=== PATIENT | female | born 1950 | race Caucasian/White ===

== ENCOUNTER → 2018-02-27 16:11 | Outpatient (CLI) | payer MEDICARE, SELFPAY ==
--- NOTE | 2018-02-27 16:17 | MM_ITS ---
MM Dig screening mamm BI w/CAD CAD Screening ORDERING PHYSICIAN : Arjun Baez PATIENT AGE: 67 years GENDER: Female COMPARISON: Previous mammograms: January 2012 & June 2010 & December 2006 INDICATION: Routine screening. No hormones. No new complaints noncontributory family history TECHNIQUE: Standard CC and MLO images were obtained. R2 CAD reviewed. FINDINGS: Lower density breast bilaterally. Minimal residual fibroglandular elements with Moderate generalized fatty replacement with No dominant mass nor suspicious calcifications . No architectural distortion. No significant change since prior study Right Breast: Small area of density at the inferior retroareolar region on was present on studies dating back to 2009 Believe is stable, can be followed however I would recommend & encourage annual follow-up to assure stability Left breast: No new findings. No new areas of concern. =====IMPRESSION: 1. Overall Stable bilateral mammogram with no significant new findings. . small area of of density inferior retroareolar region right breast appears stable since 2009 MLO view... But I would encourage follow-up in not over one year for ongoing evaluation 2. Bilateral follow-up in one year recommended & should be emphasized/encouraged to further confirm stability. Thank you BI-RADS Category: 2 Benign Finding(s) RECOMMENDED FOLLOW-UP: 1YR - 1 YEAR FOLLOW-UP (A letter has been sent to the patient regarding results of the study.) 8
== END ==
PROVIDERS: PCP Internal Medicine; Visit Provider Internal Medicine
DX: Z12.31 Encounter for screening mammogram for malignant neoplasm of breast (principal)
CPT/HCPCS: 77067

== ENCOUNTER → 2018-10-16 09:49 | Outpatient (CLI) | payer MEDICARE, SELFPAY ==
[2018-10-16 10:07] LABS: Basophils # 0.1 K/mm3 (0-0.2); Basophils % 0.6 % (0.1-2.0); Eosinophils # 0.2 K/mm3 (0.0-0.4); Eosinophils % 2.5 % (0.1-12.0); Hematocrit 37.1 % (37.0-47.0); Hemoglobin 11.7 g/dL (12.2-16.2); Lymphocytes # 1.5 K/mm3 (0.7-4.5); Mean Corpuscular HGB Conc 31.6 g/dL (31.8-35.4); Mean Corpuscular Hemoglobin 26.7 pg (27.0-31.2); Mean Corpuscular Volume 84.5 fl (81-99); Mean Platelet Volume 8.4 fl (7.4-10.4); Monocytes # 0.4 K/mm3 (0.1-1.0); Monocytes % 5.1 % (1.7-9.3); Neutrophils # 6.2 K/mm3 (1.8-7.8); Neutrophils % 73.8 % (37.0-80.0); Platelet Count 292 K/mm3 (142-424); Red Blood Count 4.39 M/mm3 (4.20-5.40); Red Cell Distribution Width 14.9 % (11.5-17.5); White Blood Count 8.4 K/mm3 (4.8-10.8)
[2018-10-16 11:15] LABS: Alanine Aminotransferase 43 U/L (12-78); Albumin Level 3.9 gm/dL (3.4-5.0); Albumin/Globulin Ratio 1.1 (1.1-1.8); Alkaline Phosphatase 43 U/L (46-116); Anion Gap 15.7 mEq/L (5-15); Aspartate Amino Transferase 22 U/L (15-37); Bilirubin,Total 0.4 mg/dL (0.2-1.0); Blood Urea Nitrogen 21 mg/dL (7-18); Calcium 9.3 mg/dL (8.5-10.1); Carbon Dioxide 28 mmol/L (21.0-32.0); Chloride 99 mmol/L (98-107); Chol/HDL Ratio 2.3 (1-3.5); Cholesterol 119 mg/dL (140-200); Creatinine,Serum 0.98 mg/dL (0.55-1.02); Estimated Glomerular Filt Rate 56 ml/min (>60); GFR (African American) 68 ML/MIN (>60); Globulin 3.5 gm/dl (1.3-3.2); Glucose 111 mg/dL (74-106); HDL Cholesterol 52 mg/dL (29-89); LDL Cholesterol 52 mg/dL (0-130); Potassium 4.7 mmoL/L (3.5-5.1); Sodium 138 mmol/L (136-145); Total Protein,Serum 7.4 gm/dL (6.4-8.2); Triglycerides 74 mg/dL (30-200); VLDL Cholesterol 15 mg/dL (0-40)
== END ==
PROVIDERS: Visit Provider Internal Medicine
DX: I10 Essential (primary) hypertension (principal); D64.9 Anemia, unspecified; E66.01 Morbid (severe) obesity due to excess calories
CPT/HCPCS: 36415; 80053; 80061; 85025

== ENCOUNTER → 2018-11-17 12:47 | Outpatient (CLI) | payer MEDICARE, SELFPAY ==
[2018-11-17 13:16] LABS: Anion Gap 14.6 mEq/L (5-15); Blood Urea Nitrogen 28 mg/dL (7-18); Calcium 9.2 mg/dL (8.5-10.1); Carbon Dioxide 29 mmol/L (21.0-32.0); Chloride 100 mmol/L (98-107); Creatinine,Serum 1.18 mg/dL (0.55-1.02); Estimated Glomerular Filt Rate 46 ml/min (>60); GFR (African American) 55 ML/MIN (>60); Glucose 114 mg/dL (74-106); Potassium 4.6 mmoL/L (3.5-5.1); Sodium 139 mmol/L (136-145)
== END ==
PROVIDERS: Visit Provider Physician Assistant
DX: I50.9 Heart failure, unspecified (principal); R06.09 Other forms of dyspnea
CPT/HCPCS: 36415; 80048; 83880

== ENCOUNTER → 2018-11-23 12:35 | Outpatient (CLI) | payer MEDICARE, SELFPAY ==
--- NOTE | 2018-11-23 12:38 | CA_ITS ---
PROCEDURE: 2-D M-mode and color Doppler study INDICATIONS FOR THE TEST: Chest pain COPD Heart Murmur Tobacco Smoking Palpitations Fatigue Syncope Edema+ Hypertension+Diabetes Mellitus Rheumatic Fever SOB YOUNG+Obesity+Hyperlipidemia+ Family History HD Additional History CHF,ANGINA,CKD PATIENT INFORMATION HEIGHT:66 WEIGHT:265 GENDER: Female B/P:118/52 2-D/M-MODE INTERPRETATION: 2-D MEASUREMENTS OBSERVED VALUES IN CMS Right Ventricular Dimension (RVDd) 1.9 Interventricular Septum (Thickness)(IVsd) 1.0 Left Ventricular Internal Dimensions(LVIDd) 5.3 Left Ventricular Posterior Wall (Thickness)(LVPWd) 0.9 Aortic Root 2.4 Aortic Cusp Separation 2.0 Left Atrial Dimensions (LAD) 3.7 2D 1. Left atrium is mildly enlarged, left ventricle is normal size, left ventricle wall thickness is upper limit of the normal, there is preserved left ventricular systolic function, visually estimated ejection fraction 55% with no regional wall motion abnormality. 2. The right atrium and right ventricle are normal size and contractility. 3. The aortic valve is minimally thickened and fibrosed. 4. The mitral and tricuspid valvular grossly normal. 5. The pulmonic valve is poorly visualized. 6. No significant pericardial effusion noted. DOPPLER INTERROGATION: Doppler interrogation of the aortic, mitral and tricuspid valvular presence of mild mitral and tricuspid regurgitation, tricuspid regurgitation jet velocity is inadequate for calculation of the right ventricular systolic pressure, diastolic parameters are inconclusive. CONCLUSION: 1. Mildly enlarged left atrium, normal left ventricular size, visually estimated ejection fraction 55% with no regional wall motion abnormality, diastolic parameters are inconclusive. 2. Mild mitral and tricuspid regurgitation 3. No significant pericardial effusion noted.
== END ==
PROVIDERS: PCP Internal Medicine; Visit Provider Internal Medicine
DX: R06.09 Other forms of dyspnea; E66.01 Morbid (severe) obesity due to excess calories; E78.5 Hyperlipidemia, unspecified; I20.9 Angina pectoris, unspecified; I50.32 Chronic diastolic (congestive) heart failure; I50.9 Heart failure, unspecified; I51.7 Cardiomegaly; N18.9 Chronic kidney disease, unspecified; R60.9 Edema, unspecified
CPT/HCPCS: 93306

== ENCOUNTER → 2018-12-14 09:39 | Outpatient (CLI) | payer MEDICARE, SELFPAY ==
[2018-12-14 13:11] LABS: Anion Gap 12.3 mEq/L (5-15); Blood Urea Nitrogen 26 mg/dL (7-18); Calcium 9.4 mg/dL (8.5-10.1); Carbon Dioxide 28 mmol/L (21.0-32.0); Chloride 103 mmol/L (98-107); Creatinine,Serum 0.82 mg/dL (0.55-1.02); Estimated Glomerular Filt Rate 69 ml/min (>60); GFR (African American) 84 ML/MIN (>60); Glucose 94 mg/dL (74-106); Potassium 4.3 mmoL/L (3.5-5.1); Sodium 139 mmol/L (136-145)
== END ==
PROVIDERS: Visit Provider Internal Medicine Cardiovascular Disease
DX: I50.32 Chronic diastolic (congestive) heart failure; E66.01 Morbid (severe) obesity due to excess calories; E78.5 Hyperlipidemia, unspecified; I50.9 Heart failure, unspecified; I51.7 Cardiomegaly; N18.9 Chronic kidney disease, unspecified
CPT/HCPCS: 36415; 80048; 83880

== ENCOUNTER → 2018-12-15 12:50 | Outpatient (CLI) | payer MEDICARE, SELFPAY | PROVIDERS: PCP Internal Medicine; Visit Provider Internal Medicine Cardiovascular Disease | DX: I50.32 Chronic diastolic (congestive) heart failure; R06.83 Snoring; R40.0 Somnolence; E66.01 Morbid (severe) obesity due to excess calories; E78.5 Hyperlipidemia, unspecified; I51.7 Cardiomegaly; N18.9 Chronic kidney disease, unspecified; G47.33 Obstructive sleep apnea (adult) (pediatric) | CPT/HCPCS: G0399 ==

== ENCOUNTER → 2019-03-22 09:46 | Outpatient (CLI) | payer MEDICARE, SELFPAY | PROVIDERS: Visit Provider Internal Medicine Cardiovascular Disease | DX: R06.00 Dyspnea, unspecified; R07.9 Chest pain, unspecified; E78.5 Hyperlipidemia, unspecified; I50.32 Chronic diastolic (congestive) heart failure; I50.9 Heart failure, unspecified; N18.9 Chronic kidney disease, unspecified; E66.01 Morbid (severe) obesity due to excess calories; G47.33 Obstructive sleep apnea (adult) (pediatric) | CPT/HCPCS: 36415; 83880 ==

== ENCOUNTER → 2019-03-27 08:52 | Outpatient (CLI) | payer MEDICARE, SELFPAY ==
--- NOTE | 2019-03-27 08:52 | CA_ITS ---
PROCEDURE: 2-D M-mode and color Doppler study INDICATIONS FOR THE TEST: Chest pain X COPD Heart Murmur Tobacco Smoking Palpitations Fatigue Syncope Edema HypertensionXDiabetes Mellitus Rheumatic Fever SOBXDOEXObesityXHyperlipidemiaX Family History HD Additional History PATIENT INFORMATION HEIGHT: 69 WEIGHT:267 GENDER: Female B/P:111/58 2-D/M-MODE INTERPRETATION: 2-D MEASUREMENTS OBSERVED VALUES IN CMS Right Ventricular Dimension (RVDd) 2.3 Interventricular Septum (Thickness)(IVsd) .8 Left Ventricular Internal Dimensions(LVIDd) 5.1 Left Ventricular Posterior Wall (Thickness)(LVPWd) .8 Aortic Root 3.2 Aortic Cusp Separation 1.9 Left Atrial Dimensions (LAD) 3.0 2D 1. Left atrium is mildly enlarged, left ventricle is normal size, mild concentric left ventricular hypertrophy, visually estimated ejection fraction 55% with no regional wall motion abnormality. 2. The right atrium and right ventricle are normal size and contractility. 3. The aortic valve is minimally thickened and fibrosed. 4. The mitral and tricuspid valvular grossly normal. 5. The pulmonic valve is poorly visualized. 6. No significant pericardial effusion noted. DOPPLER INTERROGATION: Doppler interrogation of the aortic, mitral and tricuspid valvular presence of mild mitral and tricuspid regurgitation, tricuspid regurgitation jet velocity is inadequate for calculation of the right ventricular systolic pressure, grade 1 diastolic dysfunction seen with tissue Doppler evidence of raised left atrial pressure. CONCLUSION: 1. Mildly enlarged left atrium, normal left ventricular size, mild concentric left ventricular hypertrophy, visually estimated ejection fraction 55% with no regional wall motion abnormality, grade 1 diastolic dysfunction seen with tissue Doppler evidence of raised left atrial pressure. 2. Mild mitral and tricuspid regurgitation 3. No significant pericardial effusion noted.
== END ==
PROVIDERS: PCP Internal Medicine; Visit Provider Internal Medicine Cardiovascular Disease
DX: R06.00 Dyspnea, unspecified; R07.9 Chest pain, unspecified; E78.5 Hyperlipidemia, unspecified; I50.32 Chronic diastolic (congestive) heart failure; N18.9 Chronic kidney disease, unspecified; E66.01 Morbid (severe) obesity due to excess calories; G47.33 Obstructive sleep apnea (adult) (pediatric)
CPT/HCPCS: 93306

== ENCOUNTER → 2019-08-08 15:32 | Outpatient (CLI) | payer MEDICARE, SELFPAY ==
--- NOTE | 2019-08-08 15:45 | XR_ITS ---
PROCEDURE: XR LUMBAR SPINE MIN 4V CLINICAL INDICATION: S/P FALL,LOW BACK PAIN,COCCYX PAIN COMPARISON: XR COCCYX 2V from 08/08/2019 FINDINGS: There is severe degenerative disc disease at L5-S1 with grade 2 spondylitic spondylolisthesis of L5 on S1. There is 1.5 cm anterolisthesis of L5. degenerative disc disease is present in the lower thoracic spine. No acute fracture or dislocation. Facet arthritic changes are present at L5-S1. The sacrum and coccyx have an unremarkable appearance. The SI joints show mild degenerative change on the left. IMPRESSION: 1. Grade 2 spondylolisthesis of L5 on S1 with degenerative disc disease at that level. The spondylolisthesis appears spondylitic in nature. CT or MRI could confirm. 2. Facet arthritic changes at L5-S1 3. Unremarkable sacrum/coccyx Dictated by: Andre Tran MD 08/08/2019 17:11 Electronically signed by Andre Tran MD in [place] 08/08/2019 17:11
== END ==
PROVIDERS: PCP Internal Medicine; Visit Provider Internal Medicine
DX: M54.5 Low back pain (principal); M53.3 Sacrococcygeal disorders, not elsewhere classified
CPT/HCPCS: 72110; 72220

== ENCOUNTER → 2019-08-13 12:31 | Outpatient (CLI) | payer MEDICARE, SELFPAY ==
[2019-08-13 13:07] LABS: Anion Gap 12.6 mEq/L (5-15); Blood Urea Nitrogen 19 mg/dL (7-18); Calcium 9.2 mg/dL (8.5-10.1); Carbon Dioxide 27 mmol/L (21.0-32.0); Chloride 103 mmol/L (98-107); Creatinine,Serum 0.71 mg/dL (0.55-1.02); Estimated Glomerular Filt Rate 82 ml/min (>60); GFR (African American) 99 ML/MIN (>60); Glucose 104 mg/dL (74-106); Potassium 4.6 mmoL/L (3.5-5.1); Sodium 138 mmol/L (136-145)
== END ==
PROVIDERS: Visit Provider Internal Medicine
DX: I10 Essential (primary) hypertension (principal)
CPT/HCPCS: 36415; 80048

== ENCOUNTER 2019-08-14 22:03 | Inpatient (IN) ==
[2019-08-14 22:46] LABS: Basophils % 0.6 % (0.1-2.0); Eosinophils # 0.1 K/mm3 (0.0-0.4); Eosinophils % 1.9 % (0.1-12.0); Lymphocytes # 1.5 K/mm3 (0.7-4.5); Lymphocytes % 25.2 % (10-50); Mean Corpuscular HGB Conc 29.6 g/dL (31.8-35.4); Mean Corpuscular Volume 65.6 fl (81-99); Mean Platelet Volume 7.8 fl (7.4-10.4); Monocytes # 0.3 K/mm3 (0.1-1.0); Monocytes % 5.5 % (1.7-9.3); Neutrophils # 3.9 K/mm3 (1.8-7.8); Neutrophils % 66.8 % (37.0-80.0); Platelet Count 246 K/mm3 (142-424); Red Blood Count 2.51 M/mm3 (4.20-5.40); Red Cell Distribution Width 17.4 % (11.5-17.5); White Blood Count 5.9 K/mm3 (4.8-10.8)
[2019-08-14 22:53] LABS: Hematocrit 17.8 % (37.0-47.0); Hemoglobin 4.9 g/dL (12.2-16.2)
[2019-08-14 22:54] LABS: Alanine Aminotransferase 29 U/L (12-78); Albumin Level 3.4 gm/dL (3.4-5.0); Alkaline Phosphatase 37 U/L (46-116); Anion Gap 13.6 mEq/L (5-15); Aspartate Amino Transferase 19 U/L (15-37); Bilirubin,Total 0.3 mg/dL (0.2-1.0); Blood Urea Nitrogen 18 mg/dL (7-18); Calcium 8.9 mg/dL (8.5-10.1); Carbon Dioxide 25 mmol/L (21.0-32.0); Chloride 103 mmol/L (98-107); Globulin 3.5 gm/dl (1.3-3.2); Glucose 113 mg/dL (74-106); Sodium 138 mmol/L (136-145); Total Protein,Serum 6.9 gm/dL (6.4-8.2)
--- NOTE | 2019-08-14 23:00 | Emergency Department Note ---
ED Disposition Clinical Impression: Anemia Qualifiers: Anemia type: unspecified type Qualified Code(s): D64.9 - Anemia, unspecified Obesity Qualifiers: Obesity type: due to excess calories Obesity classification: adult class 3 (BMI >= 40) Serious obesity comorbidity presence: with serious comorbidity Body mass index: BMI 40.0-44.9 Qualified Code(s): E66.01 - Morbid (severe) obesity due to excess calories; Z68.41 - Body mass index (BMI) 40.0-44.9, adult Disposition: Admitted as Observation Condition on Discharge: Good Referrals: Arjun Baez [Primary Care Provider] - - Critical Care Critical Care Time: No Attestation: On 08/14/19, the high probability of a clinically significant, sudden or life threatening deterioration of the following system(s) required my full and direct attention, intervention and personal management. The time I documented below is in addition to time spent performing reported procedures but includes the following listed in this critical care notation. Medical Decision Making - Medical Records Medical records reviewed: Yes: I reviewed the patient's medical records. - Franck Inquiry Pt receiving controlled substance: No Vital Signs: 08/14/19 22:14 Temperature 99.3 F Temperature Source Oral Pulse Rate [Right Brachial] 117 H Respiratory Rate 16 Blood Pressure [Right Arm] 131/77 Blood Pressure Mean [Right Arm] 95 Blood Pressure Source [Right Arm] Automatic Cuff Blood Pressure Position [Right Arm] Sitting 02 Sat by Pulse Oximetry 98 Oxygen Delivery Method Room Air - Lab Data Lab results reviewed: Yes: I reviewed the patient's lab results. Lab Results 08/14/19 22:15: WBC 5.9, RBC 2.51 L, Hgb 4.9 L*, Hct 17.8 L*, MCV 65.6 L, MCH 19.4 L, MCHC 29.6 L, RDW 17.4, Plt Count 246, MPV 7.8, Neut % (Auto) 66.8, Lymph % (Auto) 25.2, Pratt % (Auto) 5.5, Eos % (Auto) 1.9, Baso % (Auto) 0.6, Neut # (Auto) 3.9, Lymph # (Auto) 1.5, Pratt # (Auto) 0.3, Eos # (Auto) 0.1, Baso # (Auto) 0.0 08/14/19 22:15: Sodium 138, Potassium 3.6 D, Chloride 103, Carbon Dioxide 25, Anion Gap 13.6, BUN 18, Creatinine 0.83, Estimated Creat Clear 50, Estimated GFR 68, Est GFR ( Amer) 82, Glucose 113 H, Calcium 8.9, Total Bilirubin 0.3, AST 19, ALT 29, Alkaline Phosphatase 37 L, Troponin I < 0.02, Total Protein 6.9, Albumin 3.4, Globulin 3.5 H, Albumin/Globulin Ratio 1.0 L 08/14/19 22:15: Lactate 1.0 08/14/19 23:12: Crossmatch (AHG) See Detail Result diagrams: 08/14/19 22:15 08/14/19 22:15 Orders (Tests/Meds): ED MEDICATIONS Generic Name Dose Route Start Last Admin Trade Name Freq PRN Reason Stop Dose Admin Sodium Chloride 250 mls @ 25 mls/hr 08/14/19 23:00 Sod Chlor 0.9% 250ml Bag IV 08/15/19 22:59 .Q10H BALDEMAR ORDERS Category Date Time Status PRBC [Red Blood Cells] Stat BBK 08/14/19 23:12 Received Type and Screen Stat BBK 08/14/19 23:12 Received Chest XR 2 view (NOT portable) [XR chest 2V] Stat Exams 08/14/19 22:21 Taken Urinalysis and Microscopic Stat Lab 08/14/19 22:21 Ordered Blood Culture Stat Micro 08/14/19 22:15 Received - Radiology Data #1 Image(s): Chest Image Reviewed: Yes I reviewed the patient's radiology image Preliminary Findings: Abnormal (nonspecific) - ECG Data Tracing #1 Arrhythmias present: sinus tach Ischemic changes: non-specific ST-T wave changes Weakness HPI - General Chief complaint: Weakness Stated complaint: sob,sICK AT STOMACH Time Seen by Provider: 08/14/19 22:59 Mode of Arrival: Wheelchair Source of Information: Patient, Spouse, Relative, Medical Record Limitations: No Limitations Description of Symptoms (Recalled from ER Triage Doc. by RN): Pt c/o SOA, dry heaves and generally not feeling well since Tuesday. - History of Present Illness HPI Narrative: pt with chest fullness and weakness with recent fall - pt with no vomiting but has nausea - pt was seen by pcp this week with xray pelvis - no fx with back changes Complaint: generalized weakness Onset (ago): hour(s) Location: generalized Severity: moderate Associated symptoms: denies other symptoms - Related Data Home Medications Medication Instructions Recorded Confirmed aspirin 81 mg tablet,delayed 81 mg PO QDAY 12/12/17 06/14/19 release citalopram 20 mg tablet 20 mg PO QDAY 12/12/17 06/14/19 lisinopril 20 mg tablet 20 mg PO QDAY 12/12/17 06/14/19 pravastatin 80 mg tablet 80 mg PO QHS 12/12/17 06/14/19 tramadol 50 mg tablet 50 mg PO BID tab 12/12/17 06/14/19 spironolactone 25 mg tablet 25 mg PO DAILY tab 12/07/18 06/14/19 Metoprolol Succinate 50 mg PO DAILY 08/14/19 Omeprazole [Omeprazole 40mg 40 mg PO QDAY 08/14/19 Capsule] Ropinirole HCl 1 mg PO QHS 08/14/19 Verapamil HCl [Verapamil ER] 120 mg PO DAILY 08/14/19 Previous Rx's Medication Instructions Recorded furosemide 40 mg tablet 40 mg PO BID PRN #60 tab 04/19/19 Allergies Allergy/AdvReac Type Severity Reaction Status Date / Time Penicillins Allergy Intermediate I-RASH Verified 08/14/19 22:17 Sulfa (Sulfonamide Allergy Intermediate I-RASH Verified 08/14/19 22:17 Antibiotics) [facility] History - Hepatitis A Screen Drug use history?: No High risk sexual behaviors?: No History of sexually transmitted infection?: No Currently employed?: No Childcare worker?: No Do you have indoor plumbing?: Yes Do you have electricity?: Yes Attestation statement:: This patient has been screened for Hepatitis A risk factors. I have reviewed the patient's past medical history: Yes Medical History: Reports:: Congestive Heart Failure, Gastroesophageal Reflux Disease(GERD), Hyperlipidemia, Hypertension, Renal Disease Other Surgeries: Yes: No Previous Surgery, Hysterectomy-Total - Social History Smoking Status: Never smoker Alcohol Intake: never Substance Use Type: denies use Occupational Status: unemployed Family Hx:: Cancer, Coronary Artery Disease Comment: aunt of heart problems when she was 27 ROS Obtained: Yes All systems reviewed & no additional complaints - Constitutional Constitutional: Denies fever(s) - Eyes Eyes: Denies change in vision - ENT Ears, Nose, Mouth, and Throat: Denies sore throat - Cardiovascular Cardiovascular: Reports chest pain, Denies dyspnea - Respiratory Respiratory: No cough - Gastrointestinal Gastrointestingal: Denies: abdominal pain, black, tarry stools - Genitourinary Female Genitourinary: Denies hematuria - Musculoskeletal Musculoskeletal: Denies joint pain, Denies neck pain - Integumentary/Breasts Skin/Breast: Denies rash - Neurologic Neurologic: Denies abnormal speech, Denies focal weakness, Denies seizure-like activity Physical Exam - General General appearance: alert - Head Head exam: normocephalic - Eye Eye exam: Present: PERRL, EOMI. Absent: scleral icterus - ENT ENT exam: Present: mucous membranes dry - Neck Neck exam: Present: trachea midline - Respiratory Respiratory exam: Absent: respiratory distress - Cardiovascular Cardiovascular exam: Present: regular rate, systolic murmur, +S4 - Abdominal Exam Abdominal exam: Present: soft - Extremities Exam Extremities exam: Present: full ROM - Neurological Exam Neurological exam: Present: alert, oriented X3, CN II-XII intact. Absent: motor sensory deficit - Psychiatric Psychiatric exam: Present: normal affect - Skin Skin exam: Absent: rash
[2019-08-15 03:10] LABS: Appearance,Urine CLEAR (Clear); Bilirubin,Urine Negative (Negative); Blood, Urine Negative (Negative); Color,Urine YELLOW (Yellow); Glucose,Urine (UA) Negative (Negative); Ketones,Urine Negative (Negative); Leukocyte Esterase,Urine TRACE (Negative); Microscopic, Urine URINE MICROSCOPIC (MICROSCOPIC); PH,Urine 5.5 (5.0-8.5); Protein,Urine Negative (Negative); Specific Gravity, Urine 1.025 (1.005-1.030); Urobilinogen,Urine 0.2 EU/dl (0.2)
[2019-08-15 03:52] LABS: Bacteria,Urine 1+ /lpf; Mucus,Urine 1+ /lpf
[2019-08-15 07:20] LABS: Chol/HDL Ratio 2.2 (1-3.5); Cholesterol 87 mg/dL (140-200); HDL Cholesterol 40 mg/dL (29-89); LDL Cholesterol 38 mg/dL (0-130); Triglycerides 44 mg/dL (30-200); VLDL Cholesterol 9 mg/dL (0-40)
--- NOTE | 2019-08-15 07:39 | Pharmacy Consult Notes ---
[facility] Pharmacy VTE Monitoring - Patient Demographics Admission date: 08/14/19 Report Date: 08/15/19 Time: 07:39 Allergies/Adverse Reactions: Patient Allergies Penicillins Allergy (Intermediate, Verified 08/14/19 22:17) I-RASH Sulfa (Sulfonamide Antibiotics) Allergy (Intermediate, Verified 08/14/19 22:17) I-RASH Height: 1.68 m Weight: 123.377 kg Patient Problems: Current Active Problems Anemia (Acute) Obesity (Acute) - VTE Risk Labs: VTE Related Lab Results Hgb 4.9 g/dL (12.2-16.2) L* 08/14/19 22:15 Hct 17.8 % (37.0-47.0) L* 08/14/19 22:15 Plt Count 246 K/mm3 (142-424) 08/14/19 22:15 BUN 18 mg/dL (7-18) 08/14/19 22:15 Creatinine 0.83 mg/dL (0.55-1.02) 08/14/19 22:15 Estimated Creat Clear 50 mL/min (50-200) 08/14/19 22:15 Was VTE Risk Assessment Performed: Yes VTE Risk Level: Low Risk - Prophylaxis VTE Prophylaxis Ordered?: Yes Types of VTE Prophylaxis: TEDS Knee High Location of Applied Device: Bilateral Lower Extremeties - VTE Diagnosis Confirmed Treatment or plan recommended: Continue Current Treatment
--- NOTE | 2019-08-15 08:47 | History & Physical Report ---
*Admission Date: 08/14/19 *Chief complaint: weakness *History of present illness: this wf presented to the ed last pm with progressive weakness and fall with element of chest fullness - she denied vomiting or diarrhea and no melena - she reports colonoscopy about 2 yrs ago - pt was found to have acute blood loss anemia in the ed and waqs admitted for eval and treatment including blood transfusion [facility] History I have reviewed the patient's past medical history: Yes Medical History: Reports:: Congestive Heart Failure, Gastroesophageal Reflux Disease(GERD), Hyperlipidemia, Hypertension, Renal Disease *Have you ever received a pneumonia vaccine?: No *Have you received a flu vaccine this season?: No Other Surgeries: Yes: No Previous Surgery, Hysterectomy-Total - *Social History Smoking Status: Never smoker Alcohol Intake: never Substance Use Type: denies use *Occupational Status:: unemployed *Travel in the last 8 weeks: None Family Hx:: Cancer, Coronary Artery Disease Review of Systems - Review of Systems Review of systems:: pertinent systems reviewed and negative unless documented below - Constitutional Reports fatigue, Reports weakness, Denies fever(s) - Eyes Denies change in vision - ENT Denies headache(s), Denies sore throat - *Cardiovascular Reports chest pain at rest, Reports lightheadedness - *Respiratory Denies cough - *Gastrointestinal Reports nausea, Denies abdominal pain, Denies black, tarry stools - *Genitourinary Denies blood in urine, Denies heavy periods - *Musculoskeletal Denies joint pain - Integumentary/Breasts Denies rash - *Neurologic Denies abnormal speech, Denies localized weakness, Denies seizure-like activity - Psychiatric Denies anxiety Meds Home Medications Medication Instructions Recorded Confirmed Type aspirin 81 mg tablet,delayed 81 mg PO DAILY 12/12/17 08/15/19 History release citalopram 20 mg tablet 20 mg PO DAILY 12/12/17 08/15/19 History pravastatin 80 mg tablet 80 mg PO HS 12/12/17 08/15/19 History tramadol 50 mg tablet 50 mg PO Q6HP PRN tab 12/12/17 08/15/19 History furosemide 40 mg tablet 40 mg PO BID PRN #60 tab 04/19/19 08/15/19 Rx Metoprolol Succinate 50 mg PO DAILY 08/14/19 08/15/19 History Omeprazole [Omeprazole 40mg 40 mg PO DAILY 08/14/19 08/15/19 History Capsule] Ropinirole HCl 1 - 2 mg PO HS 08/14/19 08/15/19 History Verapamil HCl [Verapamil ER] 120 mg PO DAILY 08/14/19 08/15/19 History Lisinopril [Lisinopril 10mg Tab] 10 mg PO DAILY 08/15/19 08/15/19 History Spironolactone [Spironolactone 25 mg PO BID 08/15/19 08/15/19 History 25mg Tablet] Allergies Allergy/AdvReac Type Severity Reaction Status Date / Time Penicillins Allergy Intermediate I-RASH Verified 08/14/19 22:17 Sulfa (Sulfonamide Allergy Intermediate I-RASH Verified 08/14/19 22:17 Antibiotics) Exam Vital signs and Labs for Last 24 Hours: Temp Pulse Resp BP Pulse Ox 98.7 F 75 16 146/68 H 99 08/15/19 08:35 08/15/19 08:35 08/15/19 08:35 08/15/19 08:35 08/15/19 08:35 Laboratory Results - last 24 hr 08/14/19 22:15: WBC 5.9, RBC 2.51 L, Hgb 4.9 L*, Hct 17.8 L*, MCV 65.6 L, MCH 19.4 L, MCHC 29.6 L, RDW 17.4, Plt Count 246, MPV 7.8, Neut % (Auto) 66.8, Lymph % (Auto) 25.2, Garden % (Auto) 5.5, Eos % (Auto) 1.9, Baso % (Auto) 0.6, Neut # (Auto) 3.9, Lymph # (Auto) 1.5, Garden # (Auto) 0.3, Eos # (Auto) 0.1, Baso # (Auto) 0.0 08/14/19 22:15: Sodium 138, Potassium 3.6 D, Chloride 103, Carbon Dioxide 25, Anion Gap 13.6, BUN 18, Creatinine 0.83, Estimated Creat Clear 50, Estimated GFR 68, Est GFR ( Amer) 82, Glucose 113 H, Calcium 8.9, Total Bilirubin 0.3, AST 19, ALT 29, Alkaline Phosphatase 37 L, Troponin I < 0.02, Total Protein 6.9, Albumin 3.4, Globulin 3.5 H, Albumin/Globulin Ratio 1.0 L 08/14/19 22:15: Lactate 1.0 08/14/19 22:15: Ferritin 5 L 08/14/19 23:12: Blood Type A Positive, Antibody Screen Negative, Crossmatch (AHG) See Detail 08/14/19 23:57: Stool Occult Blood Positive A 08/15/19 00:00: Blood Type Confirm A Positive 08/15/19 02:45: Urine Color Yellow, Urine Appearance Clear, Urine pH 5.5, Ur Specific [place] 1.025, Urine Protein Negative, Urine Glucose (UA) Negative, Ur ine Ketones Negative, Urine Blood Negative, Urine Nitrate Negative, Urine Bilirubin Negative, Urine Urobilinogen 0.2, Ur Leukocyte Esterase Trace, Urine RBC 3-5, Urine WBC 3-5, Ur Squamous Epith Cells 3-5, Urine Bacteria 1+, Urine Mucus 1+ 08/15/19 03:40: Troponin I < 0.02 08/15/19 06:32: Troponin I < 0.02, Triglycerides 44, Cholesterol 87 L, LDL Cholesterol 38, VLDL Cholesterol 9, HDL Cholesterol 40, Cholesterol/HDL Ratio 2.2 I & O for Last 24 hours: Intake & Output 08/12/19 08/13/19 08/14/19 08/15/19 11:59 11:59 11:59 11:59 Intake Total 293 / 293 Output Total 375 / 375 Balance -82 / -82 Weight 272 lb - Constitutional no acute distress, obese - *Routine HEENT Exam Head: Present: normocephalic Eye: Present: EOMI, PERRL. Absent: conjunctival icterus ENT: Present: mucous membranes dry - *Routine Neck Exam Present: supple. Absent: JVD - *Routine Respiratory Exam Present: CTA bilaterally - *Routine Cardiovascular Exam Present: RRR, murmur - *Routine Abdominal Exam Present: soft, tenderness - *Routine Extremities Exam Absent: calf tenderness - *Routine Skin Exam Present: intact - *Routine Neurological Exam Present: alert, oriented X3, CN II-XII intact - Routine Psychiatric Exam Present: normal affect Assessment and Plan (1) Anemia Current visit: Yes Status: Acute Qualifiers: Anemia type: unspecified type Qualified Code(s): D64.9 - Anemia, unspecified Category: Medical Code(s): D64.9 - Anemia, unspecified (2) UGIB (upper gastrointestinal bleed) Current visit: Yes Status: Acute Category: Medical Code(s): K92.2 - Gastrointestinal hemorrhage, unspecified (3) Obesity Current visit: Yes Status: Acute Qualifiers: Obesity type: due to excess calories Obesity classification: adult class 3 (BMI >= 40) Serious obesity comorbidity presence: with serious comorbidity Body mass index: BMI 40.0-44.9 Qualified Code(s): E66.01 - Morbid (severe) obesity due to excess calories; Z68.41 - Body mass index (BMI) 40.0-44.9, adult Category: Medical Code(s): E66.9 - Obesity, unspecified
--- NOTE | 2019-08-15 15:51 | Consult Report ---
*Admission Date: 08/14/19 *Reason for consult:: Anemia *History of present illness: This is a 69-year-old female seen in consultation from Dr. Oquendo for evaluation regarding severe anemia. She presented to the emergency department with increasing weakness and vague abdominal pain. She was found to have profound anemia and the surgical service was consulted for further evaluation and management. She reported no melena; however, upon present questioning she does state that she has noticed "dark stools today". No bright red blood per rectum. No hematemesis. She reports colonoscopy about 2 yrs ago. She reports that she is received 4 units of packed red blood cells since admission and "feels much better right now". Review of Systems - Constitutional Denies chills - Eyes Denies change in vision - ENT Denies bleeding gums - *Respiratory Denies cough - *Gastrointestinal Reports abdominal pain - *Genitourinary Denies blood in urine - Integumentary/Breasts Denies bleeding lesions - *Neurologic Reports weakness, Denies abnormal speech, Denies localized weakness, Denies headache(s), Denies seizure-like activity - Psychiatric Denies anxiety [facility] History Medical History: Reports:: Congestive Heart Failure, Gastroesophageal Reflux Disease(GERD), Hyperlipidemia, Hypertension, Renal Disease *Have you ever received a pneumonia vaccine?: No *Have you received a flu vaccine this season?: No Other Surgeries: Yes: No Previous Surgery, Hysterectomy-Total - *Social History Smoking Status: Never smoker Alcohol Intake: never Substance Use Type: denies use *Occupational Status:: unemployed *Travel in the last 8 weeks: None Family Hx:: Cancer, Coronary Artery Disease Meds Home Medications Medication Instructions Recorded Confirmed Type aspirin 81 mg tablet,delayed 81 mg PO DAILY 12/12/17 08/15/19 History release citalopram 20 mg tablet 20 mg PO DAILY 12/12/17 08/15/19 History pravastatin 80 mg tablet 80 mg PO HS 12/12/17 08/15/19 History tramadol 50 mg tablet 50 mg PO Q6HP PRN tab 12/12/17 08/15/19 History furosemide 40 mg tablet 40 mg PO BID PRN #60 tab 04/19/19 08/15/19 Rx Metoprolol Succinate 50 mg PO DAILY 08/14/19 08/15/19 History Omeprazole [Omeprazole 40mg 40 mg PO DAILY 08/14/19 08/15/19 History Capsule] Ropinirole HCl 1 - 2 mg PO HS 08/14/19 08/15/19 History Verapamil HCl [Verapamil ER] 120 mg PO DAILY 08/14/19 08/15/19 History Lisinopril [Lisinopril 10mg Tab] 10 mg PO DAILY 08/15/19 08/15/19 History Spironolactone [Spironolactone 25 mg PO BID 08/15/19 08/15/19 History 25mg Tablet] Allergies Allergy/AdvReac Type Severity Reaction Status Date / Time Penicillins Allergy Intermediate I-RASH Verified 08/14/19 22:17 Sulfa (Sulfonamide Allergy Intermediate I-RASH Verified 08/14/19 22:17 Antibiotics) Exam Vital signs and Labs for Last 24 Hours: Temp Pulse Resp BP Pulse Ox 98.9 F 77 16 147/62 H 99 08/15/19 15:00 08/15/19 15:00 08/15/19 15:00 08/15/19 15:00 08/15/19 15:00 Laboratory Results - last 24 hr 08/14/19 22:15: WBC 5.9, RBC 2.51 L, Hgb 4.9 L*, Hct 17.8 L*, MCV 65.6 L, MCH 19.4 L, MCHC 29.6 L, RDW 17.4, Plt Count 246, MPV 7.8, Neut % (Auto) 66.8, Lymph % (Auto) 25.2, Ritchie % (Auto) 5.5, Eos % (Auto) 1.9, Baso % (Auto) 0.6, Neut # (Auto) 3.9, Lymph # (Auto) 1.5, Ritchie # (Auto) 0.3, Eos # (Auto) 0.1, Baso # (Auto) 0.0 08/14/19 22:15: Sodium 138, Potassium 3.6 D, Chloride 103, Carbon Dioxide 25, Anion Gap 13.6, BUN 18, Creatinine 0.83, Estimated Creat Clear 50, Estimated GFR 68, Est GFR ( Amer) 82, Glucose 113 H, Calcium 8.9, Total Bilirubin 0.3, AST 19, ALT 29, Alkaline Phosphatase 37 L, Troponin I < 0.02, Total Protein 6.9, Albumin 3.4, Globulin 3.5 H, Albumin/Globulin Ratio 1.0 L 08/14/19 22:15: Lactate 1.0 08/14/19 22:15: Ferritin 5 L 08/14/19 23:12: Blood Type A Positive, Antibody Screen Negative, Crossmatch (AHG) See Detail 08/14/19 23:57: Stool Occult Blood Positive A 08/15/19 00:00: Blood Type Confirm A Positive 08/15/19 02:45: Urine Color Yellow, Urine Appearance Clear, Urine pH 5.5, Ur Sp ecific [place] 1.025, Urine Protein Negative, Urine Glucose (UA) Negative, Urine Ketones Negative, Urine Blood Negative, Urine Nitrate Negative, Urine Bilirubin Negative, Urine Urobilinogen 0.2, Ur Leukocyte Esterase Trace, Urine RBC 3-5, Urine WBC 3-5, Ur Squamous Epith Cells 3-5, Urine Bacteria 1+, Urine Mucus 1+ 08/15/19 03:40: Troponin I < 0.02 08/15/19 06:32: Troponin I < 0.02, Triglycerides 44, Cholesterol 87 L, LDL Cholesterol 38, VLDL Cholesterol 9, HDL Cholesterol 40, Cholesterol/HDL Ratio 2.2 I & O for Last 24 hours: Intake & Output 08/13/19 08/14/19 08/15/19 08/16/19 11:59 11:59 11:59 11:59 Intake Total 293 / 293 0 / 0 Output Total 375 / 375 Balance -82 / -82 0 / 0 Weight 272 lb - Constitutional no acute distress - *Routine Respiratory Exam Absent: respiratory distress - *Routine Cardiovascular Exam Present: RRR - *Routine Abdominal Exam Present: soft Results - Labs 08/14/19 22:15 08/14/19 22:15 Laboratory Results - last 24 hr 08/14/19 22:15: WBC 5.9, RBC 2.51 L, Hgb 4.9 L*, Hct 17.8 L*, MCV 65.6 L, MCH 19.4 L, MCHC 29.6 L, RDW 17.4, Plt Count 246, MPV 7.8, Neut % (Auto) 66.8, Lymph % (Auto) 25.2, Ritchie % (Auto) 5.5, Eos % (Auto) 1.9, Baso % (Auto) 0.6, Neut # (Auto) 3.9, Lymph # (Auto) 1.5, Ritchie # (Auto) 0.3, Eos # (Auto) 0.1, Baso # (Auto) 0.0 08/14/19 22:15: Sodium 138, Potassium 3.6 D, Chloride 103, Carbon Dioxide 25, Anion Gap 13.6, BUN 18, Creatinine 0.83, Estimated Creat Clear 50, Estimated GFR 68, Est GFR ( Amer) 82, Glucose 113 H, Calcium 8.9, Total Bilirubin 0.3, AST 19, ALT 29, Alkaline Phosphatase 37 L, Troponin I < 0.02, Total Protein 6.9, Albumin 3.4, Globulin 3.5 H, Albumin/Globulin Ratio 1.0 L 08/14/19 22:15: Lactate 1.0 08/14/19 22:15: Ferritin 5 L 08/14/19 23:12: Blood Type A Positive, Antibody Screen Negative, Crossmatch (AHG) See Detail 08/14/19 23:57: Stool Occult Blood Positive A 08/15/19 00:00: Blood Type Confirm A Positive 08/15/19 02:45: Urine Color Yellow, Urine Appearance Clear, Urine pH 5.5, Ur Specific [place] 1.025, Urine Protein Negative, Urine Glucose (UA) Negative, Urine Ketones Negative, Urine Blood Negative, Urine Nitrate Negative, Urine Bilirubin Negative, Urine Urobilinogen 0.2, Ur Leukocyte Esterase Trace, Urine RBC 3-5, Urine WBC 3-5, Ur Squamous Epith Cells 3-5, Urine Bacteria 1+, Urine Mucus 1+ 08/15/19 03:40: Troponin I < 0.02 08/15/19 06:32: Troponin I < 0.02, Triglycerides 44, Cholesterol 87 L, LDL Cholesterol 38, VLDL Cholesterol 9, HDL Cholesterol 40, Cholesterol/HDL Ratio 2.2 Assessment and Plan (1) Anemia Current visit: Yes Status: Acute Qualifiers: Anemia type: unspecified type Qualified Code(s): D64.9 - Anemia, unspecified Category: Medical Code(s): D64.9 - Anemia, unspecified Follow-up posttransfusion hemoglobin/hematocrit She is scheduled for esophagogastroduodenoscopy in the morning I have discussed the risks and benefits including, but not limited to: Bleeding Infection Damage to surrounding tissue Inherent risks of sedation The patient agrees to proceed.
[2019-08-15 17:50] LABS: Hematocrit 30.7 % (37.0-47.0)
--- NOTE | 2019-08-16 06:20 | Progress Note ---
Subjective Patient reports: feels better Exam Vital signs and Labs for Last 24 Hours: Temp Pulse Resp BP Pulse Ox 98.4 F 75 17 161/67 H 100 08/15/19 20:25 08/15/19 20:25 08/15/19 20:25 08/15/19 20:25 08/15/19 20:30 Laboratory Results - last 24 hr 08/14/19 23:12: Blood Type A Positive, Antibody Screen Negative, Crossmatch (AHG) See Detail 08/15/19 06:32: Troponin I < 0.02, Triglycerides 44, Cholesterol 87 L, LDL Cholesterol 38, VLDL Cholesterol 9, HDL Cholesterol 40, Cholesterol/HDL Ratio 2.2 08/15/19 17:25: Hgb 9.0 L D, Hct 30.7 L I & O for Last 24 hours: Intake & Output 08/13/19 08/14/19 08/15/19 08/16/19 11:59 11:59 11:59 11:59 Intake Total 293 / 293 0 / 0 Output Total 375 / 375 300 / 300 Balance -82 / -82 -300 / -300 Weight 272 lb - Constitutional no acute distress - *Routine Respiratory Exam Absent: respiratory distress - *Routine Cardiovascular Exam Present: RRR Progress Note: A&P (1) Anemia Status: Acute Assessment and plan: Good response to 4 units of packed red blood cells. Esophagogastroduodenoscopy this morning. Current Visit: Yes
--- NOTE | 2019-08-16 07:27 | Procedure Note ---
- Procedure: Date: 08/16/19 Procedure Performed:: Esophagogastroduodenoscopy with biopsy Indications:: Anemia Performing Provider:: Henry Harkins MD Referring Provider:: Dr. Oquendo Sedation:: Monitored anesthesia care Procedure:: After informed consent was obtained the patient was taken to the endoscopy suite. Sedation ensued after the patient was transferred to the left lateral decubitus position. Pulse, blood pressure, and oxygen saturation were monitored throughout the procedure. The endoscope was advanced beyond the duodenal bulb. Retroflexion within the gastric lumen was accomplished. The gastroscope was carefully removed and the patient was transferred to recovery in stable condition. Please see "findings" and "specimens" below for detail. Findings:: Gastroesophageal junction at 40 cm Small sliding hiatal hernia Severely inflamed apparent fundic gland polyps in antrum (arranged in linear arrays) No active bleeding No ulcerations Specimens:: Multiple biopsies of apparent fundic gland polyps with severe inflammation (antrum) Recommendations:: High-dose proton pump inhibitors for now Likely repeat esophagogastroduodenoscopy in approximately 6 weeks Ongoing consideration of possible UGI/SBFT and possible capsule endoscopy May require repeat colonoscopy (pending results of above) Complications:: No immediate Estimated blood obtained (mL): 1
--- NOTE | 2019-08-16 07:34 | Progress Note ---
[facility] Anesthesia Checklist - Structural Data Admitted From: Home Planned Operative Procedure/s: egd Consent for Planned Operative Procedure(s) Verified: Yes - Airway Assessment C-Spine Mobility Assessed: Yes TMJ Mobility Assessed: Yes Dentition: Edentulous - Neurological Assessment Level of Consciousness: Awake, Alert, Appropriate - Anesthesia Plan Anesthesia Risk discussed: Yes Anesthesia Plan: Verified ASA Class: III Anesthesia Type: [facility] History I have reviewed the patient's past medical history: Yes Medical History: Reports:: Congestive Heart Failure, Gastroesophageal Reflux Disease(GERD), Hyperlipidemia, Hypertension, Renal Disease *Have you ever received a pneumonia vaccine?: No *Have you received a flu vaccine this season?: No Anesthesia experience/problems:: none Other Surgeries: Yes: No Previous Surgery, Hysterectomy-Total - *Social History Smoking Status: Never smoker Alcohol Intake: never Substance Use Type: denies use *Occupational Status:: unemployed *Travel in the last 8 weeks: None Family Hx:: Cancer, Coronary Artery Disease
--- NOTE | 2019-08-16 09:12 | Discharge Summary ---
General - General Admission date:: 08/15/19 Discharge date: 08/16/19 HPI HPI: this wf presented to the ed last pm with progressive weakness and fall with element of chest fullness - she denied vomiting or diarrhea and no melena - she reports colonoscopy about 2 yrs ago - pt was found to have acute blood loss anemia in the ed and waqs admitted for eval and treatment including blood transfusion Hospital Course Hospital Course: chest x ray IMPRESSION: Patchy density of the right middle lobe which may be due to an area summation density, atelectasis, or infiltrate. Follow-up suggested to confirm resolution ct abd/pelvis: IMPRESSION: 1. Splenomegaly. 2. No acute abdominal or pelvic findings. 3. Colonic diverticulosis egd:Findings:: Gastroesophageal junction at 40 cm Small sliding hiatal hernia Severely inflamed apparent fundic gland polyps in antrum (arranged in linear arrays) No active bleeding No ulcerations Specimens:: Multiple biopsies of apparent fundic gland polyps with severe inflammation (antrum) Recommendations:: High-dose proton pump inhibitors for now Likely repeat esophagogastroduodenoscopy in approximately 6 weeks Ongoing consideration of possible UGI/SBFT and possible capsule endoscopy May require repeat colonoscopy (pending results of above) 4 units packed red cells hematocrit 9 and hemoglobin 30.7. Today patient states she is feeling much better no dizziness or syncope with walking. Cardiology consult for medication recommendations. Will discharge home close follow-up w ith Dr. Harkins and Dr. Baez. Repeat H&H on Tuesday. Rhogam Administration: Not Indicated (not ob pt) Objective Vital signs: Temp Pulse Resp BP Pulse Ox 97.7 F 78 18 101/61 L 99 08/16/19 07:50 08/16/19 07:50 08/16/19 08:00 08/16/19 07:50 08/16/19 08:00 no acute distress - *Routine HEENT Exam Head: Present: normocephalic Eye: Present: PERRL ENT: Present: mucous membranes moist - *Routine Respiratory Exam Present: CTA bilaterally - *Routine Cardiovascular Exam Present: RRR - *Routine Abdominal Exam Present: soft, normoactive bowel sounds. Absent: tenderness - *Routine Extremities Exam Present: full ROM - *Routine Skin Exam Present: intact - *Routine Neurological Exam Present: alert, oriented X3 - Routine Psychiatric Exam Present: normal affect Results Labs on day of discharge: Labs from last 24 hours 08/15/19 08/14/19 17:25 23:12 Hgb 9.0 L D Hct 30.7 L Blood Type A Positive Antibody Screen Negative Crossmatch (AHG) See Detail - Additional Comments Rounded with Dr. Oquendo all orders per Jere DS: Diagnosis - Discharge Diagnosis (1) Anemia Status: Acute Problem details: severely inflamed fundic gland polyps in the antrum (2) UGIB (upper gastrointestinal bleed) Status: Acute (3) Obesity Status: Acute (4) Hypotension Status: Acute (5) Syncope Status: Acute (6) CHF (congestive heart failure) Status: Chronic (7) HLD (hyperlipidemia) Status: Chronic (8) Morbid obesity Status: Chronic Discharge Plan - Patient Discharge Instructions ACTIVITY: Continue current activity DIET: continue same diet Additional Instructions: continue same diet and same activity Patient Instructions: Anemia, Upper GI Endoscopy, Gastrointestinal Bleeding - Follow up Plan Follow up with: Bryan Motley MD [Staff Physician] - 08/30/19 10:00 am Arjun Baez [Primary Care Provider] - Henry Harkins MD [Staff Physician] - 08/29/19 9:00 am Disposition: Home, Self-Longterm Medications: Home Medications Medication Instructions Recorded Confirmed Type aspirin 81 mg tablet,delayed 81 mg PO DAILY 12/12/17 08/15/19 History release citalopram 20 mg tablet 20 mg PO DAILY 12/12/17 08/15/19 History pravastatin 80 mg tablet 80 mg PO HS 12/12/17 08/15/19 History tramadol 50 mg tablet 50 mg PO Q6HP PRN tab 12/12/17 08/15/19 History furosemide 40 mg tablet 40 mg PO BID PRN #60 tab 04/19/19 08/15/19 Rx Metoprolol Succinate 50 mg PO DAILY 08/14/19 08/15/19 History Omeprazole [Omeprazole 40mg 40 mg PO DAILY 08/14/19 08/15/19 History Capsule] Ropinirole HCl 1 - 2 mg PO HS 08/14/19 08/15/19 History Verapamil HCl [Verapamil ER] 120 mg PO DAILY 08/14/19 08/15/19 History Lisinopril [Lisinopril 10mg Tab] 10 mg PO DAILY 08/15/19 08/15/19 History Spironolactone [Spironolactone 25 mg PO BID 08/15/19 08/15/19 History 25mg Tablet] Esomeprazole Magnesium [Nexium] 40 mg PO BID 90 Days #180 08/16/19 Rx capsule. Esomeprazole Magnesium [Nexium] 40 mg PO DAILY 30 Days #30 08/16/19 Rx capsule. Furosemide [Lasix 40mg tab] 40 mg PO DAILY 30 Days #30 tab 08/16/19 Rx Spironolactone [Spironolactone 25 mg PO DAILY 30 Days #30 tab 08/16/19 Rx 25mg Tablet] Prescriptions/Medication Reconciliation: New Esomeprazole Magnesium [Nexium] 40 mg PO DAILY 30 Days #30 capsule. Spironolactone [Spironolactone 25mg Tablet] 25 mg PO DAILY 30 Days #30 tab Esomeprazole Magnesium [Nexium] 40 mg PO BID 90 Days #180 capsule. Furosemide [Lasix 40mg tab] 40 mg PO DAILY 30 Days #30 tab Continued citalopram 20 mg tablet 20 mg PO DAILY tramadol 50 mg tablet 50 mg PO Q6HP PRN tab PRN Reason: PAIN pravastatin 80 mg tablet 80 mg PO HS Metoprolol Succinate 50 mg PO DAILY Verapamil HCl [Verapamil ER] 120 mg PO DAILY Ropinirole HCl 1 - 2 mg PO HS Lisinopril [Lisinopril 10mg Tab] 10 mg PO DAILY Discontinued aspirin 81 mg tablet,delayed release 81 mg PO DAILY furosemide 40 mg tablet 40 mg PO BID PRN #60 tab PRN Reason: edema Omeprazole [Omeprazole 40mg Capsule] 40 mg PO DAILY Spironolactone [Spironolactone 25mg Tablet] 25 mg PO BID - Problem Reconciliation Problems Reviewed?: Yes
[2019-08-16 09:36] LABS: Basophils % 0.7 % (0.1-2.0); Eosinophils # 0.1 K/mm3 (0.0-0.4); Eosinophils % 1.8 % (0.1-12.0); Hemoglobin 8.7 g/dL (12.2-16.2); Lymphocytes # 1.1 K/mm3 (0.7-4.5); Lymphocytes % 18.8 % (10-50); Mean Corpuscular HGB Conc 28.9 g/dL (31.8-35.4); Mean Corpuscular Volume 75.7 fl (81-99); Mean Platelet Volume 7.3 fl (7.4-10.4); Monocytes # 0.3 K/mm3 (0.1-1.0); Monocytes % 5.3 % (1.7-9.3); Neutrophils # 4.1 K/mm3 (1.8-7.8); Neutrophils % 73.4 % (37.0-80.0); Platelet Count 237 K/mm3 (142-424); Red Blood Count 3.97 M/mm3 (4.20-5.40); Red Cell Distribution Width 22.3 % (11.5-17.5); White Blood Count 5.6 K/mm3 (4.8-10.8)
[2019-08-16 09:52] LABS: Albumin Level 3.3 gm/dL (3.4-5.0); Albumin/Globulin Ratio 1.2 (1.1-1.8); Anion Gap 13.7 mEq/L (5-15); Bilirubin,Total 0.5 mg/dL (0.2-1.0); Calcium 9.1 mg/dL (8.5-10.1); Globulin 2.8 gm/dl (1.3-3.2); Total Protein,Serum 6.1 gm/dL (6.4-8.2)
--- NOTE | 2019-08-16 10:26 | Consult Report ---
History of Present Illness Consult date: 08/16/19 Requesting physician: Mono Oquendo Chief complaint: Weakness Additional Medical History:: 1. [facility], 2014, ANGIOGRAPHIC RESULTS: 1. The left main artery normal 2. The left anterior descending artery normal 3. The circumflex artery normal 4. The right coronary artery dominant normal 5. The [facility] ventriculogram reveals normal 65% 6. The left ventricular end-diastolic pressure severely elevated at 30 mmHg IMPRESSION: 1. Normal coronary arteries. 2. Severely elevated LVEDP consistent with diastolic congestive heart failure 3. Likely severe pulmonary hypertension is present based on the elevated LVEDP 4. Angina coming from diastolic heart failure PLAN: 1. Patient requires diuresis in order to decrease LVEDP 2. Lasix 40 twice a day and Aldactone 25 twice a day 3. Weight-loss 4. Exercise along with cardiac rehabilitation 5. Evaluation for possible sleep apnea 2. Hypertension A. Echo, 03/2019, 1. Mildly enlarged left atrium, normal left ventricular size, mild concentric left ventricular hypertrophy, visually estimated ejection fraction 55% with no regional wall motion abnormality, grade 1 diastolic dysfunction seen with tissue Doppler evidence of raised left atrial pressure. 2. Mild mitral and tricuspid regurgitation 3. No significant pericardial effusion noted. 3. Obesity 4. Anemia with heme (+) stool, 07/2019 A. S/p transfusions 5. Diastolic CHF 6. Hyperlipidemia History of present illness: 69-year-old white female admitted for weakness and fall. She was found to be severely anemic with heme positive stool. She did receive 4 units of blood transfusion during her stay with an increase in hemoglobin up to 9. Her weakness and shortness of breath has improved. Patient was in stable condition and is planning to be discharged home today. Cardiology was asked to see the patient for recommendations on home medications. Patient did have EGD finding only polyps with no active bleeding. [facility] History Medical History: Reports:: Congestive Heart Failure, Gastroesophageal Reflux Disease(GERD), Hyperlipidemia, Hypertension, Renal Disease *Have you ever received a pneumonia vaccine?: No *Have you received a flu vaccine this season?: No Anesthesia experience/problems:: none Other Surgeries: Yes: No Previous Surgery, Hysterectomy-Total - *Social History Smoking Status: Never smoker Alcohol Intake: never Substance Use Type: denies use *Occupational Status:: unemployed *Travel in the last 8 weeks: None Family Hx:: Cancer, Coronary Artery Disease Meds Home Medications Medication Instructions Recorded Confirmed Type aspirin 81 mg tablet,delayed 81 mg PO DAILY 12/12/17 08/15/19 History release citalopram 20 mg tablet 20 mg PO DAILY 12/12/17 08/15/19 History pravastatin 80 mg tablet 80 mg PO HS 12/12/17 08/15/19 History tramadol 50 mg tablet 50 mg PO Q6HP PRN tab 12/12/17 08/15/19 History furosemide 40 mg tablet 40 mg PO BID PRN #60 tab 04/19/19 08/15/19 Rx Metoprolol Succinate 50 mg PO DAILY 08/14/19 08/15/19 History Omeprazole [Omeprazole 40mg 40 mg PO DAILY 08/14/19 08/15/19 History Capsule] Ropinirole HCl 1 - 2 mg PO HS 08/14/19 08/15/19 History Verapamil HCl [Verapamil ER] 120 mg PO DAILY 08/14/19 08/15/19 History Lisinopril [Lisinopril 10mg Tab] 10 mg PO DAILY 08/15/19 08/15/19 History Spironolactone [Spironolactone 25 mg PO BID 08/15/19 08/15/19 History 25mg Tablet] Allergies Allergy/AdvReac Type Severity Reaction Status Date / Time Penicillins Allergy Intermediate I-RASH Verified 08/14/19 22:17 Sulfa (Sulfonamide Allergy Intermediate I-RASH Verified 08/14/19 22:17 Antibiotics) Review of Systems - Constitutional Reports weakness - *Cardiovascular Reports shortness of breath with activity, Denies chest pain - *Respiratory Reports shortness of breath with activity - *Gastrointestinal Reports black, tarry stools, Denies abdominal pain, Denies vomiting - *Genitourinary Denies blood in urine - *Musculoskeletal Reports joint pain, Reports back pain - *Neurologic Reports weakness, Denies abnormal speech, Denies localized weakness, Denies headache(s), Denies seizure-like activity Exam Vital signs and Labs for Last 24 Hours: Temp Pulse Resp BP Pulse Ox 98.2 F 74 18 140/72 99 08/16/19 09:15 08/16/19 09:45 08/16/19 09:45 08/16/19 09:45 08/16/19 09:45 Laboratory Results - last 24 hr 08/14/19 23:12: Blood Type A Positive, Antibody Screen Negative, Crossmatch (AHG) See Detail 08/15/19 17:25: Hgb 9.0 L D, Hct 30.7 L 08/16/19 09:29: WBC 5.6, RBC 3.97 L D, Hgb 8.7 L, Hct 30.0 L, MCV 75.7 L, MCH 21.9 L, MCHC 28.9 L, RDW 22.3 H D, Plt Count 237, MPV 7.3 L, Neut % (Auto) 73.4, Lymph % (Auto) 18.8, Howell % (Auto) 5.3, Eos % (Auto) 1.8, Baso % (Auto) 0.7, Neut # (Auto) 4.1, Lymph # (Auto) 1.1, Howell # (Auto) 0.3, Eos # (Auto) 0.1, Baso # (Auto) 0.0 08/16/19 09:29: Sodium 140, Potassium 3.7, Chloride 107, Carbon Dioxide 23, Anion Gap 13.7, BUN 12 D, Creatinine 0.70, Estimated Creat Clear 50, Estimated GFR 83, Est GFR ( Amer) 100 D, Glucose 108 H, Calcium 9.1, Total Bilirubin 0.5, AST 27 D, ALT 35, Alkaline Phosphatase 35 L, Total Protein 6.1 L , Albumin 3.3 L, Globulin 2.8, Albumin/Globulin Ratio 1.2 I & O for Last 24 hours: Intake & Output 08/13/19 08/14/19 08/15/19 08/16/19 11:59 11:59 11:59 11:59 Intake Total 293 / 293 0 / 0 Output Total 375 / 375 300 / 300 Balance -82 / -82 -300 / -300 Weight 272 lb 269 lb - *Routine HEENT Exam Head: Present: normocephalic Eye: Present: EOMI, PERRL ENT: Present: mucous membranes moist - *Routine Neck Exam Present: supple. Absent: JVD, carotid bruit - *Routine Respiratory Exam Present: CTA bilaterally. Absent: accessory muscle use, rales, rhonchi, wheezes - *Routine Cardiovascular Exam Present: RRR. Absent: murmur, gallop, rubs - *Routine Abdominal Exam Present: soft. Absent: tenderness, distended, guarding - *Routine Extremities Exam Absent: edema, calf tenderness - *Routine Neurological Exam Present: alert, oriented X3, moving all extremities Assessment and Plan (1) Anemia Problem details: severely inflamed fundic gland polyps in the antrum Current visit: Yes Status: Acute Qualifiers: Anemia type: unspecified type Qualified Code(s): D64.9 - Anemia, unspecified Category: Medical Code(s): D64.9 - Anemia, unspecified (2) UGIB (upper gastrointestinal bleed) Current visit: Yes Status: Acute Category: Medical Code(s): K92.2 - Gastrointestinal hemorrhage, unspecified (3) Obesity Current visit: Yes Status: Acute Qualifiers: Obesity type: due to excess calories Obesity classification: adult class 3 (BMI >= 40) Serious obesity comorbidity presence: with serious comorbidity Body mass index: BMI 40.0-44.9 Qualified Code(s): E66.01 - Morbid (severe) obesity due to excess calories; Z68.41 - Body mass index (BMI) 40.0-44.9, adult Category: Medical Code(s): E66.9 - Obesity, unspecified (4) Hypotension Current visit: Yes Status: Acute Category: Medical Code(s): I95.9 - Hypotension, unspecified (5) Syncope Current visit: Yes Status: Acute Category: Medical Code(s): R55 - Syncope and collapse (6) CHF (congestive heart failure) Current visit: No Status: Chronic Qualifiers: Heart failure type: diastolic Heart failure chronicity: chronic Qualified Code(s): I50.32 - Chronic diastolic (congestive) heart failure Category: Medical Code(s): I50.9 - Heart failure, unspecified (7) HLD (hyperlipidemia) Current visit: No Status: Chronic Qualifiers: Hyperlipidemia type: mixed hyperlipidemia Qualified Code(s): E78.2 - Mixed hyperlipidemia Category: Medical Code(s): E78.5 - Hyperlipidemia, unspecified (8) Morbid obesity Current visit: No Status: Chronic Category: Medical Code(s): E66.01 - Morbid (severe) obesity due to excess calories - Assessment and plan all Dx Assessment and Plan for all problems:: 1. Recommend discontinuing aspirin in light of anemia with heme positive stool requiring transfusions 2. Recommend Lasix 40 mg daily and spironolactone 25 mg daily along with lisinopril 10 mg daily. 3. Patient has an appointment with Dr. Motley tomorrow which will be canceled. Recommend follow-up in our office in 2 weeks. 4. Recommend repeating CBC along with BMP in 1 week.
--- NOTE | 2019-08-17 09:47 | Electrocardiograph Report ---
APPROVED REPORT Exam: Resting ECG HR:107 bpm ECG Measurements Heart Rate 107 AXES CA 166 P 53 QRSd 82 QRS 7 QT 350 T19 QTc 467 <Conclusion> Sinus tachycardia Evidence of old anterior lateral and inferior VA Abnormal ECG Electronically signed by : Elfego Duffy, 08/17/2019 09:46:44
== END 2019-08-16 13:25 | disposition home or self-care (01) | DRG 812 ==
LOC: ER 22:03 → OB 23:58
PROVIDERS: ADMIT Emergency Medicine; ATTEND Emergency Medicine
CPT/HCPCS: 36415; 71020; 71046; 74177; 80048; 80053; 80061; 81001; 82272; 82728; 83540; 83550; 83605; 84466; 84484; 85014; 85018; 85025; 86850; 87040; 88305; 88342; 93005; 94761; 99283; 99284; G0328; P9016; Q9967

== ENCOUNTER → 2019-08-20 10:44 | Outpatient (CLI) | payer MEDICARE, SELFPAY ==
[2019-08-20 11:35] LABS: Basophils % 0.8 % (0.1-2.0); Eosinophils # 0.1 K/mm3 (0.0-0.4); Eosinophils % 3.3 % (0.1-12.0); Hematocrit 30.6 % (37.0-47.0); Hemoglobin 8.7 g/dL (12.2-16.2); Lymphocytes # 1.1 K/mm3 (0.7-4.5); Lymphocytes % 26.9 % (10-50); Mean Corpuscular HGB Conc 28.4 g/dL (31.8-35.4); Mean Corpuscular Hemoglobin 21.6 pg (27.0-31.2); Mean Corpuscular Volume 76.3 fl (81-99); Mean Platelet Volume 8.6 fl (7.4-10.4); Monocytes # 0.3 K/mm3 (0.1-1.0); Neutrophils # 2.5 K/mm3 (1.8-7.8); Platelet Count 266 K/mm3 (142-424); Red Blood Count 4.01 M/mm3 (4.20-5.40); Red Cell Distribution Width 23.1 % (11.5-17.5); White Blood Count 4.1 K/mm3 (4.8-10.8)
[2019-08-20 14:15] LABS: Alanine Aminotransferase 40 U/L (12-78); Albumin Level 3.5 gm/dL (3.4-5.0); Albumin/Globulin Ratio 1.1 (1.1-1.8); Alkaline Phosphatase 39 U/L (46-116); Anion Gap 10.6 mEq/L (5-15); Aspartate Amino Transferase 24 U/L (15-37); Bilirubin,Total 0.4 mg/dL (0.2-1.0); Blood Urea Nitrogen 14 mg/dL (7-18); Carbon Dioxide 30 mmol/L (21.0-32.0); Chloride 103 mmol/L (98-107); Creatinine,Serum 0.73 mg/dL (0.55-1.02); Estimated Glomerular Filt Rate 79 ml/min (>60); GFR (African American) 96 ML/MIN (>60); Globulin 3.1 gm/dl (1.3-3.2); Glucose 98 mg/dL (74-106); Potassium 4.6 mmoL/L (3.5-5.1); Sodium 139 mmol/L (136-145); Total Protein,Serum 6.6 gm/dL (6.4-8.2)
== END ==
PROVIDERS: PCP Internal Medicine; Visit Provider Nurse Practitioner Family
DX: D64.9 Anemia, unspecified (principal)
CPT/HCPCS: 36415; 80053; 85025

== ENCOUNTER → 2019-08-29 09:42 | Outpatient (CLI) | payer MEDICARE, SELFPAY ==
[2019-08-29 09:53] LABS: Hemoglobin 8.9 g/dL (12.2-16.2)
== END ==
PROVIDERS: Visit Provider Surgery
DX: K92.2 Gastrointestinal hemorrhage, unspecified (principal); Z01.818 Encounter for other preprocedural examination
CPT/HCPCS: 36415; 85014; 85018

== ENCOUNTER 2019-09-01 08:06 | Outpatient (CLI) | payer MEDICARE, SELFPAY ==
[2019-09-01 08:14] VITALS: BMI 42.7
[2019-09-01 08:35] VITALS: BP 152/62; PULSE 71; RESP 18; TEMP 36.8; O2SAT 96
[2019-09-01 08:49] LABS: Hematocrit 30.7 % (37.0-47.0); Hemoglobin 8.4 g/dL (12.2-16.2)
--- NOTE | 2019-09-01 11:05 | PC.NURSE ---
Notified by lab that pt's blood had antibodies so they would have to send it out and it would be a while before they would have it. I notified Dr Harkins of patients HH results and of antibody presence. He stated he was ok if patient waited until Sun or anytime next week to get blood. I updated patient on current situation and she said she would call in the am to make sure blood was available.
== END 2019-09-01 11:08 | disposition home or self-care (01) ==
PROVIDERS: PCP Internal Medicine; Visit Provider Surgery
DX: K92.2 Gastrointestinal hemorrhage, unspecified (principal)
CPT/HCPCS: 36415; 85014; 85018; 86850; 86870

== ENCOUNTER 2019-09-02 07:53 | Outpatient (CLI) | payer MEDICARE, SELFPAY ==
[2019-09-02] VITALS (19 sets, daily range): BP systolic 88–120; BP diastolic 36–65; PULSE 60–68; RESP 14–68; TEMP 36.4–36.8; O2SAT 95–100; BMI 42.5
--- NOTE | 2019-09-02 11:10 | PC.NURSE ---
attempted to retrieve 2nd unit from lab, no one available to issue blood at this time. echocardiograph tech stated she would call me when someone becomes available.
[2019-09-02 15:35] LABS: Hemoglobin 10.1 g/dL (12.2-16.2)
== END 2019-09-02 15:05 | disposition home or self-care (01) ==
LOC: INF 07:54
PROVIDERS: Nurse Practitioner Family; PCP Internal Medicine; Visit Provider Surgery
DX: K92.2 Gastrointestinal hemorrhage, unspecified (principal)
CPT/HCPCS: 36415; 36430; 85014; 85018; P9016

== ENCOUNTER → 2019-09-18 09:59 | Outpatient (CLI) | payer MEDICARE, SELFPAY ==
[2019-09-18 10:22] LABS: Basophils % 0.5 % (0.1-2.0); Eosinophils # 0.1 K/mm3 (0.0-0.4); Eosinophils % 3.8 % (0.1-12.0); Hematocrit 37.4 % (37.0-47.0); Lymphocytes # 1.1 K/mm3 (0.7-4.5); Lymphocytes % 33.2 % (10-50); Mean Corpuscular HGB Conc 29.5 g/dL (31.8-35.4); Mean Corpuscular Hemoglobin 24.8 pg (27.0-31.2); Mean Corpuscular Volume 84.2 fl (81-99); Mean Platelet Volume 9.4 fl (7.4-10.4); Monocytes # 0.2 K/mm3 (0.1-1.0); Monocytes % 6.1 % (1.7-9.3); Neutrophils # 1.9 K/mm3 (1.8-7.8); Neutrophils % 56.4 % (37.0-80.0); Platelet Count 183 K/mm3 (142-424); Red Blood Count 4.44 M/mm3 (4.20-5.40); Red Cell Distribution Width 23.4 % (11.5-17.5); White Blood Count 3.4 K/mm3 (4.8-10.8)
[2019-09-18 11:02] LABS: Alanine Aminotransferase 63 U/L (12-78); Albumin Level 3.5 gm/dL (3.4-5.0); Albumin/Globulin Ratio 1.2 (1.1-1.8); Alkaline Phosphatase 43 U/L (46-116); Aspartate Amino Transferase 43 U/L (15-37); Bilirubin,Total 0.5 mg/dL (0.2-1.0); Blood Urea Nitrogen 19 mg/dL (7-18); Calcium 8.8 mg/dL (8.5-10.1); Carbon Dioxide 29 mmol/L (21.0-32.0); Chloride 105 mmol/L (98-107); Chol/HDL Ratio 2.4 (1-3.5); Cholesterol 97 mg/dL (140-200); Creatinine,Serum 0.71 mg/dL (0.55-1.02); Estimated Glomerular Filt Rate 82 ml/min (>60); GFR (African American) 99 ML/MIN (>60); Glucose 108 mg/dL (74-106); HDL Cholesterol 40 mg/dL (29-89); LDL Cholesterol 47 mg/dL (0-130); Sodium 141 mmol/L (136-145); Total Protein,Serum 6.5 gm/dL (6.4-8.2); Triglycerides 51 mg/dL (30-200); VLDL Cholesterol 10 mg/dL (0-40)
== END ==
PROVIDERS: Visit Provider Internal Medicine
DX: I10 Essential (primary) hypertension (principal); E78.5 Hyperlipidemia, unspecified; K92.2 Gastrointestinal hemorrhage, unspecified; D64.9 Anemia, unspecified
CPT/HCPCS: 36415; 80053; 80061; 85025

== ENCOUNTER → 2019-10-10 09:31 | Outpatient (CLI) | payer MEDICARE, SELFPAY ==
[2019-10-10 10:15] LABS: Hematocrit 37.4 % (37.0-47.0); Hemoglobin 11.7 g/dL (12.2-16.2)
== END ==
PROVIDERS: Visit Provider Surgery
DX: D64.9 Anemia, unspecified (principal)
CPT/HCPCS: 36415; 85014; 85018

== ENCOUNTER → 2019-10-31 08:28 | Outpatient (CLI) | payer MEDICARE, SELFPAY ==
[2019-10-31 08:54] LABS: Hematocrit 39.7 % (37.0-47.0); Hemoglobin 11.9 g/dL (12.2-16.2)
== END ==
PROVIDERS: Visit Provider Surgery
DX: D64.9 Anemia, unspecified (principal)
CPT/HCPCS: 36415; 85014; 85018

== ENCOUNTER → 2019-12-10 11:20 | Outpatient (CLI) | payer MEDICARE, SELFPAY ==
[2019-12-10 11:58] LABS: Hematocrit 38.1 % (37.0-47.0); Hemoglobin 11.8 g/dL (12.2-16.2)
== END ==
PROVIDERS: Visit Provider Surgery
DX: D64.9 Anemia, unspecified (principal)
CPT/HCPCS: 36415; 85014; 85018

== ENCOUNTER → 2020-01-07 15:17 | Outpatient (CLI) | payer MEDICARE, SELFPAY ==
[2020-01-07 18:40] LABS: Ferritin 18 ng/mL (8-388); Thyroid Stimulating Hormone 1.63 uIU/ml (0.358-3.740)
[2020-01-09 04:05] LABS: Iron 39 ug/dL (27-139); UIBC 423 ug/dL (118-369)
[2020-01-11 09:34] LABS: Iron Saturation 8 % (15-55); Vitamin B12 599 pg/mL (232-1245)
== END ==
PROVIDERS: Visit Provider Nurse Practitioner Family
DX: D64.9 Anemia, unspecified; K31.819 Angiodysplasia of stomach and duodenum without bleeding; E83.10 Disorder of iron metabolism, unspecified; G25.81 Restless legs syndrome; G62.9 Polyneuropathy, unspecified; R20.8 Other disturbances of skin sensation
CPT/HCPCS: 36415; 82607; 82728; 83540; 83550; 84443

== ENCOUNTER → 2020-01-21 13:32 | Outpatient (CLI) | payer MEDICARE, SELFPAY ==
[2020-01-21 14:31] LABS: Hematocrit 35.4 % (37.0-47.0)
== END ==
PROVIDERS: Visit Provider Surgery
DX: D64.9 Anemia, unspecified (principal)
CPT/HCPCS: 36415; 85014; 85018

== ENCOUNTER → 2020-03-31 15:27 | Outpatient (POV) | payer MEDICARE, SELFPAY | PROVIDERS: PCP Specialist; Visit Provider Specialist | DX: R20.8 Other disturbances of skin sensation (principal) | CPT/HCPCS: 95886; 95909 ==

== ENCOUNTER → 2020-03-31 17:47 | Outpatient (CLI) | payer MEDICARE, SELFPAY ==
[2020-03-31 18:41] LABS: Hemoglobin A1C 5.2 % (4.0-6.0)
[2020-04-02 15:08] LABS: Albumin 3.9 g/dL (2.9-4.4); Alpha-1-Globulin 0.2 g/dL (0.0-0.4); Alpha-2-Globulin 0.9 g/dL (0.4-1.0); Gamma Globulin 1.1 g/dL (0.4-1.8); Protein, Total 7.4 g/dL (6.0-8.5)
== END ==
PROVIDERS: Visit Provider Specialist
DX: D50.9 Iron deficiency anemia, unspecified (principal); G25.81 Restless legs syndrome; G62.9 Polyneuropathy, unspecified; R73.09 Other abnormal glucose; M79.605 Pain in left leg; M79.604 Pain in right leg
CPT/HCPCS: 36415; 83036; 84155; 84165; 86334; 95886; 95909

== ENCOUNTER → 2020-05-06 12:41 | Outpatient (CLI) | payer MEDICARE, SELFPAY ==
--- NOTE | 2020-05-06 12:46 | US_ITS ---
APPROVED REPORT Exam Type: Lower Extremity Segmental Pressures Operations Intern: Maribel Benavides RDCS Indications Claudication: Risk Factors Hypertension Hyperlipidemia Obesity Pressures/Indices Right Indices Left Indices Brachial 146.00 mmHg Brachial 141.00 mmHg Low Thigh 144.00 mmHg 0.99 Low Thigh 152.00 mmHg 1.04 Calf 129.00 mmHg 0.88 Calf 138.00 mmHg 0.95 Ankle(PT) 129.00 mmHg 0.88 Ankle(PT) 136.00 mmHg 0.93 Ankle(DP) 130.00 mmHg 0.89 Ankle(DP) 130.00 mmHg 0.89 Digit 96.00 mmHg 0.66 Digit 86.00 mmHg 0.59 Findings R LISA .9 L LISA .9 R TBI .7 L TBI .6 NORMAL PULSES AND WAVEFORMS Conclusion R LISA .9 L LISA .9 R TBI .7 L TBI .6 NORMAL PULSES AND WAVEFORMS ACCEPTABLE ABIs Electronically signed by : Andre Tran MD 05/06/2020 17:26:31
[2020-05-06 14:23] LABS: Hematocrit 43.1 % (37.0-47.0); Hemoglobin 14.7 g/dL (12.2-16.2)
== END ==
PROVIDERS: PCP Internal Medicine; Visit Provider Internal Medicine Cardiovascular Disease
DX: I73.9 Peripheral vascular disease, unspecified (principal); D64.9 Anemia, unspecified
CPT/HCPCS: 36415; 85014; 85018; 93923

== ENCOUNTER → 2020-06-16 19:07 | Outpatient (CLI) | payer MEDICARE, SELFPAY ==
[2020-06-16 19:37] LABS: Hematocrit 41.7 % (37.0-47.0); Hemoglobin 14.1 g/dL (12.2-16.2)
[2020-06-18 20:04] LABS: Covid-19 Nasal PCR Sendout Lex NOT DETECTED
== END ==
PROVIDERS: PCP Internal Medicine; Visit Provider Surgery
DX: Z03.818 Encounter for observation for suspected exposure to other biological agents ruled out (principal); R53.1 Weakness; K92.2 Gastrointestinal hemorrhage, unspecified
CPT/HCPCS: 36415; 85014; 85018; U0004

== ENCOUNTER → 2020-07-01 11:55 | Outpatient (CLI) | payer MEDICARE, SELFPAY | PROVIDERS: Visit Provider Nurse Practitioner Family | DX: D64.9 Anemia, unspecified (principal); E83.10 Disorder of iron metabolism, unspecified; G25.81 Restless legs syndrome | CPT/HCPCS: 36415; 82728 ==

== ENCOUNTER 2020-08-30 18:53 | Emergency (ER) | payer MEDICARE, SELFPAY ==
[2020-08-30 18:54] VITALS: BP 105/81; PULSE 87; RESP 17; TEMP 36.9; O2SAT 96; BMI 44.4
--- NOTE | 2020-08-30 19:22 | HMH.EDABDPAI ---
ED Disposition Condition on Discharge: Fair - Critical Care Critical Care Time: No <Mono Miranda - Last Filed: 08/30/20 19:49> <Mono Oquendo - Last Filed: 08/31/20 00:01> Clinical Impression: Diverticulitis Abdominal pain Qualifiers: Abdominal location: right upper quadrant Qualified Code(s): R10.11 - Right upper quadrant pain Disposition: Home, Self-Care Instructions: DI for Diverticulitis Additional Instructions: use meds and recheck if needed and f/u withy your dr next week Prescriptions: metroNIDAZOLE [Flagyl 500mg Tablet] 500 mg PO TID #30 tab Prescription Printed levoFLOXacin [Levaquin 500mg tab] 500 mg PO DAILY #7 tab Prescription Printed Referrals: Arjun Baez [Primary Care Provider] - Attestation: On 08/30/20, the high probability of a clinically significant, sudden or life threatening deterioration of the following system(s) required my full and direct attention, intervention and personal management. The time I documented below is in addition to time spent performing reported procedures but includes the following listed in this critical care notation. Medical Decision Making - Medical Records Medical records reviewed: Yes: I reviewed the patient's medical records. - Franck Inquiry Pt receiving controlled substance: No - Lab Data Lab results reviewed: Yes: I reviewed the patient's lab results. <Mono Miranda - Last Filed: 08/30/20 19:49> - Lab Data Result diagrams: 08/30/20 19:40 08/30/20 19:40 - CT Data CT Scan: Abdomen, Pelvis Time Received: 23:[address] Reviewed: Yes: I have viewed the radiologist's interpretation Preliminary Findings: Abnormal (diverticulitis ) <Mono Oquendo - Last Filed: 08/31/20 00:01> Vital Signs: 08/30/20 18:54 08/30/20 21:56 08/30/20 22:02 Temperature 98.5 F Temperature Source Oral Pulse Rate [Right Radial] 87 71 81 Respiratory Rate 17 18 18 Blood Pressure [Right Arm] 105/81 L 155/66 H 135/76 Blood Pressure Mean [Right Arm] 89 95 95 Blood Pressure Source [Right Arm] Automatic Cuff Blood Pressure Position [Right Arm] Sitting 02 Sat by Pulse Oximetry 96 91 L 96 Oxygen Delivery Method Room Air Room Air Room Air - Lab Data Lab Results 08/30/20 19:40: WBC 10.6, RBC 4.63, Hgb 14.3, Hct 44.1, MCV 95.1, MCH 30.8, MCHC 32.4, RDW 12.7, Plt Count 211, MPV 7.4, Neut % (Auto) 77.2, Lymph % (Auto) 14.4, Canyon % (Auto) 6.3, Eos % (Auto) 1.6, Baso % (Auto) 0.5, Neut # (Auto) 8.2 H, Lymph # (Auto) 1.5, [place] # (Auto) 0.7, Eos # (Auto) 0.2, Baso # (Auto) 0.1 08/30/20 19:40: Sodium 138, Potassium 3.8, Chloride 101, Carbon Dioxide 28, Anion Gap 12.8, BUN 15, Creatinine 0.80, Estimated Creat Clear 49, Estimated GFR 71, Est GFR ( Amer) 86, Glucose 117 H, Calcium 9.4, Total Bilirubin 0.8, AST 39 H, ALT 56, Alkaline Phosphatase 47, Total Protein 7.7, Albumin 4.4, Globulin 3.3 H, Albumin/Globulin Ratio 1.3 08/30/20 19:40: Lactate 0.7 08/30/20 19:40: Lipase 56 08/30/20 19:40: ESR 49 H 08/30/20 19:40: C-Reactive Protein 27.9 H 08/30/20 23:04: Urine Color Yellow, Urine Appearance Clear, Urine pH 6.0, Ur Specific Butler 1.010, Urine Protein Negative, Urine Glucose (UA) Negative, Urine Ketones Negative, Urine Blood Negative, Urine Nitrate Negative, Urine Bilirubin Negative, Urine Urobilinogen 2.0, Ur Leukocyte Esterase Negative, Urine WBC 3-5, Ur Squamous Epith Cells 10-20 Orders (Tests/Meds): ED MEDICATIONS Generic Name Dose Route Start Last Admin Trade Name Freq PRN Reason Stop Dose Admin Levofloxacin/Dextrose 500 mg in 100 mls @ 100 mls/hr 08/30/20 23:45 Levaquin 500mg/100ml Premix IV 09/13/20 23:44 Q24H BALDEMAR Protocol Metronidazole 500 mg in 100 mls @ 100 mls/hr 08/30/20 23:45 Flagyl 500mg/100ml Ivpb IV 09/13/20 23:44 Q8H BALDEMAR Protocol Discontinued Medications Generic Name Dose Route Start Last Admin Trade Name Freq PRN Reason Stop Dose Admin Diatrizoate Meglum/Diatrizoate Sod 30
[2020-08-30 19:51] LABS: Basophils # 0.1 K/mm3 (0-0.2); Basophils % 0.5 % (0.1-2.0); Eosinophils # 0.2 K/mm3 (0.0-0.4); Eosinophils % 1.6 % (0.1-12.0); Hematocrit 44.1 % (37.0-47.0); Hemoglobin 14.3 g/dL (12.2-16.2); Lymphocytes # 1.5 K/mm3 (0.7-4.5); Lymphocytes % 14.4 % (10-50); Mean Corpuscular HGB Conc 32.4 g/dL (31.8-35.4); Mean Corpuscular Hemoglobin 30.8 pg (27.0-31.2); Mean Corpuscular Volume 95.1 fl (81-99); Mean Platelet Volume 7.4 fl (7.4-10.4); Monocytes # 0.7 K/mm3 (0.1-1.0); Monocytes % 6.3 % (1.7-9.3); Neutrophils # 8.2 K/mm3 (1.8-7.8); Neutrophils % 77.2 % (37.0-80.0); Platelet Count 211 K/mm3 (142-424); Red Blood Count 4.63 M/mm3 (4.20-5.40); Red Cell Distribution Width 12.7 % (11.5-17.5); White Blood Count 10.6 K/mm3 (4.8-10.8)
[2020-08-30 20:03] LABS: Lactic Acid 0.7 mmol/L (0.7-2.1)
[2020-08-30 20:04] LABS: Alanine Aminotransferase 56 U/L (12-78); Albumin Level 4.4 g/dl (3.5-5.0); Albumin/Globulin Ratio 1.3 (1.1-1.8); Alkaline Phosphatase 47 U/L (38-126); Anion Gap 12.8 mEq/L (5-15); Aspartate Amino Transferase 39 U/L (14-36); Bilirubin,Total 0.8 mg/dl (0.2-1.3); Blood Urea Nitrogen 15 mg/dl (7-17); Calcium 9.4 mg/dl (8.4-10.2); Carbon Dioxide 28 mmol/L (22.0-30.0); Chloride 101 mmol/L (98-107); Creatinine Clearance Estimated 49 mL/min (50-200); Estimated Glomerular Filt Rate 71 ml/min (>60); GFR (African American) 86 ML/MIN (>60); Globulin 3.3 g/dL (1.3-3.2); Glucose 117 mg/dl (74-100); Lipase 56 U/L (23-300); Potassium 3.8 mmoL/L (3.5-5.1); Sodium 138 mmol/L (136-145); Total Protein,Serum 7.7 g/dl (6.3-8.2)
--- NOTE | 2020-08-30 20:06 | CT_ITS ---
Procedure: CT ABDOMEN PELVIS W CON Referring Doctor: Mono Miranda Patient Age:70Y CLINICAL INDICATION: abd pain Lower abdominal pain started yesterday morning. History of cancerous rectal polyps, polyps removed. Also history splenomegaly. Cholecystectomy appendectomy COMPARISON: CT CT ABDOMEN PELVIS W CON from 08/15/2019 TECHNIQUE: 75 cc Optiray 350 IV contrast. Utilized 2 Oral contrast, Gastroview diluted a given in ER Helical axial images obtained with sagittal and coronal reformats. All CT scans at the facility use one or more dose reduction, viz: automated exposure control, ma/kV adjustment per patient size (including targeted exams where dose is matched to indication, i.e. head), or iterative reconstruction technique. FINDINGS: Lower thorax: No acute finding no significant new findings ABDOMEN: Liver: No masses or biliary dilatation. Mild diffuse fatty changes suspect with a generous length right lobe 21 cm length. Gallbladder: Surgically removed/cholecystectomy. Common duct normal Pancreas: Unremarkable no masses nor inflammatory changes. Spleen: Upper normal size borderline splenomegaly. . Adrenals: unremarkable tract ------- Kidneys/ureters: Unremarkable no calculi nor obstruction. Normal enhancement kidneys but ureters unremarkable. Urinary bladder of upper normal wall thickness of may reflect lack distension and with the regional inflammation but no calculi or other findings at bladder -GI tract Stomach and small bowel appear satisfactory.. But no significant new findings Large bowel. Colonic diverticulosis most evident sigmoid colon and descending colon. Wall thickening distal sigmoid colon leading into the rectosigmoid junction region. This segment of wall thickening best seen on axial 96, coronal 43 sagittal 62.. Appears to reflect a segment of inflamed colon reflecting colitis but there may indeed be a inflamed diverticulum associated extending from the inferior left aspect inflamed rectosigmoid regionon axial slice 98, coronal 41. Diffuse stranding and inflammatory changes in the fat surrounding the colon and possible inflamed diverticulum in this region.. Minimal wispy free fluid at the lower pelvis. Which tracks slightly more along the left left pelvic wall than right Again findings suggest a likely colitis with possible associated acute diverticulitis, however would encourage follow-up endoscopy when current acute episodes resolved.. No free air. No focal fluid or abscess collection. Peritoneum: No free air.. Tiny fat containing umbilical hernia barely evident. Lymph nodes: No enlarged lymph nodes apparent. Vasculature: No evidence of abdominal aortic aneurysm... No retroperitoneal findings. Bones: No acute fracture Again note grade 2 anterior spondylolisthesis of L5 on S1, with bilateral pars defects at L5 resulting in spinal stenosis but overall appearance with no significant change since 2019 CT the. IMPRESSION: 1..Inflammatory changesdistal sigmoid colon compatible with acute colitis with probable associated minimal acute diverticulitis. Wall thickening through this segment of distal sigmoid colon with surrounding inflammatory changes, with possible inflamed mild thickened diverticulum. Associated minimal wispy fluid seen throughout the lower pelvis Would encourage follow-up colonoscopy after current acute episode has resolved 2..Liver with mild diffuse fatty changes and slightly enlarged . Dictated by: Ehsan Jack MD 08/31/2020 12:30 Ehsan Jack MD in [facility] 08/31/2020 12:30
--- NOTE | 2020-08-30 20:30 | PC.NURSE ---
PO contrast finished at 2030
[2020-08-30 21:51] LABS: C-Reactive Protein 27.9 mg/L (0-4)
[2020-08-30 21:56] VITALS: BP 155/66; PULSE 71; RESP 18; O2SAT 91
--- NOTE | 2020-08-30 21:56 | PC.NURSE ---
v/s delayed due to patient care
[2020-08-30 22:02] VITALS: BP 135/76; PULSE 81; RESP 18; O2SAT 96
[2020-08-30 22:03] LABS: Erythrocyte Sedimentation Rate 49 mm/hr (0-30)
--- NOTE | 2020-08-30 22:21 | PC.NURSE ---
pt to ct
[2020-08-30 23:13] LABS: Microscopic, Urine URINE MICROSCOPIC (MICROSCOPIC)
[2020-08-30 23:14] LABS: Appearance,Urine CLEAR (Clear); Bilirubin,Urine Negative (Negative); Blood, Urine Negative (Negative); Color,Urine YELLOW (Yellow); Glucose,Urine (UA) Negative (Negative); Ketones,Urine Negative (Negative); Leukocyte Esterase,Urine Negative (Negative); Nitrate,Urine Negative (Negative); Protein,Urine Negative (Negative)
[2020-08-31 00:08] VITALS: BP 104/62; PULSE 89; RESP 16; TEMP 36.4; O2SAT 98
== END 2020-08-31 00:27 | disposition home or self-care (01) ==
PROVIDERS: Emergency Medicine; Emergency Provider Emergency Medicine; PCP Internal Medicine
DX: K57.92 Diverticulitis of intestine, part unspecified, without perforation or abscess without bleeding (principal); I10 Essential (primary) hypertension; E78.5 Hyperlipidemia, unspecified; N18.9 Chronic kidney disease, unspecified; I50.9 Heart failure, unspecified; K21.9 Gastro-esophageal reflux disease without esophagitis; F41.9 Anxiety disorder, unspecified; Z79.899 Other long term (current) drug therapy
CPT/HCPCS: 74177; 80053; 81001; 83605; 83690; 85025; 85651; 86140; 96365; 96375; 99283; J2405; Q9967

== ENCOUNTER 2020-11-23 18:18 | Outpatient (CLI) | payer MEDICARE, SELFPAY | END 2020-11-23 18:45 | disposition home or self-care (01) | LOC: UTC.OUT 18:20 → INF 18:42 | PROVIDERS: PCP Internal Medicine; Visit Provider Nurse Practitioner Family | DX: M25.519 Pain in unspecified shoulder (principal) | CPT/HCPCS: 96372 ==

== ENCOUNTER → 2020-12-16 15:55 | Outpatient (CLI) | payer MEDICARE, SELFPAY ==
[2020-12-16 17:34] LABS: Ferritin 107 ng/ml (11.1-264)
== END ==
PROVIDERS: Visit Provider Specialist
DX: D64.9 Anemia, unspecified (principal)
CPT/HCPCS: 36415; 82728

== ENCOUNTER → 2021-01-27 13:28 | Outpatient (CLI) | payer MEDICARE, SELFPAY ==
--- NOTE | 2021-01-27 13:49 | XR_ITS ---
PROCEDURE: XR SHOULDER RT MIN 2V CLINICAL INDICATION: rt shoulder pain COMPARISON: CR XR CHEST 2V from 08/14/2019 FINDINGS: Clavicle is intact. There is narrowing of the AC joint. The humeral head and glenoid appear normal. There is no significant subacromial stenosis. There are no soft tissue calcifications. IMPRESSION: Minor degenerate change of the AC joint otherwise unremarkable right shoulder Dictated by: Dr. Sergei Fu MD 01/27/2021 14:31 Dr. Sergei Fu MD in [facility] 01/27/2021 14:31
[2021-01-27 14:35] LABS: Hematocrit 43.8 % (37.0-47.0); Hemoglobin 14.1 g/dL (12.2-16.2)
== END ==
LOC: LAB 13:30 → RAD 13:44
PROVIDERS: Surgery; PCP Internal Medicine; Visit Provider Orthopaedic Surgery
DX: D64.9 Anemia, unspecified (principal); M25.511 Pain in right shoulder
CPT/HCPCS: 36415; 73030; 85014; 85018

== ENCOUNTER → 2021-02-03 16:01 | Outpatient (CLI) | payer MEDICARE, SELFPAY ==
--- NOTE | 2021-02-03 16:02 | MR_ITS ---
PROCEDURE: MR SHOULDER RT WO CON CLINICAL INDICATION: evaluate for rotator cuff tear Pt c/o severe rt shoulder pain xmonths that is getting worse. Pt denies injury or trauma. COMPARISON: CR XR SHOULDER RT MIN 2V from 01/27/2021 TECHNIQUE: Routine multiplanar multi echo sequences are performed without gadolinium enhancement. FINDINGS: There is complete tear of the supraspinatus and infraspinatus tendons. There is some retraction of the musculotendinous fibers of the supraspinatus tendon. Osteoarthritic changes with joint hypertrophy is present involving the AC joint. There is a high-riding humeral head. Osteoarthritic changes are present at the glenohumeral joint. There does appear to be a tear of the anterior glenoid labrum from the 1 o'clock to the 3 o'clock position. The bicipital tendon is not in place in the bicipital groove suggesting tear of the long head of the biceps tendon. There is some fluid noted deep to the posterior aspect of the deltoid muscle. There is a small shoulder joint effusion present. There is minimal amount of edema within the humeral head. IMPRESSION: 1. Complete tear of the supraspinatus and infraspinatus tendons with retraction of the musculotendinous fibers of the supraspinatus tendon. 2. High-riding humeral head with osteoarthritic change of the glenohumeral joint and acromioclavicular joint. 3. Slap tear of the anterior glenoid labrum from 1-3 o'clock. 4. Tear of the long head of the biceps tendon. Dictated by: Andre Tran MD 02/05/2021 14:46 Andre Tran MD in [facility] 02/05/2021 14:46
== END ==
PROVIDERS: PCP Internal Medicine; Visit Provider Orthopaedic Surgery
DX: G89.29 Other chronic pain (principal); M25.511 Pain in right shoulder
CPT/HCPCS: 73221

== ENCOUNTER → 2021-03-27 17:51 | Outpatient (CLI) | payer MEDICARE, SELFPAY ==
[2021-03-27 18:07] LABS: Basophils % 0.7 % (0.1-2.0); Eosinophils # 0.2 K/mm3 (0.0-0.4); Eosinophils % 2.9 % (0.1-12.0); Hematocrit 42.6 % (37.0-47.0); Lymphocytes # 1.9 K/mm3 (0.7-4.5); Lymphocytes % 32.5 % (10-50); Mean Corpuscular HGB Conc 32.8 g/dL (31.8-35.4); Mean Corpuscular Hemoglobin 30.9 pg (27.0-31.2); Mean Corpuscular Volume 94.1 fl (81-99); Mean Platelet Volume 7.9 fl (7.4-10.4); Monocytes # 0.4 K/mm3 (0.1-1.0); Monocytes % 7.1 % (1.7-9.3); Neutrophils # 3.3 K/mm3 (1.8-7.8); Neutrophils % 56.7 % (37.0-80.0); Platelet Count 214 K/mm3 (142-424); Red Blood Count 4.53 M/mm3 (4.20-5.40); Red Cell Distribution Width 13.2 % (11.5-17.5); White Blood Count 5.9 K/mm3 (4.8-10.8)
[2021-03-27 18:17] LABS: Iron 95 ug/dL (37-170)
[2021-03-27 18:28] LABS: Total Iron Binding Capacity 364 ug/dL (265-497)
[2021-03-27 18:56] LABS: Ferritin 98.6 ng/ml (11.1-264)
== END ==
PROVIDERS: Visit Provider Nurse Practitioner Family
DX: E83.10 Disorder of iron metabolism, unspecified (principal); G25.81 Restless legs syndrome; R10.9 Unspecified abdominal pain; Z86.2 Personal history of diseases of the blood and blood-forming organs and certain disorders involving the immune mechanism; D64.9 Anemia, unspecified
CPT/HCPCS: 36415; 82728; 83540; 83550; 85025

== ENCOUNTER 2021-04-09 15:16 | Emergency (ER) | payer MEDICARE, SELFPAY ==
[2021-04-09 15:20] VITALS: BP 131/86; PULSE 86; RESP 21; TEMP 37.1; O2SAT 98; BMI 46.7
--- NOTE | 2021-04-09 15:35 | HMH.EDUTC ---
[facility] [place] Clinical Impression: Encounter for laboratory testing for COVID-19 virus Disposition: Home, Self-Care Condition on Discharge: Good Instructions: DI for COVID-19 (Suspected or Confirmed ), Coronavirus Disease 2019, Preventing the Spread of Coronavirus Discharge Instructions Additional Instructions: *Monitor Temp, Over the counter Motrin or Tylenol as directed/as needed Tylenol every 4 hours and Motrin every 6 hours (as long as your family doctor has told you that you can take it) for fever or pain. and straight to ER if unable to lower temp less than 101.0 after medication given *Warm salt water gargles may help to soothe the throat *Throat Lozenges *Warm fluids like tea with honey may help to soothe the throat *Sleep elevated *Humidifier/Vaporizer Follow up IMMEDIATELY for new or worsening symptoms or no Noticeable improvement over the next 48-72 hours. 911 for difficulty breathing or swallowing You were tested for today for COVID19 your test result should be back in the next 24-48 hours, you may call to the [facility] to see if your test results are back in the next 48 hours [phone] [facility] hours are 9am-9pm You was given a handout with instructions for Self Quarantine and Self isolation for while you wait on test results and what to do if they are positive If you are positive the Health Dept will be contacting you also Referrals: Arjun Baez [Primary Care Provider] - As needed Time of Disposition: 15:40 Medical Decision Making - Franck Inquiry Pt receiving controlled substance: No Franck was queried for this patient: No Vital Signs: 04/09/21 15:20 Temperature 98.8 F Temperature Source Oral Pulse Rate [Right Brachial] 86 Respiratory Rate 21 Blood Pressure [Right Arm] 131/86 Blood Pressure Mean [Right Arm] 101 Blood Pressure Source [Right Arm] Automatic Cuff Blood Pressure Position [Right Arm] Sitting 02 Sat by Pulse Oximetry 98 Oxygen Delivery Method Room Air Orders (Tests/Meds): ORDERS Category Date Time Status Covid-19 Nasal PCR ([facility]) Routine Lab 04/09/21 15:20 Ordered Covid-19 Nasal PCR ([facility]) Routine Lab 04/09/21 15:25 Received [facility] [place] - General Stated complaint: covid test Time Seen by Provider: 04/09/21 15:35 Mode of Arrival: Ambulatory Source of Information: Patient Limitations: No Limitations Description of Symptoms (Recalled from Triage Doc. by RN): PATIENT C/O CONGESTION, RIGHT EAR PAIN, AND COUGH X 3 DAYS. REQUESTING COVID TEST HEENT Symptoms (Recalled from RN notes): Yes Resp Symptoms (Recalled from RN notes): Yes Skin Symptoms (Recalled from RN notes): No MS Symptoms (Recalled from RN notes): No Functional Status (Recalled from RN notes): WNL - History of Present Illness Provider Complaint: Patient states that she was having sinus congestion and pressure, pain in right ear, cellulitis of both legs and cough for several days States that she was placed on Cephalexin and has been taking it and feeling a little better but PCP wanted her to come and get tested for COVID States that she feels like her legs are doing better but still having some cough and congestion - Related Data Home Medications Medication Instructions Recorded Confirmed citalopram 20 mg tablet 20 mg PO DAILY 12/12/17 02/17/21 pravastatin 80 mg tablet 80 mg PO HS 12/12/17 02/17/21 tramadol 50 mg tablet 50 mg PO Q6HP PRN tab 12/12/17 02/17/21 Metoprolol Succinate 50 mg PO DAILY 08/14/19 02/17/21 lisinopriL [Lisinopril 10mg Tab] 10 mg PO DAILY 08/15/19 02/17/21 Furosemide [Lasix 40mg tab] 40 mg PO DAILY 09/03/19 02/17/21 Spironolactone [Spironolactone 25 mg PO DAILY 09/03/19 02/17/21 25mg Tablet] Omeprazole 40 mg PO DAILY 09/26/19 02/17/21 vitamin B complex 1 tab PO DAILY 07/01/20 02/17/21 Previous Rx's Medication Instructions Recorded rotigotine 2 mg/24 hour 2 mg TRANSDERMA DAILY #30 each 01/16/20 transdermal 24 hour patch metroNIDAZOLE [Flagyl 500mg 500 mg PO TID #30 tab 08/21
[2021-04-09 15:40] VITALS: BP 131/86; PULSE 86; RESP 21; TEMP 37.1; O2SAT 98
== END 2021-04-09 15:42 | disposition home or self-care (01) ==
PROVIDERS: Emergency Provider Nurse Practitioner; PCP Internal Medicine
DX: Z20.822 Contact with and (suspected) exposure to COVID-19 (principal); H92.01 Otalgia, right ear; I10 Essential (primary) hypertension; F41.9 Anxiety disorder, unspecified; K21.9 Gastro-esophageal reflux disease without esophagitis; I50.9 Heart failure, unspecified; L03.116 Cellulitis of left lower limb; L03.115 Cellulitis of right lower limb; Z79.899 Other long term (current) drug therapy; Z88.0 Allergy status to penicillin; Z88.2 Allergy status to sulfonamides
CPT/HCPCS: G0463; 99202; U0003

== ENCOUNTER 2021-04-15 19:31 | Emergency (ER) | payer MEDICARE, SELFPAY ==
--- NOTE | 2021-04-15 19:25 | ECG_ITS ---
APPROVED REPORT Exam: Resting ECG HR:90 bpm ECG Measurements Heart Rate 90 AXES NV 148 P 62 QRSd 80 QRS -19 QT 360 T 53 QTc 440 Conclusion Normal sinus rhythm Old inferior and anterior changes Abnormal ECG Electronically signed by : Elfego Duffy, 04/18/2021 07:31:20
[2021-04-15 19:31] VITALS: BP 132/56; PULSE 89; RESP 16; TEMP 36.7; O2SAT 96; BMI 47.6
--- NOTE | 2021-04-15 19:33 | HMH.EDGENADL ---
ED Disposition Condition on Discharge: Fair - Critical Care Critical Care Time: No <Gray Lyons - Last Filed: 04/15/21 20:07> Condition on Discharge: Good <Mono Oquendo - Last Filed: 04/15/21 23:07> Clinical Impression: Morbid obesity, Chronic diastolic heart failure, Elevated left ventricular end-diastolic pressure (LVEDP) Chest pain Qualifiers: Chest pain type: unspecified Qualified Code(s): R07.9 - Chest pain, unspecified Disposition: Home, Self-Care Instructions: DI for Chest Pain Additional Instructions: see card in am for follow up Referrals: Arjun Baez [Primary Care Provider] - Attestation: On 04/15/21, the high probability of a clinically significant, sudden or life threatening deterioration of the following system(s) required my full and direct attention, intervention and personal management. The time I documented below is in addition to time spent performing reported procedures but includes the following listed in this critical care notation. Medical Decision Making - Medical Records Medical records reviewed: Yes: I reviewed the patient's medical records. - Franck Inquiry Pt receiving controlled substance: No - Lab Data Lab results reviewed: Yes: I reviewed the patient's lab results. Result diagrams: 04/15/21 19:35 - ECG Data Tracing #1 ECG initial impression date: 04/15/21 ECG initial impression time: 19:30 <Gray Lyons - Last Filed: 04/15/21 20:07> - Lab Data Result diagrams: 04/15/21 19:35 04/15/21 19:35 - Radiology Data #1 Image(s): Chest Image Reviewed: Yes I reviewed the patient's radiology image Preliminary Findings: Abnormal (nonspecifci) - LOIDA Score for Non-Stemi Age of Patient: 70-79 years old Heart Rate: 70-89 bpm Systolic Blood Pressure: 120-139 mmhg Serum Creatinine: 0.40-0.79 mg/dl CHF [place] Class: I-No CHF Other Risk Factors: None Non-Stemi Risk Score: 122 <Mono Oquendo - Last Filed: 04/15/21 23:07> Vital Signs: 04/15/21 19:31 Temperature 98.1 F Temperature Source Oral Pulse Rate [Right] 89 Respiratory Rate 16 Blood Pressure [Right Arm] 132/56 L Blood Pressure Mean [Right Arm] 81 Blood Pressure Source [Right Arm] Automatic Cuff Blood Pressure Position [Right Arm] Sitting 02 Sat by Pulse Oximetry 96 Oxygen Delivery Method Room Air - Lab Data Lab Results 04/15/21 19:35: WBC 11.9 H, RBC 4.85, Hgb 14.9, Hct 44.4, MCV 91.6, MCH 30.7, MCHC 33.5, RDW 13.1, Plt Count 294, MPV 7.8, Neut % (Auto) 61.9, Lymph % (Auto) 28.6, [place] % (Auto) 6.8, Eos % (Auto) 1.7, Baso % (Auto) 1.0, Neut # (Auto) 7.4, Lymph # (Auto) 3.4, [place] # (Auto) 0.8, Eos # (Auto) 0.2, Baso # (Auto) 0.1 04/15/21 19:35: Sodium 137, Potassium 3.9, Chloride 98, Carbon Dioxide 31 H, Anion Gap 11.9, BUN 24 H, Creatinine 0.70, Estimated Creat Clear 49, Estimated GFR 83, Est GFR ( Amer) 100, Glucose 99, Calcium 9.4, Troponin I < 0.01 04/15/21 22:28: Troponin I < 0.01 Orders (Tests/Meds): ORDERS Category Date Time Status Troponin I Q3H Lab 04/16/21 01:45 Ordered - ECG Data Tracing #1 90 bpm, normal sinus rhythm, no ST elevation or depression, normal intervals, no ectopy. Inverted T waves in aVR and RSR' in lead III, aVF. (Gray Lyons) Medical Decision Narrative: 70yo F evaluated for chest pain. Differential diagnosis includes but not limited to: ACS/DE, PE, pneumothorax, viral illness, GERD, hiatal hernia pain, cholecystitis. Patient is in no acute distress and very pleasant on initial evaluation. EKG is reviewed as above. Labs are pending. Patient CBC is largely unremarkable. The remainder of her work-up is still pending at this time. Care signed over to the oncoming physician at shift change. (Gray Lyons) pt with stable ekg and labs but has hx of abn cath with lvedp and diastolic dysfunction (Mono Oquendo) General Adult HPI - General Mode of Arrival: Ambulatory <Gray Lyons - Last Filed: 04/15/21 20:07> - General
--- NOTE | 2021-04-15 19:35 | XR_ITS ---
PROCEDURE INFORMATION: Exam: XR Chest Exam date and time: 04/15/2021 7:35 PM Age: 70 years old Clinical indication: Chest pressure; Patient HX: Chest pain. Non smoker. No chest SX; Additional info: Soa/chest pressure TECHNIQUE: Imaging protocol: XR of the chest. Views: 1 view. COMPARISON: CR XR CHEST 2V 08/14/2019 10:55 PM FINDINGS: Lungs: Interstitial haziness in the lower lobes which could reflect interstitial pneumonia. Granulomatous change. No consolidation. Pleural spaces: Unremarkable. No pleural effusion. No pneumothorax. Heart/Mediastinum: Unremarkable. No cardiomegaly. Bones/joints: Unremarkable. IMPRESSION: Interstitial haziness in the lower lobes which could reflect interstitial pneumonia.
--- NOTE | 2021-04-15 19:35 | PC.NURSE ---
Pt advises she was told not to take ASA due to her medication
[2021-04-15 19:49] LABS: Basophils # 0.1 K/mm3 (0-0.2); Eosinophils # 0.2 K/mm3 (0.0-0.4); Eosinophils % 1.7 % (0.1-12.0); Hematocrit 44.4 % (37.0-47.0); Hemoglobin 14.9 g/dL (12.2-16.2); Lymphocytes # 3.4 K/mm3 (0.7-4.5); Lymphocytes % 28.6 % (10-50); Mean Corpuscular HGB Conc 33.5 g/dL (31.8-35.4); Mean Corpuscular Hemoglobin 30.7 pg (27.0-31.2); Mean Corpuscular Volume 91.6 fl (81-99); Mean Platelet Volume 7.8 fl (7.4-10.4); Monocytes # 0.8 K/mm3 (0.1-1.0); Monocytes % 6.8 % (1.7-9.3); Neutrophils # 7.4 K/mm3 (1.8-7.8); Neutrophils % 61.9 % (37.0-80.0); Platelet Count 294 K/mm3 (142-424); Red Blood Count 4.85 M/mm3 (4.20-5.40); Red Cell Distribution Width 13.1 % (11.5-17.5); White Blood Count 11.9 K/mm3 (4.8-10.8)
[2021-04-15 20:05] LABS: Anion Gap 11.9 mEq/L (5-15); Blood Urea Nitrogen 24 mg/dl (7-17); Calcium 9.4 mg/dl (8.4-10.2); Carbon Dioxide 31 mmol/L (22.0-30.0); Chloride 98 mmol/L (98-107); Creatinine Clearance Estimated 49 mL/min (50-200); Estimated Glomerular Filt Rate 83 ml/min (>60); GFR (African American) 100 ML/MIN (>60); Glucose 99 mg/dl (74-100); Potassium 3.9 mmoL/L (3.5-5.1); Sodium 137 mmol/L (136-145)
[2021-04-15 20:19] LABS: Troponin I < 0.01 ng/ml (0.00-0.034)
--- NOTE | 2021-04-15 20:49 | PC.NURSE ---
Confirmed pt meds with pt at bedside
[2021-04-15 23:02] LABS: Troponin I < 0.01 ng/ml (0.00-0.034)
[2021-04-15 23:37] VITALS: BP 161/92; PULSE 87; RESP 16; TEMP 36.8; O2SAT 98
== END 2021-04-15 23:40 | disposition home or self-care (01) ==
PROVIDERS: Emergency Medicine; Emergency Provider Family Medicine; PCP Internal Medicine
DX: R07.9 Chest pain, unspecified (principal); I50.32 Chronic diastolic (congestive) heart failure; E66.01 Morbid (severe) obesity due to excess calories; Z68.42 Body mass index [BMI] 45.0-49.9, adult; K21.9 Gastro-esophageal reflux disease without esophagitis; E78.5 Hyperlipidemia, unspecified; I10 Essential (primary) hypertension; F41.9 Anxiety disorder, unspecified; Z79.899 Other long term (current) drug therapy
CPT/HCPCS: 71045; 80048; 84484; 85025; 93005; 99282

== ENCOUNTER → 2021-04-16 12:23 | Outpatient (CLI) | payer MEDICARE, SELFPAY ==
[2021-04-16 14:03] LABS: NT Pro Brain Natriuretic Pep. 45.1 pg/mL (0-125)
== END ==
PROVIDERS: Visit Provider Internal Medicine Cardiovascular Disease
DX: I50.32 Chronic diastolic (congestive) heart failure; R06.02 Shortness of breath; I11.0 Hypertensive heart disease with heart failure
CPT/HCPCS: 36415; 83880

== ENCOUNTER 2021-04-21 15:00 | Outpatient (RCR) | payer MEDICARE, SELFPAY ==
--- NOTE | 2021-03-03 14:43 | HMH.OTOPEV ---
OT Inpatient Evaluation Rehab OT Outpatient Eval Start: 03/03/21 14:26 Freq: Status: Active Protocol: Document 03/03/21 14:26 RMRON (Rec: 03/03/21 14:41 [id number] Electronically Signed By Melani Gu OT 03/03/21 14:26 Outpatient Therapy Subjective History Subjective History Pt is a 70 year old female who reports to therapy for initial evaluation to right shoulder. Pt reports her shoulder has been hurting her for ~4 months. She does not recall a specific injury to cause her pain. Pt is right hand dominant. Pt had an MRI confirming multiple tears at shoulder. MRI dx: a complete tear of supraspinatus and infraspinatus with retraction, high riding humeral head, SLAP tear, and tear of the long head of the bicep tendon. Pt did receive a steroid shot in right shoulder ~2-3 weeks ago. Pt demonstrates with significant decline in AROM and strength at right shoulder. Pt will continue to be seen weekly to address deficits. Chief Complaint Pain,Stiff,Weakness Symptom Type Ache,Sharp,Dull Symptoms Relieved By Rest/Positioning Symptoms Aggravated By Physical Activity,Lifting Prior Functional Limitations None Current Functional Limitations Reaching,Lifting,Housework, Sleeping,Recreation Activity Symptom Description Constant but Variable Level of pain today (0-10) 1 Pain scale - at its best (0-10) 1 Pain scale - at its worst (0-10) 10 Shoulder/Elbow Eval Shoulder Objective Measurements Shoulder ROM Right Shoulder Abduction Active Range of 75 degrees Motion (degrees) Shoulder Flexion Active Range of Motion 80 degrees (degrees) Query Text: Shoulder External Rotation Active Range 20 degrees of Motion (degrees) Shoulder Internal Rotation Active Range 40 degrees of Motion (degrees) pain with active ROM shoulder exam right standard pain with passive ROM shoulder exam right standard decreased ROM shoulder exam standard right Shoulder MMT Shoulder Abduction Strength Grade 2+ Po
--- NOTE | 2021-03-31 14:48 | HMH.RHREAS ---
Rehab Reassessment Rehab OP Re-assessment Start: 03/31/21 13:59 Freq: Status: Active Protocol: Document 03/31/21 14:00 DEBBIE (Rec: 03/31/21 14:47 DEBBIE [id number]) Electronically Signed By Melani Gu OT 03/31/21 14:00 Rehab Re-assessment Subjective Subjective I can tell a difference. Objective Objective Notes Pt continues to be seen weekly in order to address right shoulder deficits. At this time, pt is only able to attend once a week due to patient schedule. Each session, pt engages in AROM, AAROM, and strengthening at right shoulder. Modalities are provided in order to decrease pain/inflammation. Assessment Progress Assessment Progressing as Expected Assessment Notes Pt reports overall she feels she has improved since starting therapy. She does still have pain, but she reports her pain is less often than before. She still reports her pain is at a 7/10 at worst. Usually she has this pain when reaching quickly above head (reaching in cabinets, etc). Since starting therapy she feels she is 50% better. Current R shoulder AROM/MMT Flex: 90 degrees; 3- Abd: 95 degrees; 3- ER: 50 degrees; 3- IR: 60 degrees; 3- Patient goals met ST, 3, & 5 Goals Not Met See below Revised Goals ST and 4 LT-5 Plan Plan Continue with OT plan of care at this time. Frequency of Therapy 1x a week Duration of therapy 4 more weeks Time and Billing Re-Eval Time 15 Re-Eval Billing Units 1 PHYSICIAN CERTIFICATION: I certify the specified therapy services for Zita Lynch are required, authorized, and reviewed every 30 days.
== END 2021-04-21 15:05 | disposition home or self-care (01) ==
LOC: OT 15:00
PROVIDERS: PCP Internal Medicine; Visit Provider Orthopaedic Surgery
DX: M75.121 Complete rotator cuff tear or rupture of right shoulder, not specified as traumatic (principal)
CPT/HCPCS: 97014; 97110; 97164; 97166; 97530; G0283

== ENCOUNTER → 2021-05-01 07:18 | Outpatient (CLI) | payer MEDICARE, SELFPAY ==
--- NOTE | 2021-05-01 | CA_ITS ---
APPROVED REPORT Exam: Pharmacologic Technologist: Paula Auguste, Ht: 5 ft 6 in Wt: 290 lbs BSA: 2.34 m2 HR: 63 bpm BP: 136/68 mmHg Rhythm: SINUS RHYTHM Medical History Medical History: HTN, Hyperlipidemia Medications: Lisinopril,,,,, Omeprazole,,,,, Metoprolol,,,,, Pravastatin,,,,, Trazadone,,,,, Citalopram,,,,, Lasix,,,,, Tramadol,,,,, SpirOLACTONE,,,,, Famotidine,,,,, RotigOTINE,,,,, Allergies: PCN Cardiac Risk Factors: HTN, Hyperlipidemia, FHX of CAD Stress Test Details Test: LEXISCAN HR Resting HR: 65 bpm Max Heart Rate (APMHR): 150.165085 bpm Max HR Achieved: 86 bpm Target HR (85% APMHR): 127.518762 bpm % of APMHR: 57.33 Recovery HR: 72 bpm BP Resting BP: 136.0/68.0 mmHg Max BP: 138.0/75.0 mmHg Recovery BP: 128.0/91.0 mmHg ECG Resting ECG: SINUS RHYTHM Clinical Exercise duration: 03:59 min Highest Stage Achieved: Stress ECG Conclusion LEXISCAN PORTION COMPLETE. PATIENT DENIED ANY COMPLAINTS DURING PEAK INFUSION. NO CP. NO SOA DURING PEAK INFUSION. NO ECTOPY. LESS THAN 1.5MM ST DEPRESSION. IMAGES TO FOLLOW. Test Summary REST . . . . . . . Sitting REST 14:23 . . 65 . 136/ 68 . . Stage 1 . . . . . . . Myoview Injected Stage 1 01:00 . . 84 . . . . Stage 2 01:00 . . 77 . 136/ 72 . . Stage 3 01:00 . . 75 . 138/ 75 . . Stage 4 00:59 . . 75 . 119/ 84 . Stop exercise at 03:59 RECOVERY 01:00 . . 77 . . . . RECOVERY 02:00 . . 75 . . . . RECOVERY 03:00 . . 70 . 128/ 91 . . RECOVERY 03:50 . . 69 . 126/ 72 . . Electronically signed by : Wayne Madera, 05/01/2021 12:43:18
--- NOTE | 2021-05-01 07:18 | NM_ITS ---
APPROVED REPORT Exam: Nuclear Stress Test Indication: chest pain..short of breath Patient Location: Outpatient Stress Tech: Harmony Auguste [place] Tech:Slime LeblancMARINA RT(R)(N) Ht: 5 ft 6 in Wt: 295 lbs Bra Size: 44dd HR: 63 bpm BP: 136/68 mmHg BSA: 2.36 m2 BMI: 47.6 History: chest pain..short of breath Procedure: Patient received a 0.4 mg of intravenous Lexiscan, resting heart rate 63 bpm, resting blood pressure 136/68 mmHg, with Lexiscan maximum heart rate achived was 78 bpm which is 85 % of the maximum predicted heart rate and blood pressure was 136/72 mmHg. With Lexiscan, patient denied any complaint of chest pain. Cardiac Stress and Resting SPECT Images: Cardiac Stress and Resting SPECT images were obtained using technetium 99m Myoview 29.4 mCi stress and 10.50 mCi at rest. Ejection fraction: 66% No wall motion abnormalities. No fixed or reversible defects. Conclusion: Normal Electronically signed by : Andre Tran MD 05/01/2021 14:57:31
== END ==
PROVIDERS: PCP Internal Medicine; Visit Provider Internal Medicine Cardiovascular Disease
DX: I50.32 Chronic diastolic (congestive) heart failure; R06.02 Shortness of breath; R07.9 Chest pain, unspecified; I11.0 Hypertensive heart disease with heart failure
CPT/HCPCS: 78452; 93017; 93306; A9502; J2785

== ENCOUNTER → 2021-05-26 16:01 | Outpatient (CLI) | payer MEDICARE, SELFPAY ==
[2021-05-26 18:10] LABS: Thyroid Stimulating Hormone 1.66 uIU/mL (0.465-4.68)
[2021-05-26 18:45] LABS: Vitamin B12 651 pg/mL (239-931)
== END ==
PROVIDERS: Visit Provider Nurse Practitioner Family
DX: G47.00 Insomnia, unspecified (principal)
CPT/HCPCS: 36415; 82607; 82746; 84443

== ENCOUNTER 2021-07-14 15:00 | Outpatient (RCR) | payer MEDICARE, SELFPAY ==
--- NOTE | 2021-06-02 10:31 | HMH.PTOPEV ---
PT Outpatient Evaluation Rehab PT Outpatient Evaluation Start: 06/02/21 10:17 Freq: Status: Active Protocol: Document 06/02/21 10:18 GIOVANNI (Rec: 06/02/21 10:30 GIOVANNI [id number]) Electronically Signed By Hamilton Jones, PT 06/02/21 10:18 Outpatient Therapy Subjective History Subjective History Pt reports h/o chronic bilateral hand/finger N&T. Pt reports left > right hand N&T, quinton. provocative w/crafting and cell phone use. Pt reports N&T w/sleeping as well. Pt also reports 'my neurologist believes it could also be neuropathy'. Chief Complaint Pain,Paresthesia Symptom Type Ache,Dull,Numbness,Tingling Symptoms Relieved By Rest/Positioning,Ice Symptoms Aggravated By Physical Activity Prior Functional Limitations Housework,Desk Work/Reading, Recreation Activity Current Functional Limitations Housework,Desk Work/Reading, Recreation Activity Symptom Description Constant but Variable Level of pain today (0-10) 3 Pain scale - at its best (0-10) 3 Pain scale - at its worst (0-10) 8 Wrist/Hand Eval Wrist Range of Motion Right Wrist Extension Active Range of Motion ( 0-65 degrees) Wrist Flexion Active Range of Motion ( 0-70 degrees) Left Wrist Extension Active Range of Motion ( 0-85 degrees) Wrist Flexion Active Range of Motion ( 0-80 degrees) Wrist Manual Muscle Testing Right Wrist Extension Strength Grade 4 Good Wrist Flexion Strength Grade 4 Good Forearm Supination Strength Grade 4 Good Forearm Pronation Strength Grade 4 Good Left Wrist Extension Strength Grade 4 Good Wrist Flexion Strength Grade 4 Good Forearm Supination Strength Grade 4 Good Forearm Pronation Strength Grade 4 Good Sustainable Design Consultant/Pinch Strength Right Sustainable Design Consultant Strength Measurement (lbs) 40 Palmar Pinch (3-point) Strength 5 Measurement (lbs) Lateral Pinch Strength Measurement (lbs) 7 Left Sustainable Design Consultant Strength Measurement (lbs) 30 Palmar Pinch (3-point) Strength 4 Measurement (lbs) Lateral Pinch Strength Measurement (lbs) 7 Special Tests Wrist Phalen Test Positive Left,Positive Right Wrist Tinel Test Negative Left,Negative Right Outpatient Therapy Assessment Impairments Problems/Impairmments Impaired Range of Motion, Impaired Strength,Impaired Lifting,Impaired Household Ca
--- NOTE | 2021-07-07 15:07 | HMH.RHREAS ---
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 Pt reports severe N&T in bilateral hands, '7-8/10 pain ', on VAS, and reports some improvement since starting median nn glides for HEP Objective Objective Notes ADMINISTRATION DEAN: R HAND 45#, L HAND 35#M, R ROCHA INCH 7#, L 7#, BRAD RUBY. 7# MMT: RUBY. WRIST FLX,EXT 4-4+/5 , RUBY. FINGER ABD 4+/5, B THUMB ABD 4+/5 TTP: RUBY. MEDIAN NN/CARPAL TUNNEL 1-2/4 AROM: B WRIST FLX AND EXT WFL Assessment Progress Assessment Progressing as Expected Assessment Notes IMPROVED STRENGTH, TTP, AND ROM Patient goals met STG'S 02/24 LTG'S 11/27 Goals Not Met STG'S 12/27, LTG'S 04/27 Plan Plan PT TO CONT. W/SKILLED P.T. TO MAKE FURTHER IMPROVEMENTS IN ADMINISTRATION DEAN, STRENGTH, TTP, AND N&T S /S TO ALLOW FOR OPTIMAL FUNCTION Frequency of Therapy 1-2X/WK Duration of therapy 4-6 WKS Time and Billing Re-Eval Time 15 Re-Eval Billing Units 0 PHYSICIAN CERTIFICATION: I certify the specified therapy services for Zita Lynch are required, authorized, and reviewed every 30 days.
== END 2021-07-14 15:05 | disposition home or self-care (01) ==
LOC: PT 15:00
PROVIDERS: PCP Internal Medicine; Visit Provider Nurse Practitioner Family
DX: G56.03 Carpal tunnel syndrome, bilateral upper limbs (principal); R20.0 Anesthesia of skin; R20.2 Paresthesia of skin
CPT/HCPCS: 97018; 97033; 97110; 97163; 97164; 97760

== ENCOUNTER 2021-08-20 15:47 | Emergency (ER) | payer MEDICARE, SELFPAY ==
[2021-08-20 15:50] VITALS: BP 144/69; PULSE 75; RESP 18; TEMP 36.8; O2SAT 97; BMI 45.1
--- NOTE | 2021-08-20 16:21 | HMH.EDUTC ---
[facility] [place] Disposition Clinical Impression: Viral syndrome Sinusitis Qualifiers: Sinusitis location: unspecified location Chronicity: acute Recurrence: non-recurrent Qualified Code(s): J01.90 - Acute sinusitis, unspecified Pharyngitis Qualifiers: Pharyngitis/tonsillitis etiology: unspecified etiology Qualified Code(s): J02.9 - Acute pharyngitis, unspecified Disposition: Home, Self-Care Condition on Discharge: Good Instructions: DI for Sinusitis, DI for COVID-19 (Suspected or Confirmed ), Preventing the Spread of Coronavirus Discharge Instructions Additional Instructions: Drink plenty of fluids. Take tylenol or ibuprofen for pain or fever. Take the medications as directed. Follow up with your regular doctor. GO TO THE ER FOR ANY WORSENING SYMPTOMS Quarantine until you know the results of your covid-19 test. If it is positive, the health department should call you and give you further instructions about your length of Quarantine and other things. Notify your school or workplace of your results and follow their instructions regarding return to work/school. Prescriptions: Benzonatate [Tessalon Perle 100mg Cap] 100 mg PO TIDP PRN #30 cap PRN Reason: Cough Transmission Status: Received by [id number] Azithromycin [Z-Graeme 250mg Tab*] 250 mg PO UD DOSE PK #6 tab Transmission Status: Received by [id number] Referrals: Arjun Baez [Primary Care Provider] - Time of Disposition: 16:38 Medical Decision Making - Medical Records Medical records reviewed: No: I reviewed the patient's medical records. - Franck Inquiry Pt receiving controlled substance: No Vital Signs: 08/20/21 15:50 08/20/21 16:35 Temperature 98.2 F 98.2 F Temperature Source Oral Pulse Rate 75 Pulse Rate [Left Brachial] 75 Respiratory Rate 18 18 Blood Pressure 144/69 H Blood Pressure [Left Arm] 144/69 H Blood Pressure Mean [Left Arm] 94 Blood Pressure Source [Left Arm] Automatic Cuff Blood Pressure Position [Left Arm] Sitting 02 Sat by Pulse Oximetry 97 Oxygen Delivery Method Room Air - Lab Data Lab results reviewed: Yes: I reviewed the patient's lab results. Lab Results 08/20/21 16:09: Strep Scn Rapid Clinic Negative Orders (Tests/Meds): ORDERS Category Date Time Status Covid-19 Nasal PCR ([facility]) Routine Lab 08/20/21 16:39 Received Strep Screen Confirmation Routine Micro 08/20/21 16:09 Received [facility] HPI - General Stated complaint: covid test/symptoms Time Seen by Provider: 08/20/21 16:22 Mode of Arrival: Ambulatory Source of Information: Patient Limitations: No Limitations Description of Symptoms (Recalled from Triage Doc. by RN): PATIENT C/O HEADACHE AND SORE THROAT THAT STARTED YESTERDAY HEENT Symptoms (Recalled from RN notes): Yes Resp Symptoms (Recalled from RN notes): No Skin Symptoms (Recalled from RN notes): No MS Symptoms (Recalled from RN notes): No Functional Status (Recalled from RN notes): WNL - History of Present Illness Provider Complaint: She states that since yesterday she has had a sore throat, sinus congestion, and head ache. She denies any known exposure to covid-19. She has been vaccinated against covid-19. - Related Data Home Medications Medication Instructions Recorded Confirmed citalopram 20 mg tablet 20 mg PO DAILY 12/12/17 06/25/21 pravastatin 80 mg tablet 80 mg PO HS 12/12/17 06/25/21 tramadol 50 mg tablet 50 mg PO Q6HP PRN tab 12/12/17 06/25/21 Metoprolol Succinate 50 mg PO DAILY 08/14/19 06/25/21 lisinopriL [Lisinopril 10mg Tab] 10 mg PO DAILY 08/15/19 06/25/21 Furosemide [Lasix 40mg tab] 40 mg PO DAILY 09/03/19 06/25/21 Spironolactone [Spironolactone 25 mg PO DAILY 09/03/19 06/25/21 25mg Tablet] Omeprazole 40 mg PO DAILY 09/26/19 06/25/21 vitamin B complex 1 tab PO DAILY 07/01/20 06/25/21 Previous Rx's Medication Instructions Recorded rotigotine 2 mg/24 hour 2 mg TRANSDERMA DAILY #30 each 01/16/20 transdermal 24 ho
[2021-08-20 16:35] VITALS: BP 144/69; PULSE 75; RESP 18; TEMP 36.8; O2SAT 97
[2021-08-20 17:18] LABS: UTC Strep Screen (Rapid) Negative (Negative)
== END 2021-08-20 16:42 | disposition home or self-care (01) ==
PROVIDERS: Emergency Provider Nurse Practitioner Family; PCP Internal Medicine
DX: U07.1 COVID-19 (principal); J01.90 Acute sinusitis, unspecified; B34.9 Viral infection, unspecified; I10 Essential (primary) hypertension; E78.5 Hyperlipidemia, unspecified; I50.9 Heart failure, unspecified; K21.9 Gastro-esophageal reflux disease without esophagitis; Z88.0 Allergy status to penicillin; Z88.2 Allergy status to sulfonamides
CPT/HCPCS: G0463; 87880; 99203; C9803; U0003; U0005

== ENCOUNTER 2021-08-22 12:52 | Emergency (ER) | payer MEDICARE, SELFPAY ==
[2021-08-22] VITALS (10 sets, daily range): BP systolic 117–158; BP diastolic 69–116; PULSE 52–63; RESP 16–19; TEMP 36.7–36.8; O2SAT 92–98; BMI 47.6
--- NOTE | 2021-08-22 12:45 | ECG_ITS ---
APPROVED REPORT Exam: Resting ECG HR:60 bpm ECG Measurements Heart Rate 60 AXES DC 164 P 41 QRSd 82 QRS -24 QT 420 T 34 QTc 420 Conclusion Normal sinus rhythm Minimal voltage criteria for LVH, may be normal variant Old anteroseptal changes Abnormal ECG Electronically signed by : Elfego Duffy MD 08/23/2021 09:18:43
--- NOTE | 2021-08-22 12:53 | HMH.EDGENADL ---
ED Disposition Clinical Impression: Atypical chest pain, COVID-19 virus infection Disposition: Home, Self-Care Condition on Discharge: Good Instructions: DI for Atypical Chest Pain, DI for COVID-19 (Suspected or Confirmed ) Additional Instructions: Additional instructions for CHEST PAIN: See your physician as soon as possible for further evaluation. Return immediately if worsening chest pain, vomiting, shortness of breath, fever, coughing of blood. COVID-19 Isolation: Isolate yourself for a MINIMUM of 10 days: What to do: Monitor your symptoms. If you have an emergency warning sign (including trouble breathing), seek emergency medical care immediately. Stay in a separate room from other household members, if possible. Use a separate bathroom, if possible. Avoid contact with other members of the household and pets. Don?t share personal household items, like cups, towels, and utensils. Wear a mask when around other people if able. You can be around others AFTER: 10 days since symptoms first appeared AND 24 hours with no fever without the use of fever-reducing medications AND Other symptoms of COVID-19 are improving Referrals: Provider,Referral, [Primary Care Provider] - - Critical Care Critical Care Time: No Attestation: On , the high probability of a clinically significant, sudden or life threatening deterioration of the following system(s) required my full and direct attention, intervention and personal management. The time I documented below is in addition to time spent performing reported procedures but includes the following listed in this critical care notation. Medical Decision Making - Medical Records Medical records reviewed: Yes: I reviewed the patient's medical records. MR Comment: Reviewed recent Myoview stress test and echocardiogram 05/01/2021, both normal. - Franck Inquiry Pt receiving controlled substance: No Vital Signs: 08/22/21 12:52 Temperature 98.0 F Temperature Source Oral Pulse Rate [Right] 58 L Respiratory Rate 16 Blood Pressure [Right Arm] 134/69 Blood Pressure Mean [Right Arm] 90 Blood Pressure Source [Right Arm] Automatic Cuff Blood Pressure Position [Right Arm] Sitting 02 Sat by Pulse Oximetry 98 Oxygen Delivery Method Room Air - Lab Data Lab Results 08/22/21 12:50: WBC 7.2, RBC 4.80, Hgb 14.7, Hct 45.2, MCV 94.2, MCH 30.6, MCHC 32.5, RDW 13.4, Plt Count 212, MPV 8.2, Neut % (Auto) 82.9 H, Lymph % (Auto) 13.0, [place] % (Auto) 3.6, Eos % (Auto) 0.1, Baso % (Auto) 0.4, Neut # (Auto) 5.9, Lymph # (Auto) 0.9, [place] # (Auto) 0.3, Eos # (Auto) 0.0, Baso # (Auto) 0.0 08/22/21 12:50: Sodium 139, Potassium 4.5, Chloride 102, Carbon Dioxide 28, Anion Gap 13.5, BUN 12, Creatinine 0.60, Estimated Creat Clear 48, Estimated GFR 99, Est GFR ( Amer) 119, Glucose 139 H, Calcium 9.4 08/22/21 12:50: D-Dimer 0.45 Result diagrams: 08/22/21 12:50 08/22/21 12:50 Orders (Tests/Meds): ED MEDICATIONS Generic Name Dose Route Start Last Admin Trade Name Freq PRN Reason Stop Dose Admin Diphenhydramine HCl 25 mg 08/22/21 15:15 Diphenhydramine 50mg/Ml Vial IV 08/22/21 16:00 ONCE PRN INFUSION REACTION Hydrocortisone Sodium Succinate 100 mg 08/22/21 15:15 Hydrocortisone Sod Succinate 100mg Vial IV 08/22/21 16:00 ONCE PRN INFUSION REACTION Sodium Chloride 1,000 mls @ 100 mls/hr 08/22/21 15:15 Sod Chlor 0.9% 1000ml Bag IV 08/22/21 16:00 .Q10H PRN INFUSION REACTION Casirivimab/Imdevimab 10 ml/ 110 mls @ 220 mls/hr 08/22/21 15:15 Sodium Chloride IV 08/22/21 15:44 ONCE ONE Loratadine 10 mg 08/22/21 15:15 Loratadine 10mg Tablet PO 08/22/21 16:00 ONCE PRN INFUSION REACTION - Radiology Data #1 Image(s): Chest Image Reviewed: Yes I reviewed the patient's radiology image, Yes I have reviewed radiologist's interpretation PROCEDURE INFORMATION: Exam: XR Chest Exam date and
--- NOTE | 2021-08-22 13:07 | XR_ITS ---
PROCEDURE INFORMATION: Exam: XR Chest Exam date and time: 08/22/2021 1:07 PM Age: 71 years old Clinical indication: Chest pressure; Patient HX: Chest pain in er; Additional info: Cp TECHNIQUE: Imaging protocol: XR of the chest. Views: 1 view. COMPARISON: CR XR CHEST PORTABLE 04/15/2021 7:41 PM FINDINGS: Lungs: Unremarkable. No consolidation. Pleural spaces: Unremarkable. No pleural effusion. No pneumothorax. Heart/Mediastinum: Unremarkable. No cardiomegaly. Bones/joints: Unremarkable. IMPRESSION: No acute findings.
[2021-08-22 13:17] LABS: Basophils % 0.4 % (0.1-2.0); Chloride 102 mmol/L (98-107); Eosinophils % 0.1 % (0.1-12.0); Hematocrit 45.2 % (37.0-47.0); Hemoglobin 14.7 g/dL (12.2-16.2); Lymphocytes # 0.9 K/mm3 (0.7-4.5); Mean Corpuscular HGB Conc 32.5 g/dL (31.8-35.4); Mean Corpuscular Hemoglobin 30.6 pg (27.0-31.2); Mean Corpuscular Volume 94.2 fl (81-99); Mean Platelet Volume 8.2 fl (7.4-10.4); Monocytes # 0.3 K/mm3 (0.1-1.0); Monocytes % 3.6 % (1.7-9.3); Neutrophils # 5.9 K/mm3 (1.8-7.8); Neutrophils % 82.9 % (37.0-80.0); Platelet Count 212 K/mm3 (142-424); Red Cell Distribution Width 13.4 % (11.5-17.5); White Blood Count 7.2 K/mm3 (4.8-10.8)
[2021-08-22 13:18] LABS: Potassium 4.5 mmoL/L (3.5-5.1); Sodium 139 mmol/L (136-145)
[2021-08-22 13:20] LABS: Blood Urea Nitrogen 12 mg/dl (7-17); Creatinine Clearance Estimated 48 mL/min (50-200); Estimated Glomerular Filt Rate 99 ml/min (>60); GFR (African American) 119 ML/MIN (>60)
[2021-08-22 13:21] LABS: Anion Gap 13.5 mEq/L (5-15); Calcium 9.4 mg/dl (8.4-10.2); Carbon Dioxide 28 mmol/L (22.0-30.0); Glucose 139 mg/dl (74-100)
[2021-08-22 13:26] LABS: D-Dimer 0.45 ug/mL (0.0-0.5)
--- NOTE | 2021-08-22 15:06 | PC.NURSE ---
Pt was scheduled for regen cov infusion in the am. Work-up was negative nad pt was going to go home. Decided to go ahead and infuse pt today. Notified pharmacy needed regen-cov
[2021-08-22 18:22] LABS: Troponin I < 0.01 ng/ml (0.00-0.034)
== END 2021-08-22 17:38 | disposition home or self-care (01) ==
PROVIDERS: Emergency Provider Emergency Medicine
DX: R07.89 Other chest pain (principal); U07.1 COVID-19; K21.9 Gastro-esophageal reflux disease without esophagitis; I10 Essential (primary) hypertension; F41.9 Anxiety disorder, unspecified; E78.5 Hyperlipidemia, unspecified; Z79.899 Other long term (current) drug therapy
CPT/HCPCS: 71045; 80048; 84484; 85025; 85378; 93005; 96365; 99284

== ENCOUNTER 2021-08-29 11:27 | Emergency (ER) | payer MEDICARE, SELFPAY ==
[2021-08-29 11:27] VITALS: BP 137/73; PULSE 60; RESP 16; TEMP 36.6; O2SAT 96; BMI 47.6
--- NOTE | 2021-08-29 11:27 | ECG_ITS ---
APPROVED REPORT Exam: Resting ECG HR:60 bpm ECG Measurements Heart Rate 60 AXES [place] 156 P 15 QRSd 82 QRS -32 QT 414 T 43 QTc 414 Conclusion Normal sinus rhythm Left axis deviation Minimal voltage criteria for LVH, may be normal variant Abnormal ECG Electronically signed by : Elfego Duffy MD 08/31/2021 21:24:50
--- NOTE | 2021-08-29 11:34 | HMH.EDGENADL ---
ED Disposition Clinical Impression: Atypical chest pain, COVID-19 virus infection Disposition: Home, Self-Care Condition on Discharge: Good Instructions: DI for Atypical Chest Pain Additional Instructions: Additional instructions for CHEST PAIN: See your physician as soon as possible for further evaluation. Return immediately if worsening chest pain, vomiting, shortness of breath, fever, coughing of blood. Referrals: Provider,Referral, [Primary Care Provider] - - Critical Care Critical Care Time: No Attestation: On , the high probability of a clinically significant, sudden or life threatening deterioration of the following system(s) required my full and direct attention, intervention and personal management. The time I documented below is in addition to time spent performing reported procedures but includes the following listed in this critical care notation. Medical Decision Making - Medical Records Medical records reviewed: Yes: I reviewed the patient's medical records. MR Comment: Reviewed emergency department record from emergency department visit 08/22/21, seen by me. Reviewed prior EKG. reviewed prior Myoview stress test, echocardiogram from April 2011, both negative. - Franck Inquiry Pt receiving controlled substance: No Vital Signs: 08/29/21 11:27 08/29/21 13:42 Temperature 97.9 F 98 F Temperature Source Oral Oral Pulse Rate 79 Pulse Rate [Right Radial] 60 Respiratory Rate 16 18 Blood Pressure 142/75 H Blood Pressure [Right Arm] 137/73 Blood Pressure Mean [Right Arm] 94 Blood Pressure Source [Right Arm] Automatic Cuff Blood Pressure Position Sitting Blood Pressure Position [Right Arm] Sitting 02 Sat by Pulse Oximetry 96 Oxygen Delivery Method Room Air Room Air - Lab Data Lab Results 08/29/21 12:34: WBC 9.2, RBC 5.06, Hgb 15.8, Hct 48.1 H, MCV 95.0, MCH 31.2, MCHC 32.9, RDW 13.3, Plt Count 315, MPV 8.0, Neut % (Auto) 59.7, Lymph % (Auto) 31.1, [place] % (Auto) 5.8, Eos % (Auto) 2.6, Baso % (Auto) 0.8, Neut # (Auto) 5.5, Lymph # (Auto) 2.9, [place] # (Auto) 0.5, Eos # (Auto) 0.2, Baso # (Auto) 0.1 08/29/21 12:34: Sodium 135 L, Potassium 4.1, Chloride 100, Carbon Dioxide 28, Anion Gap 11.1, BUN 24 H, Creatinine 0.60, Estimated Creat Clear 48, Estimated GFR 99, Est GFR ( Amer) 119, Glucose 100, Calcium 9.1, Troponin I < 0.01 Result diagrams: 08/29/21 12:34 08/29/21 12:34 - Radiology Data #1 Image(s): Chest Image Reviewed: Yes I reviewed the patient's radiology image Preliminary Findings: Normal/NAD - ECG Data Tracing #1 EKG interpreted by Alden Dejesus MD: Rhythm: sinus Rate: 60 [place]: Left Ectopy: none Conduction: normal ST Segment Changes: none T Wave Changes: none Q Waves: none Poor R wave progression Prior electrocardiagrams reviewed. No significant change from prior tracings. - Reevaluation(s) Time: 13:34 Reevaluation #1: Sitting upright in a chair in the room. Discussed findings, negative work-up. Her chest pain is very atypical and related to forward bending, and very well may be due to her hiatal hernia. Recent negative cardiac work-up and to negative emergency department work-ups for very brief episodes of very atypical pain. I feel she can be discharged for follow-up as an outpatient with her primary care provider. - LOIDA Score for Non-Stemi Age of Patient: 70-79 years old Heart Rate: 50-69 bpm Systolic Blood Pressure: 120-139 mmhg Serum Creatinine: 0.40-0.79 mg/dl CHF [place] Class: I-No CHF Other Risk Factors: None Non-Stemi Risk Score: 116 General Adult HPI - General Stated complaint: CP, SOA, Covid Symptoms Time Seen by Provider: 08/29/21 11:34 - History of Present Illness HPI narrative: Complains of intermittent chest pressure, diarrhea, sore throat, cough. She recently tested positive for COVID-19. She has had 3 episodes of chest pressure, all brief, 5 minutes or less, over the past week. She was seen in this emerge
--- NOTE | 2021-08-29 12:02 | XR_ITS ---
PROCEDURE INFORMATION: Exam: XR Chest Exam date and time: 08/29/2021 12:02 PM Age: 71 years old Clinical indication: Cough; Additional info: Cough, covid 19 TECHNIQUE: Imaging protocol: XR of the chest. Views: 1 view. COMPARISON: CR XR CHEST PORTABLE 08/22/2021 1:50 PM FINDINGS: Lungs: Atelectatic changes noted within both lung bases. Pleural spaces: Unremarkable. No pleural effusion. No pneumothorax. Heart/Mediastinum: Unremarkable. No cardiomegaly. Bones/joints: Unremarkable. IMPRESSION: Atelectatic changes noted within both lung bases.
[2021-08-29 12:49] LABS: Basophils # 0.1 K/mm3 (0-0.2); Basophils % 0.8 % (0.1-2.0); Eosinophils # 0.2 K/mm3 (0.0-0.4); Eosinophils % 2.6 % (0.1-12.0); Hematocrit 48.1 % (37.0-47.0); Hemoglobin 15.8 g/dL (12.2-16.2); Lymphocytes # 2.9 K/mm3 (0.7-4.5); Lymphocytes % 31.1 % (10-50); Mean Corpuscular HGB Conc 32.9 g/dL (31.8-35.4); Mean Corpuscular Hemoglobin 31.2 pg (27.0-31.2); Monocytes # 0.5 K/mm3 (0.1-1.0); Monocytes % 5.8 % (1.7-9.3); Neutrophils # 5.5 K/mm3 (1.8-7.8); Neutrophils % 59.7 % (37.0-80.0); Platelet Count 315 K/mm3 (142-424); Red Blood Count 5.06 M/mm3 (4.20-5.40); Red Cell Distribution Width 13.3 % (11.5-17.5); White Blood Count 9.2 K/mm3 (4.8-10.8)
[2021-08-29 12:53] LABS: Chloride 100 mmol/L (98-107); Potassium 4.1 mmoL/L (3.5-5.1); Sodium 135 mmol/L (136-145)
[2021-08-29 12:56] LABS: Anion Gap 11.1 mEq/L (5-15); Blood Urea Nitrogen 24 mg/dl (7-17); Calcium 9.1 mg/dl (8.4-10.2); Carbon Dioxide 28 mmol/L (22.0-30.0); Creatinine Clearance Estimated 48 mL/min (50-200); Estimated Glomerular Filt Rate 99 ml/min (>60); GFR (African American) 119 ML/MIN (>60); Glucose 100 mg/dl (74-100)
[2021-08-29 13:18] LABS: Troponin I < 0.01 ng/ml (0.00-0.034)
[2021-08-29 13:42] VITALS: BP 142/75; PULSE 79; RESP 18; TEMP 36.6; O2SAT 96
== END 2021-08-29 13:44 | disposition home or self-care (01) ==
PROVIDERS: Emergency Provider Emergency Medicine
DX: R07.9 Chest pain, unspecified (principal); R06.02 Shortness of breath; R05.9 Cough, unspecified; R19.7 Diarrhea, unspecified; J02.9 Acute pharyngitis, unspecified; Z88.0 Allergy status to penicillin; Z88.2 Allergy status to sulfonamides; E78.5 Hyperlipidemia, unspecified; I10 Essential (primary) hypertension; K21.9 Gastro-esophageal reflux disease without esophagitis; F41.9 Anxiety disorder, unspecified; N28.9 Disorder of kidney and ureter, unspecified
CPT/HCPCS: 71045; 80048; 84484; 85025; 93005; 99283

== ENCOUNTER → 2021-09-23 10:32 | Outpatient (CLI) | payer MEDICARE, SELFPAY ==
[2021-09-23 11:14] LABS: Hematocrit 41.3 % (37.0-47.0); Hemoglobin 14.1 g/dL (12.2-16.2)
== END ==
PROVIDERS: Visit Provider Surgery
DX: D64.9 Anemia, unspecified (principal)
CPT/HCPCS: 36415; 85014; 85018

== ENCOUNTER 2021-10-07 14:25 | Emergency (ER) | payer MEDICARE, SELFPAY ==
[2021-10-07 16:15] VITALS: BP 146/92; PULSE 76; RESP 24; TEMP 37.1; O2SAT 97; BMI 46.0
[2021-10-07 16:16] LABS: Adenovirus,PCR Not Detected (NotDetected); Bordetella Pertussis Not Detected (NotDetected); Chlamydophila Pneumoniae, PCR Not Detected (NotDetected); Coronavirus 19, PCR Not Detected (NotDetected); Coronavirus 229E Not Detected (NotDetected); Coronavirus NL63 Not Detected (NotDetected); Coronavirus OC43 Not Detected (NotDetected); Coronovirus HKU1,PCR Not Detected (NotDetected); Human Metapneumovirus Not Detected (NotDetected); Influenza A, PCR Not Detected (NotDetected); Influenza AH1, 2009 Not Detected (NotDetected); Influenza AH1, PCR Not Detected (NotDetected); Influenza AH3,PCR Not Detected (NotDetected); Influenza B, PCR Not Detected (NotDetected); Mycoplasma Pneumoniae, PCR Not Detected (NotDetected); Parainfluenza 1, PCR Not Detected (NotDetected); Parainfluenza 2, PCR Not Detected (NotDetected); Parainfluenza 3, PCR Not Detected (NotDetected); Parainfluenza 4, PCR Not Detected (NotDetected); Respiratory Syncytial Virus Not Detected (NotDetected); Rhinovirus/Enterovirus Not Detected (NotDetected)
--- NOTE | 2021-10-07 16:31 | HMH.EDUTC ---
[facility] Disposition Clinical Impression: URI (upper respiratory infection) Qualifiers: URI type: unspecified URI Qualified Code(s): J06.9 - Acute upper respiratory infection, unspecified Disposition: Home, Self-Care Condition on Discharge: Good Instructions: Cough, DI for Sinusitis Additional Instructions: *Monitor Temp, Over the counter Motrin or Tylenol as directed/as needed Tylenol every 4 hours and Motrin every 6 hours (as long as your family doctor has told you that you can take it) for fever or pain. and straight to ER if unable to lower temp less than 101.0 after medication given *Warm salt water gargles may help to soothe the throat *Throat Lozenges *Warm fluids like tea with honey may help to soothe the throat *Sleep elevated *Humidifier/Vaporizer Follow up IMMEDIATELY for new or worsening symptoms or no Noticeable improvement over the next 48-72 hours. 911 for difficulty breathing or swallowing You were tested for today for COVID19 your test result should be back in the next 24-48 hours, you may check your results on the [facility] health portal if you have trouble logging on or viewing your results you may call You was given a handout with instructions for Self Quarantine and Self isolation for while you wait on test results and what to do if they are positive If you are positive the Health Dept will be contacting you also Make sure to take your Vitamins Vit. C Vit D and Zinc if you can take the Prescriptions: Azithromycin [Z-Graeme 250mg Tab] 250 mg PO DIRECTED #6 tab Transmission Status: Received by [id number] Referrals: Arjun Baez [Primary Care Provider] - As needed Time of Disposition: 17:02 Medical Decision Making - Franck Inquiry Pt receiving controlled substance: No Franck was queried for this patient: No Vital Signs: 10/07/21 16:15 10/07/21 17:10 Temperature 98.8 F 98.8 F Temperature Source Oral Pulse Rate 76 Pulse Rate [Right Brachial] 76 Respiratory Rate 24 24 Blood Pressure 146/92 H Blood Pressure [Right Arm] 146/92 H Blood Pressure Mean [Right Arm] 110 Blood Pressure Source [Right Arm] Automatic Cuff Blood Pressure Position [Right Arm] Sitting 02 Sat by Pulse Oximetry 97 Oxygen Delivery Method Room Air - Lab Data Lab Results 10/07/21 15:56: Chlamy pneumoniae PCR Not detected, Adenovirus (PCR) Not detected, B. pertussis DNA (PCR) Not detected, Coronavirus OC43 (PCR) Not detected, Coronavirus HKU1 (PCR) Not detected, Coronavirus 229E (PCR) Not detected, SARS-CoV-2 (PCR) Not detected, Coronavirus NL63 (PCR) Not detected, Human Metapneumovir PCR Not detected, Influenza A (H1) PCR Not detected, Influ A (H1N1/09) PCR Not detected, Influenza A (H3) PCR Not detected, Influenza Type A (PCR) Not detected, Influenza Type B (PCR) Not detected, M. pneumoniae (PCR) Not detected, Parainfluenza 1 (PCR) Not detected, Parainfluenza 2 (PCR) Not detected, Parainfluenza 3 (PCR) Not detected, Parainfluenza 4 (PCR) Not detected, RSV (PCR) Not detected, Entero/Rhino (PCR) Not detected Orders (Tests/Meds): ED MEDICATIONS Discontinued Medications Generic Name Dose Route Start Last Admin Trade Name Freq PRN Reason Stop Dose Admin Methylprednisolone Sodium Succinate 125 mg 10/07/21 17:02 10/07/21 17:07 Methylprednisolone Sod Succ 125mg Vial IM 10/07/21 17:03 125 mg ONCE ONE Administration Medical Decision Narrative: Patient states that she has taken azithromycin and Solu Medrol in the past without complications or reactions [facility] HPI - General Stated complaint: chills, weakness, cough, diarrhea Time Seen by Provider: 10/07/21 16:31 Mode of Arrival: Ambulatory Source of Information: Patient Limitations: No Limitations Description of Symptoms (Recalled from Triage Doc. by RN): PATIENT C/O HEADACHE, SOA, COUGH, AND CONGESTION X 2 DAYS. EXPOSED TO COVID LAST WEEK HEENT Symptoms (Recalled from RN notes): Yes Resp Symptoms (Recalled from RN notes): Yes Skin Sy
[2021-10-07 17:10] VITALS: BP 146/92; PULSE 76; RESP 24; TEMP 37.1; O2SAT 97
== END 2021-10-07 17:17 | disposition home or self-care (01) ==
PROVIDERS: Emergency Provider Nurse Practitioner; PCP Internal Medicine
DX: J06.9 Acute upper respiratory infection, unspecified (principal); K21.9 Gastro-esophageal reflux disease without esophagitis; E78.5 Hyperlipidemia, unspecified; I10 Essential (primary) hypertension; Z20.822 Contact with and (suspected) exposure to COVID-19
CPT/HCPCS: G0463; 87581; 87632; 87798; 96372; 99202; C9803; U0003; U0005

== ENCOUNTER → 2021-10-29 10:57 | Outpatient (CLI) | payer MEDICARE, SELFPAY ==
[2021-10-29 12:11] LABS: Anion Gap 9.7 mEq/L (5-15); Blood Urea Nitrogen 21 mg/dl (7-17); Calcium 9.9 mg/dl (8.4-10.2); Carbon Dioxide 35 mmol/L (22.0-30.0); Chloride 97 mmol/L (98-107); Estimated Glomerular Filt Rate 62 ml/min (>60); GFR (African American) 75 ML/MIN (>60); Glucose 90 mg/dl (74-100); Potassium 4.7 mmoL/L (3.5-5.1); Sodium 137 mmol/L (136-145)
[2021-10-29 12:43] LABS: Ferritin 172 ng/ml (11.1-264)
== END ==
PROVIDERS: Nurse Practitioner Family; Visit Provider Nurse Practitioner Family
DX: R06.00 Dyspnea, unspecified; I11.0 Hypertensive heart disease with heart failure; I50.32 Chronic diastolic (congestive) heart failure; I50.9 Heart failure, unspecified; N18.9 Chronic kidney disease, unspecified; D64.9 Anemia, unspecified
CPT/HCPCS: 36415; 80048; 82728

== ENCOUNTER 2021-12-15 10:55 | Emergency (ER) | payer MEDICARE, SELFPAY ==
[2021-12-15 10:55] VITALS: BP 145/84; PULSE 64; RESP 18; TEMP 36.9; O2SAT 94; BMI 48.4
--- NOTE | 2021-12-15 10:59 | XR_ITS ---
FINAL REPORT CLINICAL HISTORY: cp COMPARISON: Since August 29, 2021 FINDINGS: The heart size is normal. The mediastinum is normal. Lungs are underinflated. There is mild atelectasis in the right lung base. There are no pleural effusions. There is no pneumothorax. There is no osseous abnormality. IMPRESSION: Mild right base atelectasis. Reviewed, Interpreted and Dictated by Sage House MD Transcribed by Guy Hodge Authenticated by Sage House MD on 12/15/2021 12:45:10 PM [facility]
--- NOTE | 2021-12-15 10:59 | HMH.EDCP ---
ED Disposition Clinical Impression: Atypical chest pain Hypertension Qualifiers: Hypertension type: unspecified Qualified Code(s): I10 - Essential (primary) hypertension Disposition: Home, Self-Care Condition on Discharge: Good Instructions: DI for Atypical Chest Pain, Essential Hypertension Additional Instructions: follow up pcp and cardiology, return fotr worse - Critical Care Critical Care Time: No Attestation: On , the high probability of a clinically significant, sudden or life threatening deterioration of the following system(s) required my full and direct attention, intervention and personal management. The time I documented below is in addition to time spent performing reported procedures but includes the following listed in this critical care notation. Medical Decision Making - Franck Inquiry Pt receiving controlled substance: No Vital Signs: 12/15/21 10:55 Temperature 98.5 F Temperature Source Oral Pulse Rate [Left Radial] 64 Respiratory Rate 18 Blood Pressure [Right Arm] 145/84 H Blood Pressure Mean [Right Arm] 104 02 Sat by Pulse Oximetry 94 L Oxygen Delivery Method Room Air - Lab Data Lab Results 12/15/21 10:58: WBC 5.2, RBC 4.53, Hgb 14.2, Hct 44.0, MCV 97.2, MCH 31.3 H, MCHC 32.2, RDW 13.3, Plt Count 190, MPV 8.1, Neut % (Auto) 63.6, Lymph % (Auto) 25.4, [place] % (Auto) 5.4, Eos % (Auto) 4.0, Baso % (Auto) 1.6, Neut # (Auto) 3.3, Lymph # (Auto) 1.3, [place] # (Auto) 0.3, Eos # (Auto) 0.2, Baso # (Auto) 0.1 12/15/21 10:58: Sodium 138, Potassium 4.2, Chloride 101, Carbon Dioxide 31 H, Anion Gap 10.2, BUN 16, Creatinine 0.70, Estimated Creat Clear 48, Estimated GFR 82, Est GFR ( Amer) 100, Glucose 120 H, Calcium 9.7, Total Bilirubin 0.6, AST 79 H, ALT 84 H, Alkaline Phosphatase 44, Troponin I < 0.01, Total Protein 7.0, Albumin 4.3, Globulin 2.7, Albumin/Globulin Ratio 1.6 Result diagrams: 12/15/21 10:58 12/15/21 10:58 Orders (Tests/Meds): ORDERS Category Date Time Status Chest XR -- portable [XR chest portable] Stat Exams 12/15/21 10:59 Taken Influenza A&B Antigens, Rapid [Rapid Influenza A&B Lab 12/15/21 11:10 Received Antigens] Stat - ECG Data Tracing #1 ekg by tn nsr, lvh, qrs narrow, no st elev Medical Decision Narrative: reeval, appears well, vss, ok with plan to f/u pcp Chest Pain HPI - General Chief Complaint: Chest Pain Stated Complaint: cp Time Seen by Provider: 12/15/21 10:59 - History of Present Illness HPI narrative: cp intermittemt rt sided few days assoc with dry cough covid recovered Duration: intermittent Activity at onset: during rest Pain location: right chest Pain radiation: none Relieving factors: nothing Exacerbating factors: nothing Context: recent illness - Related Data Home Medications Medication Instructions Recorded Confirmed citalopram 20 mg tablet 20 mg PO DAILY 12/12/17 11/17/21 pravastatin 80 mg tablet 80 mg PO HS 12/12/17 11/17/21 tramadol 50 mg tablet 50 mg PO Q6HP PRN tab 12/12/17 11/17/21 Metoprolol Succinate 50 mg PO DAILY 08/14/19 11/17/21 lisinopriL [Lisinopril 10mg Tab] 10 mg PO DAILY 08/15/19 11/17/21 Omeprazole 40 mg PO DAILY 09/26/19 11/17/21 vitamin B complex 1 tab PO DAILY 07/01/20 11/17/21 ascorbate calcium (vitamin C) 500 500 mg PO DAILY 10/12/21 11/17/21 mg tablet bupropion HCl 150 mg 24 hr tablet, 150 mg PO DAILY 10/12/21 11/17/21 extended release zinc sulfate 50 mg zinc (220 mg) 50 mg PO DAILY 10/12/21 11/17/21 capsule furosemide 40 mg tablet 80 mg PO DAILY tab 10/20/21 11/17/21 acetaminophen 500 mg tablet 500 mg PO Q6H PRN 11/17/21 11/17/21 cholecalciferol (vitamin D3) 25 25 mcg PO DAILY 11/17/21 11/17/21 mcg (1,000 unit) capsule ferrous sulfate 140 mg (45 mg 140 mg PO DAILY 11/17/21 11/17/21 iron) tablet,extended release Previous Rx's Medication Instructions Recorded rotigotine 2 mg/24 hour 2 mg TRANSDERMA DAILY #30 each 01/16/20 transdermal 24 hour patch
[2021-12-15 11:15] LABS: Basophils # 0.1 K/mm3 (0-0.2); Basophils % 1.6 % (0.1-2.0); Eosinophils # 0.2 K/mm3 (0.0-0.4); Hemoglobin 14.2 g/dL (12.2-16.2); Lymphocytes # 1.3 K/mm3 (0.7-4.5); Lymphocytes % 25.4 % (10-50); Mean Corpuscular HGB Conc 32.2 g/dL (31.8-35.4); Mean Corpuscular Hemoglobin 31.3 pg (27.0-31.2); Mean Corpuscular Volume 97.2 fl (81-99); Mean Platelet Volume 8.1 fl (7.4-10.4); Monocytes # 0.3 K/mm3 (0.1-1.0); Monocytes % 5.4 % (1.7-9.3); Neutrophils # 3.3 K/mm3 (1.8-7.8); Neutrophils % 63.6 % (37.0-80.0); Platelet Count 190 K/mm3 (142-424); Red Blood Count 4.53 M/mm3 (4.20-5.40); Red Cell Distribution Width 13.3 % (11.5-17.5); White Blood Count 5.2 K/mm3 (4.8-10.8)
[2021-12-15 11:16] LABS: Alanine Aminotransferase 84 U/L (12-78); Albumin Level 4.3 g/dl (3.5-5.0); Albumin/Globulin Ratio 1.6 (1.1-1.8); Alkaline Phosphatase 44 U/L (38-126); Anion Gap 10.2 mEq/L (5-15); Aspartate Amino Transferase 79 U/L (14-36); Bilirubin,Total 0.6 mg/dl (0.2-1.3); Blood Urea Nitrogen 16 mg/dl (7-17); Calcium 9.7 mg/dl (8.4-10.2); Carbon Dioxide 31 mmol/L (22.0-30.0); Chloride 101 mmol/L (98-107); Creatinine Clearance Estimated 48 mL/min (50-200); Estimated Glomerular Filt Rate 82 ml/min (>60); GFR (African American) 100 ML/MIN (>60); Globulin 2.7 g/dL (1.3-3.2); Glucose 120 mg/dl (74-100); Potassium 4.2 mmoL/L (3.5-5.1); Sodium 138 mmol/L (136-145)
[2021-12-15 11:31] LABS: Troponin I < 0.01 ng/ml (0.00-0.034)
[2021-12-15 11:41] VITALS: BP 163/92; PULSE 63; RESP 16; TEMP 36.9; O2SAT 97
== END 2021-12-15 11:49 | disposition home or self-care (01) ==
PROVIDERS: Emergency Provider Emergency Medicine; PCP Internal Medicine
DX: R07.89 Other chest pain (principal); I10 Essential (primary) hypertension; K21.9 Gastro-esophageal reflux disease without esophagitis; E78.5 Hyperlipidemia, unspecified; F41.9 Anxiety disorder, unspecified; Z79.899 Other long term (current) drug therapy
CPT/HCPCS: 71045; 80053; 84484; 85025; 87275; 87276; 99283

== ENCOUNTER 2022-01-30 14:04 | Emergency (ER) | payer MEDICARE, SELFPAY ==
[2022-01-30 14:05] VITALS: BP 135/64; PULSE 68; RESP 16; TEMP 36.8; O2SAT 98; BMI 47.6
--- NOTE | 2022-01-30 14:25 | HMH.EDUTC ---
[facility] Disposition Clinical Impression: Cough Disposition: Home, Self-Care Condition on Discharge: Good Instructions: Allergic Rhinitis, Cough, DI for Allergic Rhinitis Additional Instructions: *Monitor Temp, Over the counter Motrin or Tylenol as directed/as needed Tylenol every 4 hours and Motrin every 6 hours (as long as your family doctor has told you that you can take it) for fever or pain. and straight to ER if unable to lower temp less than 101.0 after medication given *Warm salt water gargles may help to soothe the throat *Throat Lozenges *Warm fluids like tea with honey may help to soothe the throat *Sleep elevated *Humidifier/Vaporizer *Flonase 2 sprays in each nostril daily but be aware that it may take 2-3 days before you notice improvement Follow up IMMEDIATELY for new or worsening symptoms or no Noticeable improvement over the next 48-72 hours. 911 for difficulty breathing or swallowing Prescriptions: Fluticasone Propionate [Flonase 50mcg nasal spray 16gm] 1 spr NS DAILY #1 each Transmission Status: [id number] Referrals: Arjun Baez [Primary Care Provider] - As needed Time of Disposition: 15:33 Medical Decision Making - Franck Inquiry Pt receiving controlled substance: No Franck was queried for this patient: No Vital Signs: 01/30/22 14:05 Temperature 98.2 F Temperature Source Oral Pulse Rate [Right] 68 Respiratory Rate 16 Blood Pressure [Right Arm] 135/64 Blood Pressure Mean [Right Arm] 87 Blood Pressure Source [Right Arm] Automatic Cuff Blood Pressure Position [Right Arm] Sitting 02 Sat by Pulse Oximetry 98 Oxygen Delivery Method Room Air Orders (Tests/Meds): ORDERS Category Date Time Status Chest XR 2 view (NOT portable) [XR chest 2V] Stat Exams 01/30/22 14:31 Taken - Radiology Data #1 Image(s): Chest Image Reviewed: Yes I have reviewed radiologist's interpretation IMPRESSION: No evidence of acute cardiopulmonary disease. Medical Decision Narrative: No coughing since arrival at the [facility] Patient concerned with allergy to animals at home due to cough worse there Discussed with patient and will try flonase for PND and follow up with PCP if no improvement [facility] HPI - General Stated complaint: cough Time Seen by Provider: 01/30/22 14:25 Mode of Arrival: Ambulatory Source of Information: Patient Limitations: No Limitations Description of Symptoms (Recalled from Triage Doc. by RN): pt advises she has been coughing for 2 weeks HEENT Symptoms (Recalled from RN notes): Yes (cough) Resp Symptoms (Recalled from RN notes): No Skin Symptoms (Recalled from RN notes): No MS Symptoms (Recalled from RN notes): No Functional Status (Recalled from RN notes): na - History of Present Illness Provider Complaint: Patient states that she has been having cough for about 2 weeks and cough is dry States that she was worried that she may be allergic to her dog or cat State that today she was still having the cough and family wanted her to come in and get checked Denies SOA - Related Data Home Medications Medication Instructions Recorded Confirmed citalopram 20 mg tablet 20 mg PO DAILY 12/12/17 12/21/21 pravastatin 80 mg tablet 80 mg PO HS 12/12/17 12/21/21 tramadol 50 mg tablet 50 mg PO Q6HP PRN tab 12/12/17 12/21/21 Metoprolol Succinate 50 mg PO DAILY 08/14/19 12/21/21 lisinopriL [Lisinopril 10mg Tab] 10 mg PO DAILY 08/15/19 12/21/21 Omeprazole 40 mg PO DAILY 09/26/19 12/21/21 vitamin B complex 1 tab PO DAILY 07/01/20 12/21/21 ascorbate calcium (vitamin C) 500 500 mg PO DAILY 10/12/21 12/21/21 mg tablet bupropion HCl 150 mg 24 hr tablet, 150 mg PO DAILY 10/12/21 12/21/21 extended release zinc sulfate 50 mg zinc (220 mg) 50 mg PO DAILY 10/12/21 12/21/21 capsule furosemide 40 mg tablet 80 mg PO DAILY tab 10/20/21 12/21/21 acetaminophen 500 mg tablet 500 mg PO Q6H PRN 11/17/21 12/21/21 cholecalciferol (vitamin D3) 25 25 mcg PO DAILY 11/17/21
--- NOTE | 2022-01-30 14:31 | XR_ITS ---
PROCEDURE INFORMATION: Exam: XR Chest Exam date and time: 01/30/2022 2:31 PM Age: 71 years old Clinical indication: Cough TECHNIQUE: Imaging protocol: XR of the chest. Views: 2 views. COMPARISON: CR XR CHEST PORTABLE 12/15/2021 11:01 AM FINDINGS: Lungs: No regions of consolidation. Pleural spaces: No pleural effusion. Heart/Mediastinum: Heart normal size. Bones/joints: Mild spondylitic changes demonstrated posteriorly in the thoracic spine. IMPRESSION: No evidence of acute cardiopulmonary disease.
[2022-01-30 15:56] VITALS: BP 135/64; PULSE 68; RESP 16; TEMP 36.8; O2SAT 98
== END 2022-01-30 15:58 | disposition home or self-care (01) ==
PROVIDERS: Emergency Provider Nurse Practitioner; PCP Internal Medicine
DX: J30.9 Allergic rhinitis, unspecified (principal); R06.00 Dyspnea, unspecified; D64.9 Anemia, unspecified; I11.0 Hypertensive heart disease with heart failure; I50.9 Heart failure, unspecified; N28.9 Disorder of kidney and ureter, unspecified; K21.9 Gastro-esophageal reflux disease without esophagitis; E78.5 Hyperlipidemia, unspecified; M19.90 Unspecified osteoarthritis, unspecified site; G47.33 Obstructive sleep apnea (adult) (pediatric); Z79.1 Long term (current) use of non-steroidal anti-inflammatories (NSAID); Z79.51 Long term (current) use of inhaled steroids; Z79.899 Other long term (current) drug therapy; Z88.0 Allergy status to penicillin; Z88.2 Allergy status to sulfonamides; Z86.14 Personal history of Methicillin resistant Staphylococcus aureus infection; Z82.49 Family history of ischemic heart disease and other diseases of the circulatory system; Z80.9 Family history of malignant neoplasm, unspecified
CPT/HCPCS: 71046; 99213; G0463

== ENCOUNTER 2022-03-07 19:34 | Observation (INO) | payer MEDICARE, SELFPAY ==
[2022-03-07] VITALS (7 sets, daily range): BP systolic 117–146; BP diastolic 64–77; PULSE 68–72; RESP 16–20; TEMP 36.7–37.1; O2SAT 93–99; BMI 48.4; BMI 47.2
--- NOTE | 2022-03-07 20:17 | XR_ITS ---
PROCEDURE INFORMATION: Exam: XR Right Knee Exam date and time: 03/07/2022 8:29 PM Age: 71 years old Clinical indication: Pain; Right; Prior surgery; Surgery date: 6+ months; Surgery type: Total knee replacement; Additional info: Knee pain no injury TECHNIQUE: Imaging protocol: XR Right knee. Views: 3 views. COMPARISON: US ARTERIAL LOWER EXT REST 05/06/2020 12:49 PM FINDINGS: Bones/joints: No acute fracture. No dislocation. Total knee arthroplasty is present. No suspicious periprosthetic lucency. Nonspecific moderate-sized joint effusion. Soft tissues: Normal. IMPRESSION: 1. No acute fracture. 2. Total knee arthroplasty. 3. Nonspecific moderate joint effusion.
--- NOTE | 2022-03-07 20:18 | HMH.EDGENADL ---
ED Disposition Clinical Impression: Gait abnormality, Morbid obesity Knee pain, right Qualifiers: Chronicity: acute Qualified Code(s): M25.561 - Pain in right knee Disposition: Admitted as Observation Condition on Discharge: Good Referrals: Arjun Baez [Primary Care Provider] - - Critical Care Critical Care Time: No Attestation: On 03/07/22, the high probability of a clinically significant, sudden or life threatening deterioration of the following system(s) required my full and direct attention, intervention and personal management. The time I documented below is in addition to time spent performing reported procedures but includes the following listed in this critical care notation. Medical Decision Making - Medical Records Medical records reviewed: Yes: I reviewed the patient's medical records. - Franck Inquiry Pt receiving controlled substance: No Vital Signs: 03/07/22 19:35 03/07/22 20:54 Temperature 98.4 F Temperature Source Oral Pulse Rate 72 Pulse Rate [Left] 71 Respiratory Rate 16 Blood Pressure 127/77 Blood Pressure [Right Arm] 133/64 Blood Pressure Mean [Right Arm] 87 02 Sat by Pulse Oximetry 98 98 Oxygen Delivery Method Room Air - Lab Data Lab results reviewed: Yes: I reviewed the patient's lab results. Lab Results 03/07/22 20:00: WBC 5.5, RBC 4.31, Hgb 13.5, Hct 40.9, MCV 94.9, MCH 31.4 H, MCHC 33.1, RDW 13.3, Plt Count 191, MPV 8.3, Neut % (Auto) 63.8, Lymph % (Auto) 25.5, [place] % (Auto) 5.0, Eos % (Auto) 2.7, Baso % (Auto) 3.0 H, Neut # (Auto) 3.5, Lymph # (Auto) 1.4, [place] # (Auto) 0.3, Eos # (Auto) 0.2, Baso # (Auto) 0.2, ESR 29 03/07/22 20:00: Sodium 139, Potassium 4.1, Chloride 102, Carbon Dioxide 32 H, Anion Gap 9.1, BUN 18 H, Creatinine 0.70, Estimated Creat Clear 48, Estimated GFR 82, Est GFR ( Amer) 100, Glucose 109 H, Calcium 8.9, Total Bilirubin 0.5, AST 64 H, ALT 68, Alkaline Phosphatase 47, C-Reactive Protein 3.1, Total Protein 6.7, Albumin 4.1, Globulin 2.6, Albumin/Globulin Ratio 1.6, Amylase 68, Lipase 88, Procalcitonin 0.108 03/07/22 20:00: Lactate 0.7 03/07/22 20:00: Uric Acid 6.6 H Result diagrams: 03/07/22 20:00 03/07/22 20:00 Orders (Tests/Meds): ED MEDICATIONS Generic Name Dose Route Start Last Admin Trade Name Freq PRN Reason Stop Dose Admin Sodium Chloride 1,000 mls @ 999 mls/hr 03/07/22 20:45 03/07/22 21:01 Sod Chlor 0.9% 1000ml Bag IV 03/07/22 21:45 999 mls/hr .Q1H1M BALDEMAR Administration Discontinued Medications Generic Name Dose Route Start Last Admin Trade Name Freq PRN Reason Stop Dose Admin Ketorolac Tromethamine 30 mg 03/07/22 20:42 03/07/22 21:01 Ketorolac 30mg/Ml Vial IV 03/07/22 20:43 30 mg ONCE ONE Administration Methylprednisolone Sodium Succinate 125 mg 03/07/22 20:42 03/07/22 21:01 Methylprednisolone Sod Succ 125mg Vial IV 03/07/22 20:43 125 mg ONCE ONE Administration - Radiology Data #1 Image(s): Pelvis, Hip, Knee Image Reviewed: Yes I have reviewed radiologist's interpretation Preliminary Findings: Abnormal, No Fracture Seen Medical Decision Narrative: has acute rt knee pain with inability to ext knee and wt bear - will require admit at this time General Adult HPI - General Chief complaint: PAIN Stated complaint: PAIN IN rIGHT LEG/KNEE Time Seen by Provider: 03/07/22 20:18 Mode of Arrival: Wheelchair Source of Information: Patient, Spouse, Medical Record Limitations: No Limitations Description of Symptoms (Recalled from ER Triage Doc. by RN): pt states she has a sudden pain in the right leg after a day of activitiy pt states that she is unable to bare weight on the leg now. 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
[2022-03-07 20:22] LABS: Basophils # 0.2 K/mm3 (0-0.2); Eosinophils # 0.2 K/mm3 (0.0-0.4); Eosinophils % 2.7 % (0.1-12.0); Hematocrit 40.9 % (37.0-47.0); Hemoglobin 13.5 g/dL (12.2-16.2); Lymphocytes # 1.4 K/mm3 (0.7-4.5); Lymphocytes % 25.5 % (10-50); Mean Corpuscular HGB Conc 33.1 g/dL (31.8-35.4); Mean Corpuscular Hemoglobin 31.4 pg (27.0-31.2); Mean Corpuscular Volume 94.9 fl (81-99); Mean Platelet Volume 8.3 fl (7.4-10.4); Monocytes # 0.3 K/mm3 (0.1-1.0); Neutrophils # 3.5 K/mm3 (1.8-7.8); Neutrophils % 63.8 % (37.0-80.0); Platelet Count 191 K/mm3 (142-424); Red Blood Count 4.31 M/mm3 (4.20-5.40); Red Cell Distribution Width 13.3 % (11.5-17.5); White Blood Count 5.5 K/mm3 (4.8-10.8)
--- NOTE | 2022-03-07 20:28 | XR_ITS ---
PROCEDURE INFORMATION: Exam: XR Right Hip Exam date and time: 03/07/2022 8:27 PM Age: 71 years old Clinical indication: Hip pain; Right hip; Additional info: Pain no trauma TECHNIQUE: Imaging protocol: XR Right hip. Views: 2 or 3 views hip with pelvis when performed. COMPARISON: CT ABDOMEN PELVIS W CON 08/30/2020 10:31 PM FINDINGS: Bones/joints: Osteopenia. No acute displaced fracture. No dislocation. Bilateral hip joints appear relatively well preserved. Degenerative changes of the lower lumbar spine and pubic symphysis. Soft tissues: Unremarkable. IMPRESSION: No acute finding.
--- NOTE | 2022-03-07 20:28 | PC.NURSE ---
patient assisted with putting on a gown and getting into bed
[2022-03-07 20:29] LABS: Alanine Aminotransferase 68 U/L (12-78); Albumin Level 4.1 g/dl (3.5-5.0); Albumin/Globulin Ratio 1.6 (1.1-1.8); Alkaline Phosphatase 47 U/L (38-126); Amylase 68 U/L (30-110); Anion Gap 9.1 mEq/L (5-15); Aspartate Amino Transferase 64 U/L (14-36); Bilirubin,Total 0.5 mg/dl (0.2-1.3); Blood Urea Nitrogen 18 mg/dl (7-17); Calcium 8.9 mg/dl (8.4-10.2); Carbon Dioxide 32 mmol/L (22.0-30.0); Chloride 102 mmol/L (98-107); Creatinine Clearance Estimated 48 mL/min (50-200); Estimated Glomerular Filt Rate 82 ml/min (>60); GFR (African American) 100 ML/MIN (>60); Globulin 2.6 g/dL (1.3-3.2); Glucose 109 mg/dl (74-100); Lipase 88 U/L (23-300); Potassium 4.1 mmoL/L (3.5-5.1); Sodium 139 mmol/L (136-145); Total Protein,Serum 6.7 g/dl (6.3-8.2); Uric Acid 6.6 mg/dl (2.5-6.2)
[2022-03-07 20:30] LABS: Lactic Acid 0.7 mmol/L (0.7-2.1)
--- NOTE | 2022-03-07 20:33 | PC.NURSE ---
patient to xray
[2022-03-07 20:36] LABS: C-Reactive Protein 3.1 mg/L (0-4)
[2022-03-07 20:46] LABS: Procalcitonin 0.108 ng/mL (0.0-2.0)
[2022-03-07 20:48] LABS: Erythrocyte Sedimentation Rate 29 mm/hr (0-30)
--- NOTE | 2022-03-07 21:45 | PC.NURSE ---
Dr. Craven paged for Dr. Oquendo
[2022-03-07 22:08] LABS: Coronavirus 19, PCR Not Detected (NotDetected); Influenza A, PCR Not Detected (NotDetected); Influenza B, PCR Not Detected (NotDetected)
--- NOTE | 2022-03-07 23:03 | PC.NURSE ---
patient up to floor yesika wheelchair @ this time.
[2022-03-08 00:33] VITALS: O2SAT 95
[2022-03-08 04:00] VITALS: BP 165/87; PULSE 75; RESP 16; TEMP 36.2; O2SAT 95
--- NOTE | 2022-03-08 04:09 | PC.NURSE ---
Pt a + o x4. Pt c/o pain in right knee only when trying to bear weight. Knee and LLE appear normal on assessment, pulses strong. Able to transfer from bed to BSC/wheelchair with 1x assist. Call light within reach.
[2022-03-08 07:03] LABS: Chloride 105 mmol/L (98-107); Potassium 3.9 mmoL/L (3.5-5.1); Sodium 136 mmol/L (136-145)
[2022-03-08 07:04] LABS: Basophils % 0.2 % (0.1-2.0); Eosinophils % 0.4 % (0.1-12.0); Hematocrit 40.9 % (37.0-47.0); Hemoglobin 13.5 g/dL (12.2-16.2); Lymphocytes # 0.7 K/mm3 (0.7-4.5); Lymphocytes % 13.4 % (10-50); Mean Corpuscular Hemoglobin 31.6 pg (27.0-31.2); Mean Corpuscular Volume 95.7 fl (81-99); Monocytes # 0.1 K/mm3 (0.1-1.0); Monocytes % 1.2 % (1.7-9.3); Neutrophils # 4.4 K/mm3 (1.8-7.8); Neutrophils % 84.9 % (37.0-80.0); Platelet Count 161 K/mm3 (142-424); Red Blood Count 4.27 M/mm3 (4.20-5.40); Red Cell Distribution Width 13.3 % (11.5-17.5); White Blood Count 5.2 K/mm3 (4.8-10.8)
[2022-03-08 07:06] LABS: Anion Gap 7.9 mEq/L (5-15); Blood Urea Nitrogen 24 mg/dl (7-17); Calcium 8.3 mg/dl (8.4-10.2); Carbon Dioxide 27 mmol/L (22.0-30.0); Creatinine Clearance Estimated 48 mL/min (50-200); Estimated Glomerular Filt Rate 82 ml/min (>60); GFR (African American) 100 ML/MIN (>60); Glucose 149 mg/dl (74-100)
[2022-03-08 07:07] LABS: Magnesium 1.9 mg/dl (1.6-2.3)
--- NOTE | 2022-03-08 07:29 | HMH.PHAVTE ---
[facility] Pharmacy VTE Monitoring - Patient Demographics Admission date: 03/08/22 Report Date: 03/08/22 Time: 07:29 Allergies/Adverse Reactions: Patient Allergies Penicillins Allergy (Intermediate, Verified 12/21/21 13:46) I-RASH Sulfa (Sulfonamide Antibiotics) Allergy (Intermediate, Verified 12/21/21 13:46) I-RASH Height: 1.68 m Weight: 133.402 kg Patient Problems: Current Active Problems Knee pain, right (Acute) Gait abnormality (Acute) Morbid obesity (Chronic) - VTE Risk Labs: VTE Related Lab Results Hgb 13.5 g/dL (12.2-16.2) 03/08/22 06:17 Hct 40.9 % (37.0-47.0) 03/08/22 06:17 Plt Count 161 K/mm3 (142-424) 03/08/22 06:17 BUN 24 mg/dl (7-17) H D 03/08/22 06:17 Creatinine 0.70 mg/dl (0.52-1.04) 03/08/22 06:17 Estimated Creat Clear 48 mL/min (50-200) 03/08/22 06:17 Clinical Trial Participant: No - Prophylaxis VTE Prophylaxis Ordered?: Yes Types of VTE Prophylaxis: TEDS Knee High
[2022-03-08 08:00] VITALS: BP 132/71; PULSE 70; RESP 16; TEMP 36.6; O2SAT 94
--- NOTE | 2022-03-08 08:46 | HMH.HP ---
*Admission Date: 03/08/22 *Chief complaint: leg pain *History of present illness: 71 yr old female presents to ed with c/o of leg and hip pain. pt states she has a sudden pain in the right leg after a day of activity. Pt states it started with having pain when bearing weight, was using a cane. pt states yesterday it had improved. Pt states after sitting for a little bit when she tried to stand she was unable to bare weight on the leg. Pt is unable to raise leg but can move leg. Pt was admitted for monitoring and iv steroids. [facility] History Medical History: Reports:: Anxiety, Congestive Heart Failure, Gastroesophageal Reflux Disease(GERD), Hiatal Hernia, Hyperlipidemia, Hypertension, Lung Disease, MRSA, Renal Disease Denies:: Cancer, Diabetes Mellitus Type 1, Diabetes Mellitus Type 2, Internal Pacemaker, Seizures *Have you ever received a pneumonia vaccine?: No *Have you received a flu vaccine this season?: Yes Other Medical History: Reports: Anemia, Arthritis, Other. Denies: Blood Transfusion Reaction Laterality Cases: Bilateral: Arthroscopy Knee Other Surgeries: Yes: No Previous Surgery, Appendectomy, Cholecystectomy, Colonoscopy, EGD, Hysterectomy-Total, Hysterectomy-Partial, Tubal Ligation, Other. No: Pacemaker Amputation: No Fractures: No - *Social History Smoking Status: Never smoker Alcohol Intake: never Substance Use Type: denies use *Occupational Status:: retired Housing: house Household Members: spouse *Travel in the last 8 weeks: None - Psychiatric History Pschychiatric History:: Reports:: Anxiety Family Hx:: Cancer, Coronary Artery Disease Review of Systems - *Neurologic Denies seizure-like activity Meds Home Medications Medication Instructions Recorded Confirmed Type citalopram 20 mg tablet 20 mg PO DAILY 12/12/17 03/07/22 History pravastatin 80 mg tablet 80 mg PO HS 12/12/17 03/07/22 History tramadol 50 mg tablet 50 mg PO Q6HP PRN tab 12/12/17 03/07/22 History Metoprolol Succinate 50 mg PO DAILY 08/14/19 03/07/22 History lisinopriL [Lisinopril 10mg Tab] 10 mg PO DAILY 08/15/19 03/07/22 History Omeprazole 40 mg PO DAILY 09/26/19 03/07/22 History vitamin B complex 1 tab PO DAILY 07/01/20 03/07/22 History ascorbate calcium (vitamin C) 500 500 mg PO DAILY 10/12/21 03/07/22 History mg tablet bupropion HCl 150 mg 24 hr tablet, 150 mg PO DAILY 10/12/21 03/07/22 History extended release trazodone 100 mg tablet 100 mg PO HS #90 tab 10/12/21 03/07/22 Rx zinc sulfate 50 mg zinc (220 mg) 50 mg PO DAILY 10/12/21 03/07/22 History capsule furosemide 40 mg tablet 80 mg PO DAILY tab 10/20/21 03/08/22 History acetaminophen 500 mg tablet 500 mg PO Q6H PRN 11/17/21 03/07/22 History cholecalciferol (vitamin D3) 25 25 mcg PO DAILY 11/17/21 03/08/22 History mcg (1,000 unit) capsule ferrous sulfate 140 mg (45 mg 140 mg PO DAILY 11/17/21 03/07/22 History iron) tablet,extended release rotigotine 2 mg/24 hour 2 mg TRANSDERMA DAILY #30 each 01/11/22 03/07/22 Rx transdermal 24 hour patch Fluticasone Propionate [Flonase 1 spray NOSTRIL-B DAILY 03/07/22 03/08/22 History 50mcg nasal spray 16gm] Spironolactone [Spironolactone 50 mg PO DAILY 03/08/22 03/08/22 History 25mg Tablet] Allergies Allergy/AdvReac Type Severity Reaction Status Date / Time Penicillins Allergy Intermediate I-RASH Verified 12/21/21 13:46 Sulfa (Sulfonamide Allergy Intermediate I-RASH Verified 12/21/21 13:46 Antibiotics) Exam Vital signs and Labs for Last 24 Hours: Temp Pulse Resp BP Pulse Ox 97.2 F L 75 16 165/87 H 95 03/08/22 04:00 03/08/22 04:00 03/08/22 04:00 03/08/22 04:00 03/08/22 04:00 Laboratory Results - last 24 hr 03/07/22 20:00: WBC 5.5, RBC 4.31, Hgb 13.5, Hct 40.9, MCV 94.9, MCH 31.4 H, MCHC 33.1, RDW 13.3, Plt Count 191, MPV 8.3, Neut % (Auto) 63.8, Lymph % (Auto) 25.5, Mcmullen % (Auto) 5.0, Eos % (Auto) 2.7, Baso % (Auto) 3.0 H, Neut # (Auto) 3.5, Lymph # (Auto) 1.4, Mcmullen # (Auto) 0.3, Eos # (Aut
--- NOTE | 2022-03-08 08:53 | HMH.PHAINT ---
Home medication list was verified using the patient's PBM claim history, information provided by the patient, and medication list from recent discharge packet from our facility.
--- NOTE | 2022-03-08 08:55 | HMH.DCSUM ---
General - General Admission date:: 03/07/22 Discharge date: 03/08/22 HPI HPI: 71 yr old female presents to ed with c/o of leg and hip pain. pt states she has a sudden pain in the right leg after a day of activity. Pt states it started with having pain when bearing weight, was using a cane. pt states yesterday it had improved. Pt states after sitting for a little bit when she tried to stand she was unable to bare weight on the leg. Pt is unable to raise leg but can move leg. Pt was admitted for monitoring and iv steroids. Hospital Course Hospital Course: Abnormal Lab Results 03/07/22 20:00: MCH 31.4 H, Baso % (Auto) 3.0 H 03/07/22 20:00: Carbon Dioxide 32 H, BUN 18 H, Glucose 109 H, AST 64 H 03/07/22 20:00: Uric Acid 6.6 H 03/08/22 06:17: MCH 31.6 H, Neut % (Auto) 84.9 H, Rusk % (Auto) 1.2 L 03/08/22 06:17: BUN 24 H D, Glucose 149 H D, Calcium 8.3 L Discharge Plan (1) Gait abnormality-pt is able to move leg, raise leg and bear weight. will dc home (2) Knee pain, right-Good response to steroids, pt is able to move leg, raise leg and bear wt. (3) Morbid obesity- encourage wt loss Objective Vital signs: Temp Pulse Resp BP Pulse Ox 97.8 F 70 16 132/71 94 L 03/08/22 08:00 03/08/22 08:00 03/08/22 08:00 03/08/22 08:00 03/08/22 08:00 no acute distress, morbidly obese - *Routine HEENT Exam Head: Present: normocephalic Eye: Present: PERRL ENT: Present: mucous membranes moist - *Routine Neck Exam Present: supple - *Routine Respiratory Exam Present: CTA bilaterally - *Routine Cardiovascular Exam Present: RRR - *Routine Abdominal Exam Present: soft, normoactive bowel sounds. Absent: tenderness - *Routine Extremities Exam Absent: cyanosis, clubbing, edema - *Routine Skin Exam Present: warm. Absent: rash - *Routine Neurological Exam Present: alert, oriented X3 Results Labs on day of discharge: Labs from last 24 hours 03/08/22 03/08/22 03/07/22 06:17 06:17 22:02 WBC 5.2 RBC 4.27 Hgb 13.5 Hct 40.9 MCV 95.7 MCH 31.6 H MCHC 33.0 RDW 13.3 Plt Count 161 MPV 9.0 Neut % (Auto) 84.9 H Lymph % (Auto) 13.4 Rusk % (Auto) 1.2 L Eos % (Auto) 0.4 Baso % (Auto) 0.2 Neut # (Auto) 4.4 Lymph # (Auto) 0.7 Rusk # (Auto) 0.1 Eos # (Auto) 0.0 Baso # (Auto) 0.0 ESR Sodium 136 Potassium 3.9 Chloride 105 Carbon Dioxide 27 Anion Gap 7.9 BUN 24 H D Creatinine 0.70 Estimated Creat Clear 48 Estimated GFR 82 Est GFR ( Amer) 100 Glucose 149 H D Lactate Uric Acid Calcium 8.3 L Magnesium 1.9 Total Bilirubin AST ALT Alkaline Phosphatase C-Reactive Protein Total Protein Albumin Globulin Albumin/Globulin Ratio Amylase Lipase Procalcitonin SARS-CoV-2 (PCR) Not detected Influenza A Untype (PCR) Not detected Influenza Type B (PCR) Not detected 03/07/22 03/07/22 03/07/22 20:00 20:00 20:00 WBC RBC Hgb Hct MCV MCH MCHC RDW Plt Count MPV Neut % (Auto) Lymph % (Auto) R[place] % (Auto) Eos % (Auto) Baso % (Auto) Neut # (Auto) Lymph # (Auto) Rusk # (Auto) Eos # (Auto) Baso # (Auto) ESR Sodium 139 Potassium 4.1 Chloride 102 Carbon Dioxide 32 H Anion Gap 9.1 BUN 18 H Creatinine 0.70 Estimated Creat Clear 48 Estimated GFR 82 Est GFR ( Amer) 100 Glucose 109 H Lactate 0.7 Uric Acid 6.6 H Calcium 8.9 Magnesium Total Bilirubin 0.5 AST 64 H ALT 68 Alkaline Phosphatase 47 C-Reactive Protein 3.1 Total Protein 6.7 Albumin 4.1 Globulin 2.6 Albumin/Globulin Ratio 1.6 Amylase 68 Lipase 88 Procalcitonin 0.108 SARS-CoV-2 (PCR) Influenza A Untype (PCR) Influenza Type B (PCR) 03/07/22 20:00 WBC 5.5 RBC 4.31 Hgb 13.5 Hct 40.9 MCV
--- NOTE | 2022-03-08 09:55 | HMH.PHAINT ---
I spoke with the patient today about their medication list. Went over the new medication that was being sent in for the patient and also reviewed the medications that she was to continue on at home. When we spoke, she did not have any questions or concerns. Patient was provided a copy of the medication list.
--- NOTE | 2022-03-09 14:53 | CARE MANAGER ---
Spoke with patient post discharge and she states that she is doing well and has no needs at this time.
== END 2022-03-08 11:03 | disposition home or self-care (01) ==
LOC: ER 22:04 → 2ND 22:08
PROVIDERS: Admitting Provider Emergency Medicine; Emergency Provider Emergency Medicine; PCP Internal Medicine; Visit Provider Emergency Medicine
DX: M25.561 Pain in right knee (principal); Z88.0 Allergy status to penicillin; Z88.2 Allergy status to sulfonamides; Z79.899 Other long term (current) drug therapy; I50.9 Heart failure, unspecified; K21.9 Gastro-esophageal reflux disease without esophagitis; Z20.822 Contact with and (suspected) exposure to COVID-19; E66.01 Morbid (severe) obesity due to excess calories; Z68.42 Body mass index [BMI] 45.0-49.9, adult; R26.9 Unspecified abnormalities of gait and mobility; I11.0 Hypertensive heart disease with heart failure
CPT/HCPCS: G0378; 36415; 73502; 73562; 80048; 80053; 82150; 83605; 83690; 83735; 84145; 84550; 85025; 85651; 86140; 96365; 96375; 99285; C9803; U0003; U0005

== ENCOUNTER → 2022-03-11 09:22 | Outpatient (CLI) | payer MEDICARE, SELFPAY ==
--- NOTE | 2022-03-11 | CA_ITS ---
FINAL REPORT TECHNIQUE: Color Doppler, duplex Doppler and compression sonography of the right lower extremity venous system was performed. CLINICAL HISTORY: PAIN IN RIGHT POSTERIOR KNEE X 1 WEEK FINDINGS: There is deep vein thrombosis in the proximal peroneal vein. Remaining veins are patent and compressible. IMPRESSION: Deep vein thrombosis of the proximal peroneal vein. Reviewed, Interpreted and Dictated by Jay Jay Lopez III, MD Transcribed by Federica Garrido Authenticated by Jay Jay Lopez III, MD on 03/11/2022 03:40:08 PM [facility]
--- NOTE | 2022-03-11 09:26 | XR_ITS ---
FINAL REPORT CLINICAL HISTORY: right knee pain COMPARISON: March 07, 2022 FINDINGS: RIGHT KNEE 4 views of the right knee were obtained. The patient is status post knee arthroplasty. There is no acute fracture or dislocation. Visualized joint spaces are normally aligned. Soft tissues are unremarkable. IMPRESSION: Postoperative changes with no acute process. Reviewed, Interpreted and Dictated by Jay Jay Lopez III, MD Transcribed by Federica Garrido Authenticated by Jay Jay Lopez III, MD on 03/11/2022 10:54:40 AM [facility]
== END ==
PROVIDERS: PCP Internal Medicine; Visit Provider Physician Assistant Surgical
DX: M25.561 Pain in right knee (principal); M79.604 Pain in right leg
CPT/HCPCS: 73564; 93971

== ENCOUNTER 2022-03-15 11:10 | Outpatient (CLI) | payer MEDICARE, SELFPAY ==
[2022-03-15 14:54] LABS: PHA INR Fingerstick 1.6 (0.9-1.1)
== END 2022-03-15 15:00 | disposition home or self-care (01) ==
LOC: ACC 11:11
PROVIDERS: PCP Internal Medicine; Visit Provider Internal Medicine
DX: Z51.81 Encounter for therapeutic drug level monitoring (principal); Z79.01 Long term (current) use of anticoagulants
CPT/HCPCS: 85610; 99211; G0463

== ENCOUNTER → 2022-03-17 09:34 | Outpatient (CLI) | payer MEDICARE, SELFPAY ==
--- NOTE | 2022-03-17 10:01 | CT_ITS ---
FINAL REPORT TECHNIQUE: Thin section axial CT images were performed from the lung apices to the upper abdomen after the administration of IV contrast. 3-D and MIP reconstructions performed. This study was performed with techniques to keep radiation doses as low as reasonably achievable (ALARA). Individualized dose reduction techniques using automated exposure control or adjustment of mA and/or kV according to the patient''s size were employed. CLINICAL HISTORY: DVT RLE FINDINGS: CTA CHEST The mediastinal vasculature is adequately opacified. There is no evidence for pulmonary embolism. The thoracic aorta is patent without evidence of dissection. There is no axillary adenopathy. There is no mediastinal or hilar adenopathy. The heart size is normal. There is no pleural or pericardial effusion. Lung window images demonstrate a calcified granuloma in the periphery of the right lung. The lungs are otherwise clear. Limited images of the upper abdomen demonstrates diffuse fatty infiltration of the liver. The gallbladder surgically absent. IMPRESSION: No evidence of pulmonary embolism or aortic dissection. Fatty liver. Reviewed, Interpreted and Dictated by Sage House MD Transcribed by Kate Pope Authenticated by Sage House MD on 03/17/2022 11:52:36 AM [facility]
[2022-03-17 10:02] LABS: Blood Urea Nitrogen 16 mg/dl (7-17); Estimated Glomerular Filt Rate 82 ml/min (>60); GFR (African American) 100 ML/MIN (>60)
[2022-03-17 10:05] LABS: INR 4.32 (0.9-1.1); Prothrombin Time 43.8 seconds (10.1-12.5)
== END ==
PROVIDERS: PCP Internal Medicine; Visit Provider Family Medicine
DX: I82.501 Chronic embolism and thrombosis of unspecified deep veins of right lower extremity (principal); Z79.01 Long term (current) use of anticoagulants
CPT/HCPCS: 36415; 71275; 82565; 84520; 85610; Q9967

== ENCOUNTER 2022-03-17 23:16 | Emergency (ER) | payer MEDICARE, SELFPAY ==
[2022-03-17 23:17] VITALS: BP 126/78; PULSE 90; RESP 18; TEMP 37; O2SAT 98; BMI 47.0
[2022-03-18] VITALS (7 sets, daily range): BP systolic 123–144; BP diastolic 47–69; PULSE 70–78; RESP 16; TEMP 37; O2SAT 96–98
[2022-03-18 00:02] LABS: Alanine Aminotransferase 56 U/L (12-78); Albumin Level 3.6 g/dl (3.5-5.0); Albumin/Globulin Ratio 1.4 (1.1-1.8); Alkaline Phosphatase 41 U/L (38-126); Anion Gap 9.9 mEq/L (5-15); Aspartate Amino Transferase 40 U/L (14-36); Bilirubin,Total 0.8 mg/dl (0.2-1.3); Blood Urea Nitrogen 17 mg/dl (7-17); Calcium 9.1 mg/dl (8.4-10.2); Carbon Dioxide 30 mmol/L (22.0-30.0); Chloride 99 mmol/L (98-107); Creatinine Clearance Estimated 48 mL/min (50-200); Estimated Glomerular Filt Rate 71 ml/min (>60); GFR (African American) 86 ML/MIN (>60); Globulin 2.5 g/dL (1.3-3.2); Glucose 120 mg/dl (74-100); Potassium 3.9 mmoL/L (3.5-5.1); Sodium 135 mmol/L (136-145); Total Protein,Serum 6.1 g/dl (6.3-8.2)
[2022-03-18 00:10] LABS: NT Pro Brain Natriuretic Pep. 90.3 pg/mL (0-125)
[2022-03-18 00:17] LABS: INR 3.82 (0.9-1.1); Prothrombin Time 39.1 seconds (10.1-12.5)
--- NOTE | 2022-03-18 00:52 | HMH.EDGENADL ---
ED Disposition Clinical Impression: DVT (deep venous thrombosis) Qualifiers: DVT location: lower extremity Affected thrombotic vein of extremity: unspecified vein of extremity Chronicity: acute Laterality: right Qualified Code(s): I82.401 - Acute embolism and thrombosis of unspecified deep veins of right lower extremity Disposition: Home, Self-Care Condition on Discharge: Good Instructions: DI for Deep Vein Thrombosis, DI for Acute Pain -- Child Additional Instructions: call pcp for follow up Referrals: Arjun Baez [Primary Care Provider] - - Critical Care Critical Care Time: No Attestation: On 03/17/22, the high probability of a clinically significant, sudden or life threatening deterioration of the following system(s) required my full and direct attention, intervention and personal management. The time I documented below is in addition to time spent performing reported procedures but includes the following listed in this critical care notation. Medical Decision Making - Medical Records Medical records reviewed: Yes: I reviewed the patient's medical records. - Franck Inquiry Pt receiving controlled substance: No Vital Signs: 03/17/22 23:17 03/18/22 03:32 03/18/22 04:00 Temperature 98.6 F Temperature Source Oral Pulse Rate 78 76 Pulse Rate [Right] 90 Respiratory Rate 18 Blood Pressure 141/47 H 136/60 Blood Pressure [Right Arm] 126/78 Blood Pressure Mean 78 86 Blood Pressure Mean [Right Arm] 94 02 Sat by Pulse Oximetry 98 96 97 Oxygen Delivery Method 03/18/22 04:30 03/18/22 05:00 03/18/22 05:30 Temperature Temperature Source Pulse Rate 75 73 72 Pulse Rate [Right] Respiratory Rate Blood Pressure 124/65 132/69 123/69 Blood Pressure [Right Arm] Blood Pressure Mean 78 83 81 Blood Pressure Mean [Right Arm] 02 Sat by Pulse Oximetry 96 97 96 Oxygen Delivery Method 03/18/22 07:27 Temperature Temperature Source Pulse Rate 70 Pulse Rate [Right] Respiratory Rate Blood Pressure 144/53 H Blood Pressure [Right Arm] Blood Pressure Mean Blood Pressure Mean [Right Arm] 02 Sat by Pulse Oximetry 98 Oxygen Delivery Method Room Air - Lab Data Lab results reviewed: Yes: I reviewed the patient's lab results. Lab Results 03/17/22 23:40: WBC 8.7, RBC 3.75 L, Hgb 11.5 L, Hct 35.0 L, MCV 93.3, MCH 30.7, MCHC 32.9, RDW 13.1, Plt Count 189, MPV 10.6 H, Neut % (Auto) 71.4, Lymph % (Auto) 16.8, Sevier % (Auto) 10.1 H, Eos % (Auto) 1.2, Baso % (Auto) 0.3, Neut # (Auto) 6.2, Lymph # (Auto) 1.5, Sevier # (Auto) 0.9, Eos # (Auto) 0.1, Baso # (Auto) 0.0 03/17/22 23:40: PT 39.1 H, INR 3.82 H 03/17/22 23:40: Sodium 135 L, Potassium 3.9, Chloride 99, Carbon Dioxide 30, Anion Gap 9.9, BUN 17, Creatinine 0.80, Estimated Creat Clear 48, Estimated GFR 71, Est GFR ( Amer) 86, Glucose 120 H, Calcium 9.1, Total Bilirubin 0.8, AST 40 H, ALT 56, Alkaline Phosphatase 41, Total Protein 6.1 L, Albumin 3.6, Globulin 2.5, Albumin/Globulin Ratio 1.4 03/17/22 23:40: NT-Pro-B Natriuret Pep 90.3 Result diagrams: 03/17/22 23:40 03/17/22 23:40 Orders (Tests/Meds): ED MEDICATIONS Discontinued Medications Generic Name Dose Route Start Last Admin Trade Name Clinton PRN Reason Stop Dose Admin Morphine Sulfate 4 mg 03/17/22 23:35 03/17/22 23:45 Morphine 4mg/Ml Syringe IV 03/17/22 23:36 4 mg ONCE ONE Administration Morphine Sulfate 4 mg 03/18/22 03:07 03/18/22 03:20 Morphine 4mg/Ml Syringe IV 03/18/22 03:08 4 mg ONCE ONE Administration Ondansetron HCl 4 mg 03/17/22 23:35 03/17/22 23:44 Ondansetron 4mg/2ml Vial IV 03/17/22 23:36 4 mg ONCE ONE Administration Ondansetron HCl 4 mg 03/18/22 03:07 03/18/22 03:20 Ondansetron 4mg/2ml Vial IV 03/18/22 03:08 4 mg ONCE ONE Administration Oxycodone/Acetaminophen 1 each 03/18/22 07:30 03/18/22 07:36 Oxycodone 7.5mg W/Apap 325mg Tablet PO 03/18/22 07:31 1 each ONCE ONE Administration
--- NOTE | 2022-03-18 03:34 | PC.NURSE ---
right leg elevated and ice packs applied @333
[2022-03-18 03:45] LABS: Hemoglobin 11.5 g/dL (12.2-16.2); Mean Corpuscular HGB Conc 32.9 g/dL (31.8-35.4); Mean Corpuscular Hemoglobin 30.7 pg (27.0-31.2); Mean Corpuscular Volume 93.3 fl (81-99); Red Blood Count 3.75 M/mm3 (4.20-5.40)
[2022-03-18 03:46] LABS: Basophils % 0.3 % (0.1-2.0); Eosinophils # 0.1 K/mm3 (0.0-0.4); Eosinophils % 1.2 % (0.1-12.0); Lymphocytes # 1.5 K/mm3 (0.7-4.5); Lymphocytes % 16.8 % (10-50); Mean Platelet Volume 10.6 fl (7.4-10.4); Monocytes # 0.9 K/mm3 (0.1-1.0); Monocytes % 10.1 % (1.7-9.3); Neutrophils # 6.2 K/mm3 (1.8-7.8); Neutrophils % 71.4 % (37.0-80.0); Platelet Count 189 K/mm3 (142-424); Red Cell Distribution Width 13.1 % (11.5-17.5)
[2022-03-18 03:47] LABS: White Blood Count 8.7 K/mm3 (4.8-10.8)
--- NOTE | 2022-03-18 04:00 | PC.NURSE ---
ice packs removed @ this time from rt knee
--- NOTE | 2022-03-18 07:02 | PC.NURSE ---
speaking with Santy SEN
--- NOTE | 2022-03-18 07:28 | PC.NURSE ---
ESCOBAR Gilbert at
--- NOTE | 2022-03-18 07:30 | PC.NURSE ---
pt crying with pain. md aware. ok to d/c. informed pt if she gets worse in anyway to please return to ed
== END 2022-03-18 08:01 | disposition home or self-care (01) ==
PROVIDERS: Emergency Provider Emergency Medicine; PCP Internal Medicine
DX: I82.401 Acute embolism and thrombosis of unspecified deep veins of right lower extremity (principal); I11.0 Hypertensive heart disease with heart failure; I50.9 Heart failure, unspecified; K21.9 Gastro-esophageal reflux disease without esophagitis; E78.5 Hyperlipidemia, unspecified; N28.9 Disorder of kidney and ureter, unspecified; D64.9 Anemia, unspecified; M19.90 Unspecified osteoarthritis, unspecified site; G47.33 Obstructive sleep apnea (adult) (pediatric); K44.9 Diaphragmatic hernia without obstruction or gangrene; J98.4 Other disorders of lung; F41.9 Anxiety disorder, unspecified; Z79.01 Long term (current) use of anticoagulants; Z79.4 Long term (current) use of insulin; Z79.51 Long term (current) use of inhaled steroids; Z79.899 Other long term (current) drug therapy; Z88.0 Allergy status to penicillin; Z88.2 Allergy status to sulfonamides; Z82.49 Family history of ischemic heart disease and other diseases of the circulatory system; Z80.9 Family history of malignant neoplasm, unspecified
CPT/HCPCS: 36415; 71275; 80053; 82565; 83880; 84520; 85025; 85610; 93971; 96374; 96375; 96376; 99285; J2405; Q9967

== ENCOUNTER → 2022-04-15 12:22 | Outpatient (CLI) | payer MEDICARE, SELFPAY ==
[2022-04-15 14:00] LABS: Hematocrit 39.2 % (37.0-47.0); Hemoglobin 12.8 g/dL (12.2-16.2)
== END ==
PROVIDERS: Visit Provider Surgery
DX: D64.9 Anemia, unspecified (principal)
CPT/HCPCS: 85014; 85018

== ENCOUNTER 2022-05-31 10:43 | Outpatient (CLI) | payer MEDICARE, SELFPAY | END 2022-05-31 11:05 | disposition home or self-care (01) | LOC: ACC 10:44 | PROVIDERS: PCP Internal Medicine; Visit Provider Internal Medicine | DX: Z51.81 Encounter for therapeutic drug level monitoring (principal); Z79.01 Long term (current) use of anticoagulants | CPT/HCPCS: 85610; 99211; G0463 ==

== ENCOUNTER 2022-06-14 10:56 | Outpatient (CLI) | payer MEDICARE, SELFPAY ==
[2022-06-14 11:24] LABS: PHA INR Fingerstick 2.7 (0.9-1.1)
== END 2022-06-14 11:26 | disposition home or self-care (01) ==
LOC: ACC 10:57
PROVIDERS: PCP Internal Medicine; Visit Provider Internal Medicine
DX: Z51.81 Encounter for therapeutic drug level monitoring (principal); Z79.01 Long term (current) use of anticoagulants
CPT/HCPCS: 85610; 99211; G0463

== ENCOUNTER 2022-07-21 15:06 | Outpatient (CLI) | payer MEDICARE, SELFPAY ==
[2022-07-21 15:38] LABS: PHA INR Fingerstick 1.5 (0.9-1.1)
== END 2022-07-21 15:44 | disposition home or self-care (01) ==
LOC: ACC 15:07
PROVIDERS: PCP Internal Medicine; Visit Provider Internal Medicine
DX: Z51.81 Encounter for therapeutic drug level monitoring (principal); Z79.01 Long term (current) use of anticoagulants
CPT/HCPCS: 85610; 99211; G0463

== ENCOUNTER 2022-07-28 14:46 | Outpatient (CLI) | payer MEDICARE, SELFPAY | END 2022-07-28 15:28 | LOC: ACC 14:48 | PROVIDERS: PCP Internal Medicine; Visit Provider Internal Medicine | DX: Z51.81 Encounter for therapeutic drug level monitoring (principal); Z79.01 Long term (current) use of anticoagulants | CPT/HCPCS: 85610; 99211; G0463 ==

== ENCOUNTER 2022-08-30 10:59 | Outpatient (CLI) | payer MEDICARE, SELFPAY ==
[2022-08-30 15:00] LABS: PHA INR Fingerstick 2.1 (0.9-1.1)
== END 2022-08-30 15:03 ==
PROVIDERS: PCP Internal Medicine; Visit Provider Internal Medicine
DX: Z51.81 Encounter for therapeutic drug level monitoring (principal); Z79.01 Long term (current) use of anticoagulants
CPT/HCPCS: 85610; 99211; G0463

== ENCOUNTER 2022-10-02 11:19 | Emergency (ER) | payer MEDICARE, SELFPAY ==
[2022-10-02 12:33] VITALS: BP 0/0; PULSE 0; RESP 0; TEMP -17.7; TEMP 0
== END 2022-10-02 12:34 | disposition left against medical advice (07) ==
LOC: UTC 11:21
PROVIDERS: Emergency Provider Nurse Practitioner; PCP Internal Medicine
DX: Z53.21 Procedure and treatment not carried out due to patient leaving prior to being seen by health care provider (principal)

== ENCOUNTER 2022-10-02 18:00 | Emergency (ER) | payer MEDICARE, SELFPAY ==
[2022-10-02 20:30] VITALS: BP 139/86; PULSE 78; RESP 18; TEMP 37.7; O2SAT 98; BMI 43.5
[2022-10-02 20:41] LABS: UTC Influenza A Antigen Positive (Negative)
[2022-10-02 20:42] LABS: UTC Influenza B Antigen Negative (Negative)
--- NOTE | 2022-10-02 20:54 | EXP.UTC ---
Discharge Plan Disposition Patient Disposition: Home, Self-Care Condition: Good Prescriptions Prescriptions: New benzonatate 100 mg capsule 100 mg PO TID PRN (Reason: cough) Qty: 30 0RF oseltamivir [Tamiflu] 75 mg capsule 75 mg PO BID 5 Days Qty: 10 0RF No Action citalopram 20 mg tablet 20 mg PO DAILY pravastatin 80 mg tablet 80 mg PO HS tramadol 50 mg tablet 50 mg PO Q6HP PRN (Reason: PAIN) bupropion HCl 150 mg tablet extended release 24 hr 150 mg PO DAILY ferrous sulfate [Slow Release Iron] 140 mg (45 mg iron) tablet extended release 140 mg PO DAILY acetaminophen [Tylenol Extra Strength] 500 mg tablet 500 mg PO Q6H PRN (Reason: Mild Pain) warfarin 5 mg tablet 5 mg PO DAILY multivitamin Tablet 1 tab PO DAILY Neupro 2 mg/24 hour patch 24 hour 2 mg TRANSDERMA DAILY Qty: 30 11RF Rx Instructions: Apply one patch daily as directed, see location map provided at visit, needs follow up prior to further refills trazodone 100 mg tablet 100 mg PO HS Qty: 90 3RF furosemide 40 mg tablet 80 mg PO DAILY spironolactone 25 MG tablet 50 mg PO DAILY metoprolol succinate 50 MG tablet extended release 24 hr 50 mg PO DAILY lisinopril 10 MG tablet 10 mg PO DAILY Label Comments: TAKE 1 TABLET BY MOUTH ONCE DAILY omeprazole 40 MG capsule,delayed release(DR/EC) 40 mg PO DAILY Referrals Follow up/Referrals: Arjun Baez MD [Primary Care Provider] - See instructions Activity Restrictions/Add. Instructions Additional Instructions/Restrictions: Start Tamiflu today if you are going to take it. Discussed risk and possible benefits. Lots of rest Increase Fluids water, Gatorade, powerade, pedialyte,if infant/toddler/child Alternate Tylenol and / or ibuprofen as discussed for fever, aches, chills Follow up IMMEDIATELY with your family doctor for new or worsening Symptoms OR no noticeable improvement over the next 48-72 hours, 911 for difficulty or breathing You or your child area contagious until no fever, aches, chills for 24 hours with medication for symptoms Help Prevent the spread of influenza: ?Wash your hands often. Use soap and water. Wash your hands after you use the bathroom, change a child's diapers, or sneeze. Wash your hands before you prepare or eat food. Use gel hand cleanser that has 60% alcohol, when soap and water are not available. Do not touch your eyes, nose, or mouth unless you have washed your hands first. Cover your mouth when you sneeze or cough. Cough into a tissue or the bend of your arm. If you use a tissue, throw it away immediately and wash your hands. Clean shared items with a germ-killing silverware cleaner. Clean table surfaces, doorknobs, and light switches. Do not share towels, silverware, and dishes with people who are sick. Wash bed sheets, towels, silverware, and dishes with soap and water. Wear a mask over your mouth and nose if you are sick. The face mask may help protect others from becoming infected with the flu. Wear the mask when in common areas of your home or if you seek care with a healthcare provider. Stay away from others if you are sick. Stay at home until 24 hours after your fever and symptoms are gone. Clinical Impressions Clinical Impression: Influenza A Instructions Patient Instructions: DI for Influenza -- Adult, Influenza, DI for Fever (Symptom) -- Adult Discharge ED Provider: Danielle Chambers [facility] [place] HPI General Stated complaint: headache,cough Mode of Arrival: Ambulatory Source of Information: Patient Limitations: No Limitations Time Seen by Provider: 10/02/22 20:54 Description of Symptoms (Recalled from Triage Doc. by RN): PATIENT C/O COUGH AND HEADACHE X 2 DAYS. RECENTLY EXPOSED TO FLU HEENT Symptoms (Recalled f
[2022-10-02 20:57] VITALS: BP 139/86; PULSE 78; RESP 18; TEMP 37.7; O2SAT 98
== END 2022-10-02 21:15 | disposition home or self-care (01) ==
PROVIDERS: Emergency Provider Nurse Practitioner; PCP Internal Medicine
DX: J10.1 Influenza due to other identified influenza virus with other respiratory manifestations (principal)
CPT/HCPCS: 87804; 99212; G0463

== ENCOUNTER 2022-10-11 10:52 | Outpatient (CLI) | payer MEDICARE, SELFPAY ==
[2022-10-11 13:46] LABS: PHA INR Fingerstick 2.2 (0.9-1.1)
== END 2022-10-11 13:56 ==
LOC: ACC 10:53
PROVIDERS: PCP Internal Medicine; Visit Provider Internal Medicine
DX: Z51.81 Encounter for therapeutic drug level monitoring (principal); Z79.01 Long term (current) use of anticoagulants
CPT/HCPCS: 85610; 99211; G0463

== ENCOUNTER 2023-05-03 07:29 | Day surgery (SDC) | payer MEDICARE, SELFPAY ==
[2023-05-02 10:20] VITALS: BMI 46.0
[2023-05-03 08:01] VITALS: BP 147/78; PULSE 53; RESP 18; TEMP 36.3; O2SAT 95
[2023-05-03 09:37] VITALS: BP 134/80; PULSE 67; RESP 16; O2SAT 98
[2023-05-03 09:42] VITALS: BP 123/72; PULSE 66; RESP 17; O2SAT 100
[2023-05-03 09:47] VITALS: BP 140/67; PULSE 65; RESP 16; O2SAT 100
[2023-05-03 09:52] VITALS: BP 142/72; PULSE 66; RESP 17; O2SAT 100
[2023-05-03 09:54] VITALS: BP 119/73; PULSE 64; RESP 18; TEMP 36.3; O2SAT 99
== END 2023-05-03 10:05 | disposition home or self-care (01) ==
LOC: OR 07:30
PROVIDERS: PCP Internal Medicine; Visit Provider Ophthalmology
DX: H25.811 Combined forms of age-related cataract, right eye (principal)
CPT/HCPCS: 66984; V2632

== ENCOUNTER 2023-05-17 07:27 | Day surgery (SDC) | payer MEDICARE, SELFPAY ==
[2023-05-12 14:31] VITALS: BMI 43.5
[2023-05-17 07:50] VITALS: BP 150/103; PULSE 61; RESP 18; TEMP 36.6; O2SAT 96
[2023-05-17 08:43] VITALS: BP 159/80; PULSE 65; RESP 20; O2SAT 98
[2023-05-17 08:48] VITALS: BP 140/80; PULSE 61; RESP 20; O2SAT 100
[2023-05-17 08:53] VITALS: BP 143/81; PULSE 62; RESP 18; O2SAT 100
[2023-05-17 08:58] VITALS: BP 135/92; PULSE 64; RESP 14; TEMP 36.4; O2SAT 99
== END 2023-05-17 09:14 | disposition home or self-care (01) ==
PROVIDERS: PCP Internal Medicine; Visit Provider Ophthalmology
DX: H25.812 Combined forms of age-related cataract, left eye (principal)
CPT/HCPCS: 66984; V2632

== ENCOUNTER → 2023-08-11 09:29 | Outpatient (CLI) | payer MEDICARE, SELFPAY ==
[2023-08-11 10:46] LABS: Basophils # 0.1 K/mm3 (0-0.2); Eosinophils # 0.2 K/mm3 (0.0-0.4); Eosinophils % 3.3 % (0.1-12.0); Hematocrit 43.8 % (37.0-47.0); Hemoglobin 14.1 g/dL (12.2-16.2); Lymphocytes # 1.5 K/mm3 (0.7-4.5); Lymphocytes % 30.1 % (10-50); Mean Corpuscular HGB Conc 32.3 g/dL (31.8-35.4); Mean Corpuscular Hemoglobin 30.1 pg (27.0-31.2); Mean Corpuscular Volume 93.4 fl (81-99); Mean Platelet Volume 8.6 fl (7.4-10.4); Monocytes # 0.3 K/mm3 (0.1-1.0); Monocytes % 6.1 % (1.7-9.3); Neutrophils # 2.9 K/mm3 (1.8-7.8); Neutrophils % 59.5 % (37.0-80.0); Platelet Count 205 K/mm3 (142-424); Red Blood Count 4.69 M/mm3 (4.20-5.40); Red Cell Distribution Width 13.4 % (11.5-17.5); White Blood Count 4.9 K/mm3 (4.8-10.8)
[2023-08-11 11:00] LABS: Alanine Aminotransferase 76 U/L (12-78); Albumin Level 4.3 g/dl (3.5-5.0); Albumin/Globulin Ratio 1.4 (1.1-1.8); Alkaline Phosphatase 42 U/L (38-126); Anion Gap 11.5 mEq/L (5-15); Aspartate Amino Transferase 67 U/L (14-36); Bilirubin,Total 0.6 mg/dl (0.2-1.3); Blood Urea Nitrogen 20 mg/dl (7-17); Calcium 9.6 mg/dl (8.4-10.2); Carbon Dioxide 34 mmol/L (22.0-30.0); Chloride 100 mmol/L (98-107); Chol/HDL Ratio 2.9 (1-3.5); Cholesterol 124 mg/dl (140-200); Estimated Glomerular Filt Rate 70 ml/min (>60); GFR (African American) 85 ML/MIN (>60); Globulin 3.1 g/dL (1.3-3.2); Glucose 111 mg/dl (74-100); HDL Cholesterol 43 mg/dl (40-60); Potassium 4.5 mmoL/L (3.5-5.1); Sodium 141 mmol/L (136-145); Total Protein,Serum 7.4 g/dl (6.3-8.2); Triglycerides 84 mg/dl (30-150); VLDL Cholesterol 17 mg/dL (0-40)
[2023-08-11 11:11] LABS: Direct LDL Cholesterol 64.29 mg/dL (100-129)
[2023-08-11 11:14] LABS: Hemoglobin A1C 5.5 % (4.0-6.0)
== END ==
PROVIDERS: PCP Internal Medicine; Visit Provider Internal Medicine
DX: R73.01 Impaired fasting glucose; E78.5 Hyperlipidemia, unspecified; I25.10 Atherosclerotic heart disease of native coronary artery without angina pectoris; D64.9 Anemia, unspecified; Z86.718 Personal history of other venous thrombosis and embolism; I11.0 Hypertensive heart disease with heart failure
CPT/HCPCS: 36415; 80053; 80061; 83036; 85025

== ENCOUNTER → 2023-09-12 11:41 | Outpatient (CLI) | payer MEDICARE, SELFPAY ==
[2023-09-12 13:05] LABS: Anion Gap 15.4 mEq/L (5-15); Blood Urea Nitrogen 22 mg/dl (7-17); Calcium 9.6 mg/dl (8.4-10.2); Carbon Dioxide 29 mmol/L (22.0-30.0); Chloride 99 mmol/L (98-107); Estimated Glomerular Filt Rate 82 ml/min (>60); GFR (African American) 99 ML/MIN (>60); Glucose 109 mg/dl (74-100); Potassium 4.4 mmoL/L (3.5-5.1); Sodium 139 mmol/L (136-145)
[2023-09-12 13:19] LABS: Free T4 (Free Thyroxine) 1.15 ng/dl (0.78-2.19)
[2023-09-12 14:50] LABS: NT Pro Brain Natriuretic Pep. 62.6 pg/mL (0-125)
[2023-09-12 15:12] LABS: Thyroid Stimulating Hormone 2.56 uIU/mL (0.465-4.68)
== END ==
PROVIDERS: PCP Internal Medicine; Visit Provider Physician Assistant
DX: E66.9 Obesity, unspecified (principal); E78.5 Hyperlipidemia, unspecified; I50.32 Chronic diastolic (congestive) heart failure; N18.9 Chronic kidney disease, unspecified; R06.00 Dyspnea, unspecified; Z68.42 Body mass index [BMI] 45.0-49.9, adult
CPT/HCPCS: 36415; 80048; 83880; 84439; 84443

== ENCOUNTER 2023-09-19 09:11 | Emergency (ER) | payer MEDICARE, SELFPAY ==
--- NOTE | 2023-09-19 09:40 | XR_ITS ---
FINAL REPORT CLINICAL HISTORY: Nonspecific cough COMPARISON: 01/30/2022 FINDINGS: Two views of the chest were obtained. The heart size and pulmonary vascularity are within normal limits. The mediastinum is normal. Right middle lobe opacity worrisome for pneumonia. There is no pneumothorax. The bony thorax is intact. IMPRESSION: Right middle lobe opacity worrisome for pneumonia. Reviewed, Interpreted and Dictated by Jay Jay Lopez III, MD Transcribed by Hilda Aguirre Authenticated and [facility]
--- NOTE | 2023-09-19 09:44 | EXP.UTC ---
Discharge Plan Disposition Patient Disposition: Home, Self-Care Condition: Good Prescriptions Prescriptions: New prednisone 10 mg tablet 10 mg PO BID 3 Days Qty: 6 0RF azithromycin [Zithromax] 250 mg tablet 250 mg PO UD DOSE PK Qty: 6 0RF Rx Instructions: Take two (2) tablets today, then one (1) tablet days #2 thru #5 cefdinir 300 mg capsule 300 mg PO BID Qty: 20 0RF guaifenesin [Mucinex] 600 mg tablet extended release 12hr 600 - 1,200 mg PO BIDP PRN (Reason: Congestion) Qty: 30 0RF benzonatate [benzonatate] 100 mg capsule 100 mg PO TIDP PRN (Reason: Cough) Qty: 30 0RF No Action citalopram 20 mg tablet 30 mg PO DAILY pravastatin 80 mg tablet 80 mg PO HS tramadol 50 mg tablet 50 mg PO Q6HP PRN (Reason: PAIN) ferrous sulfate [Slow Release Iron] 140 mg (45 mg iron) tablet extended release 140 mg PO DAILY multivitamin Tablet 1 tab PO DAILY trazodone 100 mg tablet 100 mg PO HS Qty: 90 3RF furosemide 40 mg tablet 80 mg PO DAILY Neupro 2 mg/24 hour patch 24 hour 2 mg TRANSDERMA DAILY Qty: 30 11RF Rx Instructions: Apply one patch daily as directed, see location map provided at visit, needs follow up prior to further refills spironolactone 25 MG tablet 50 mg PO DAILY metoprolol succinate 50 MG tablet extended release 24 hr 50 mg PO DAILY lisinopril 10 MG tablet 10 mg PO DAILY Patient Comments: TAKE 1 TABLET BY MOUTH ONCE DAILY omeprazole 40 MG capsule,delayed release(DR/EC) 40 mg PO DAILY PreserVision AREDS 2,148 mcg-113 mg-45 mg-17.4mg Tablet 2 tab PO BID Rx Instructions: administer with AM and PM meals Referrals Follow up/Referrals: Arjun Baez MD [Primary Care Provider] - See instructions Activity Restrictions/Add. Instructions Additional Instructions/Restrictions: Drink plenty of fluids. Take tylenol or ibuprofen for pain or fever. Take the medications as directed. Follow up with your regular doctor within the next 48 hours for a recheck. GO TO THE ER FOR ANY WORSENING SYMPTOMS Don't start the oral steroids until tomorrow, since you had the shot here today. Clinical Impressions Clinical Impression: Right middle lobe pneumonia Instructions Patient Instructions: Pneumonia-Adult, Dexamethasone Injection Discharge ED Provider: William Castellano [facility] [place] HPI General Stated complaint: cough, pruitt, chills, body ache, weakness, congestion Time Seen by Provider: 09/19/23 09:44 History of Present Illness Provider Complaint: She states that for the past 4 days she has had chest congestion, productive cough with yellowish sputum, scratchy throat, chills, body aches, and malaise. She denies fever. She denies any known covid-19 or flu exposure. Related Data Home Medications Medication Instructions Recorded Confirmed citalopram 20 mg tablet 30 mg PO DAILY mood 12/12/17 09/19/23 pravastatin 80 mg tablet 80 mg PO HS Cholesterol 12/12/17 09/19/23 tramadol 50 mg tablet 50 mg PO Q6HP PRN PAIN 12/12/17 09/19/23 metoprolol succinate 50 mg 50 mg PO DAILY Hypertension 08/14/19 09/19/23 tablet,extended release 24 hr lisinopril 10 mg tablet 10 mg PO DAILY Hypertension 08/15/19 09/19/23 omeprazole 40 mg capsule,delayed 40 mg PO DAILY GERD 09/26/19 09/19/23 release furosemide 40 mg tablet 80 mg PO DAILY Fluid 10/20/21 09/19/23 ferrous sulfate 140 mg (45 mg 140 mg PO DAILY Supplement 11/17/21 09/19/23 iron) tablet,extended release (Slow Release Iron) spironolactone 25 mg tablet 50 mg PO DAILY Fluid 03/08/22 09/19/23 multivitamin 1 tab PO DAILY Supplement 08/11/22 09/19/23 vitamins A,C,G-yrvo-gactci 2,148 2 tab PO BID Supplement 05/02/23 09/19/23 mcg-113 mg-45 mg-17.4 mg tablet (PreserVision AREDS) Previous Rx's Medication Instructions Recorded trazodone 100 mg tablet 100 mg PO HS insomnia, RLS #90 tabs 08/11/22 rotigotine 2 mg/24 hour 2 mg transdermal ALEE
[2023-09-19 09:50] VITALS: BP 104/67; PULSE 69; RESP 18; TEMP 37.2; O2SAT 95; BMI 49.2
[2023-09-19 10:53] VITALS: BP 104/67; PULSE 69; RESP 18; TEMP 37.2; O2SAT 95
[2023-09-19 10:54] LABS: Adenovirus,PCR Not Detected (NotDetected); Coronavirus 19, PCR Not Detected (NotDetected); Coronavirus 229E Not Detected (NotDetected); Coronavirus NL63 Not Detected (NotDetected); Coronavirus OC43 Not Detected (NotDetected); Coronovirus HKU1,PCR Not Detected (NotDetected); Human Metapneumovirus Not Detected (NotDetected); Influenza A, PCR Not Detected (NotDetected); Influenza AH1, 2009 Not Detected (NotDetected); Influenza AH1, PCR Not Detected (NotDetected); Influenza AH3,PCR Not Detected (NotDetected); Influenza B, PCR Not Detected (NotDetected); Parainfluenza 1, PCR Not Detected (NotDetected); Parainfluenza 2, PCR Not Detected (NotDetected); Parainfluenza 3, PCR Not Detected (NotDetected); Parainfluenza 4, PCR Not Detected (NotDetected); Respiratory Syncytial Virus Not Detected (NotDetected); Rhinovirus/Enterovirus Not Detected (NotDetected)
== END 2023-09-19 10:53 | disposition home or self-care (01) ==
PROVIDERS: Emergency Provider Nurse Practitioner Family; PCP Internal Medicine
DX: J18.1 Lobar pneumonia, unspecified organism (principal); I10 Essential (primary) hypertension; E78.5 Hyperlipidemia, unspecified; K21.9 Gastro-esophageal reflux disease without esophagitis; F32.A Depression, unspecified; R68.83 Chills (without fever)
CPT/HCPCS: 71046; 87632; 87635; 96372; 99212; 99214; G0463

== ENCOUNTER → 2023-09-27 11:00 | Outpatient (CLI) | payer MEDICARE, SELFPAY ==
--- NOTE | 2023-09-27 11:01 | CA_ITS ---
APPROVED REPORT EXAM: Comprehensive 2D, Doppler, and color-flow Echocardiogram Laser Cutter: Shikha Davis CRT Ht: 5 ft 6 in Wt: 308lbs BSA: 2.40 BP: 149/69 mmHg Indications: Chest Pain, Shortness of Breath, Hyperlipidemia, Hypertension/HDD 2D Dimensions LVOT 1.93 cm (M/F) 1.5-2.5 LA Volume 42.10 mL LA Volume Index 17.10 mL/m2 (M/F) 16-34 M-Mode Dimensions RVDd 3.17 cm (0.9-2.6) LA Diam 3.45 cm (1.9-4.0) LVDd 3.69 cm (3.5-5.7) Ao Diam 3.77 cm (2.0-3.7) LVDs 2.65 cm (3.5-5.7) IVSd 1.81 cm (0.6-1.1) PWd 0.96 cm (0.6-1.1) EF (Teich) 55.40% FS 28.20% EDV (Teich) 57.80 mL TAPSE 2.74 (<1.7) ESV (Teich) 25.80 mL LV Diastology E Decel Time 337.00 (160-240 msec) E/A Ratio 0.64 MED E' 12.40 (< 7 cm/sec) MED A' 16.60 cm/s E'/MED E' Ratio 12.25 (>14) LAT E' 7.40 (<10 cm/sec) LAT A' 11.70 cm/s E/LAT E' Ratio 20.53 (>14) Aortic Valve AO Peak GR. 9.10 mmHg Mitral Valve MV E Max Howard. 152.00 (40-130 cm/s) MV A Velocity 236.00 (40-130 cm/s) E/A Ratio 0.64 MV Decel. Time 337.00 (160-240 ms) MV PHT 99.00 ms Pulmonary Valve PV Peak Velocity 161.00 (50-150 cm/s) Tricuspid Valve TR P. Velocity 301.00 cm/s RAP Estimate 10.00 mmHg RVSP 46.20 mmHg Left Ventricle The left ventricle is normal size. The left ventricular systolic function is normal. The left ventricular ejection fraction is within the normal range. There is increased LV wall thickness. There is normal LV segmental wall motion. Transmitral Doppler flow pattern suggests impaired LV relaxation. LVEF is 65-70%. Right Ventricle The right ventricle is mildly dilated. The right ventricular systolic function is normal. Atria The left atrium size is normal. The right atrium size is normal. There is no Doppler evidence of interatrial shunt. Aortic Valve The aortic valve is mildly thickened. There is no aortic valvular stenosis. Trace aortic regurgitation. Mitral Valve The mitral valve is normal in structure. No evidence of mitral valve stenosis. Trace mitral regurgitation. Tricuspid Valve The tricuspid valve leaflets are thin and pliable. Trace tricuspid regurgitation. There is insufficient TR jet to estimate RVSP. Pulmonic Valve The pulmonary valve is normal in structure. Trace pulmonic regurgitation. Great Vessels The aortic root is normal in size. The ascending aorta is normal in size. IVC is normal in size and collapses >50% with inspiration. Pericardium There is no pericardial effusion. Other Information Study Quality: Fair Conclusion Normal biventricular systolic function. Mildly dilated RV. No significant valvular stenosis or regurgitation. Electronically signed by : Jazlyn Montejo MD 09/30/2023 19:23:38
== END ==
LOC: RT 11:01
PROVIDERS: PCP Internal Medicine; Visit Provider Physician Assistant
DX: E66.9 Obesity, unspecified (principal); E78.5 Hyperlipidemia, unspecified; I10 Essential (primary) hypertension; I50.32 Chronic diastolic (congestive) heart failure; N18.9 Chronic kidney disease, unspecified; R06.09 Other forms of dyspnea; Z68.43 Body mass index [BMI] 50.0-59.9, adult
CPT/HCPCS: 93306

== ENCOUNTER → 2023-10-18 12:57 | Outpatient (POV) | payer MEDICARE, SELFPAY | PROVIDERS: PCP Internal Medicine; Visit Provider Dermatology | DX: Z00.00 Encounter for general adult medical examination without abnormal findings (principal) ==

== ENCOUNTER → 2023-11-01 11:28 | Outpatient (CLI) | payer MEDICARE, SELFPAY ==
--- NOTE | 2023-11-01 11:34 | CA_ITS ---
FINAL REPORT TECHNIQUE: extremity venous duplex was performed with augmentation and compression. CLINICAL HISTORY: PAIN RIGHT POPLITEAL FOSSA,HX DVT RLE COMPARISON: None FINDINGS: RIGHT LEG VENOUS DOPPLER: Proper flow is seen throughout the deep venous system. There is no evidence of deep venous thrombosis. IMPRESSION: no deep venous thrombosis. Reviewed, Interpreted and Dictated by Sage House MD Transcribed by Roxi Moya Authenticated and [facility]
== END ==
PROVIDERS: PCP Internal Medicine; Visit Provider Internal Medicine
DX: M79.604 Pain in right leg (principal)
CPT/HCPCS: 93971

== ENCOUNTER → 2023-11-16 10:41 | Outpatient (CLI) | payer MEDICARE, SELFPAY ==
[2023-11-16 16:11] LABS: Iron 107 ug/dL (37-170)
[2023-11-16 16:21] LABS: Total Iron Binding Capacity 412 ug/dL (265-497)
[2023-11-16 16:47] LABS: Ferritin 60.3 ng/ml (11.1-264)
== END ==
LOC: LAB 10:42
PROVIDERS: PCP Internal Medicine; Visit Provider Nurse Practitioner Family
DX: D64.9 Anemia, unspecified (principal); E83.10 Disorder of iron metabolism, unspecified
CPT/HCPCS: 36415; 82728; 83540; 83550

== ENCOUNTER → 2023-12-23 08:36 | Outpatient (CLI) | payer MEDICARE, SELFPAY | LOC: SL 08:38 | PROVIDERS: PCP Internal Medicine; Visit Provider Nurse Practitioner Family | DX: G47.33 Obstructive sleep apnea (adult) (pediatric) (principal); G47.36 Sleep related hypoventilation in conditions classified elsewhere | CPT/HCPCS: 95806 ==

== ENCOUNTER 2024-01-04 16:46 | Outpatient (CLI) | payer MEDICARE, SELFPAY ==
[2024-01-04 17:13] LABS: Basophils % 0.4 % (0.1-2.0); Eosinophils # 0.2 K/mm3 (0.0-0.4); Eosinophils % 3.4 % (0.1-12.0); Hematocrit 41.4 % (37.0-47.0); Hemoglobin 13.9 g/dL (12.2-16.2); Lymphocytes # 1.4 K/mm3 (0.7-4.5); Lymphocytes % 29.3 % (10-50); Mean Corpuscular HGB Conc 33.6 g/dL (31.8-35.4); Mean Corpuscular Hemoglobin 31.7 pg (27.0-31.2); Mean Corpuscular Volume 94.3 fl (81-99); Mean Platelet Volume 9.6 fl (7.4-10.4); Monocytes # 0.3 K/mm3 (0.1-1.0); Monocytes % 6.1 % (1.7-9.3); Neutrophils # 2.9 K/mm3 (1.8-7.8); Neutrophils % 60.9 % (37.0-80.0); Platelet Count 181 K/mm3 (142-424); Red Blood Count 4.39 M/mm3 (4.20-5.40); Red Cell Distribution Width 13.6 % (11.5-17.5); White Blood Count 4.7 K/mm3 (4.8-10.8)
[2024-01-04 18:11] LABS: Alanine Aminotransferase 80 U/L (12-78); Albumin Level 3.9 g/dl (3.5-5.0); Albumin/Globulin Ratio 1.5 (1.1-1.8); Alkaline Phosphatase 49 U/L (38-126); Anion Gap 8.7 mEq/L (5-15); Aspartate Amino Transferase 64 U/L (14-36); Bilirubin,Total 0.6 mg/dl (0.2-1.3); Blood Urea Nitrogen 21 mg/dl (7-17); Calcium 9.4 mg/dl (8.4-10.2); Carbon Dioxide 33 mmol/L (22.0-30.0); Chloride 100 mmol/L (98-107); Chol/HDL Ratio 3.2 (1-3.5); Cholesterol 125 mg/dl (140-200); Estimated Glomerular Filt Rate 70 ml/min (>60); GFR (African American) 85 ML/MIN (>60); Globulin 2.6 g/dL (1.3-3.2); Glucose 92 mg/dl (74-100); HDL Cholesterol 39 mg/dl (40-60); Potassium 4.7 mmoL/L (3.5-5.1); Sodium 137 mmol/L (136-145); Total Protein,Serum 6.5 g/dl (6.3-8.2); Triglycerides 103 mg/dl (30-150); VLDL Cholesterol 21 mg/dL (0-40)
[2024-01-04 18:23] LABS: Direct LDL Cholesterol 63.71 mg/dL (100-129)
== END 2024-01-04 23:59 ==
LOC: LAB.DROPOF 16:47
PROVIDERS: PCP Internal Medicine; Visit Provider Internal Medicine
DX: I10 Essential (primary) hypertension (principal); I50.32 Chronic diastolic (congestive) heart failure; I25.10 Atherosclerotic heart disease of native coronary artery without angina pectoris; I87.2 Venous insufficiency (chronic) (peripheral); E78.5 Hyperlipidemia, unspecified; G25.81 Restless legs syndrome; M15.0 Primary generalized (osteo)arthritis
CPT/HCPCS: 80053; 80061; 85025

== ENCOUNTER 2024-01-13 14:44 | Outpatient (CLI) | payer MEDICARE, SELFPAY ==
[2024-01-13 15:40] VITALS: PULSE 82; PULSE 84
[2024-01-13] MEDS: ALBUTEROL 0.083% 2.5 MG/3 ML NEB IH (15:40)
== END 2024-01-13 23:59 ==
LOC: RT 14:46
PROVIDERS: PCP Internal Medicine; Visit Provider Nurse Practitioner Family
DX: G47.34 Idiopathic sleep related nonobstructive alveolar hypoventilation; R06.00 Dyspnea, unspecified; I50.9 Heart failure, unspecified; Z86.69 Personal history of other diseases of the nervous system and sense organs
CPT/HCPCS: 94060; 94618; 94640; 94726; 94729

== ENCOUNTER 2024-02-17 12:04 | Outpatient (CLI) | payer MEDICARE, SELFPAY ==
--- NOTE | 2024-02-17 | CA_ITS ---
APPROVED REPORT Exam: Pharmacologic Technologist: Mildred King, Ht: 5 ft 6 in Wt: 322 lbs BSA: 2.45 m2 HR: 72 bpm BP: 116/60 mmHg Rhythm: NSR, CANNOT R/O OLD ANTEROLATERAL MA Medical History Medical History: HTN, , Hyperlipidemia Medications: Lisinopril,,,,, Omeprazole,,,,, Pravastatin,,,,, Citalopram,,,,, Tramadol,,,,, BenzONATATE,,,,, SpirOnolactone,,,,, Multivitamin,,,,, Rotigetine,,,,, Furosemide,,,,, Ferrous sulfate ER,,,,, Metorpolol succinate ER,,,,, Allergies: PENICILLIN, SULFA Cardiac Risk Factors: HTN, Hyperlipidemia, FHX of CAD Stress Test Details Test: LEXISCAN HR Resting HR: 72 bpm Max Heart Rate (APMHR): 147 bpm Max HR Achieved: 93 bpm Target HR (85% APMHR): 125 bpm % of APMHR: 63 Recovery HR: 75 bpm BP Resting BP: 116/60 mmHg Max BP: 152/58 mmHg Recovery BP: 112.0/57.0 mmHg ECG Resting ECG: NSR, CANNOT R/O OLD ANTEROLATERAL MA Stress ECG: NO SIGNIFICANT ST CHANGES Arrhythmia: NONE Clinical Exercise duration: 04:12 min Highest Stage Achieved: Stress ECG Conclusion PT HAD MILD SOA AND HEAD DISCOMFORT NO CP NO SIGNIFICANT ST CHANGES CONCLUSION: UNREMARKABLE LEXISCAN STRESS MYOVIEW IMAGES REPORTED SEPARATELY Test Summary REST 04:32 . . 72 . 116/ 60 . . Stage 1 01:00 . . 93 . . . . Stage 2 01:00 . . 79 . . . . Stage 3 01:00 . . 78 . 102/ 66 . . Stage 4 01:00 . . 77 . . . . Stage 4 01:12 . . 76 . 135/ 59 . Stop exercise at 04:12 RECOVERY 01:00 . . 77 . . . . RECOVERY 02:00 . . 78 . . . . RECOVERY 03:00 . . 77 . 152/ 58 . . RECOVERY 04:00 . . 77 . 152/ 58 . . RECOVERY 04:28 . . 74 . 112/ 57 . . Electronically signed by : Jazlyn Montejo MD 02/20/2024 10:50:50
--- NOTE | 2024-02-17 12:16 | NM_ITS ---
APPROVED REPORT Exam: Nuclear Stress Test Indication: Chest pain, HTN, High cholesterol, Family history Patient Location: Outpatient Stress Tech: Mildred King VA Tech:MARINA Auguste RT(R)(N) Ht: 5 ft 6 in Wt: 311 lbs Bra Size: 44D HR: 72 bpm BP: 116/60 mmHg BSA: 2.41 m2 TID: 1.17 BMI: 50.1 History: Chest pain, HTN, High cholesterol, Family history Procedure: Patient received 0.4 mg of intravenous Lexiscan, resting heart rate 72 bpm, resting blood pressure 116/60 mmHg, with Lexiscan maximum heart rate achieved was 93 bpm which is % of the maximum predicted heart rate and blood pressure was 152/58 mmHg. With Lexiscan, patient denied any complaint of chest pain. Cardiac Stress and Resting SPECT Images: Cardiac Stress and Resting SPECT images were obtained using technetium 99m Myoview 32.6 mCi stress and 10.82 mCi at rest. The patient could not lie on his abdomen. Therefore, prone stress imaging could not be performed. This may affect the diagnostic interpretation of the study findings. Resting and stress imaging and supine positions demonstrate no evidence of fixed or reversible perfusion defects. Gated imaging demonstrates normal global and regional LV systolic function. LVEF is calculated at 70%. Conclusion: No evidence of fixed or reversible perfusion defects. Gated imaging demonstrates normal global and regional LV systolic function. LVEF is calculated at 70%. Electronically signed by : Jazlyn Montejo MD 02/22/2024 13:00:56
--- NOTE | 2024-02-17 12:34 | US_ITS ---
FINAL REPORT CLINICAL HISTORY: leg pain, HDL, HTN, Claudication, COMPARISON: None FINDINGS: LOWER EXTREMITY SEGMENTAL PRESSURE MEASUREMENTS FINDINGS: Pressure indices are as follows: RIGHT LOWER EXTREMITY: Thigh: 248 Calf: 133 Ankle, posterior tibial artery: 137 Ankle, dorsalis pedis: 139 Toe: 105 Comments: Normal LEFT LOWER EXTREMITY: Thigh: 190 Calf: 150 Ankle, posterior tibial artery: 159 Ankle, dorsalis pedis: 150 Toe: 95 Comments: Normal IMPRESSION: No evidence of significant peripheral vascular disease. Reviewed, Interpreted and Dictated by Ulises Barfield MD Transcribed by GIUSEPPE Pleitez Authenticated and [facility]
[2024-02-17] MEDS: SODIUM CHLORIDE 0.9% 10ML SYR (RAD ONLY) 10 ML IV ×2 (14:14→14:15)
[2024-02-17] MEDS: ISOTOPE MYOVIEW (PER STUDY) 1 DOSE IV (14:14)
[2024-02-17] MEDS: REGADENOSON 0.4MG/5ML SYRINGE 0.400000000000000022 MG IV (14:14)
== END 2024-02-17 23:59 ==
LOC: RAD 12:05
PROVIDERS: PCP Internal Medicine; Visit Provider Nurse Practitioner
DX: R07.9 Chest pain, unspecified (principal); M79.604 Pain in right leg; M79.605 Pain in left leg; I73.9 Peripheral vascular disease, unspecified
CPT/HCPCS: 78452; 93017; 93018; 93923; A9502; J2785

== ENCOUNTER 2024-03-15 20:07 | Emergency (ER) | payer MEDICARE, SELFPAY ==
[2024-03-15 20:20] VITALS: BP 162/91; PULSE 77; RESP 14; TEMP 36.6; O2SAT 98; BMI 51.6
--- NOTE | 2024-03-15 20:22 | ED_ITS ---
Discharge Plan Disposition Patient Disposition: Home, Self-Care Condition: Good Prescriptions Prescriptions: No Action citalopram 20 mg tablet 30 mg PO DAILY pravastatin 80 mg tablet 80 mg PO HS tramadol 50 mg tablet 50 mg PO Q6HP PRN (Reason: PAIN) ferrous sulfate [Slow Release Iron] 140 mg (45 mg iron) tablet extended release 140 mg PO DAILY multivitamin Tablet 1 tab PO DAILY furosemide 40 mg tablet 40 mg PO DAILY Rx Instructions: lasix 80 mg qod Centrum Silver Women 8 mg iron-400 mcg-50 mcg tablet 1 tab PO DAILY Neupro 2 mg/24 hour patch 24 hour 2 mg TRANSDERMA DAILY Qty: 30 11RF Rx Instructions: Apply one patch daily as directed, see location map provided at visit, needs follow up prior to further refills spironolactone 25 mg tablet 25 mg PO DAILY benzonatate [benzonatate] 100 mg capsule 100 mg PO TIDP PRN (Reason: Cough) Qty: 30 0RF metoprolol succinate 50 MG tablet extended release 24 hr 50 mg PO DAILY lisinopril 10 MG tablet 10 mg PO DAILY Patient Comments: TAKE 1 TABLET BY MOUTH ONCE DAILY omeprazole 40 MG capsule,delayed release(DR/EC) 40 mg PO DAILY PreserVision AREDS 2,148 mcg-113 mg-45 mg-17.4mg Tablet 2 tab PO BID Rx Instructions: administer with AM and PM meals Referrals Follow up/Referrals: Arjun Baez MD [Primary Care Provider] - See instructions Activity Restrictions/Add. Instructions Additional Instructions/Restrictions: Follow-up with your PCP within 1 week to assess your wound or return to the emergency department for any increasing pain redness swelling discharge as needed. Clinical Impressions Clinical Impression: Cellulitis Qualifiers: Site of cellulitis of extremity: lower extremity Laterality: right Discharge ED Provider: [facility] General Adult HPI <GIUSEPPE Francois - Last Filed: 03/15/24 21:45> General Chief complaint: Extremity Problem,Nontraumatic Stated complaint: Right leg red,hot to touch,swollen,itches Time Seen by Provider: 03/15/24 20:13 History of Present Illness HPI narrative: Patient presents for evaluation of right lower extremity infection. Patient reports that she had a tick on her right anterior abdul that she found on February 19. It has remained red this entire time but now it has started to spread, become itchy and painful and swelling. She denies chest pain fever chills hemoptysis hematochezia melena nausea vomit diarrhea. Related Data Home Medications Medication Instructions Recorded Confirmed citalopram 20 mg tablet 30 mg PO DAILY mood 12/12/17 03/06/24 pravastatin 80 mg tablet 80 mg PO HS Cholesterol 12/12/17 03/06/24 tramadol 50 mg tablet 50 mg PO Q6HP PRN PAIN 12/12/17 03/06/24 metoprolol succinate 50 mg 50 mg PO DAILY Hypertension 08/14/19 03/06/24 tablet,extended release 24 hr lisinopril 10 mg tablet 10 mg PO DAILY Hypertension 08/15/19 03/06/24 omeprazole 40 mg capsule,delayed 40 mg PO DAILY GERD 09/26/19 03/06/24 release ferrous sulfate 140 mg (45 mg 140 mg PO DAILY Supplement 11/17/21 03/06/24 iron) tablet,extended release (Slow Release Iron) multivitamin 1 tab PO DAILY Supplement 08/11/22 03/06/24 vitamins A,C,Q-qrsb-oejewn 2,148 2 tab PO BID Supplement 05/02/23 03/06/24 mcg-113 mg-45 mg-17.4 mg tablet (PreserVision AREDS) qqjexvmx-xxkg-iqas 8 mg-folic 400 1 tab PO DAILY 11/16/23 03/06/24 mcg-K 50 mcg-lutein 300 mcg tablet (Centrum Silver Women) spironolactone 25 mg tablet 25 mg PO DAILY Fluid 11/16/23 03/06/24 furosemide 40 mg tablet 40 mg PO DAILY Fluid 01/04/24 03/06/24 Previous Rx's Medication Instructions Recorded benzonatate 100 mg capsule 100 mg PO TIDP PRN Cough #30 caps 09/19/23 rotigotine 2 mg/24 hour 2 mg transdermal DAILY RLS 11/16/23 transdermal 24 hour patch (Neupro) (receives through patient assistance) #30 ea Allergies Allergy/AdvReac Type Severity Reaction Status Date / Time Penicillins Allergy Intermediate I-RASH Verified 03/06/24 10:27 Sulfa (Sulfonamide Allergy Intermediate I-RASH Verified 03/06/24 10:27 Antibiotics) [facility] <GIUSEPPE Francois - Last Filed: 03/15/24 21:45> [facility] Disclaimer: The information contained in this section may have been updated after the patient was seen, as this information can be updated by other users. Medical History Pneumonia AUG 2023 Right middle lobe pneumonia Macular degeneration History of restless legs syndrome History of neuropathy Depression History of gastroesophageal reflux (GERD) Migraine Hyperlipidemia Hypertension Dyspnea LISSY (obstructive sleep apnea) Mild LISSY with hypoxemia at a degree of proportion. AHI 6, minimal SpO2 78%. Surgical History History of appendectomy History of partial hysterectomy History of bilateral knee replacement Family History Other Cancer Coronary artery disease Diabetes Social History Smoking Status: Never smoker second hand exposure: No alcohol intake: never substance use type: denies use current occupational status: retired and other Travel in the last 8 weeks: None household members: spouse housing: house marital status: current occupational exposures/hazards: No caffeine: No <GIUSEPPE Francois - Last Filed: 03/15/24 21:45> ROS Obtained: Yes Systems reviewed as appropriate & no additional complaints except as documented Physical Exam <GIUSEPPE Francois Last Filed: 03/15/24 21:45> General General appearance: alert and in no apparent distress Head Head exam: atraumatic and normal inspection Eye Eye exam: Present normal appearance ENT ENT exam: Present normal exam, normal oropharynx and mucous membranes moist Neck Neck exam: Present normal inspection Chest Chest inspection: Present normal inspection Respiratory Respiratory exam: Present normal lung sounds bilaterally; Absent respiratory distress Cardiovascular Cardiovascular exam: Present regular rate, normal rhythm and normal heart sounds Neurological Exam Neurological exam: Present alert and oriented X3 Psychiatric Psychiatric exam: Present normal affect and normal mood Other Other exam information: Patient has an area in the right lateral lower extremity of 270 cm x 270 cm with a smaller but still large area of induration and ecchymosis. There is no evidence of fluctuance on palpation however given the patient's body habitus I have ordered a axypj-kn-dukb ultrasound to assess for deep space fluid collection. Patient is neurovascular intact distally. It is tender to palpation. Medical Decision Making <GIUSEPPE Francois Last Filed: 03/15/24 21:45> Medical Records Medical records reviewed: Yes I reviewed the patient's medical records. Franck Inquiry Pt receiving controlled substance: No Vital Signs: 03/15/24 20:20 03/15/24 22:17 Temperature 98 F 98.0 F Temperature Source Oral Pulse Rate 75 Pulse Rate [Left] 77 Respiratory Rate 14 20 Blood Pressure 110/70 Blood Pressure [Left Arm] 162/91 H Blood Pressure Mean [Left Arm] 114 02 Sat by Pulse Oximetry 98 Oxygen Delivery Method Room Air Room Air Lab Data Lab results reviewed: Yes I reviewed the patient's lab results. Lab Results 03/15/24 20:42: WBC 7.3, RBC 4.69, Hgb 14.8, Hct 46.1, MCV 98.3, MCH 31.5 H, MCHC 32.1, RDW 13.8, Plt Count 208, MPV 8.5, Neut % (Auto) 66.1, Lymph % (Auto) 22.1, Kent % (Auto) 6.9, Eos % (Auto) 3.6, Baso % (Auto) 1.2, Neut # (Auto) 4.9, Lymph # (Auto) 1.6, Kent # (Auto) 0.5, Eos # (Auto) 0.3, Baso # (Auto) 0.1, PT 10.3, INR 0.95, D-Dimer 0.46, Sodium 137, Potassium 4.5, Chloride 100, Carbon Dioxide 32 H, Anion Gap 9.5, BUN 22 H, Creatinine 0.70, Estimated Creat Clear 47, Estimated GFR 82, Est GFR ( Amer) 99, Glucose 100, Calcium 10.0, Total Bilirubin 0.9, AST 91 H, ALT 97 H, Alkaline Phosphatase 35 L, C-Reactive Protein 2.5, Total Protein 7.9, Albumin 4.5, Globulin 3.4 H, Albumin/Globulin Ratio 1.3, Procalcitonin 0.099 03/15/24 20:42 03/15/24 20:42 Orders (Tests/Meds): ED MEDICATIONS Discontinued Medications Generic Name Dose Route Start Last Admin Trade Name Freq PRN Reason Stop Dose Admin Acetaminophen 1,000 mg 03/15/24 20:22 03/15/24 20:49 Acetaminophen 1,000mg/100ml Vial IV 03/15/24 20:23 1,000 mg ONCE ONE Administration Lactated Ringer's 1,000 mls @ 999 mls/hr 03/15/24 20:22 03/15/24 20:49 Lactated Ringer's 1000 Ml Bag IV 03/15/24 21:22 999 mls/hr .Q1H1M ONE Administration Dalbavancin 1,500 mg/ Dextrose 250 mls @ 500 mls/hr 03/15/24 20:58 03/15/24 21:44 IV 03/15/24 20:59 500 mls/hr ONCE ONE Administration Ketorolac Tromethamine 15 mg 03/15/24 20:22 03/15/24 20:49 Ketorolac 30mg/Ml Vial IV 03/15/24 20:23 15 mg ONCE ONE Administration ORDERS Category Date Time Status POCUS Point of Care (ER Only) Stat Exams 03/15/24 20:30 Taken CBC w/Auto Diff [Complete Blood Count Auto Diff] Stat Lab 03/15/24 20:42 Completed CMP [Comprehensive Metabolic Panel] Stat Lab 03/15/24 20:42 Completed CRP [C-Reactive Protein] Stat Lab 03/15/24 20:42 Completed D-Dimer Stat Lab 03/15/24 20:42 Completed INR [Prothrombin Time INR] Stat Lab 03/15/24 20:42 Completed Procalcitonin Stat Lab 03/15/24 20:42 Completed Blood Culture Stat Micro 03/15/24 20:43 Results Medical Decision Narrative: In summary patient is a 73-year-old female who presents to the emergency department for evaluation of cellulitis right lower extremity. Patient is hemodynamically stable upon arrival, afebrile. Physical exam is remarkable for a very large area of the right lower extremity laterally of erythema edema and induration however it is not circumferential. Patient is neurovascular intact distally. Patient has no other skin rashes elsewhere on her body.. Differential diagnosis includes cellulitis versus tickborne disease versus abscess versus DVT. Initial workup will be conducted with [id number]-[id number] ultrasound blood cultures and hematologic labs. Initial interventions include Toradol Tylenol and crystalloid bolus and Dalvance. Initial workup reviewed by me shows that her hematologic labs are nonactionable including a normal white count. Upon repeat evaluation has had no adverse reaction to administration of Dalvance. Given this patient is appropriate for discharge with close follow-up with her PCP. <Raheem Rodas MD - Last Filed: 03/21/24 15:52> Vital Signs: 03/15/24 20:20 03/15/24 22:17 Temperature 98 F 98.0 F Temperature Source Oral Pulse Rate 75 Pulse Rate [Left] 77 Respiratory Rate 14 20 Blood Pressure 110/70 Blood Pressure [Left Arm] 162/91 H Blood Pressure Mean [Left Arm] 114 02 Sat by Pulse Oximetry 98 Oxygen Delivery Method Room Air Room Air Lab Data Lab Results 03/15/24 20:42: WBC 7.3, RBC 4.69, Hgb 14.8, Hct 46.1, MCV 98.3, MCH 31.5 H, MCHC 32.1, RDW 13.8, Plt Count 208, MPV 8.5, Neut % (Auto) 66.1, Lymph % (Auto) 22.1, Kent % (Auto) 6.9, Eos % (Auto) 3.6, Baso % (Auto) 1.2, Neut # (Auto) 4.9, Lymph # (Auto) 1.6, Kent # (Auto) 0.5, Eos # (Auto) 0.3, Baso # (Auto) 0.1, PT 10.3, INR 0.95, D-Dimer 0.46, Sodium 137, Potassium 4.5, Chloride 100, Carbon Dioxide 32 H, Anion Gap 9.5, BUN 22 H, Creatinine 0.70, Estimated Creat Clear 47, Estimated GFR 82, Est GFR ( Amer) 99, Glucose 100, Calcium 10.0, Total Bilirubin 0.9, AST 91 H, ALT 97 H, Alkaline Phosphatase 35 L, C-Reactive Protein 2.5, Total Protein 7.9, Albumin 4.5, Globulin 3.4 H, Albumin/Globulin Ratio 1.3, Procalcitonin 0.099 Orders (Tests/Meds): ED MEDICATIONS Discontinued Medications Generic Name Dose Route Start Last Admin Trade Name Freq PRN Reason Stop Dose Admin Acetaminophen 1,000 mg 03/15/24 20:22 03/15/24 20:49 Acetaminophen 1,000mg/100ml Vial IV 03/15/24 20:23 1,000 mg ONCE ONE Administration Lactated Ringer's 1,000 mls @ 999 mls/hr 03/15/24 20:22 03/15/24 20:49 Lactated Ringer's 1000 Ml Bag IV 03/15/24 21:22 999 mls/hr .Q1H1M ONE Administration Dalbavancin 1,500 mg/ Dextrose 250 mls @ 500 mls/hr 03/15/24 20:58 03/15/24 21:44 IV 03/15/24 20:59 500 mls/hr ONCE ONE Administration Ketorolac Tromethamine 15 mg 03/15/24 20:22 03/15/24 20:49 Ketorolac 30mg/Ml Vial IV 03/15/24 20:23 15 mg ONCE ONE Administration ORDERS Category Date Time Status POCUS Point of Care (ER Only) Stat Exams 03/15/24 20:30 Taken CBC w/Auto Diff [Complete Blood Count Auto Diff] Stat Lab 03/15/24 20:42 Completed CMP [Comprehensive Metabolic Panel] Stat Lab 03/15/24 20:42 Completed CRP [C-Reactive Protein] Stat Lab 03/15/24 20:42 Completed D-Dimer Stat Lab 03/15/24 20:42 Completed INR [Prothrombin Time INR] Stat Lab 03/15/24 20:42 Completed Procalcitonin Stat Lab 03/15/24 20:42 Completed Blood Culture Stat Micro 03/15/24 20:43 Results Medical Decision Narrative: In summary patient is a 73-year-old female who presents to the emergency department for evaluation of cellulitis right lower extremity. Patient is hemodynamically stable upon arrival, afebrile. Physical exam is remarkable for a very large area of the right lower extremity laterally of erythema edema and induration however it is not circumferential. Patient is neurovascular intact distally. Patient has no other skin rashes elsewhere on her body.. Differential diagnosis includes cellulitis versus tickborne disease versus abscess versus DVT. Initial workup will be conducted with [id number] ultrasound blood cultures and hematologic labs. Initial interventions include Toradol Tylenol and crystalloid bolus and Dalvance. Initial workup reviewed by me shows that her hematologic labs are nonactionable including a normal white count. Upon repeat evaluation has had no adverse reaction to administration of Dalvance. Given this patient is appropriate for discharge with close follow-up with her PCP. I was consulted by the IVELISSE, and we discussed the complexity of the problems being addressed. I approved the treatment and management plan for this patient?s care in the Emergency Department, thus performing a substantive portion of the medical decision making. Raheem Rodas MD Procedures <Raheem Rodas MD - Last Filed: 03/21/24 15:52> Limited Ultrasound Indication:: Limited soft tissue ultrasound Indication: Swelling and redness Identified structures: Location: Right lower leg Findings: Edematous, erythematous, not well-circumscribed. Patient has edema without drainable abscess Impression: Cellulitis Images were saved to permanent archive The study was technically adequate Soft Tissue CPT Codes: CPT Neck: 60809-24 CPT Upper extremity: 61518-68 CPT Axilla: 21312-66 CPT Chest wall: 60704-17 CPT Breast: 07868-05-JQ/LT (complete), 46406-39-BI/LT (limited), CPT Upper Back: 03062-61 CPT Lower Back: 29677-26 CPT Abdominal Wall: 74195-69 CPT Pelvic Wall: 50944-45 CPT Lower Extremity: 81507-28 CPT Other Soft Tissue: 14709-11 This study was performed by me, and I personally interpreted all images/videos. Based on my clinical judgement, these images were adequate and not necessitate further imaging. Critical Care <GIUSEPPE Francois - Last Filed: 03/15/24 21:45> Critical Care Time Critical Care Time: No
[2024-03-15] MEDS: ACETAMINOPHEN 1,000MG/100ML VIAL 1000 MG IV (20:49)
[2024-03-15] MEDS: KETOROLAC 30MG/ML VIAL 15 MG IV (20:49)
[2024-03-15] MEDS: LACTATED RINGERS 1000ML 1,000 ML 999 ML IV (20:49)
[2024-03-15 20:58] LABS: Basophils # 0.1 K/mm3 (0-0.2); Basophils % 1.2 % (0.1-2.0); Eosinophils # 0.3 K/mm3 (0.0-0.4); Eosinophils % 3.6 % (0.1-12.0); Hematocrit 46.1 % (37.0-47.0); Hemoglobin 14.8 g/dL (12.2-16.2); Lymphocytes # 1.6 K/mm3 (0.7-4.5); Lymphocytes % 22.1 % (10-50); Mean Corpuscular HGB Conc 32.1 g/dL (31.8-35.4); Mean Corpuscular Hemoglobin 31.5 pg (27.0-31.2); Mean Corpuscular Volume 98.3 fl (81-99); Mean Platelet Volume 8.5 fl (7.4-10.4); Monocytes # 0.5 K/mm3 (0.1-1.0); Monocytes % 6.9 % (1.7-9.3); Neutrophils # 4.9 K/mm3 (1.8-7.8); Neutrophils % 66.1 % (37.0-80.0); Platelet Count 208 K/mm3 (142-424); Red Blood Count 4.69 M/mm3 (4.20-5.40); Red Cell Distribution Width 13.8 % (11.5-17.5); White Blood Count 7.3 K/mm3 (4.8-10.8)
[2024-03-15 21:08] LABS: Alanine Aminotransferase 97 U/L (12-78); Albumin Level 4.5 g/dl (3.5-5.0); Albumin/Globulin Ratio 1.3 (1.1-1.8); Alkaline Phosphatase 35 U/L (38-126); Anion Gap 9.5 mEq/L (5-15); Aspartate Amino Transferase 91 U/L (14-36); Bilirubin,Total 0.9 mg/dl (0.2-1.3); Blood Urea Nitrogen 22 mg/dl (7-17); Carbon Dioxide 32 mmol/L (22.0-30.0); Chloride 100 mmol/L (98-107); Creatinine Clearance Estimated 47 mL/min (50-200); Estimated Glomerular Filt Rate 82 ml/min (>60); GFR (African American) 99 ML/MIN (>60); Globulin 3.4 g/dL (1.3-3.2); Glucose 100 mg/dl (74-100); INR 0.95 (0.9-1.1); Potassium 4.5 mmoL/L (3.5-5.1); Prothrombin Time 10.3 seconds (10.1-12.5); Sodium 137 mmol/L (136-145); Total Protein,Serum 7.9 g/dl (6.3-8.2)
[2024-03-15 21:16] LABS: D-Dimer 0.46 ug/mL (0.0-0.5)
[2024-03-15 21:31] LABS: C-Reactive Protein 2.5 mg/L (0-4)
[2024-03-15] MEDS: DALBAVANCIN HCL 1,500 MG in DEXTROSE 5 % IN WATER 250 ML 500 MG IV (21:44)
[2024-03-15 21:45] LABS: Procalcitonin 0.099 ng/mL (0.0-2.0)
[2024-03-15 22:17] VITALS: BP 110/70; PULSE 75; RESP 20; TEMP 36.7; O2SAT 97
== END 2024-03-15 22:21 | disposition home or self-care (01) ==
PROVIDERS: Physician Assistant; Emergency Provider Emergency Medicine; PCP Internal Medicine
DX: L03.115 Cellulitis of right lower limb (principal); I10 Essential (primary) hypertension; E78.5 Hyperlipidemia, unspecified
CPT/HCPCS: 80053; 84145; 85025; 85378; 85610; 86140; 87040; 96361; 96374; 96375; 99285; J0131; J0875

== ENCOUNTER 2024-06-23 08:00 | Emergency (ER) | payer MEDICARE, SELFPAY ==
[2024-06-23 08:30] VITALS: BP 131/92; PULSE 78; RESP 19; TEMP 37.4; O2SAT 95; BMI 53.2
--- NOTE | 2024-06-23 08:35 | ED_ITS ---
Discharge Plan Disposition Patient Disposition: Home, Self-Care Condition: Good Prescriptions Prescriptions: No Action pravastatin 80 mg tablet 80 mg PO HS ferrous sulfate [Slow Release Iron] 140 mg (45 mg iron) tablet extended release 140 mg PO DAILY multivitamin Tablet 1 tab PO DAILY furosemide 40 mg tablet 40 mg PO DAILY Rx Instructions: lasix 80 mg qod Neupro 2 mg/24 hour patch 24 hour 2 mg TRANSDERMA DAILY Qty: 30 11RF Rx Instructions: Apply one patch daily as directed, see location map provided at visit, needs follow up prior to further refills metoprolol succinate 50 mg tablet extended release 24 hr See Rx Instructions .ROUTE .COMPLEX Qty: 90 1RF Dose Instruction: TAKE 1 TABLET EVERY DAY Rx Instructions: TAKE 1 TABLET EVERY DAY citalopram 20 mg tablet See Rx Instructions .ROUTE .COMPLEX Qty: 90 1RF Dose Instruction: TAKE 1 TABLET EVERY DAY Rx Instructions: TAKE 1 TABLET EVERY DAY tramadol 50 mg tablet 50 mg PO Q6HP PRN (Reason: PAIN) Qty: 60 1RF spironolactone 25 mg tablet 25 mg PO DAILY trazodone 50 mg tablet 50 mg PO DAILY omeprazole 40 mg capsule,delayed release(DR/EC) 40 mg PO DAILY lisinopril 10 MG tablet 10 mg PO DAILY Patient Comments: TAKE 1 TABLET BY MOUTH ONCE DAILY PreserVision AREDS 2,148 mcg-113 mg-45 mg-17.4mg Tablet 2 tab PO BID Rx Instructions: administer with AM and PM meals Referrals Follow up/Referrals: Arjun Baez MD [Primary Care Provider] - See instructions Activity Restrictions/Add. Instructions Additional Instructions/Restrictions: *Monitor Temp, Over the counter Motrin or Tylenol as directed/as needed Tylenol every 4 hours and Motrin every 6 hours (as long as your family doctor has told you that you can take it) for fever or pain. and straight to ER if unable to lower temp less than 101.0 after medication given *Warm salt water gargles may help to soothe the throat *Throat Lozenges? *Warm fluids like tea with honey may help to soothe the throat? *Sleep elevated *Humidifier/Vaporizer Follow up IMMEDIATELY for new or worsening symptoms or no Noticeable improvement over the next 48-72 hours. 911 for difficulty breathing or swallowing You were tested for today for COVID19 your test result should be back in the next few hours, you may check your results on the [facility] My Health Portal Clinical Impressions Clinical Impression: Viral syndrome Instructions Patient Instructions: DI for Nausea -- Adult, DI for Fever (Symptom) -- Adult, DI for Headache Print Language Print Language: Syrian Discharge ED Provider: Danielle Chambers [facility] [place] H[place] General Stated complaint: headache, weakness, congestion Mode of Arrival: Ambulatory Source of Information: Patient Limitations: No Limitations Time Seen by Provider: 06/23/24 08:35 Description of Symptoms (Recalled from Triage Doc. by RN): PATIENT C/O HEADACHE, NAUSEA AND WEAKNESS THAT STARTED YESTERDAY. HEENT Symptoms (Recalled from RN notes): Yes Resp Symptoms (Recalled from RN notes): No Skin Symptoms (Recalled from RN notes): No MS Symptoms (Recalled from RN notes): No Functional Status (Recalled from RN notes): WNL History of Present Illness Provider Complaint: Patient states that she started yesterday with body aches, chills, nausea, headache, and feeling weak and tired States that she isnt sure if she has been around anyone that is sick or not and she was not sure if she may have a bad sinus infection or something not aware if she has been around anyone with COVID or not but says her her daughter in law was telling that there is a bunch of viruses going around too not sure if she may have one of those Denies worse headache of her life denies chest pain or SOA Related Data Home Medications ?Medication ?Instructions ?Recorded ?Confirmed pravastatin 80 mg tablet 80 mg PO HS Cholesterol 12/12/17 06/23/24 lisinopril 10 mg tablet 10 mg PO DAILY Hypertension 08/15/19 06/23/24 ferrous sulfate 140 mg (45 mg 140 mg PO DAILY Supplement 11/17/21 06/23/24 iron) tablet,extended release (Slow Release Iron) multivitamin 1 tab PO DAILY Supplement 08/11/22 06/23/24 vitamins A,C,N-xxld-kfxbmw 2,148 2 tab PO BID Supplement 05/02/23 06/23/24 mcg-113 mg-45 mg-17.4 mg tablet (PreserVision AREDS) spironolactone 25 mg tablet 25 mg PO DAILY Fluid 11/16/23 06/23/24 furosemide 40 mg tablet 40 mg PO DAILY Fluid 01/04/24 06/23/24 omeprazole 40 mg capsule,delayed 40 mg PO DAILY 06/23/24 06/23/24 release trazodone 50 mg tablet 50 mg PO DAILY 06/23/24 06/23/24 Previous Rx's ?Medication ?Instructions ?Recorded rotigotine 2 mg/24 hour 2 mg transdermal DAILY RLS 11/16/23 transdermal 24 hour patch (Neupro) (receives through patient assistance) #30 ea citalopram 20 mg tablet See Rx Instructions .Route 05/27/24 .COMPLEX #90 tabs metoprolol succinate 50 mg See Rx Instructions .Route 05/27/24 tablet,extended release 24 hr .COMPLEX #90 tabs tramadol 50 mg tablet 50 mg PO Q6HP PRN PAIN #60 tabs 06/20/24 Allergies Allergy/AdvReac Type Severity Reaction Status Date / Time Penicillins Allergy Intermediate I-RASH Verified 03/06/24 10:27 Sulfa (Sulfonamide Allergy Intermediate I-RASH Verified 03/06/24 10:27 Antibiotics) Worker's Comp Is this a Worker's Comp case?: No [facility] Disclaimer: The information contained in this section may have been updated after the patient was seen, as this information can be updated by other users. Medical History Pneumonia AUG 2023 Right middle lobe pneumonia Macular degeneration History of restless legs syndrome History of neuropathy Depression History of gastroesophageal reflux (GERD) Migraine Hyperlipidemia Hypertension Dyspnea LISSY (obstructive sleep apnea) Mild LISSY with hypoxemia at a degree of proportion. AHI 6, minimal SpO2 78%. Surgical History History of appendectomy History of partial hysterectomy History of bilateral knee replacement Family History Other Cancer Coronary artery disease Diabetes Social History Smoking Status: Never smoker second hand exposure: No alcohol intake: never substance use type: denies use current occupational status: retired and other Travel in the last 8 weeks: None household members: spouse housing: house marital status: current occupational exposures/hazards: No caffeine: No ROS Obtained: Yes All systems reviewed & no additional complaints except as documented and Yes Systems reviewed as appropriate & no additional complaints except as documented Constitutional Constitutional: Reports system reviewed and no additional complaints, except as documented, Reports as per HPI, Reports body ache, Reports chills, Reports fatigue, Reports fever(s) (felt like she had one this morning) and Reports headache(s) ENT Ears, Nose, Mouth, and Throat: Reports system reviewed and no additional complaints, except as documented, Reports as per HPI, Denies dizziness, Denies otalgia, Reports headache(s), Reports nasal congestion, Denies sore throat and Denies vertigo Cardiovascular Cardiovascular: Reports system reviewed and no additional complaints, except as documented, Reports as per HPI, Denies chest pain, Denies dyspnea, Denies palpitations and Denies syncope Respiratory Respiratory: Reports system reviewed and no additional complaints, except as documented, Reports as per HPI, Denies shortness of breath and Denies dyspnea Gastrointestinal Gastrointestingal: Reports system reviewed and no additional complaints, except as documented, as per HPI and nausea; Denies abdominal pain, cramping, diarrhea or vomiting Musculoskeletal Musculoskeletal: Reports system reviewed and no additional complaints, except as documented and Reports as per HPI Integumentary/Breasts Skin/Breast: Reports system reviewed and no additional complaints, except as documented and Reports as per HPI Neurologic Neurologic: Reports system reviewed and no additional complaints, except as documented, Reports as per HPI, Denies abnormal movements, Denies abnormal speech, Denies confusion, Denies convulsions, Denies dizziness, Denies focal weakness, Reports headache(s), Denies memory loss, Denies other visual disturbances, Denies syncope and Denies vertigo Endocrine Endocrine: Reports fatigue and Denies palpitations Physical Exam General General appearance: alert and in no apparent distress ENT ENT exam: Present mucous membranes moist Expanded ENT Exam Nose exam: Absent sinus tenderness Throat exam: Present other (mild erythema noted with PND) Respiratory Respiratory exam: Present normal lung sounds bilaterally; Absent respiratory distress or wheezes Cardiovascular Cardiovascular exam: Present regular rate, normal rhythm and normal heart sounds Neurological Exam Neurological exam: Present alert, oriented X3 and normal gait Medical Decision Making Franck Inquiry Pt receiving controlled substance: No Franck was queried for this patient: No Vital Signs: 06/23/24 08:30 Temperature 99.4 F Temperature Source Oral Pulse Rate [Right Brachial] 78 Respiratory Rate 19 Blood Pressure [Right Arm] 131/92 H Blood Pressure Mean [Right Arm] 105 Blood Pressure Source [Right Arm] Automatic Cuff Blood Pressure Position [Right Arm] Sitting 02 Sat by Pulse Oximetry 95 Oxygen Delivery Method Room Air Orders (Tests/Meds): ORDERS Category Date Time Status Rapid PCR Covid and Flu A/B Stat Lab 06/23/24 08:34 Ordered Medical Decision Narrative: Patient denies headache being worse headache of her life States that she took Tramadol this morning and her headache is much better but still having chills, bodyaches, weakness and over all not feeling well Denies CP denies SOA Denies known sick contact Discussed transfer to the ED for more extensive work up and she declined states wants COVID test and she will return to the ED if symptoms get worse or has worse headache of her life
[2024-06-23 08:51] VITALS: BP 131/92; PULSE 78; RESP 19; TEMP 37.4; O2SAT 95
[2024-06-23 08:59] LABS: Coronavirus 19, PCR Not Detected (NotDetected); Influenza A, PCR Not Detected (NotDetected); Influenza B, PCR Not Detected (NotDetected)
== END 2024-06-23 08:57 | disposition home or self-care (01) ==
PROVIDERS: Emergency Provider Nurse Practitioner; PCP Internal Medicine
DX: R51.9 Headache, unspecified (principal); R53.1 Weakness; R11.0 Nausea; R68.83 Chills (without fever); M79.18 Myalgia, other site; B34.9 Viral infection, unspecified
CPT/HCPCS: 87636; 99212; 99213; G0463

== ENCOUNTER 2024-07-10 11:28 | Outpatient (CLI) | payer MEDICARE, SELFPAY ==
--- NOTE | 2024-07-10 11:32 | XR_ITS ---
FINAL REPORT CLINICAL HISTORY: Fall, right knee pain COMPARISON: 03/11/2022 FINDINGS: Right knee Three views were obtained. There is no acute fracture or dislocation. Patient is status post right knee arthroplasty. No acute soft tissue abnormality is identified. IMPRESSION: No acute process. Reviewed, Interpreted and Dictated by Sage House MD Transcribed by Ofelia Ward Authenticated and [facility]
--- NOTE | 2024-07-10 11:32 | XR_ITS ---
FINAL REPORT CLINICAL HISTORY: Fall, left knee pain FINDINGS: Left knee Three views were obtained. There is no acute fracture or dislocation. Patient is status post left knee arthroplasty. No acute soft tissue abnormality is identified. IMPRESSION: No acute process. Reviewed, Interpreted and Dictated by Sage House MD Transcribed by Ofelia Ward Authenticated and [facility]
== END 2024-07-10 23:59 | disposition home or self-care (01) ==
LOC: RAD 11:29
PROVIDERS: PCP Internal Medicine; Visit Provider Internal Medicine
DX: S80.01XA Contusion of right knee, initial encounter (principal); S80.02XA Contusion of left knee, initial encounter
CPT/HCPCS: 73562

== ENCOUNTER 2024-07-17 10:55 | Outpatient (CLI) | payer MEDICARE, SELFPAY ==
--- NOTE | 2024-07-17 10:55 | MM_ITS ---
PROCEDURE INFORMATION: Exam: MG Bilateral Screening 3D Mammography Exam date and time: 07/17/2024 10:45 AM Age: 74 years old Clinical indication: Screening examination TECHNIQUE: Imaging protocol: Bilateral Screening tomosynthesis and 2D mammography including computer-aided detection (CAD) when performed. COMPARISON: 1. MG SCBI MM Dig screening mamm BI w/CAD 02/27/2018 4:22 PM 2. MG DMSB DIGITAL MAMM-SCREEN BILATERAL 01/25/2012 3:23 PM FINDINGS: MAMMOGRAPHY: Breast composition: There are scattered areas of fibroglandular density. Mass: None. Architectural distortion: None. Calcifications: No suspicious calcifications. Asymmetric density: None. Skin thickening: None. Axillary adenopathy: None. IMPRESSION: No mammographic evidence of malignancy. Annual screening is recommended unless otherwise clinically indicated. ASSESSMENT: BI-RADS Category 1: Negative
== END 2024-07-17 23:59 | disposition home or self-care (01) ==
LOC: RAD 10:55
PROVIDERS: PCP Internal Medicine; Visit Provider Internal Medicine
DX: Z12.31 Encounter for screening mammogram for malignant neoplasm of breast (principal)
CPT/HCPCS: 77063; 77067

== ENCOUNTER 2024-07-19 12:00 | Emergency (ER) | payer MEDICARE, SELFPAY ==
--- NOTE | 2024-07-19 12:24 | EXP.UTC ---
Discharge Plan Disposition Patient Disposition: Home, Self-Care Condition: Good Prescriptions Prescriptions: New azithromycin [Zithromax] 250 mg tablet 250 mg PO UD DOSE PK Qty: 6 0RF Rx Instructions: Take two (2) tablets today, then one (1) tablet days #2 thru #5 methylprednisolone 4 mg Tablets,Dose Pack 4 mg PO DIRECTED 6 Days Qty: 21 0RF Rx Instructions: Take 1 pack as directed for 6 days No Action pravastatin 80 mg tablet 80 mg PO HS ferrous sulfate [Slow Release Iron] 140 mg (45 mg iron) tablet extended release 140 mg PO DAILY multivitamin Tablet 1 tab PO DAILY furosemide 40 mg tablet 40 mg PO DAILY Rx Instructions: lasix 80 mg qod Neupro 2 mg/24 hour patch 24 hour 2 mg TRANSDERMA DAILY Qty: 30 11RF Rx Instructions: Apply one patch daily as directed, see location map provided at visit, needs follow up prior to further refills metoprolol succinate 50 mg tablet extended release 24 hr See Rx Instructions .ROUTE .COMPLEX Qty: 90 1RF Dose Instruction: TAKE 1 TABLET EVERY DAY Rx Instructions: TAKE 1 TABLET EVERY DAY citalopram 20 mg tablet See Rx Instructions .ROUTE .COMPLEX Qty: 90 1RF Dose Instruction: TAKE 1 TABLET EVERY DAY Rx Instructions: TAKE 1 TABLET EVERY DAY tramadol 50 mg tablet 50 mg PO Q6HP PRN (Reason: PAIN) Qty: 60 1RF spironolactone 25 mg tablet 25 mg PO DAILY trazodone 50 mg tablet 50 mg PO DAILY omeprazole 40 mg capsule,delayed release(DR/EC) 40 mg PO DAILY lisinopril 10 MG tablet 10 mg PO DAILY Patient Comments: TAKE 1 TABLET BY MOUTH ONCE DAILY PreserVision AREDS 2,148 mcg-113 mg-45 mg-17.4mg Tablet 2 tab PO BID Rx Instructions: administer with AM and PM meals Referrals Follow up/Referrals: Arjun Baez MD [Primary Care Provider] - See instructions Activity Restrictions/Add. Instructions Additional Instructions/Restrictions: Drink plenty of fluids. Take tylenol for pain or fever. Take the medications as directed. Follow up with your regular doctor. GO TO THE ER FOR ANY WORSENING SYMPTOMS Clinical Impressions Clinical Impression: Acute bronchitis, Fatigue Instructions Patient Instructions: Methylprednisolone, Azithromycin Print Language Print Language: Mauritanian Discharge ED Provider: William Castellano [facility] HPI General Stated complaint: weak, soa, Gave's disease Time Seen by Provider: 07/19/24 12:23 History of Present Illness Provider Complaint: She states that for the past 1 week she has had fatigue, productive cough, and malaise. She is worried that her h&h is down. She has a history of chronic GI bleed that has caused her to be anemic in the past and have similar symptoms. Related Data Home Medications ?Medication ?Instructions ?Recorded ?Confirmed pravastatin 80 mg tablet 80 mg PO HS Cholesterol 12/12/17 07/10/24 lisinopril 10 mg tablet 10 mg PO DAILY Hypertension 08/15/19 07/10/24 ferrous sulfate 140 mg (45 mg 140 mg PO DAILY Supplement 11/17/21 07/10/24 iron) tablet,extended release (Slow Release Iron) multivitamin 1 tab PO DAILY Supplement 08/11/22 07/10/24 vitamins A,C,E-whji-prtect 2,148 2 tab PO BID Supplement 05/02/23 07/10/24 mcg-113 mg-45 mg-17.4 mg tablet (PreserVision AREDS) spironolactone 25 mg tablet 25 mg PO DAILY Fluid 11/16/23 07/10/24 furosemide 40 mg tablet 40 mg PO DAILY Fluid 01/04/24 07/10/24 omeprazole 40 mg capsule,delayed 40 mg PO DAILY 06/23/24 07/10/24 release trazodone 50 mg tablet 50 mg PO DAILY 06/23/24 07/10/24 Previous Rx's ?Medication ?Instructions ?Recorded rotigotine 2 mg/24 hour 2 mg transdermal DAILY RLS 11/16/23 transdermal 24 hour patch (Neupro) (receives through patient assistance) #30 ea citalopram 20 mg tablet See Rx Instructions .Route 05/27/24 .COMPLEX #90 tabs metoprolol succinate 50 mg See Rx Instructions .Route 05/27/24 tablet,ex
[2024-07-19 12:26] VITALS: BP 139/79; PULSE 70; RESP 18; TEMP 36.9; O2SAT 98; BMI 50.0
--- NOTE | 2024-07-19 12:38 | XR_ITS ---
FINAL REPORT TECHNIQUE: Chest PA & Lateral CLINICAL HISTORY: Acute cough, congestion COMPARISON: 09/19/2023 FINDINGS: 2 views of the chest were performed. The heart size is normal. The mediastinum is within normal limits. The lungs are underinflated. The previously noted airspace infiltrate in the right perihilar region has essentially resolved. There is mild atelectasis in the right perihilar region. There are no pleural effusions. There is no pneumothorax. The bony thorax appears intact. IMPRESSION: Resolved airspace infiltrate in the right perihilar region with mild residual atelectasis Reviewed, Interpreted and Dictated by Sage House MD Transcribed by Lourdes Mahmood Authenticated and . [facility]
[2024-07-19 13:06] LABS: Adenovirus,PCR Not Detected (NotDetected); Bordetella Pertussis Not Detected (NotDetected); Chlamydophila Pneumoniae, PCR Not Detected (NotDetected); Coronavirus 19, PCR Not Detected (NotDetected); Coronavirus 229E Not Detected (NotDetected); Coronavirus NL63 Not Detected (NotDetected); Coronavirus OC43 Not Detected (NotDetected); Coronovirus HKU1,PCR Not Detected (NotDetected); Human Metapneumovirus Not Detected (NotDetected); Influenza A, PCR Not Detected (NotDetected); Influenza AH1, 2009 Not Detected (NotDetected); Influenza AH1, PCR Not Detected (NotDetected); Influenza AH3,PCR Not Detected (NotDetected); Influenza B, PCR Not Detected (NotDetected); Mycoplasma Pneumoniae, PCR Not Detected (NotDetected); Parainfluenza 1, PCR Not Detected (NotDetected); Parainfluenza 2, PCR Not Detected (NotDetected); Parainfluenza 3, PCR Not Detected (NotDetected); Parainfluenza 4, PCR Not Detected (NotDetected); Respiratory Syncytial Virus Not Detected (NotDetected); Rhinovirus/Enterovirus Not Detected (NotDetected)
[2024-07-19 13:11] LABS: Basophils # 0.2 K/mm3 (0-0.2); Eosinophils # 0.3 K/mm3 (0.0-0.4); Eosinophils % 4.5 % (0.1-12.0); Hematocrit 43.2 % (37.0-47.0); Hemoglobin 13.7 g/dL (12.2-16.2); Lymphocytes # 1.2 K/mm3 (0.7-4.5); Lymphocytes % 21.6 % (10-50); Mean Corpuscular HGB Conc 31.6 g/dL (31.8-35.4); Mean Corpuscular Hemoglobin 30.9 pg (27.0-31.2); Mean Corpuscular Volume 97.7 fl (81-99); Mean Platelet Volume 8.7 fl (7.4-10.4); Monocytes # 0.4 K/mm3 (0.1-1.0); Monocytes % 6.2 % (1.7-9.3); Neutrophils # 3.7 K/mm3 (1.8-7.8); Neutrophils % 64.7 % (37.0-80.0); Platelet Count 191 K/mm3 (142-424); Red Blood Count 4.42 M/mm3 (4.20-5.40); Red Cell Distribution Width 13.9 % (11.5-17.5); White Blood Count 5.7 K/mm3 (4.8-10.8)
[2024-07-19 13:13] LABS: Albumin Level 4.4 g/dl (3.5-5.0); Chloride 102 mmol/L (98-107); Potassium 4.3 mmoL/L (3.5-5.1); Sodium 139 mmol/L (136-145)
[2024-07-19 13:16] LABS: Alanine Aminotransferase 85 U/L (12-78); Albumin/Globulin Ratio 1.3 (1.1-1.8); Alkaline Phosphatase 51 U/L (38-126); Anion Gap 8.3 mEq/L (5-15); Aspartate Amino Transferase 79 U/L (14-36); Bilirubin,Total 0.8 mg/dl (0.2-1.3); Blood Urea Nitrogen 19 mg/dl (7-17); Carbon Dioxide 33 mmol/L (22.0-30.0); Creatinine Clearance Estimated 46 mL/min (50-200); Estimated Glomerular Filt Rate 70 ml/min (>60); GFR (African American) 85 ML/MIN (>60); Globulin 3.4 g/dL (1.3-3.2); Total Protein,Serum 7.8 g/dl (6.3-8.2)
[2024-07-19 13:17] LABS: Calcium 9.1 mg/dl (8.4-10.2); Glucose 104 mg/dl (74-100)
[2024-07-19 14:30] VITALS: BP 139/79; PULSE 70; RESP 18; TEMP 36.9; O2SAT 98
== END 2024-07-19 14:34 | disposition home or self-care (01) ==
PROVIDERS: Emergency Provider Nurse Practitioner Family; PCP Internal Medicine
DX: J20.9 Acute bronchitis, unspecified (principal); R53.83 Other fatigue; R05.9 Cough, unspecified; D64.9 Anemia, unspecified
CPT/HCPCS: 71046; 80053; 85025; 87581; 87632; 87635; 87798; 99212; 99214; G0463

== ENCOUNTER 2024-07-31 15:31 | Outpatient (CLI) | payer MEDICARE, SELFPAY ==
[2024-07-31 14:26] LABS: Basophils % 0.7 % (0.1-2.0); Eosinophils # 0.2 K/mm3 (0.0-0.4); Eosinophils % 4.4 % (0.1-12.0); Hematocrit 43.4 % (37.0-47.0); Hemoglobin 13.3 g/dL (12.2-16.2); Lymphocytes # 1.3 K/mm3 (0.7-4.5); Lymphocytes % 26.6 % (10-50); Mean Corpuscular HGB Conc 30.7 g/dL (31.8-35.4); Mean Corpuscular Hemoglobin 30.7 pg (27.0-31.2); Mean Platelet Volume 8.8 fl (7.4-10.4); Monocytes # 0.3 K/mm3 (0.1-1.0); Monocytes % 5.9 % (1.7-9.3); Neutrophils # 3.1 K/mm3 (1.8-7.8); Neutrophils % 62.5 % (37.0-80.0); Platelet Count 207 K/mm3 (142-424); Red Blood Count 4.34 M/mm3 (4.20-5.40); Red Cell Distribution Width 13.7 % (11.5-17.5)
[2024-07-31 14:50] LABS: Alanine Aminotransferase 72 U/L (12-78); Albumin Level 3.6 g/dl (3.5-5.0); Albumin/Globulin Ratio 1.3 (1.1-1.8); Alkaline Phosphatase 40 U/L (38-126); Anion Gap 7.6 mEq/L (5-15); Aspartate Amino Transferase 52 U/L (14-36); Bilirubin,Total 0.5 mg/dl (0.2-1.3); Blood Urea Nitrogen 18 mg/dl (7-17); Calcium 9.1 mg/dl (8.4-10.2); Carbon Dioxide 30 mmol/L (22.0-30.0); Chloride 104 mmol/L (98-107); Chol/HDL Ratio 2.5 (1-3.5); Cholesterol 116 mg/dl (140-200); Estimated Glomerular Filt Rate 98 ml/min (>60); GFR (African American) 118 ML/MIN (>60); Globulin 2.8 g/dL (1.3-3.2); Glucose 95 mg/dl (74-100); HDL Cholesterol 46 mg/dl (40-60); Potassium 4.6 mmoL/L (3.5-5.1); Sodium 137 mmol/L (136-145); Total Protein,Serum 6.4 g/dl (6.3-8.2); Triglycerides 76 mg/dl (30-150); VLDL Cholesterol 15 mg/dL (0-40)
[2024-07-31 14:59] LABS: Troponin I < 0.01 ng/ml (0.00-0.034)
== END 2024-07-31 23:59 | disposition home or self-care (01) ==
LOC: LAB.DROPOF 15:32
PROVIDERS: PCP Internal Medicine; Visit Provider Internal Medicine
DX: I10 Essential (primary) hypertension (principal); E78.5 Hyperlipidemia, unspecified; D64.9 Anemia, unspecified; R07.9 Chest pain, unspecified
CPT/HCPCS: 80053; 80061; 84484; 85025

== ENCOUNTER 2024-07-31 21:10 | Emergency (ER) | payer MEDICARE, SELFPAY ==
[2024-07-31 21:12] VITALS: BP 151/84; PULSE 72; RESP 20; TEMP 36.9; O2SAT 98; BMI 51.6
--- NOTE | 2024-07-31 21:26 | HMH.EDGENADL ---
Discharge Plan Disposition Patient Disposition: Home, Self-Care Condition: Good Prescriptions Prescriptions: No Action pravastatin 80 mg tablet 80 mg PO HS ferrous sulfate [Slow Release Iron] 140 mg (45 mg iron) tablet extended release 140 mg PO DAILY multivitamin Tablet 1 tab PO DAILY furosemide 40 mg tablet 40 mg PO DAILY Rx Instructions: lasix 80 mg qod Neupro 2 mg/24 hour patch 24 hour 2 mg TRANSDERMA DAILY Qty: 30 11RF Rx Instructions: Apply one patch daily as directed, see location map provided at visit, needs follow up prior to further refills nitroglycerin 0.4 mg tablet, sublingual 0.4 mg sublingual Q5M PRN (Reason: Chest pain or neck pain) Qty: 20 2RF Rx Instructions: do not exceed 3 doses per episode metoprolol succinate 50 mg tablet extended release 24 hr See Rx Instructions .ROUTE .COMPLEX Qty: 90 1RF Dose Instruction: TAKE 1 TABLET EVERY DAY Rx Instructions: TAKE 1 TABLET EVERY DAY citalopram 20 mg tablet See Rx Instructions .ROUTE .COMPLEX Qty: 90 1RF Dose Instruction: TAKE 1 TABLET EVERY DAY Rx Instructions: TAKE 1 TABLET EVERY DAY tramadol 50 mg tablet 50 mg PO Q6HP PRN (Reason: PAIN) Qty: 60 1RF spironolactone 25 mg tablet 25 mg PO DAILY trazodone 50 mg tablet 50 mg PO DAILY omeprazole 40 mg capsule,delayed release(DR/EC) 40 mg PO DAILY lisinopril 10 MG tablet 10 mg PO DAILY Patient Comments: TAKE 1 TABLET BY MOUTH ONCE DAILY PreserVision AREDS 2,148 mcg-113 mg-45 mg-17.4mg Tablet 2 tab PO BID Rx Instructions: administer with AM and PM meals methylprednisolone 4 mg Tablets,Dose Pack 4 mg PO DIRECTED 6 Days Qty: 21 0RF Rx Instructions: Take 1 pack as directed for 6 days Referrals Follow up/Referrals: Arjun Baez MD [Primary Care Provider] - See instructions Activity Restrictions/Add. Instructions Additional Instructions/Restrictions: Please follow-up with your PCP for referral for to a vascular surgeon for possible evaluation of varicose vein ablation. He may take Tylenol and Motrin for pain as needed. Return to ER for any worsening signs or symptoms as needed. Clinical Impressions Clinical Impression: Contusion, Varicose veins of calf, Superficial bruising of lower leg Instructions Patient Instructions: DI for Varicose Veins Print Language Print Language: Yi Discharge ED Provider: Raheem Rodas General Adult HPI <GIUSEPPE Francois - Last Filed: 07/31/24 21:53> General Chief complaint: Extremity Injury, Lower Stated complaint: Pain behind right knee Time Seen by Provider: 07/31/24 21:26 Mode of Arrival: Ambulatory Source of Information: Patient Limitations: No Limitations Description of Symptoms (Recalled from ER Triage Doc. by RN): 74 y/o F presents to ED with pain to the back of her right knee. Patient states pain started around 12:00 today. Patient reports she was standing in [employer] when it started. Patient denies injury to the knee. History of Present Illness HPI narrative: Patient presents for evaluation and pain in her right lower extremity. Patient states that she was standing at [employer] and felt a sudden pain in her posterior right knee/calf. She presented for evaluation because she has a previous history of DVT and was concerned it could be a sign of that but also patient has a history of Milligan's cyst. Related Data Home Medications ?Medication ?Instructions ?Recorded ?Confirmed pravastatin 80 mg tablet 80 mg PO HS Cholesterol 12/12/17 07/31/24 lisinopril 10 mg tablet 10 mg PO DAILY Hypertension 08/15/19 07/31/24 ferrous sulfate 140 mg (45 mg 140 mg PO DAILY Supplement 11/17/21 07/31/24 iron) tablet,extended release (Slow Release Iron) multivitamin 1 tab PO DAILY Supplement 08/11/22 07/31/24 vitamins A,C,H-twpg-[id number] 2,148 2 tab PO BID Supplement 05/02/23 07/31/24 mcg-113 mg-45 mg-17.4 mg tablet (PreserVision AREDS) spironolactone 25 mg tablet 25 mg PO DAILY Fluid 11/16/23 07/31/24 furosemide 40 mg tablet 40 mg PO DAILY Fluid 01/04/24 07/31/24 omeprazole 40 mg capsule,delayed 40 mg PO DAILY 06/23/24 07/31/24 release trazodone 50 mg tablet 50 mg PO DAILY 06/23/24 07/31/24 Previous Rx's ?Medication ?Instructions ?Recorded rotigotine 2 mg/24 hour 2 mg transdermal DAILY RLS 11/16/23 transdermal 24 hour patch (Neupro) (receives through patient assistance) #30 ea citalopram 20 mg tablet See Rx Instructions .Route 05/27/24 .COMPLEX #90 tabs metoprolol succinate 50 mg See Rx Instructions .Route 05/27/24 tablet,extended release 24 hr .COMPLEX #90 tabs tramadol 50 mg tablet 50 mg PO Q6HP PRN PAIN #60 tabs 06/20/24 methylprednisolone 4 mg tablets in 4 mg PO DIRECTED 6 days #21 tabs 07/19/24 a dose pack nitroglycerin 0.4 mg sublingual 0.4 mg sublingual Q5M PRN Chest 07/31/24 tablet pain or neck pain #20 tabs Allergies Allergy/AdvReac Type Severity Reaction Status Date / Time Penicillins Allergy Intermediate I-RASH Verified 07/31/24 10:40 Sulfa (Sulfonamide Allergy Intermediate I-RASH Verified 07/31/24 10:40 Antibiotics) [facility] <GIUSEPPE Francois - Last Filed: 07/31/24 21:53> [facility] Disclaimer: The information contained in this section may have been updated after the patient was seen, as this information can be updated by other users. Medical History Pneumonia AUG 2023 Right middle lobe pneumonia Macular degeneration History of restless legs syndrome History of neuropathy Depression History of gastroesophageal reflux (GERD) Migraine Hyperlipidemia Hypertension Dyspnea LISSY (obstructive sleep apnea) Mild LISSY with hypoxemia at a degree of proportion. AHI 6, minimal SpO2 78%. Surgical History History of appendectomy History of partial hysterectomy History of bilateral knee replacement Family History Other Cancer Coronary artery disease Diabetes Social History Smoking Status: Never smoker second hand exposure: No alcohol intake: never substance use type: denies use current occupational status: retired and other Travel in the last 8 weeks: None household members: spouse housing: house marital status: current occupational exposures/hazards: No caffeine: No <GIUSEPPE Francois - Last Filed: 07/31/24 21:53> ROS Obtained: Yes Systems reviewed as appropriate & no additional complaints except as documented Physical Exam <GIUSEPPE Francois - Last Filed: 07/31/24 21:53> General General appearance: alert and in no apparent distress Respiratory Respiratory exam: Present normal lung sounds bilaterally Cardiovascular Cardiovascular exam: Present regular rate Neurological Exam Neurological exam: Present alert and oriented X3 Medical Decision Making <GIUSEPPE Francois - Last Filed: 07/31/24 21:53> Medical Records Medical records reviewed: Yes I reviewed the patient's medical records. Franck Inquiry Pt receiving controlled substance: No Vital Signs: 07/31/24 21:12 Temperature 98.4 F Temperature Source Oral Pulse Rate [Right Brachial] 72 Respiratory Rate 20 Blood Pressure [Right Arm] 151/84 H Blood Pressure Mean [Right Arm] 106 Blood Pressure Source [Right Arm] Automatic Cuff Blood Pressure Position [Right Arm] Sitting 02 Sat by Pulse Oximetry 98 Lab Data Lab results reviewed: Yes I reviewed the patient's lab results. Orders (Tests/Meds): ED MEDICATIONS Discontinued Medications Generic Name Dose Route Start Last Admin Trade Name Clinton PRN Reason Stop Dose Admin Acetaminophen 1,000 mg 07/31/24 21:27 07/31/24 21:38 Acetaminophen 500mg Tab PO 07/31/24 21:28 1,000 mg ONCE ONE Administration Ibuprofen 800 mg 07/31/24 21:27 07/31/24 21:38 Ibuprofen 400 Mg Tablet PO 07/31/24 21:28 800 mg ONCE ONE Administration ORDERS Category Date Time Status POCUS Point of Care (ER Only) Stat Exams 07/31/24 21:27 Ordered Medical Decision Narrative: In summary patient is a 74-year-old female who presents to the emergency department for evaluation of acute right calf pain. Patient is hemodynamically stable upon arrival, afebrile. Physical exam is remarkable for a morbidly obese, with a BMI 51, 74-year-old female with pain on palpation of the proximal posterior lateral calf. Point of maximal tenderness is over what appears to be a varicose vein. There is no erythema edema induration noted. The actual popliteal fossa is nontender to palpation. No bony deformity noted. Patient is neurovascular intact distally.. Differential diagnosis includes varicose vein versus muscle strain versus possible thrombus. Initial workup will be conducted with POCUS. Initial interventions include Tylenol and ibuprofen. Initial workup reviewed by me shows no DVT although it is limited by patient's body habitus and possible soft tissue edema in the area but no other abnormality. Given this is appropriate for discharge with follow-up with her PCP. <Raheem Rodas MD - Last Filed: 07/31/24 21:57> Vital Signs: 07/31/24 21:12 Temperature 98.4 F Temperature Source Oral Pulse Rate [Right Brachial] 72 Respiratory Rate 20 Blood Pressure [Right Arm] 151/84 H Blood Pressure Mean [Right Arm] 106 Blood Pressure Source [Right Arm] Automatic Cuff Blood Pressure Position [Right Arm] Sitting 02 Sat by Pulse Oximetry 98 Orders (Tests/Meds): ED MEDICATIONS Discontinued Medications Generic Name Dose Route Start Last Admin Trade Name Freq PRN Reason Stop Dose Admin Acetaminophen 1,000 mg 07/31/24 21:27 07/31/24 21:38 Acetaminophen 500mg Tab PO 07/31/24 21:28 1,000 mg ONCE ONE Administration Ibuprofen 800 mg 07/31/24 21:27 07/31/24 21:38 Ibuprofen 400 Mg Tablet PO 07/31/24 21:28 800 mg ONCE ONE Administration ORDERS Category Date Time Status POCUS Point of Care (ER Only) Stat Exams 07/31/24 21:27 Ordered Medical Decision Narrative: In summary patient is a 74-year-old female who presents to the emergency department for evaluation of acute right calf pain. Patient is hemodynamically stable upon arrival, afebrile. Physical exam is remarkable for a morbidly obese, with a BMI 51, 74-year-old female with pain on palpation of the proximal posterior lateral calf. Point of maximal tenderness is over what appears to be a varicose vein. There is no erythema edema induration noted. The actual popliteal fossa is nontender to palpation. No bony deformity noted. Patient is neurovascular intact distally.. Differential diagnosis includes varicose vein versus muscle strain versus possible thrombus. Initial workup will be conducted with POCUS. Initial interventions include Tylenol and ibuprofen. Initial workup reviewed by me shows no DVT although it is limited by patient's body habitus and possible soft tissue edema in the area but no other abnormality. Given this is appropriate for discharge with follow-up with her PCP. I independently examined and interviewed patient. Spontaneous lateral right lower extremity pain just distal to the knee. Does not feel like previous Milligan's cyst or DVT, per her. Overlying ecchymoses, patient most concerned about DVT. I performed right lower extremity DVT ultrasound evaluating for DVT, this was negative. Area of maximal tenderness overlying posterior lateral aspect of right lower extremity just distal to knee superficial vein underlying, appears to be ecchymosis. Neurovascular intact. I was consulted by the IVELISSE, and we discussed the complexity of the problems being addressed. I approved the treatment and management plan for this patient's care in the Emergency Department, thus performing a substantive portion of the medical decision making. Raheem Rodas MD Procedures <Raheem Rodas MD - Last Filed: 07/31/24 21:57> Limited Ultrasound Indication:: Limited DVT ultrasound Indication: Limited compression ultrasonography of the right lower extremity was performed to evaluate for non-compressibility of the deep veins in the patient. The ultrasound was performed with the following indications, as noted in the H&P: Right lower extremity pain Identified structures: Right common femoral vein, femoral vein, popliteal vein were examined. Findings: Lower Extremity: Right CFV: Good compressibility or Non-compressible or Not performed Right FV: Good compressibility or Non-compressible or Not performed Right Popliteal vein: Good compressibility or Non-compressible or Not performed Impression: Normal right lower extremity DVT ultrasound without evidence of DVT Images were saved to permanent archive The study was technically adequate CPT: 01219-36-YQ [id number] 37060-04 (complete bilateral study) This study was performed by me, and I personally interpreted all images/videos. Based on my clinical judgement, these images were adequate and did not necessitate further imaging Critical Care <GIUSEPPE Francois - Last Filed: 07/31/24 21:53> Critical Care Time Critical Care Time: No
[2024-07-31] MEDS: ACETAMINOPHEN 500MG TAB 1000 MG PO (21:38)
[2024-07-31] MEDS: IBUPROFEN 400 MG TABLET 800 MG PO (21:38)
--- NOTE | 2024-07-31 21:44 | PC.NURSE ---
at bedside with US
[2024-07-31 21:53] VITALS: BP 150/85; PULSE 72; RESP 18; TEMP 37; O2SAT 98
== END 2024-07-31 21:55 | disposition home or self-care (01) ==
PROVIDERS: Emergency Provider Emergency Medicine; PCP Internal Medicine
DX: M25.561 Pain in right knee (principal); I10 Essential (primary) hypertension; E78.5 Hyperlipidemia, unspecified; D64.9 Anemia, unspecified; R07.9 Chest pain, unspecified
CPT/HCPCS: 80053; 80061; 84484; 85025; 99283

== ENCOUNTER 2024-08-21 11:33 | Outpatient (CLI) | payer MEDICARE, SELFPAY ==
[2024-08-21] VITALS (8 sets, daily range): BP systolic 103–159; BP diastolic 45–81; PULSE 55–78; RESP 18; O2SAT 95–99; BMI 50.0
--- NOTE | 2024-08-21 11:33 | CT_ITS ---
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 A noncontrast coronary calcium scan was performed. A CT attenuation threshold of 130 Hounsfield units (HU) was used for the detection of calcium in contiguous voxels of 1 sq mm in area to be counted as individual lesions. Bolus tracking in the ascending aorta with a threshold of 180 HU was performed. Immediately afterwards, ECG synchronized cardiac CT was then performed from the cardiac base to apex using retrospective gating with ECG tube current modulation. A total of 85 mL of Isovue 370 mg/mL contrast medium was administered at 5 mL/sec followed by a saline flush using a biphasic injection protocol. A tube voltage of 120 KVp was used. The patient received the following medications prior to the cardiac CT. 75 mg of oral metoprolol 5 mg of intravenous metoprolol 15 mg of oral ivabradine 0.8 mg of sublingual nitroglycerin The average heart rate at the time of acquisition was 59 bpm and regular. Image Reconstruction Transaxial images were reconstructed at 0.67 mm slide thickness. Data was reviewed interactively on an advanced workstation capable of 2 and 3-dimensional displays in all conventional reconstruction formats, including multiplanar reformations, maximum intensity projections, curved multiplanar reformations, and volume rendered reconstructions. When applicable, selected routine images describing the relevant coronary anatomy and pathology were saved and sent to PACS. Complications None Technical Quality Overall image quality was good. Coronary artery opacification was adequate. Total DLP (Dose-Length Product) is 1678.9 mGy-cm. The reported value represents the total of one or more individual components during the CT acquisition of this date and at this time, and as such, the same value may appear in more than one CT report depending on the interpreting/reporting physicians. COMPARISON None FINDINGS CT Coronary Calcium Scoring LMA (Left Main Artery) = 0 LAD (Left Anterior Descending) = 0 LCX (Left Coronary Circumflex) = 0 RCA (Right Coronary Artery) = 0 Total Calcium Score = 0 using the AJ-130 method. The interpretation of the calcium heart score is based on the following continuum*: 0 = no calcified plaque detected (risk of coronary artery disease is very low ??? less than 5%) 1-10 = calcium detected in extremely minimal levels (risk of coronary diseases is still low ??? less than 10%) 11-100 = mild levels of plaque detected with certainty (mild or minimal narrowing of heart arteries is likely) 101-400 = definite,at least moderate levels of plaque detected (relatively high risk of a heart attack within 3-5 years) >401-999 = extensive levels of plaque detected (high risk of heart attack, high levels of vascular disease are present, high likelihood of at least one significant coronary narrowing) *The calcium heart score quantifies the burden of coronary calcification/plaque in the coronary arteries. The calcium heart score is not able to evaluate the presence or burden of non-calcified (i.e. soft) plaque. There is identifiable calcification in the mitral annulus. Coronary CT Angiography The coronary arterial system is right dominant. Quantitative Stenosis Grading: Left Main (LM): The left main originates normally from the left sinus of Valsalva. The LM bifurcates into the left anterior descending artery and left circumflex artery. The LM is patent with no evidence of atherosclerosis. Left Anterior Descending (LAD) and Diagonal Branches: The LAD gives off 2 diagonal branch(es). The LAD and its branches are patent with no evidence of atherosclerosis. There is a shallow mid-LAD myocardial bridge measuring approximately 14 mm in length and 2 mm in depth. Left Circumflex (LCX) and Obtuse Marginals (OM): The LCX gives off 1 Obtuse Marginal (OM) branch(es). The LCX and its branches are patent with no evidence of atherosclerosis. Right Coronary Artery (RCA): The RCA originates normally from the right sinus of Valsalva. The RCA gives off a posterior descending artery (PDA) and posterolateral (PL) branches. The RCA and its branches are patent with no evidence of atherosclerosis. Non-Coronary Cardiac Findings: Analysis of the left ventricular (LV) structure and function was performed after 3-D reconstruction of the LV from axial images, with user-corrected automatic contouring for assessment of LV volumes and user-defined reconstruction from oblique planes for measurement of 3-D cardiac structure and function. -The left ventricle systolic function is normal. -There is no left atrial appendage filling defect. Two right pulmonary veins and two left pulmonary veins drain normally into the left atrium. -No pericardial thickening or calcification. -Central and branch pulmonary arteries in the [id number] are unremarkable. -Thoracic aorta within the visualized thoracic aortic-branches in the [id number] is unremarkable. Extracardiac Structures No significant extra-cardiac findings. Note, however, that this study is focused on the cardiac findings. IMPRESSION -Absence of coronary calcification with an Agatston score = 0 using the AJ-130 method. -No evidence of significant flow-limiting atherosclerosis of the coronary arteries. -Shallow mid-LAD myocardial bridge measuring approximately 14 mm in length and 2 mm in depth. -CAD-RADS 0. Management recommendations per ACC/AHA guidelines*, as clinically appropriate. -Incidental finding of mitral annular calcification. *Recommendations: CAD RADS 0: Reassurance. Consider non-atherosclerotic causes of chest pain. CAD RADS 1: Consider non-atherosclerotic causes of chest pain. Consider preventive therapy and risk factor modification. CAD RADS 2: Consider non-atherosclerotic causes of chest pain. Consider preventive therapy and risk factor modification, particularly for patients with nonobstructive plaque in multiple segments. CAD RADS 3: Consider further functional testing. Consider symptom-guided anti-ischemic and preventive pharmacotherapy as well as risk factor modification per published guideline statements. CAD RADS 4A: Consider further functional testing or invasive coronary angiography with revascularization per published guideline statements. Consider symptom-guided anti-ischemic and preventive pharmacotherapy as well as risk factor modification per published guideline statements. CAD RADS 4B: Invasive coronary angiography recommended with revascularization per published guideline statements. Consider symptom-guided anti-ischemic and preventive pharmacotherapy as well as risk factor modification per published guideline statements. CAD RADS 5: Consider invasive angiography and/or viability assessment with revascularization per published guideline statements. Consider symptom-guided anti-ischemic and preventive pharmacotherapy as well as risk factor modification per published guideline statements. CRITICAL RESULT None COMMUNICATION Per this written report The coronary and cardiac findings of this CCTA were reviewed, reported, and signed by Alphonso Montejo MD (Director Process Improvement) Conclusion Electronically signed by : Jazlyn Montejo MD 08/22/2024 11:02:52
[2024-08-21] MEDS: IVABRADINE HCL 7.5MG TABLET 15 MG PO (11:56)
[2024-08-21] MEDS: METOPROLOL TARTRATE 50MG TABLET 50 MG (11:57)
[2024-08-21] MEDS: METOPROLOL TARTRATE 25MG TABLET 25 MG (11:57)
--- NOTE | 2024-08-21 12:56 | PC.NURSE ---
To CT, 125/74, Nitro 0.8mg SL given per CTA protocol
--- NOTE | 2024-08-21 13:02 | PC.NURSE ---
pt doing well, no C/O 5 min post nitro
[2024-08-21] MEDS: METOPROLOL TARTRATE 5MG/5ML VIAL 5 MG IV (13:05)
[2024-08-21] MEDS: 0.9 % SODIUM CHLORIDE 50 ML VIAL IV (13:13)
[2024-08-21] MEDS: IOPAMIDOL-370 (76%);100ML BOTTLE 90 ML IV (13:13)
[2024-08-21] MEDS: SODIUM CHLORIDE 0.9% 10ML SYR (RAD ONLY) 10 ML IV (13:13)
--- NOTE | 2024-08-21 13:15 | PC.NURSE ---
Test complete, pt c/o mild dizziness upon sitting but is resolving.
--- NOTE | 2024-08-21 13:20 | PC.NURSE ---
Pt to post for recovery, VSS, no C/O
[2024-08-21] MEDS: NITROGLYCERIN 0.4MG SL TABLET SL (13:22)
--- NOTE | 2024-08-21 13:50 | PC.NURSE ---
Pt stable with no C/O, discharge instructions discussed, verbalized understanding.
== END 2024-08-21 13:56 | disposition home or self-care (01) ==
PROVIDERS: PCP Internal Medicine; Visit Provider Physician Assistant
DX: R07.9 Chest pain, unspecified (principal); R53.83 Other fatigue; I10 Essential (primary) hypertension; Z68.43 Body mass index [BMI] 50.0-59.9, adult
CPT/HCPCS: 75574; Q9967

== ENCOUNTER 2024-11-08 17:06 | Emergency (ER) | payer MEDICARE, SELFPAY ==
[2024-11-08 17:26] VITALS: BP 136/73; PULSE 72; RESP 18; TEMP 36.9; O2SAT 97; BMI 52.4
[2024-11-08 17:33] LABS: UTC Strep Screen (Rapid) Negative (Negative)
--- NOTE | 2024-11-08 17:37 | ED_ITS ---
Discharge Plan Disposition Patient Disposition: Home, Self-Care Condition: Good Prescriptions Prescriptions: New azithromycin [Zithromax] 250 mg tablet 250 mg PO UD DOSE PK Qty: 6 0RF Rx Instructions: Take two (2) tablets today, then one (1) tablet days #2 thru #5 benzonatate 100 mg capsule 100 mg PO TIDP PRN (Reason: Cough) Qty: 30 0RF methylprednisolone 4 mg Tablets,Dose Pack 4 mg PO DIRECTED 6 Days Qty: 21 0RF Rx Instructions: Take 1 pack as directed for 6 days No Action ferrous sulfate [Slow Release Iron] 140 mg (45 mg iron) tablet extended release 140 mg PO DAILY multivitamin Tablet 1 tab PO DAILY Neupro 2 mg/24 hour patch 24 hour 2 mg TRANSDERMA DAILY Qty: 30 11RF Rx Instructions: Apply one patch daily as directed, see location map provided at visit, needs follow up prior to further refills nitroglycerin 0.4 mg tablet, sublingual 0.4 mg sublingual Q5M PRN (Reason: Chest pain or neck pain) Qty: 20 2RF Rx Instructions: do not exceed 3 doses per episode citalopram 20 mg tablet See Rx Instructions .ROUTE .COMPLEX Qty: 90 1RF Dose Instruction: TAKE 1 TABLET EVERY DAY Rx Instructions: TAKE 1 TABLET EVERY DAY pravastatin 80 mg tablet See Rx Instructions .ROUTE .COMPLEX Qty: 90 1RF Dose Instruction: TAKE 1 TABLET EVERY DAY Rx Instructions: TAKE 1 TABLET EVERY DAY lisinopril 10 mg tablet See Rx Instructions .ROUTE .COMPLEX Qty: 90 1RF Dose Instruction: TAKE 1 TABLET EVERY DAY Rx Instructions: TAKE 1 TABLET EVERY DAY furosemide 40 mg tablet See Rx Instructions .ROUTE .COMPLEX Qty: 90 1RF Dose Instruction: TAKE 1 TABLET EVERY DAY Rx Instructions: TAKE 1 TABLET EVERY DAY omeprazole 40 mg capsule,delayed release(DR/EC) See Rx Instructions .ROUTE .COMPLEX Qty: 90 1RF Dose Instruction: TAKE 1 CAPSULE EVERY DAY Rx Instructions: TAKE 1 CAPSULE EVERY DAY tramadol 50 mg tablet 50 mg PO HS Qty: 90 1RF metoprolol succinate 50 mg tablet extended release 24 hr See Rx Instructions .ROUTE .COMPLEX Qty: 90 1RF Dose Instruction: TAKE 1 TABLET EVERY DAY Rx Instructions: TAKE 1 TABLET EVERY DAY spironolactone 25 mg tablet 25 mg PO DAILY trazodone 50 mg tablet 50 mg PO DAILY Referrals Follow up/Referrals: Arjun Baez MD [Primary Care Provider] - See instructions Activity Restrictions/Add. Instructions Additional Instructions/Restrictions: Drink plenty of fluids. Take tylenol or ibuprofen for pain or fever. Take the medications as directed. Follow up with your regular doctor. GO TO THE ER FOR ANY WORSENING SYMPTOMS Clinical Impressions Clinical Impression: Sinusitis Qualifiers: Sinusitis location: unspecified location Chronicity: acute Recurrence: non- recurrent Qualified Code(s): J01.90 - Acute sinusitis, unspecified Instructions Patient Instructions: Sinusitis, DI for Sinusitis Print Language Print Language: Georgian Discharge ED Provider: William Castellano [facility] General Stated complaint: sore throat Mode of Arrival: Ambulatory Source of Information: Patient Time Seen by Provider: 11/08/24 17:37 Description of Symptoms (Recalled from Triage Doc. by RN): SORE THROAT, COLD LIKE S/S X1 WEEK HEENT Symptoms (Recalled from RN notes): Yes Resp Symptoms (Recalled from RN notes): Yes Skin Symptoms (Recalled from RN notes): No MS Symptoms (Recalled from RN notes): No Functional Status (Recalled from RN notes): WNL Related Data Home Medications ?Medication ?Instructions ?Recorded ?Confirmed ferrous sulfate 140 mg (45 mg 140 mg PO DAILY Supplement 11/17/21 11/08/24 iron) tablet,extended release (Slow Release Iron) multivitamin 1 tab PO DAILY Supplement 08/11/22 09/17/24 spironolactone 25 mg tablet 25 mg PO DAILY Fluid 11/16/23 11/08/24 trazodone 50 mg tablet 50 mg PO DAILY 06/23/24 11/08/24 Previous Rx's ?Medication ?Instructions ?Recorded rotigotine 2 mg/24 hour 2 mg transdermal DAILY RLS 11/16/23 transdermal 24 hour patch (Neupro) (receives through patient assistance) #30 ea citalopram 20 mg tablet See Rx Instructions .Route 05/27/24 .COMPLEX #90 tabs nitroglycerin 0.4 mg sublingual 0.4 mg sublingual Q5M PRN Chest 07/31/24 tablet pain or neck pain #20 tabs lisinopril 10 mg tablet See Rx Instructions .Route 08/21/24 .COMPLEX #90 tabs pravastatin 80 mg tablet See Rx Instructions .Route 08/21/24 .COMPLEX #90 tabs furosemide 40 mg tablet See Rx Instructions .Route 09/07/24 .COMPLEX #90 tabs omeprazole 40 mg capsule,delayed See Rx Instructions .Route 09/07/24 release .COMPLEX #90 caps tramadol 50 mg tablet 50 mg PO HS #90 tabs 10/22/24 metoprolol succinate 50 mg See Rx Instructions .Route 10/30/24 tablet,extended release 24 hr .COMPLEX #90 tabs azithromycin 250 mg tablet 250 mg PO UD DOSE PK #6 tabs 11/08/24 (Zithromax) benzonatate 100 mg capsule 100 mg PO TIDP PRN Cough #30 caps 11/08/24 methylprednisolone 4 mg tablets in 4 mg PO DIRECTED 6 days #21 tabs 11/08/24 a dose pack Allergies Allergy/AdvReac Type Severity Reaction Status Date / Time Penicillins Allergy Intermediate I-RASH Verified 09/17/24 10:30 Sulfa (Sulfonamide Allergy Intermediate I-RASH Verified 09/17/24 10:30 Antibiotics) Worker's Comp Is this a Worker's Comp case?: No [facility] Disclaimer: The information contained in this section may have been updated after the patient was seen, as this information can be updated by other users. Medical History (Updated 11/08/24 @ 18:29 by William Castellano APRN) Coronary-myocardial bridge Pneumonia Right middle lobe pneumonia Macular degeneration History of restless legs syndrome History of neuropathy Depression History of gastroesophageal reflux (GERD) Migraine Hyperlipidemia Hypertension Dyspnea LISSY (obstructive sleep apnea) Surgical History History of appendectomy History of partial hysterectomy History of bilateral knee replacement Family History Other Cancer Coronary artery disease Diabetes Social History Smoking Status: Never smoker second hand exposure: No alcohol intake: never substance use type: denies use current occupational status: retired and other Travel in the last 8 weeks: None household members: spouse housing: house marital status: current occupational exposures/hazards: No caffeine: No Have you lived/traveled outside US in past 30 days?: No Contact w/someone who lives/traveled outside US past 30 days?: No Exposure to someone with infectious disease in past 14 days?: No Do you have a fever (greater than 100.4 F or 38 C)?: No Have you tested positive for COVID-19: No Exposed to someone with COVID-19 in past 14 days?: No Do you have a sore throat?: Yes Do you have a cough?: No Do you have any weakness?: No Do you have any diarrhea?: No Are you experiencing any unusual bleeding?: No Do you have any muscle aches/pain?: No Do you have any abdominal pain?: No Are you experiencing loss of taste or smell?: No ROS Obtained: Yes All systems reviewed & no additional complaints except as documented Constitutional Constitutional: Reports poor appetite Eyes Eyes: Reports system reviewed and no additional complaints, except as documented ENT Ears, Nose, Mouth, and Throat: Reports as per HPI Cardiovascular Cardiovascular: Reports system reviewed and no additional complaints, except as documented and Denies chest pain Respiratory Respiratory: Denies shortness of breath, Denies chest congestion, Reports cough, Denies stridor and Denies wheezing Gastrointestinal Gastrointestingal: Reports system reviewed and no additional complaints, except as documented; Denies abdominal pain, diarrhea or vomiting Musculoskeletal Musculoskeletal: Reports system reviewed and no additional complaints, except as documented and Denies arthralgias Integumentary/Breasts Skin/Breast: Reports system reviewed and no additional complaints, except as documented and Denies rash Neurologic Neurologic: Denies paresthesias Allergic/Immunologic Allergic/Immunologic: Denies wheezing Physical Exam General General appearance: alert and in no apparent distress Eye Eye exam: Present normal appearance, PERRL and EOMI ENT ENT exam: Present mucous membranes moist and normal external ear exam Expanded ENT Exam External ear exam: Present normal external inspection TM/Canal exam: Bilateral TM: erythema and bulging Nose exam: Absent sinus tenderness Nasal speculum exam: Bilateral: normal Mouth exam: Present normal external inspection; Absent drooling Teeth exam: Present normal inspection Throat exam: Present tonsillar erythema and tonsillomegaly Neck Neck exam: Present normal inspection, full ROM and trachea midline; Absent tenderness, lymphadenopathy or thyromegaly Chest Chest inspection: Present normal inspection and symmetric chest wall rise; Absent tenderness or rash Respiratory Respiratory exam: Present normal lung sounds bilaterally; Absent respiratory distress, wheezes, stridor or accessory muscle use Cardiovascular Cardiovascular exam: Present regular rate, normal rhythm and normal heart sounds Abdominal Exam Abdominal exam: Present soft; Absent distention, tenderness, guarding, rebound or rigidity Extremities Exam Extremities exam: Present normal inspection, full ROM and normal capillary refill; Absent tenderness or calf tenderness Back Exam Back exam: Present normal inspection and full ROM; Absent tenderness Neurological Exam Neurological exam: Present alert and oriented X3 Psychiatric Psychiatric exam: Present normal affect and normal mood Skin Skin exam: Present warm, dry, intact and normal color Lymphatic Lymphatic Findings: no adenopathy Medical Decision Making Medical Records Medical records reviewed: No I reviewed the patient's medical records. Screening: Per USPSTF and CDC recommendations, given the prevalence of disease in our region, it is our hospital?s policy to screen for HIV and viral Hepatitis for all patients aged 18 and over and those with ongoing risk factors. Franck Inquiry Pt receiving controlled substance: No Vital Signs: 11/08/24 17:26 Temperature 98.5 F Temperature Source Oral Pulse Rate [Left Radial] 72 Respiratory Rate 18 Blood Pressure [Left Arm] 136/73 Blood Pressure Mean [Left Arm] 94 02 Sat by Pulse Oximetry 97 Lab Data Lab Results 11/08/24 17:32: Strep Scn Rapid Clinic Negative Orders (Tests/Meds): ORDERS Category Date Time Status Strep Screen Confirmation Stat Micro 11/08/24 17:32 Received
[2024-11-08 18:33] VITALS: BP 136/73; PULSE 72; RESP 18; TEMP 36.6
== END 2024-11-08 18:34 | disposition home or self-care (01) ==
PROVIDERS: Emergency Provider Nurse Practitioner Family; PCP Internal Medicine
DX: J01.90 Acute sinusitis, unspecified (principal)
CPT/HCPCS: 87070; 87077; 87186; 87880; 99213; G0381

== ENCOUNTER 2025-01-14 10:56 | Day surgery (SDC) | payer MEDICARE, SELFPAY ==
[2025-01-10 16:18] VITALS: BMI 54.2
--- NOTE | 2025-01-14 11:35 | EXP.HP ---
History of Present Illness *Admission Date: 01/14/25 *Reason for visit:: GERD/noncardiac chest pain/bloating and belching *History of present illness: Mrs. Lynch is a 74-year-old female who is here for diagnostic EGD secondary to GERD with noncardiac chest pain, bloating and belching. She had a normal cardiac workup. She is on omeprazole twice daily and still gets breakthrough heartburn. The examination is deemed medically necessary for diagnostic EGD. The patient has been seen, interviewed and examined prior to the procedure by both myself and the anesthesia provider. [facility] Disclaimer: The information contained in this section may have been updated after the patient was seen, as this information can be updated by other users. Medical History Coronary-myocardial bridge Pneumonia Right middle lobe pneumonia Macular degeneration History of restless legs syndrome History of neuropathy Depression History of gastroesophageal reflux (GERD) Migraine Hyperlipidemia Hypertension Dyspnea LISSY (obstructive sleep apnea) Surgical History (Updated 01/10/25 @ 16:13 by Bethany Flores RN) History of cholecystectomy History of appendectomy History of partial hysterectomy History of bilateral knee replacement Family History Other Cancer Coronary artery disease Diabetes Social History Smoking Status: Never smoker second hand exposure: No alcohol intake: never substance use type: denies use current occupational status: retired and other Travel in the last 8 weeks: None household members: spouse housing: house marital status: current occupational exposures/hazards: No caffeine: No Have you lived/traveled outside US in past 30 days?: No Contact w/someone who lives/traveled outside US past 30 days?: No Exposure to someone with infectious disease in past 14 days?: No Do you have a fever (greater than 100.4 F or 38 C)?: No Have you tested positive for COVID-19: No Exposed to someone with COVID-19 in past 14 days?: No Do you have a sore throat?: No Do you have a cough?: No Do you have any weakness?: No Do you have any diarrhea?: No Are you experiencing any unusual bleeding?: No Do you have any muscle aches/pain?: No Do you have any abdominal pain?: No Are you experiencing loss of taste or smell?: No Other Medical History Have you received the Flu Vaccine for this season: No Have you received the Pneumonia Vaccine: Yes Review of Systems Review of Systems Review of systems (narrative): Negative *Cardiovascular Comments: Negative *Gastrointestinal Comments: Negative *Genitourinary Comments: Negative *Musculoskeletal Comments: Negative *Neurologic Comments: Negative Meds Home Medications and Allergies Home Medications ?Medication ?Instructions ?Recorded ?Confirmed ?Type ferrous sulfate 140 mg (45 mg 140 mg PO DAILY Supplement 11/17/21 01/10/25 History iron) tablet,extended release (Slow Release Iron) multivitamin 1 tab PO DAILY Supplement 08/11/22 01/10/25 History spironolactone 25 mg tablet 25 mg PO DAILY Fluid 11/16/23 01/10/25 History citalopram 20 mg tablet See Rx Instructions .Route 05/27/24 01/10/25 Rx .COMPLEX #90 tabs trazodone 50 mg tablet 50 mg PO DAILY 06/23/24 01/10/25 History nitroglycerin 0.4 mg sublingual 0.4 mg sublingual Q5M PRN Chest 07/31/24 01/10/25 Rx tablet pain or neck pain #20 tabs lisinopril 10 mg tablet See Rx Instructions .Route 08/21/24 01/10/25 Rx .COMPLEX #90 tabs pravastatin 80 mg tablet See Rx Instructions .Route 08/21/24 01/10/25 Rx .COMPLEX #90 tabs furosemide 40 mg tablet See Rx Instructions .Route 09/07/24 01/10/25 Rx .COMPLEX #90 tabs omeprazole 40 mg capsule,delayed See Rx Instructions .Route 09/07/24 01/10/25 Rx release .COMPLEX #90 caps tramadol 50 mg tablet 50 mg PO HS #90 tabs 10/22/24 01/10/25 Rx metoprolol succinate 50 mg See Rx Instructions .Route 10/30/24 01/10/25 Rx tablet,extended release 24 hr .COMPLEX #90 tabs rotigotine 2 mg/24 hour 2 mg transdermal DAILY RLS 11/22/24 01/10/25 Rx transdermal 24 hour patch (Neupro) (receives through patient assistance) #30 ea gabapentin enacarbil 600 mg 600 mg PO HS RLS #30 tabs 12/17/24 01/10/25 Rx tablet,extended release ([facility]) New Prescriptions to Start Prescriptions: Allergies Allergy/AdvReac Type Severity Reaction Status Date / Time Penicillins Allergy Intermediate I-RASH Verified 01/10/25 16:17 Sulfa (Sulfonamide Allergy Intermediate I-RASH Verified 01/10/25 16:17 Antibiotics) Exam *Routine HEENT Exam Head: Present normocephalic Eye: Present EOMI and PERRL ENT: Present mucous membranes moist *Routine Neck Exam Neck: Present supple *Routine Respiratory Exam Respiratory: Present CTA bilaterally *Routine Cardiovascular Exam Cardiovascular: Present RRR *Routine Abdominal Exam Abdominal: Present soft and normoactive bowel sounds; Absent tenderness *Routine Rectal Exam Rectal:: deferred *Routine Genitalia Exam Genitalia:: deferred *Routine Extremities Exam Extremities: Absent cyanosis, clubbing or edema *Routine Skin Exam Skin: Present warm; Absent rash *Routine Neurological Exam Neurological: Present alert and oriented X3 Assessment and Plan *Assessment and plan (1) Gastroesophageal reflux disease: Status: Acute Category: Medical Code(s): K21.9 - Gastro-esophageal reflux disease without esophagitis (2) Non-cardiac chest pain: Status: Acute Category: Medical Code(s): R07.89 - Other chest pain (3) Belching: Status: Acute Category: Medical Code(s): R14.2 - Eructation (4) Bloating: Status: Acute Category: Medical Code(s): R14.0 - Abdominal distension (gaseous) Plan A/P: 1. GERD with noncardiac chest pain, bloating and belching is the preprocedural diagnosis. The patient will be anesthetized/sedated using MAC sedation. The patient has been seen and examined. Cardiac and lung assessment prior to the examination is stable. Proceed with planned diagnostic EGD
[2025-01-14 11:39] VITALS: BP 154/77; PULSE 77; RESP 18; TEMP 36.8; O2SAT 99
--- NOTE | 2025-01-14 12:09 | P.PCN_ITS ---
[facility] Procedure Note Date: 01/14/25 Time: 12:25 Procedure Note:: Upper Endoscopy Procedure Report: Esophagogastroduodenoscopy with cold biopsies Endoscopost: Olu Lundberg II, MD Referring Physician: Arjun Baez MD Date of Procedure: January 14, 2025 Equipment: Olympus GIF 190 standard upper endoscope Sedation: MAC sedation Indications: Mrs. Lynch is a 74-year-old female who is here for diagnostic EGD secondary to GERD and intermittent noncardiac chest pain. She had a normal c ardiac evaluation. She does get a moderate amount of belching, bloating, heartburn and reflux. She does report some dyspepsia with epigastric abdominal discomfort and early satiety. She reports occasional nausea. She reports no dysphagia but does have occasional globus sensation. She is taking omeprazole. She also reports postprandial diarrhea when she eats outside of the home. She has had a prior EGD in August 2019 (Henry Harkins M.D.) and biopsies at that time of the stomach showed reactive gastropathy. Procedure: Prior to the procedure, a history and physical exam was performed, and patient's medications and allergies were reviewed. The risks, benefits and alternatives of the sedation and procedure were discussed with the patient. All questions were answered and informed consent was obtained. The patient was brought to the procedure room. Patient identification and proposed procedure were verified by the physician and the nurse. The patient was placed in a left lateral decubitus position and the scope was passed under direct vision. Throughout the procedure, the patient's blood pressure, pulse, and oxygen saturations were monitored continuously. The upper GI endoscopy was accomplished without difficulty. The patient tolerated the procedure well. Findings: The scope was passed directly into the upper esophagus and advanced to the third portion of the duodenum. The post bulbar duodenum, ampulla and duodenal bulb were normal with normal mucosa and conniventes. The scope was withdrawn through a normal duodenal bulb and pylorus into the stomach. There was marked nodular reactive gastropathy of the prepyloric antrum with raised nodules and erosions. Biopsies were obtained. The body and fundus of the stomach were grossly normal. Upon retroflexion there was no hiatal hernia. The scope was then withdrawn into the esophagus. There was no evidence of reflux esophagitis or Soares's. There were stronger tertiary contractions and evidence of moderate esophageal dysmotility. The remainder of the esophageal mucosa was normal. Impression: 1. Nonerosive GERD with moderate esophageal dysmotility 2. Nodular antral gastropathy Plan: I will follow-up the biopsies. The patient does have functional dyspepsia, functional GERD and intermittent esophageal spasm causing her noncardiac chest pain. I do feel that most of her symptoms of dyspepsia and re flux are related to and driven by lower intestinal gas pressure gradients/high gas pressure buildup resulting in backflow of bile and peptic fluid from the duodenum into the stomach (duodenal reflux). This gas production (carbon dioxide, hydrogen, methane, etc.) from the lower intestinal tract is the byproduct of colonic bacterial fermentation. This colonic fermentation occurs when there is more carbohydrate (dietary starches, sugars and high residue plant fiber) substrate that does not get digested (in the middle or small intestine) or occurs when there is colonic fecal buildup and colonic bacterial overgrowth. This indeed leads to bloating and the gas pressure buildup with gas pressure gradients that do drive backflow and dyspepsia. We will discuss additional treatment options which will include Iberogast and fiber regimen. I will discuss the findings with the patient and family.
--- NOTE | 2025-01-14 12:16 | P.PNANES_ITS ---
[facility] Disclaimer: The information contained in this section may have been updated after the patient was seen, as this information can be updated by other users. Medical History Coronary-myocardial bridge Pneumonia Right middle lobe pneumonia Macular degeneration History of restless legs syndrome History of neuropathy Depression History of gastroesophageal reflux (GERD) Migraine Hyperlipidemia Hypertension Dyspnea LISSY (obstructive sleep apnea) Surgical History History of cholecystectomy History of appendectomy History of partial hysterectomy History of bilateral knee replacement Family History Other Cancer Coronary artery disease Diabetes Social History Smoking Status: Never smoker second hand exposure: No alcohol intake: never substance use type: denies use current occupational status: retired and other Travel in the last 8 weeks: None household members: spouse housing: house marital status: current occupational exposures/hazards: No caffeine: Yes Have you lived/traveled outside US in past 30 days?: No Contact w/someone who lives/traveled outside US past 30 days?: No Exposure to someone with infectious disease in past 14 days?: No Do you have a fever (greater than 100.4 F or 38 C)?: No Have you tested positive for COVID-19: No Exposed to someone with COVID-19 in past 14 days?: No Do you have a sore throat?: No Do you have a cough?: No Do you have any weakness?: No Do you have any diarrhea?: No Are you experiencing any unusual bleeding?: No Do you have any muscle aches/pain?: No Do you have any abdominal pain?: No Are you experiencing loss of taste or smell?: No [facility] Anesthesia Checklist Patient Identification Patient Identification: Arm Band Structural Data Admitted From: Home Planned Operative Procedure/s: EGD Consent for Planned Operative Procedure(s) Verified: Yes Verified Documents: Surgical Consent and History and Physical NPO Status Verified Time NPO: 00:00 Additional verifications Anesthesia Reactions: No Hx Blood Transfusions: No Blood Transfusion Reaction: No Airway Assessment Mallampati Score:: Class II C-Spine Mobility Assessed: Yes TMJ Mobility Assessed: Yes Dentition: Edentulous Neurological Assessment Level of Consciousness: Awake, Alert and Appropriate Anesthesia Plan Anesthesia Risk discussed: Yes Anesthesia Plan: Verified ASA Class: III Anesthesia Type: MAC
[2025-01-14 12:17] VITALS: O2SAT 99
[2025-01-14 12:34] VITALS: BP 100/59; PULSE 69; RESP 18; O2SAT 96
[2025-01-14 12:44] VITALS: BP 94/54; PULSE 64; RESP 18; O2SAT 96
[2025-01-14 12:54] VITALS: BP 150/81; PULSE 68; RESP 18; O2SAT 97
[2025-01-14 13:15] VITALS: BP 124/71; PULSE 68; RESP 18; O2SAT 97
== END 2025-01-14 13:50 | disposition home or self-care (01) ==
PROVIDERS: PCP Internal Medicine; Visit Provider Internal Medicine Gastroenterology
PROC: 0DJ08ZZ Inspection of Upper Intestinal Tract, Via Natural or Artificial Opening Endoscopic (ICD-10-PCS; CPT 43239; principal; 2025-01-14 11:30)
DX: K31.9 Disease of stomach and duodenum, unspecified (principal); K22.4 Dyskinesia of esophagus; K21.9 Gastro-esophageal reflux disease without esophagitis; R07.89 Other chest pain; R14.2 Eructation; R14.0 Abdominal distension (gaseous); K86.81 Exocrine pancreatic insufficiency
CPT/HCPCS: 43239

== ENCOUNTER 2025-05-08 13:20 | Outpatient (CLI) | payer MEDICARE, SELFPAY ==
--- OUTSIDE RECORDS SUMMARY | 2025-05-08 13:25 | XMS_ITS | Clinical Summary ---
Author Organization [facility] Address [address] [place] [address] Care Team Providers Care Brand Planner Name Role Phone Nadeem Lynch ANEESH Primary Care Provider [phone] Allergies Active Allergy Reactions Criticality Noted Date Comments Penicillins Rash Low 03/18/2022 Sulfa Drugs Rash Low 03/18/2022 Social History Tobacco Use Types Packs/Day Years Used Date Smoking Tobacco: Never Assessed Comments Unknown Sex and Gender Information Value Date Recorded Sex Assigned at Not on file Legal Sex Female 6:29 PM EDT Gender Identity Not on file Sexual Orientation Not on file Last Filed Vital Signs Vital Sign Reading Time Taken Comments Blood Pressure 137/80 03/19/2022 2:30 AM EDT Pulse 82 03/19/2022 2:30 AM EDT Temperature 36.7 C (98.1 F) 03/19/2022 2:30 AM EDT Respiratory Rate 16 03/19/2022 2:30 AM EDT Oxygen Saturation 98% 03/19/2022 2:30 AM EDT Inhaled Oxygen Concentration - - Weight 136 kg (299 lb) 03/18/2022 9:56 PM EDT Height 167.6 cm (5' 6 ) 03/18/2022 9:56 PM EDT Body Mass Index 48.26 03/18/2022 9:56 PM EDT Plan of Treatment Health Maintenance Due Date Last Done Comments [facility]-Bone Density Scan 1950 [facility]-Depression Screening 1950 [facility]-Medicare Annual Wellness (AWV) 1950 [facility]-/Child/Adol SDOH Screenings 1950 [facility]- SDOH Screenings 1968 [facility]-Adult SDOH Screenings 1968 CT Colonography 1995 Colonoscopy 1995 FIT-DNA 1995 FIT 1995 FOBT 1995 Sigmoidoscopy 1995 [facility]-Colorectal Cancer Screening 1995 [facility]-DTaP,Tdap,and Td Vaccine s (1 - Tdap) 02/01/1997 01/31/1997 [facility]-Breast Cancer Screening 2000 [facility]-Zoster Vaccines (1 of 2) 2000 [facility]-Pneumococcal Vaccine: 50 + Years (2 of 2 - PPSV23) 11/16/2018 11/16/2017 [id number] Vaccine ( - season) 2024 12/01/2021, 01/28/2021, 12/31/2020 [facility]-RSV Vaccine: 60+ Years o r (1 - 1-dose 75+ series) 2025 [facility]-Influenza Vaccine (Seaso n Ended) 2025 11/02/2020 [facility]-Hepatitis C Screening Completed 03/19/2022 HPV Vaccines Aged Out No longer eligi ble based on patient's age to complete this topic [facility]-HIB Vaccines Aged Out No longer e ligible based on patient's age to complete this topic [facility]-Hepatitis A Vaccines Aged Out No longer eligible based on patient's age to complete this topic [facility]-IPV Vaccines Aged Out No longer e ligible based on patient's age to complete this topic [facility]-Rotavirus Vaccines Aged Out No lo nger eligible based on patient's age to complete this topic Procedures Procedure Name Priority Date/Time Associated Diagnosis Comments HEPATITIS C ANTIBODY - ED W/REFLEX TO HCV QUANT PCR STAT 03/19/2022 12:19 AM EDT from Last 3 Months or Most Recently Relevant to Health Maintenance Results * [place] Hepatitis C Antibody (03/19/2022 12:19 AM EDT) Hepatitis C Antibody Negative Negative 03/19/2022 2:48 AM EDT [facility] Blood Venous blood specimen / Unknown Venipuncture / Unknown 03/19/2022 12:19 AM EDT 03/19/2022 12:33 AM EDT us [facility] BLOOD ORDERABLES Fi nal Result [facility] [address] [place] [address] from Last 3 Months or Most Recently Relevant to Health Maintenance Insurance Care Teams Brand Planner Relationship Specialty Start Date End Date Nadeem Lynch APRN [address] [id number] PCP - General 04/03/21
--- NOTE | 2025-05-08 14:15 | CA_ITS ---
FINAL REPORT TECHNIQUE: Multiple transverse and longitudinal images were performed of the right femoral-popliteal deep venous system with augmentation and compression maneuvers. CLINICAL HISTORY: RT CALF PAIN AND EDEMA,NKI,HX OF DVT FINDINGS: Right lower extremity duplex ultrasound demonstrates normal flow in the deep venous system. There is no abnormal echogenicity to suggest thrombus. There is normal compression and augmentation. IMPRESSION: No evidence of right DVT. Reviewed, Interpreted and Dictated by [facility] MD Transcribed by Hilda Aguirre Authenticated and [facility]
== END 2025-05-08 23:59 | disposition home or self-care (01) ==
LOC: RT 13:20
PROVIDERS: PCP Internal Medicine; Visit Provider Internal Medicine
DX: M79.661 Pain in right lower leg (principal); R60.0 Localized edema; Z86.718 Personal history of other venous thrombosis and embolism
CPT/HCPCS: 93971

== ENCOUNTER 2025-10-05 16:59 | Observation (INO) | payer MEDICARE, SELFPAY ==
[2025-10-05] VITALS (9 sets, daily range): BP systolic 138–175; BP diastolic 74–99; PULSE 78–105; RESP 11–19; TEMP 36.7–36.9; O2SAT 93–100; BMI 49.2; BMI 50.5
--- NOTE | 2025-10-05 17:14 | PC.NURSE ---
FSBS 96
--- NOTE | 2025-10-05 17:31 | ED_ITS ---
<Statement entered by Haresh Hayden DO - 10/06/25 00:30> I was consulted by the IVELISSE, and we discussed the complexity of problems being addressed. I approved the treatment and management plan for this patient's care in the emergency department, thus performing a substantive portion of the medical decision making. Haresh Hayden DO Discharge Plan Disposition Patient Disposition: Admitted Condition: Fair Clinical Impressions Clinical Impression: Non-ST elevation myocardial infarction (NSTEMI), Generalized weakness, Episodic lightheadedness Discharge ED Provider: Haresh Hayden General Adult HPI General Chief complaint: Headache Stated complaint: dizzy , weakness Time Seen by Provider: 10/05/25 17:28 Mode of Arrival: Ambulatory Source of Information: Patient and Spouse Description of Symptoms (Recalled from ER Triage Doc. by RN): sandro presents form the [facility] for shakiness, , headache, unsteady gait, and a headache that have been wrsening over the last few days. patient denies any significant PMH but states she has CHF and HTN. History of Present Illness HPI narrative: 75-year-old female presents to the emergency department with a 2-week history of headache that is frontal, with associated photophobia and nausea at times, noted nausea today, was seen by what sounds like her PCP and recommended to come to the emergency department, noticed some unsteadiness , on her feet, generalized weakness, according to her significant other at the bedside, patient states her headache improves with Tylenol and ibuprofen, denies any overt dizziness no lightheadedness no numbness tingling no radicular symptomatology, no upper or lower extremity weakness, does just admit to generalized malaise/fatigue, no fever no chills no cough no congestion no chest pain, did have an episode of what she describes as chest tightness , around 5 PM today, no shortness of breath, no overt vomiting no abdominal pain no constipation no diarrhea no urinary symptomatology, no saddle anesthesia, no urinary bladder or bowel dysfunction. She is a non-smoker denies any alcohol or drug use, other past medical history is consistent with GERD, chronic venous insufficiency, morbid obesity, LISSY, hyperlipidemia, hypertension, RLS, history of bilateral knee replacement with gait instability, CHF. Initial triage vitals are unremarkable with the exception of tachycardia. Please note that above description of symptoms, in this electronic medical record under categorization of recalled from ER triage doctor by RN are reflective of an initial nursing assessment, however, is not reflective of my full history and physical exam that was personally taken and clarified. Consequentially, this preceding description of symptoms, which may include the patient's categorized chief complaint in the EMR, do not reflect my personal clinical impression, and the ultimate description of history of present illness and patient stated complaints should be deferred to this section of the note. Unless stated otherwise or congruent with this section of the note, additional signs, symptoms, or incongruence should be interpreted as inaccurate with my clinical impression. Onset (ago): week(s) Related Data Home Medications ?Medication ?Instructions ?Recorded ?Confirmed ferrous sulfate 140 mg (45 mg 140 mg PO DAILY Suppleme nt 11/17/21 10/05/25 iron) tablet,extended release (Slow Release Iron) multivitamin 1 tab PO DAILY Supplement 10/05/25 Previous Rx's ?Medication ?Instructions ?Recorded citalopram 20 mg tablet See Rx Instructions .Route 0 05/27/24 .COMPLEX #90 tabs furosemide 40 mg tablet See Rx Instructions .Route 1 .COMPLEX #90 tabs metoprolol succinate 50 mg See Rx Instructions .Route 10/30/24 tablet,extended release 24 hr .COMPLEX #90 tabs tramadol 50 mg tablet 50 mg PO HS #90 tabs 5 omeprazole 40 mg capsule,delayed See Rx Instructions . Route 05/03/25 release .COMPLEX #90 caps gabapentin enacarbil 600 mg See Rx Instructions .Route 06/18/25 tablet,extended release (Horizant .COMPLEX #30 ea ER) spironolactone 25 mg tablet 25 mg PO DAILY Fluid #90 t abs 06/20/25 lisinopril 10 mg tablet See Rx Instructions .Route 1 .COMPLEX #90 tabs pravastatin 80 mg tablet See Rx Instructions .Route 1 .COMPLEX #90 tabs Allergies Allergy/AdvReac Type Severity Reaction Status Date / Time Penicillins Allergy Intermediate I-RASH Verified 10/05/25 16:30 Sulfa (Sulfonamide Allergy Intermediate I-RASH Verified 10/05/25 16:30 Antibiotics) [facility] Disclaimer: The information contained in this section may have been updated after the patient was seen, as this information can be updated by other users. Medical History RLS (restless legs syndrome) Recurrent symptoms. Initial response to Neupro patch 2 mg daily better risk for augmentation. Coronary-myocardial bridge Pneumonia AUG 2023 Right middle lobe pneumonia Macular degeneration History of restless legs syndrome History of neuropathy Depression History of gastroesophageal reflux (GERD) Migraine Hyperlipidemia Hypertension Dyspnea LISSY (obstructive sleep apnea) Mild LISSY with hypoxemia at a degree of proportion. AHI 6, minimal SpO2 78%. Surgical History History of cholecystectomy History of appendectomy History of partial hysterectomy History of bilateral knee replacement Family History Other Cancer Coronary artery disease Diabetes Social History Smoking Status: Never smoker second hand exposure: No alcohol intake: never substance use type: denies use current occupational status: retired and other Travel in the last 8 weeks?: None household members: spouse housing: house marital status: current occupational exposures/hazards: No caffeine: Yes Have you lived/traveled outside US in past 30 days?: No Contact w/someone who lives/traveled outside US past 30 days?: No Exposure to someone with infectious disease in past 14 days?: No Do you have a fever (greater than 100.4 F or 38 C)?: No Have you tested positive for COVID-19?: No Exposed to someone with COVID-19 in past 14 days?: No Do you have a sore throat?: No Do you have a cough?: No Do you have any weakness?: No Do you have any diarrhea?: No Are you experiencing any unusual bleeding?: No Do you have any muscle aches/pain?: No Do you have any abdominal pain?: No Are you experiencing loss of taste or smell?: No Other Medical History Have you received the Flu Vaccine for this season: No Have you received the Pneumonia Vaccine: No ROS Obtained: Yes All systems reviewed & no additional complaints except as documented Physical Exam General General appearance: alert, in no apparent distress and obese Head Head exam: atraumatic and normocephalic Eye Eye exam: Present PERRL and EOMI ENT ENT exam: Present mucous membranes moist Neck Neck exam: Present normal inspection Chest Chest inspection: Present normal inspection and symmetric chest wall rise Respiratory Respiratory exam: Present normal lung sounds bilaterally; Absent respiratory distress, wheezes or stridor Cardiovascular Cardiovascular exam: Present regular rate and normal rhythm Abdominal Exam Abdominal exam: Present soft; Absent tenderness, guarding or rebound Extremities Exam Extremities exam: Present normal inspection Neurological Exam Neurological exam: Present alert, oriented X3 and other (Moves extremities to command, 5 out of 5 strength in the bilateral lower and upper extremities, no gross sensation deficit, no drift in the bilateral lower and upper extremities.) Psychiatric Psychiatric exam: Present normal affect Skin Skin exam: Present warm and dry Medical Decision Making Medical Records Medical records reviewed: Yes I reviewed the patient's medical records. Screening: Per USPSTF and CDC recommendations, given the prevalence of disease in our region, it is our hospital?s policy to screen for HIV and viral Hepatitis for all patients aged 18 and over and those with ongoing risk factors. Franck Inquiry Pt receiving controlled substance: No Franck was queried for this patient: No Vital Signs: 10/05/25 17:09 10/05/25 17:30 10/05/25 18:00 Temperature 98.5 F Temperature Source Temporal Artery Scan Pulse Rate 101 H 103 H Pulse Rate [Right Radial] 105 H Respiratory Rate 18 19 15 Blood Pressure 175/99 H 140/74 Blood Pressure [Right Arm] 138/98 H Blood Pressure Mean 126 101 Blood Pressure Mean [Right Arm] 111 Blood Pressure Source [Right Arm] Automatic Cuff Blood Pressure Position [Right Arm] Sitting 02 Sat by Pulse Oximetry 93 L 97 99 Oxygen Delivery Method Room Air 10/05/25 19:18 10/05/25 20:52 10/05/25 21:31 Temperature 98.4 F Temperature Source Pulse Rate 95 H 82 82 Pulse Rate [Right Radial] Respiratory Rate 11 L 14 Blood Pressure 146/77 H 151/81 H 168/78 H Blood Pressure [Right Arm] Blood Pressure Mean Blood Pressure Mean [Right Arm] Blood Pressure Source [Right Arm] Blood Pressure Position [Right Arm] 02 Sat by Pulse Oximetry 100 98 Oxygen Delivery Method Room Air Room Air Room Air Lab Data Lab results reviewed: Yes I reviewed the patient's lab results. Lab Results 10/05/25 17:19: Urine Color Yellow, Urine Appearance Clear, Urine pH 6.0, Ur Specific [place] 1.020, Urine Protein Negative, Urine Glucose (UA) Negative, Urine Ketones Negative, Urine Blood Negative, Urine Nitrate Negative, Urine Bilirubin Negative, Urine Urobilinogen 0.2, Ur Leukocyte Esterase 1+ A, Urine RBC None, Urine WBC 3-5, Ur Squamous Epith Cells 5-10, Urine Bacteria Trace 10/05/25 17:37: WBC 6.1, RBC 4.59, Hgb 13.9, Hct 42.7, MCV 93.0, MCH 30.3, MCHC 32.6, RDW 13.0, Plt Count 194, MPV 10.8 H, Neut % (Auto) 60.4, Lymph % (Auto) 26.4, Cecil % (Auto) 8.6, Eos % (Auto) 3.6, Baso % (Auto) 0.8, Neut # (Auto) 3.7, Lymph # (Auto) 1.6, Cecil # (Auto) 0.5, Eos # (Auto) 0.2, Baso # (Auto) 0.1, S odium 134 L, Potassium 4.1, Chloride 98, Carbon Dioxide 29, Anion Gap 11.1, BUN 19 H, Creatinine 0.80, Estimated Creat Clear 46, Estimated GFR 70, Est GFR ( Amer) 85, Glucose 98, Calcium 9.5, Magnesium 1.9, Total Bilirubin 0.8, AST 97 H, ALT 101 H, Alkaline Phosphatase 64, Troponin I 0.05 H, NT-Pro-B Natriuret Pep 72.8, Total Protein 7.4, Albumin 4.4, Globulin 3.0, Albumin/Globulin Ratio 1.5, Lipase 98 10/05/25 20:49: Troponin I 0.03 10/05/25 17:37 10/05/25 17:37 Orders (Tests/Meds): ED MEDICATIONS Generic Name Dose Route Start Last Admin Trade Name Freq PRN Reason Stop Dose Admin Acetaminophen 650 mg 10/05/25 21:00 Acetaminophen 325mg Tab PO 11/04/25 20:59 Q4HP PRN Fever or Mild Pain (1-3) Enoxaparin Sodium 40 mg 10/06/25 09:00 Enoxaparin 40mg/0.4ml Syringe SUBCUT 11/05/25 08:59 DAILY BALDEMAR Pantoprazole Sodium 40 mg 10/05/25 21:00 10/05/25 21:18 Pantoprazole 40mg Tablet PO 11/04/25 20:59 40 mg HS BALDEMAR Administration Discontinued Medications Generic Name Dose Route Start Last Admin Trade Name Freq PRN Reason Stop Dose Admin Iopamidol 70 ml 10/05/25 19:21 10/05/25 19:22 Iopamidol-370 (76%);100ml Bottle IV 10/05/25 19:22 70 ml ONCE ONE Administration Sodium Chloride 40 ml 10/05/25 19:21 10/05/25 19:22 0.9 % Sodium Chloride 50 Ml Vial IV 10/05/25 19:22 40 ml ONCE ONE Administration Sodium Chloride 10 ml 10/05/25 19:21 10/05/25 19:22 Sodium Chloride 0.9% 10ml Syr (Rad Only) IV 10/05/25 19:22 10 ml ONCE ONE Administration ORDERS Category Date Time Status CT head/brain wo con Stat Cat Scan 10/05/25 18:00 Completed CTA Chest [CT angio chest - dissection] Stat Cat Scan 10/05/25 18:46 Completed XR chest portable Stat Exams 10/05/25 18:00 Completed Complete Blood Count Auto Diff AMLAB Lab 10/06/25 06:00 Ordered Complete Blood Count Auto Diff Stat Lab 10/05/25 17:37 Completed Comprehensive Metabolic Panel AMLAB Lab 10/06/25 06:00 Ordered Comprehensive Metabolic Panel Stat Lab 10/05/25 17:37 Completed Lactic Acid Stat Lab 10/05/25 18:00 Ordered Lipase Stat Lab 10/05/25 17:37 Completed Magnesium Stat Lab 10/05/25 17:37 Completed Mini Respiratory Panel Stat Lab 10/05/25 18:08 Ordered NT Pro Brain Natriuretic Pep. Stat Lab 10/05/25 17:37 Completed Troponin I Q3H Lab 10/05/25 20:49 Completed Troponin I Q3H Lab 10/06/25 00:00 Ordered Troponin I Stat Lab 10/05/25 17:37 Completed Urinalysis and Microscopic Stat Lab 10/05/25 17:19 Completed Urine Culture Stat Micro 10/05/25 17:19 Received Medical Decision Narrative: 75-year-old female presents the emergency department with a headache, malaise fatigue, feeling of unsteadiness on her feet, waxing waning for the last 2 weeks, differential diagnose include but not limited to, cardiac arrhythmia, electrolyte disturbance, migraine headache with aura, migraine without aura, tension headache, acute UTI, viral URI, acute hypovolemia, acute kidney injury, physical deconditioning, among others I discussed this patient case with attending Dr. Hayden Will obtain basic laboratory studies, EKG, CT head without contrast, chest x- ray, lactic acid level lipase level magnesium level proBNP troponin urinalysis, will obtain rapid PCR antigen swab. CMP is noted for mild hyponatremia 134, mild BUN elevation 19, troponin is mildly elevated at 0.05, proBNP within normal limit, because of this we will obtain CTA chest with without contrast PE protocol. CBC is unremarkable UA is notable for 1+ leukocyte esterase negative hematuria negative nitrites. Microscopic analysis of the patient's urine is notable for no RBCs 3-5 WBCs 5-10 squamous epithelial cells and trace bacteria. I reviewed the patient's CT head without contrast along the corresponding radiologic report, probable chronic microvascular ischemic changes symptoms please consider MRI. I reviewed the patient's chest x-ray along the corresponding radiologic report, possible early pulmonary vascular congestion clinical correlation is needed. Mild transaminitis with an AST of 97 and an ALT of 101, appears to be somewhat in line with patient baseline. I reviewed the patient's CTA chest with without contrast PE protocol along with corresponding radiologic report, no large central pulmonary embolism, nondiagnostic evaluation for distal pulmonary embolism consider VQ scan. I discussed this patient's case with the patient's next of kin Doc Lynch, over the phone at approximately 7:55 PM, she tells me patient had an episode of lightheadedness today unsteadiness on her feet almost falling into the [place] tree . I discussed this patient's case with the on-call gauge maker apprentice Dr. Madera at approximately 8:06 PM, he believes the patient may have some degree of electrical alternans based on EKG, with elevated troponin and nondiagnostic/nonconclusive exercise stress test in 2023, as well as different. Any ECG from 2020, would recommend admission for further cardiac evaluation/workup of the patient's nonspecific symptoms to include fatigue lightheadedness. I attempted to discuss this patient's case with the hospitalist provider at approximately 8:47 PM, currently at this time performing direct patient care will call back. I discussed this patient's case with the hospitalist provider Ashley Ellison APRN at approximately 8:56 PM, she is in agreement with the current admission plan/treatment plan for NSTEMI and generalized weakness. I discussed need for admission with the patient and family the bedside patient and family are in agreement with the current admission plan/treatment plan. Critical Care Critical Care Time Critical Care Time: No
--- NOTE | 2025-10-05 17:36 | ECG_ITS ---
APPROVED REPORT Exam: Resting ECG HR:96 bpm ECG Measurements Heart Rate 96 AXES CO 169 P 27 QRSd 91 QRS -62 QT 358 T 36 QTc 411 Conclusion Sinus rhythm Left axis Normal intervals No STEMI Unchanged from prior Electronically signed by : Haresh Hayden, 10/06/2025 00:39:18
--- NOTE | 2025-10-05 18:00 | CT_ITS ---
PROCEDURE INFORMATION: Exam: CT Head Without Contrast Exam date and time: 10/05/2025 6:30 PM Age: 75 years old Clinical indication: Pain; Headache TECHNIQUE: Imaging protocol: Computed tomography of the head without contrast. Radiation optimization: All CT scans at this facility use at least one of these dose optimization techniques: automated exposure control; mA and/or kV adjustment per patient size (includes targeted exams where dose is matched to clinical indication); or iterative reconstruction. COMPARISON: No relevant prior studies available. FINDINGS: Brain: Moderate atrophy. No intracranial hemorrhage. No mass. Few scattered foci of decreased attenuation within periventricular/subcortical white matter. No definite edema. Cerebral ventricles: No hydrocephalus. Paranasal sinuses: Mild focal mucosal thickening of RIGHT maxillary sinus. Mastoid air cells: No significant effusion. Orbital cavities: Unremarkable as visualized. Bones: No acute fracture. Soft tissues: Unremarkable. IMPRESSION: Probable chronic microvascular ischemic changes. If symptoms persist, consider MRI.
--- NOTE | 2025-10-05 18:00 | XR_ITS ---
PROCEDURE INFORMATION: Exam: XR Chest Exam date and time: 10/05/2025 6:13 PM Age: 75 years old Clinical indication: Shortness of breath; Additional info: SOA TECHNIQUE: Imaging protocol: Radiologic exam of the chest. Views: 1 view. COMPARISON: CR XR CHEST 2V 07/19/2024 12:37 PM FINDINGS: Limitations: Suboptimal positioning. Radiographic technique - mild to moderate. Tubes, catheters and devices: Leads overlying chest. Lungs: Moderate underinflation. No definite consolidation. Pleural spaces: No definite pleural effusion. No pneumothorax. Heart/Mediastinum: Borderline cardiomegaly. Apparent mild prominence of central pulmonary vasculature. Diaphragm: Elevated RIGHT hemidiaphragm. Bones/joints: No displaced fracture. Soft tissues: Unremarkable. IMPRESSION: Possible early pulmonary vascular congestion. Clinical correlation is needed.
[2025-10-05 18:09] LABS: Microscopic, Urine URINE MICROSCOPIC (MICROSCOPIC)
[2025-10-05 18:17] LABS: Hematocrit 42.7 % (37.0-47.0); Hemoglobin 13.9 g/dL (12.2-16.2); Immature Granulocytes % 0.2 %; Mean Corpuscular HGB Conc 32.6 g/dL (31.8-35.4); Mean Corpuscular Hemoglobin 30.3 pg (27.0-31.2); Mean Corpuscular Volume 93.0 fl (81-99); Nucleated Red Blood Cells % 0 %; Platelet Count 194 K/mm3 (142-424); Red Blood Count 4.59 M/mm3 (4.20-5.40); Red Cell Distribution Width-SD 43.8 fL; White Blood Count 6.1 K/mm3 (4.8-10.8)
[2025-10-05 18:18] LABS: Bilirubin,Urine Negative (Negative); Color,Urine YELLOW (Yellow); Glucose,Urine (UA) Negative (Negative); Ketones,Urine Negative (Negative); Leukocyte Esterase,Urine 1+ (Negative); PH,Urine 6.0 (5.0-8.5); Protein,Urine Negative (Negative); Specific Gravity, Urine 1.020 (1.005-1.030); Urobilinogen,Urine 0.2 EU/dl (0.2)
[2025-10-05 18:24] LABS: Alanine Aminotransferase 101 U/L (12-78); Albumin Level 4.4 g/dl (3.5-5.0); Albumin/Globulin Ratio 1.5 (1.1-1.8); Alkaline Phosphatase 64 U/L (38-126); Anion Gap 11.1 mEq/L (5-15); Aspartate Amino Transferase 97 U/L (14-36); Bilirubin,Total 0.8 mg/dl (0.2-1.3); Blood Urea Nitrogen 19 mg/dl (7-17); Calcium 9.5 mg/dl (8.4-10.2); Carbon Dioxide 29 mmol/L (22.0-30.0); Chloride 98 mmol/L (98-107); Creatinine Clearance Estimated 46 mL/min (50-200); Creatinine,Serum 0.80 mg/dl (0.52-1.04); Estimated Glomerular Filt Rate 70 ml/min (>60); GFR (African American) 85 ML/MIN (>60); Globulin 3.0 g/dL (1.3-3.2); Glucose 98 mg/dl (74-100); Lipase 98 U/L (23-300); Magnesium 1.9 mg/dl (1.6-2.3); Potassium 4.1 mmoL/L (3.5-5.1); Sodium 134 mmol/L (136-145); Total Protein,Serum 7.4 g/dl (6.3-8.2)
[2025-10-05 18:36] LABS: NT Pro Brain Natriuretic Pep. 72.8 pg/mL (0-450); Troponin I 0.05 ng/ml (0.00-0.034)
--- NOTE | 2025-10-05 18:46 | CT_ITS ---
PROCEDURE INFORMATION: Exam: CTA Chest With Contrast Exam date and time: 10/05/2025 7:20 PM Age: 75 years old Clinical indication: Abnormal findings; Other: Elevated troponin; Additional info: History of dvt elevated troponin TECHNIQUE: Imaging protocol: Computed tomographic angiography of the chest with contrast. Exam focused on the arteries. 3D rendering (Not supervised by radiologist): MIP and/or 3D reconstructed images were created by the technologist. Radiation optimization: All CT scans at this facility use at least one of these dose optimization techniques: automated exposure control; mA and/or kV adjustment per patient size (includes targeted exams where dose is matched to clinical indication); or iterative reconstruction. Contrast material: ISOVUE 370; Contrast volume: 80 ml; Contrast route: INTRAVENOUS (IV); COMPARISON: CT ANGIO CHEST PE PROTOCOL 03/17/2022 10:32 AM FINDINGS: Limitations: Suboptimal timing of bolus/opacification. Motion artifact - mild. Pulmonary arteries: No obvious filling defect within main or lobar branches of pulmonary arteries. Nondiagnostic evaluation of segmental, subsegmental branches. Aorta: Unremarkable. No aneurysm. Lungs: No consolidation. Calcified granuloma within RIGHT upper lobe. Pleural spaces: No significant pleural effusion. No pneumothorax. Heart: No cardiomegaly. No pericardial effusion. Lymph nodes: Few subcentimeter short axis mediastinal lymph nodes. Diaphragm: Lobulation of diaphragm. Liver: Fatty infiltration. Bones/joints: Degenerative changes of spine. No acute fracture. Soft tissues: Unremarkable. IMPRESSION: No large central pulmonary embolism. Nondiagnostic evaluation for distal pulmonary embolism. Consider V/Q scan.
[2025-10-05 19:04] LABS: Bacteria,Urine Trace /lpf
[2025-10-05] MEDS: 0.9 % SODIUM CHLORIDE 50 ML VIAL 40 ML IV (19:22)
[2025-10-05] MEDS: IOPAMIDOL-370 (76%);100ML BOTTLE 70 ML IV (19:22)
[2025-10-05] MEDS: SODIUM CHLORIDE 0.9% 10ML SYR (RAD ONLY) 10 ML IV (19:22)
[2025-10-05] MEDS: PANTOPRAZOLE 40MG TABLET 40 MG PO (21:18)
[2025-10-05 21:29] LABS: Troponin I 0.03 ng/ml (0.00-0.034)
--- NOTE | 2025-10-05 21:30 | PC.NURSE ---
Report called to ESCOBAR Abad on [facility]
--- NOTE | 2025-10-05 23:20 | P.HP_ITS ---
<Statement entered by William Resendez MD - 10/06/25 17:52> Rounded on patient after nurse practitioner. Personally examined and interviewed patient. Agree with exam findings and care plan as documented. Patient returned to baseline function by morning. CTs were negative. Would benefit from MRI but will pursue as an outpatient. Addressing blood pressure in the morning. Will discuss case with cardiology. History of Present Illness *Admission Date: 10/05/25 *Reason for visit:: Weakness *History of present illness: 65-year-old female patient presents to ER with several days of vague complaints of weakness, unsteadiness and headache. She denies chest pain or shortness of breath. She has had some indigestion for the last 2 weeks. Does have some peripheral swelling however she states that is at baseline. Denied nausea or vomiting or diarrhea. Denies urinary symptoms. She reports that with her weakness she felt like she was stumbling . Family is present in the room. They have not observed the symptoms. EKG does not show ischemic changes. Init ial troponin was 0.05 with repeat of 0.03. She does have a slight bump in her transaminase. BNP 72.8. [facility] Disclaimer: The information contained in this section may have been updated after the patient was seen, as this information can be updated by other users. Medical History RLS (restless legs syndrome) Coronary-myocardial bridge Pneumonia Right middle lobe pneumonia Macular degeneration History of restless legs syndrome History of neuropathy Depression History of gastroesophageal reflux (GERD) Migraine Hyperlipidemia Hypertension Dyspnea LISSY (obstructive sleep apnea) Surgical History History of cholecystectomy History of appendectomy History of partial hysterectomy History of bilateral knee replacement Family History Other Cancer Coronary artery disease Diabetes Social History Smoking Status: Never smoker second hand exposure: No alcohol intake: never substance use type: denies use current occupational status: retired and other Travel in the last 8 weeks?: None household members: spouse housing: house marital status: current occupational exposures/hazards: No caffeine: Yes Have you lived/traveled outside [place] in past 30 days?: No Contact w/someone who lives/traveled outside [place] past 30 days?: No Exposure to someone with infectious disease in past 14 days?: No Do you have a fever (greater than 100.4 F or 38 C)?: No Have you tested positive for COVID-19?: No Exposed to someone with COVID-19 in past 14 days?: No Do you have a sore throat?: No Do you have a cough?: No Do you have any weakness?: No Do you have any diarrhea?: No Are you experiencing any unusual bleeding?: No Do you have any muscle aches/pain?: No Do you have any abdominal pain?: No Are you experiencing loss of taste or smell?: No Other Medical History Have you received the Flu Vaccine for this season: Yes Have you received the Pneumonia Vaccine: Yes Review of Systems Constitutional Constitutional: Denies body ache(s), Denies chills, Reports headache(s) and Reports weakness Eyes Eyes: Reports system reviewed and no additional complaints, except as documented ENT Ears, Nose, Mouth, and Throat: Reports system reviewed and no additional compl aints, except as documented, Reports disequilibrium and Reports headache(s) *Cardiovascular Cardiovascular: Denies chest pain and Denies dyspnea *Respiratory Respiratory: Denies cough and Denies dyspnea *Gastrointestinal Gastrointestinal: Denies abdominal pain, Reports dyspepsia, Denies loose stools, Denies nausea and Denies vomiting *Genitourinary Genitourinary: Denies difficulty voiding and Denies dysuria *Musculoskeletal Musculoskeletal: Reports system reviewed and no additional complaints, except as documented *Neurologic Neurologic: Reports disequilibrium, Reports headache(s) and Reports weakness Meds Home Medications and Allergies Home Medications ?Medication ?Instructions ?Recorded ?Confirmed ?Type ferrous sulfate 140 mg (45 mg 140 mg PO DAILY Suppleme nt 11/17/21 10/05/25 History iron) tablet,extended release (Slow Release Iron) multivitamin 1 tab PO DAILY Supplement 10/05/25 History tramadol 50 mg tablet 50 mg PO HS #90 tabs 5 10/05/25 Rx spironolactone 25 mg tablet 25 mg PO DAILY Fluid #90 t abs 06/20/25 10/05/25 Rx citalopram 20 mg tablet 20 mg PO DAILY 10/05/2509/21 History furosemide 40 mg tablet 40 mg PO DAILY 10/05/2509/21 History gabapentin enacarbil 600 mg 600 mg PO DAILY 10/05/25 1 12/05/24 History tablet,extended release ([facility]) metoprolol succinate 50 mg 50 mg PO DAILY 10/05/25 History tablet,extended release 24 hr omeprazole 40 mg capsule,delayed 40 mg PO DAILY 10/05/25 History release pravastatin 80 mg tablet 80 mg PO HS 10/05/25 5 History cefdinir 300 mg capsule 300 mg PO BID #8 caps Rx lisinopril 20 mg tablet 20 mg PO DAILY #30 tabs 09/21 05/15 Rx nitroglycerin 0.4 mg sublingual 0.4 mg sublingual Q5M PRN Chest 10/06/25 10/06/25 History tablet Pain New Prescriptions to Start Prescriptions: cefdinir William Resendez lisinopril William Resendez Allergies Allergy/AdvReac Type Severity Reaction Status Date / Time Penicillins Allergy Intermediate I-RASH Verified 10/05/25 16:30 Sulfa (Sulfonamide Allergy Intermediate I-RASH Verified 10/05/25 16:30 Antibiotics) Exam Data for Last 24 hours Vital signs and Labs for Last 24 Hours: Temp Pulse Resp BP Pulse Ox O2 Del Method 98.4 F 82 14 168/78 H 94 L Room Air 10/05/25 21:31 10/05/25 21:31 10/05/25 21:31 10/05/25 21:31 10/05/25 21:27 10/05/25 21:31 Laboratory Results - last 24 hr 10/05/25 17:19: Urine Color Yellow, Urine Appearance Clear, Urine pH 6.0, Ur Specific [place] 1.020, Urine Protein Negative, Urine Glucose (UA) Negative, Urine Ketones Negative, Urine Blood Negative, Urine Nitrate Negative, Urine Bilirubin Negative, Urine Urobilinogen 0.2, Ur Leukocyte Esterase 1+ A, Urine RBC None, Urine WBC 3-5, Ur Squamous Epith Cells 5-10, Urine Bacteria Trace 10/05/25 17:37: WBC 6.1, RBC 4.59, Hgb 13.9, Hct 42.7, MCV 93.0, MCH 30.3, MCHC 32.6, RDW 13.0, Plt Count 194, MPV 10.8 H, Neut % (Auto) 60.4, Lymph % (Auto) 26.4, [place] % (Auto) 8.6, Eos % (Auto) 3.6, Baso % (Auto) 0.8, Neut # (Auto) 3.7, Lymph # (Auto) 1.6, [place] # (Auto) 0.5, Eos # (Auto) 0.2, Baso # (Auto) 0.1, Sodium 134 L, Potassium 4.1, Chloride 98, Carbon Dioxide 29, Anion Gap 11.1, BUN 19 H, Creatinine 0.80, Estimated Creat Clear 46, Estimated GFR 70, Est GFR ( Amer) 85, Glucose 98, Calcium 9.5, Magnesium 1.9, Total Bilirubin 0.8, AST 97 H, ALT 101 H, Alkaline Phosphatase 64, Troponin I 0.05 H, NT-Pro-B Natriuret Pep 72.8, Total Protein 7.4, Albumin 4.4, Globulin 3.0, Albumin/Globulin Ratio 1.5, Lipase 98 10/05/25 20:49: Troponin I 0.03 I & O for Last 24 hours: Intake & Output 10/02/25 10/03/25 10/04/25 10/05/25 23:59 23:59 23:59 23:59 Weight 142.513 kg Constitutional Constitutional: no acute distress *Routine HEENT Exam Head: Present normocephalic and atraumatic Eye: Present EOMI and PERRL ENT: Present mucous membranes moist *Routine Neck Exam Neck: Present supple *Routine Respiratory Exam Respiratory: Present CTA bilaterally *Routine Cardiovascular Exam Cardiovascular: Present RRR, Normal S1 and Normal S2 *Routine Abdominal Exam Abdominal: Present soft and normoactive bowel sounds; Absent tenderness *Routine Rectal Exam Rectal:: deferred *Routine Genitalia Exam Genitalia:: deferred *Routine Extremities Exam Extremities: Present edema and pulses intact *Routine Skin Exam Skin: Present dry and warm *Routine Neurological Exam Neurological: Present alert, oriented X3 and moving all extremities (Strength equal bilaterally); Absent altered mental status Assessment and Plan *Assessment and plan (1) Non-ST elevation myocardial infarction (NSTEMI): Status: Acute Category: Medical Code(s): I21.4 - Non-ST elevation (NSTEMI) myocardial infarction (2) Generalized weakness: Status: Acute Category: Medical Code(s): R53.1 - Weakness (3) Unsteady gait: Status: Acute Category: Medical Code(s): R26.81 - Unsteadiness on feet (4) Hyperlipidemia: Status: Acute Qualifiers: Hyperlipidemia type: mixed hyperlipidemia Qualified Code(s): E78.2 - Mixed hyperlipidemia Category: Medical Code(s): E78.5 - Hyperlipidemia, unspecified (5) Hypertension: Status: Acute Qualifiers: Hypertension type: primary hypertension Qualified Code(s): I10 - Essential (primary) hypertension Category: Medical Code(s): I10 - Essential (primary) hypertension Plan Patient presents with complaints of headache stumbling gait and just feeling off for the last couple of days. She denies chest pain or shortness of breath however she was found to have elevated troponins. She has had some indigestion for the last 2 weeks. She does have some swelling but states that that is at baseline. Workup in the ER revealed A CT of the head that showed chronic microvascular ischemic changes but no acute process, chest x-ray was not well- positioned however there does appear to be some vascular congestion. CTA of the chest shows no pulmonary emboli but is nondiagnostic for distal pulmonary emboli. ER did discuss the case with cardiology who has agreed to consult if patient is admitted. After discussing the case with the ER provider I did agree to accept the patient for admission for further workup and treatment. Will consult cardiology in the morning. Will monitor on telemetry as well as pulse oximetry and trend her troponins. She has been told to avoid aspirin products due to history of ulcer. So we will hold off at this time. I do believe she may benefit from MRI of the brain given the reported unsteady gait and headache with possible microvascular changes on CT. She denies urinary symptoms and culture is pending. Will hold off on antibiotics at this time since no other evidence of infection. HTN/HLD?Blood pressure appears to be stable now. Will continue home medications once verified.
[2025-10-06] VITALS: BP 120/70; PULSE 88; RESP 14; TEMP 36.8; O2SAT 98
[2025-10-06 03:13] LABS: Troponin I 0.02 ng/ml (0.00-0.034)
[2025-10-06 04:00] VITALS: BP 159/73; PULSE 70; PULSE 77; RESP 16; TEMP 36.7; O2SAT 97; BMI 50.5
--- NOTE | 2025-10-06 04:49 | PC.NURSE ---
Pt. was admitted to med/surg unit overnight for NSTEMI and generalized weakness. Pt. came into the ED c/o generalized weakness, headache and she felt she was unsteady on her feet. Pt. is alert and orientated x 4. Pt. is on room air while awake and oxygen per N/C while sleeping. Pt. states that the headache resolved.She took Tylenol at home prior to coming into the ED. Pt's 1st trop. level was elevated, subsequent levels were within normal limits. Pt. had multiple family members at bedside. Pt. states she feels fine . Denies shortness of breath. Pt. denies chest pain. Pt. up with assist x 1 to bathroom and gait was steady. . Pt. resting quietly in the bed. personal items and call cassidy in reach. Bed in low and locked position. safety measures in place.
--- NOTE | 2025-10-06 06:25 | EXP.ACUTE.PN ---
Subjective *Date: 10/06/25 *Time: : Medical Exam Vital signs and Labs for Last 24 Hours: Vital Signs Temp Pulse Pulse Resp BP BP Pulse Ox 10/06/25 04:00 98.1 F 77 16 159/73 H 97 10/06/25 04:00 70 10/06/25 03:00 10/06/25 01:00 10/06/25 00:00 98.2 F 88 14 120/70 98 10/05/25 23:00 10/05/25 22:30 14 94 L 10/05/25 21:31 98.4 F 82 14 168/78 H 10/05/25 21:27 98.0 F 78 16 157/85 H 94 L 10/05/25 21:00 90 10/05/25 20:52 82 11 L 151/81 H 98 10/05/25 19:18 95 H 146/77 H 100 10/05/25 18:00 103 H 15 140/74 99 10/05/25 17:30 101 H 19 175/99 H 97 10/05/25 17:09 98.5 F 105 H 18 138/98 H 93 L O2 Del Method O2 Flow Rate 10/06/25 04:00 Room Air 10/06/25 04:00 10/06/25 03:00 Nasal Cannula 2 10/06/25 01:00 Room Air 10/06/25 00:00 Room Air 10/05/25 23:00 Room Air 10/05/25 22:30 Room Air 10/05/25 21:31 Room Air 10/05/25 21:27 Room Air 10/05/25 21:00 10/05/25 20:52 Room Air 10/05/25 19:18 Room Air 10/05/25 18:00 10/05/25 17:30 10/05/25 17:09 Room Air Intake and Output 10/05/25 10/05/25 10/06/25 15:59 23:59 07:59 Intake Total 0 / 0 Output Total 0 / 0 500 / 500 Balance 0 / 0 -500 / -500 Intake: Intake, Oral Amount 0 / 0 Output: Output, Urine Amount 0 / 0 500 / 500 Other: Number of Unmeasured Voids 1 0 Weight 142.513 kg 142.513 kg Patient Weight 10/06/25 23:59 Weight 142.513 kg Laboratory Results - last 24 hr 11/15/25 17:19: Urine Color Yellow, Urine Appearance Clear, Urine pH 6.0, Ur Specific [place] 1.020, Urine Protein Negative, Urine Glucose (UA) Negative, Urine Ketones Negative, Urine Blood Negative, Urine Nitrate Negative, Urine Bilirubin Negative, Urine Urobilinogen 0.2, Ur Leukocyte Esterase 1+ A, Urine RBC None, Urine WBC 3-5, Ur Squamous Epith Cells 5-10, Urine Bacteria Trace 10/05/25 17:37: WBC 6.1, RBC 4.59, Hgb 13.9, Hct 42.7, MCV 93.0, MCH 30.3, MCHC 32.6, RDW 13.0, Plt Count 194, MPV 10.8 H, Neut % (Auto) 60.4, Lymph % (Auto) 26.4, [place] % (Auto) 8.6, Eos % (Auto) 3.6, Baso % (Auto) 0.8, Neut # (Auto) 3.7, Lymph # (Auto) 1.6, [place] # (Auto) 0.5, Eos # (Auto) 0.2, Baso # (Auto) 0.1, Sodium 134 L, Potassium 4.1, Chloride 98, Carbon Dioxide 29, Anion Gap 11.1, BUN 19 H, Creatinine 0.80, Estimated Creat Clear 46, Estimated GFR 70, Est GFR ( Amer) 85, Glucose 98, Calcium 9.5, Magnesium 1.9, Total Bilirubin 0.8, AST 97 H, ALT 101 H, Alkaline Phosphatase 64, Troponin I 0.05 H, NT-Pro-B Natriuret Pep 72.8, Total Protein 7.4, Albumin 4.4, Globulin 3.0, Albumin/Globulin Ratio 1.5, Lipase 98 10/05/25 20:49: Troponin I 0.03 10/06/25 02:30: Troponin I 0.02 I & O for Labs for Last 24 Hours: Intake & Output 10/03/25 10/04/25 10/05/25 10/06/25 23:59 23:59 23:59 23:59 Intake Total 0 / 0 Output Total 0 / 0 500 / 500 Balance 0 / 0 -500 / -500 Weight 142.513 kg 142.513 kg Assessment and Plan *Assessment and plan (1) Non-ST elevation myocardial infarction (NSTEMI): Status: Acute Category: Medical Code(s): I21.4 - Non-ST elevation (NSTEMI) myocardial infarction (2) Generalized weakness: Status: Acute Category: Medical Code(s): R53.1 - Weakness (3) Unsteady gait: Status: Acute Category: Medical Code(s): R26.81 - Unsteadiness on feet (4) Hyperlipidemia: Status: Acute Qualifiers: Hyperlipidemia type: mixed hyperlipidemia Qualified Code(s): E78.2 - Mixed hyperlipidemia Category: Medical Code(s): E78.5 - Hyperlipidemia, unspecified (5) Hypertension: Status: Acute Qualifiers: Hypertension type: primary hypertension Qualified Code(s): I10 - Essential (primary) hypertension Category: Medical Code(s): I10 - Essential (primary) hypertension Plan Patient presents with complaints of headache stumbling gait and just feeling off for the last couple of days. She denies chest pain or shortness of breath however she was found to have elevated troponins. She has had some indigestion for the last 2 weeks. She does have some swelling but states that that is at baseline. Workup in the ER revealed A CT of the head that showed chronic microvascular ischemic changes but no acute process, chest x-ray was not well-positioned however there does appear to be some vascular congestion. CTA of the chest shows no pulmonary emboli but is nondiagnostic for distal pulmonary emboli. ER did discuss the case with cardiology who has agreed to consult if patient is admitted. After discussing the case with the ER provider I did agree to accept the patient for admission for further workup and treatment. Will consult cardiology in the morning. Will monitor on telemetry as well as pulse oximetry and trend her troponins. She has been told to avoid aspirin products due to history of ulcer. So we will hold off at this time. I do believe she may benefit from MRI of the brain given the reported unsteady gait and headache with possible microvascular changes on CT. She denies urinary symptoms and culture is pending. Will hold off on antibiotics at this time since no other evidence of infection. HTN/HLD?Blood pressure appears to be stable now. Will continue home medications once verified.
[2025-10-06 07:22] VITALS: BP 154/97; PULSE 85; RESP 18; TEMP 36.8; O2SAT 100
[2025-10-06 07:51] LABS: Hematocrit 39.0 % (37.0-47.0); Hemoglobin 12.9 g/dL (12.2-16.2); Immature Granulocytes % 0.2 %; Mean Corpuscular HGB Conc 33.1 g/dL (31.8-35.4); Mean Corpuscular Hemoglobin 30.5 pg (27.0-31.2); Mean Corpuscular Volume 92.2 fl (81-99); Nucleated Red Blood Cells % 0 %; Platelet Count 146 K/mm3 (142-424); Red Blood Count 4.23 M/mm3 (4.20-5.40); Red Cell Distribution Width-SD 43.1 fL; White Blood Count 4.4 K/mm3 (4.8-10.8)
[2025-10-06 08:00] VITALS: PULSE 80
[2025-10-06 08:08] LABS: Alanine Aminotransferase 84 U/L (12-78); Albumin Level 4.0 g/dl (3.5-5.0); Albumin/Globulin Ratio 1.5 (1.1-1.8); Alkaline Phosphatase 57 U/L (38-126); Anion Gap 8.8 mEq/L (5-15); Aspartate Amino Transferase 84 U/L (14-36); Bilirubin,Total 0.8 mg/dl (0.2-1.3); Blood Urea Nitrogen 16 mg/dl (7-17); Calcium 9.1 mg/dl (8.4-10.2); Carbon Dioxide 27 mmol/L (22.0-30.0); Chloride 101 mmol/L (98-107); Creatinine Clearance Estimated 46 mL/min (50-200); Creatinine,Serum 0.70 mg/dl (0.52-1.04); Estimated Glomerular Filt Rate 82 ml/min (>60); GFR (African American) 99 ML/MIN (>60); Globulin 2.6 g/dL (1.3-3.2); Glucose 113 mg/dl (74-100); Potassium 3.8 mmoL/L (3.5-5.1); Sodium 133 mmol/L (136-145); Total Protein,Serum 6.6 g/dl (6.3-8.2)
--- NOTE | 2025-10-06 08:34 | PC.NURSE ---
Pt. refused cpox.
--- NOTE | 2025-10-06 09:40 | [facility].PHAAMS2 ---
- Antimicrobial Stewardship Review culture & sensitivity review Stewardship interventions: culture & sensitivity review (URINE CX PENDING, ON ROCEPHIN Q24H CURRENTLY.)
[2025-10-06 12:00] VITALS: BP 130/74; PULSE 88; RESP 16; TEMP 36.7; O2SAT 96
--- NOTE | 2025-10-06 12:59 | EXP.DC.SUM ---
General Admission date:: 10/05/25 Discharge date: 10/06/25 HPI HPI HPI: 65-year-old female patient presents to ER with several days of vague complaints of weakness, unsteadiness and headache. She denies chest pain or shortness of breath. She has had some indigestion for the last 2 weeks. Does have some peripheral swelling however she states that is at baseline. Denied nausea or vomiting or diarrhea. Denies urinary symptoms. She reports that with her weakness she felt like she was stumbling . Family is present in the room. They have not observed the symptoms. EKG does not show ischemic changes. Initial troponin was 0.05 with repeat of 0.03. She does have a slight bump in her transaminase. BNP 72.8. Hospital Course Hospital Course Hospital Course: Ms. Lynch is a 75-year-old female who presents with complaints of headache stumbling gait and just feeling off for the last couple of days. She denies chest pain or shortness of breath however she was found to have elevated troponins. She has had some indigestion for the last 2 weeks. She does have some swelling but states that that is at baseline. Workup in the ER revealed A CT of the head that showed chronic microvascular ischemic changes but no acute process, chest x-ray was not well-positioned however there does appear to be some vascular congestion. CTA of the chest shows no pulmonary emboli but is nondiagnostic for distal pulmonary emboli. ER did discuss the case with cardiology who has agreed to consult if patient is admitted. After discussing the case with the ER provider I did agree to accept the patient for admission for further workup and treatment. Was monitored overnight. Had no acute events on telemetry overnight. Urine did return concerning for possible UTI with trace bacteria and positive nitrate. Troponins normalized overnight. Continued to have no chest pain. Discussed case with cardiology in the morning (Dr. Madera). Review of patient's chart shows that she had a coronary angiography CT obtained last year on 08/21. She was found to have a total calcium score of 0. Unlikely she has developed blockages in that timeframe given a calcium score of 0. 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 Will need to hold this time. Continue her Lasix 40 mg daily, will increase lisinopril to 20 mg daily given her mild hypertension. Will also continue spironolactone 25 mg daily and pravastatin 80 mg nightly. Recommend outpatient follow-up with cardiology for further evaluation in the outpatient setting of her hypertension and hyperlipidemia. Given her normal CTs and resolution of symptoms by morning, do not feel an urgent need for inpatient MRI. Recommend follow-up with primary care and if continues to have symptoms after improvement in her blood pressure and treatment of UTI, consider outpatient MRI. In regard to UTI, culture still pending. Administered ceftriaxone 1 g IV while admitted. Will continue to monitor cultures at discharge. Treat empirically for 5 days with cefdinir 300 mg twice daily to complete course. Independently mobile with steady gait on morning of discharge. Stable discharge home with family. Total time spent on discharge 32 minutes in counseling, documentation, chart review, and direct care with patient. Exam Data for Last 24 hours Vital signs and Labs for Last 24 Hours: Temp Pulse Resp BP Pulse Ox O2 Del Method O2 Flow Rate 98.1 F 88 16 130/74 96 Room Air 2 10/06/25 12:00 10/06/25 12:00 10/06/25 12:00 10/06/25 12:00 10/06/25 12:00 10/06/25 12:00 10/06/25 07:22 Laboratory Results - last 24 hr 10/05/25 17:19: Urine Color Yellow, Urine Appearance Clear, Urine pH 6.0, Ur Specific Tobias 1.020, Urine Protein Negative, Urine Glucose (UA) Negative, Urine Ketones Negative, Urine Blood Negative, Urine Nitrate Negative, Urine Bilirubin Negative, Urine Urobilinogen 0.2, Ur Leukocyte Esterase 1+ A, Urine RBC None, Urine WBC 3-5, Ur Squamous Epith Cells 5-10, Urine Bacteria Trace 10/05/25 17:37: WBC 6.1, RBC 4.59, Hgb 13.9, Hct 42.7, MCV 93.0, MCH 30.3, MCHC 32.6, RDW 13.0, Plt Count 194, MPV 10.8 H, Neut % (Auto) 60.4, Lymph % (Auto) 26.4, Mcmullen % (Auto) 8.6, Eos % (Auto) 3.6, Baso % (Auto) 0.8, Neut # (Auto) 3.7, Lymph # (Auto) 1.6, Mcmullen # (Auto) 0.5, Eos # (Auto) 0.2, Baso # (Auto) 0.1, Sodium 134 L, Potassium 4.1, Chloride 98, Carbon Dioxide 29, Anion Gap 11.1, BUN 19 H, Creatinine 0.80, Estimated Creat Clear 46, Estimated GFR 70, Est GFR ( Amer) 85, Glucose 98, Calcium 9.5, Magnesium 1.9, Total Bilirubin 0.8, AST 97 H, ALT 101 H, Alkaline Phosphatase 64, Troponin I 0.05 H, NT-Pro-B Natriuret Pep 72.8, Total Protein 7.4, Albumin 4.4, Globulin 3.0, Albumin/Globulin Ratio 1.5, Lipase 98 10/05/25 20:49: Troponin I 0.03 10/06/25 02:30: Troponin I 0.02 10/06/25 07:13: WBC 4.4 L D, RBC 4.23, Hgb 12.9, Hct 39.0, MCV 92.2, MCH 30.5, MCHC 33.1, RDW 12.8, Plt Count 146, MPV 10.1, Neut % (Auto) 53.6, Lymph % (Auto) 31.5, Mcmullen % (Auto) 9.9 H, Eos % (Auto) 4.1, Baso % (Auto) 0.7, Neut # (Auto) 2.4, Lymph # (Auto) 1.4, Mcmullen # (Auto) 0.4, Eos # (Auto) 0.2, Baso # (Auto) 0.0, Sodium 133 L, Potassium 3.8, Chloride 101, Carbon Dioxide 27, Anion Gap 8.8, BUN 16, Creatinine 0.70, Estimated Creat Clear 46, Estimated GFR 82, Est GFR ( Amer) 99, Glucose 113 H, Calcium 9.1, Total Bilirubin 0.8, AST 84 H, ALT 84 H, Alkaline Phosphatase 57, Total Protein 6.6, Albumin 4.0, Globulin 2.6, Albumin/Globulin Ratio 1.5 I & O for Last 24 hours: Intake & Output 10/03/25 10/04/25 10/05/25 10/06/25 23:59 23:59 23:59 23:59 Intake Total 50 / 50 Output Total 0 / 0 500 / 500 Balance 0 / 0 -450 / -450 Weight 142.513 kg 142.513 kg Constitutional Constitutional: no acute distress, morbidly obese, chronically ill appearing and cooperative *Routine HEENT Exam Head: Present normocephalic Eye: Present EOMI and PERRL ENT: Present mucous membranes moist *Routine Neck Exam Neck: Present supple; Absent lymphadenopathy *Routine Respiratory Exam Respiratory: Present CTA bilaterally; Absent rhonchi, wheezes or crackles *Routine Cardiovascular Exam Cardiovascular: Present RRR *Routine Abdominal Exam Abdominal: Present soft and normoactive bowel sounds; Absent tenderness *Routine Rectal Exam Patient deferred: visual exam *Routine Exam Patient deferred: external exam *Routine Extremities Exam Extremities: Absent cyanosis, clubbing or edema *Routine Skin Exam Skin: Present intact and warm; Absent rash *Routine Neurological Exam Neurological: Present alert, oriented X3 and moving all extremities; Absent altered mental status Results Data Completed and Pending Labs on day of discharge: Labs from last 24 hours 10/06/25 10/06/25 10/05/25 07:13 02:30 20:49 WBC 4.4 L D RBC 4.23 Hgb 12.9 Hct 39.0 MCV 92.2 MCH 30.5 MCHC 33.1 RDW 12.8 Plt Count 146 MPV 10.1 Neut % (Auto) 53.6 Lymph % (Auto) 31.5 Mcmullen % (Auto) 9.9 H Eos % (Auto) 4.1 Baso % (Auto) 0.7 Neut # (Auto) 2.4 Lymph # (Auto) 1.4 Mcmullen # (Auto) 0.4 Eos # (Auto) 0.2 Baso # (Auto) 0.0 Sodium 133 L Potassium 3.8 Chloride 101 Carbon Dioxide 27 Anion Gap 8.8 BUN 16 Creatinine 0.70 Estimated Creat Clear 46 Estimated GFR 82 Est GFR ( Amer) 99 Glucose 113 H Calcium 9.1 Magnesium Total Bilirubin 0.8 AST 84 H ALT 84 H Alkaline Phosphatase 57 Troponin I 0.02 0.03 NT-Pro-B Natriuret Pep Total Protein 6.6 Albumin 4.0 Globulin 2.6 Albumin/Globulin Ratio 1.5 Lipase Urine Color Urine Appearance Urine pH Ur Specific Tobias Urine Protein Urine Glucose (UA) Urine Ketones Urine Blood Urine Nitrate Urine Bilirubin Urine Urobilinogen Ur Leukocyte Esterase Urine RBC Urine WBC Ur Squamous Epith Cells Urine Bacteria 10/05/25 10/05/25 17:37 17:19 WBC 6.1 RBC 4.59 Hgb 13.9 Hct 42.7 MCV 93.0 MCH 30.3 MCHC 32.6 RDW 13.0 Plt Count 194 MPV 10.8 H Neut % (Auto) 60.4 Lymph % (Auto) 26.4 Mcmullen % (Auto) 8.6 Eos % (Auto) 3.6 Baso % (Auto) 0.8 Neut # (Auto) 3.7 Lymph # (Auto) 1.6 Mcmullen # (Auto) 0.5 Eos # (Auto) 0.2 Baso # (Auto) 0.1 Sodium 134 L Potassium 4.1 Chloride 98 Carbon Dioxide 29 Anion Gap 11.1 BUN 19 H Creatinine 0.80 Estimated Creat Clear 46 Estimated GFR 70 Est GFR ( Amer) 85 Glucose 98 Calcium 9.5 Magnesium 1.9 Total Bilirubin 0.8 AST 97 H ALT 101 H Alkaline Phosphatase 64 Troponin I 0.05 H NT-Pro-B Natriuret Pep 72.8 Total Protein 7.4 Albumin 4.4 Globulin 3.0 Albumin/Globulin Ratio 1.5 Lipase 98 Urine Color Yellow Urine Appearance Clear Urine pH 6.0 Ur Specific Tobias 1.020 Urine Protein Negative Urine Glucose (UA) Negative Urine Ketones Negative Urine Blood Negative Urine Nitrate Negative Urine Bilirubin Negative Urine Urobilinogen 0.2 Ur Leukocyte Esterase 1+ A Urine RBC None Urine WBC 3-5 Ur Squamous Epith Cells 5-10 Urine Bacteria Trace DS: Diagnosis Discharge Diagnosis (1) Non-ST elevation myocardial infarction (NSTEMI): Status: Ruled-out Code(s): I21.4 - Non-ST elevation (NSTEMI) myocardial infarction Problem details: Elevated troponin likely due to hypertension with normal coronaries (2) Generalized weakness: Status: Acute Code(s): R53.1 - Weakness (3) Unsteady gait: Status: Acute Code(s): R26.81 - Unsteadiness on feet (4) Hyperlipidemia: Status: Acute Code(s): E78.5 - Hyperlipidemia, unspecified Qualifiers: Hyperlipidemia type: mixed hyperlipidemia Qualified Code(s): E78.2 - Mixed hyperlipidemia (5) Hypertension: Status: Acute Code(s): I10 - Essential (primary) hypertension Qualifiers: Hypertension type: primary hypertension Qualified Code(s): I10 - Essential (primary) hypertension (6) UTI (urinary tract infection): Status: Acute Code(s): N39.0 - Urinary tract infection, site not specified Problem details: Present on admission Meds Home Medications and Allergies Home Medications ?Medication ?Instructions ?Recorded ?Confirmed ?Type ferrous sulfate 140 mg (45 mg 140 mg PO DAILY Supplement 11/17/21 10/05/25 History iron) tablet,extended release (Slow Release Iron) multivitamin 1 tab PO DAILY Supplement 08/11/22 10/05/25 History tramadol 50 mg tablet 50 mg PO HS #90 tabs 04/30/25 10/05/25 Rx spironolactone 25 mg tablet 25 mg PO DAILY Fluid #90 tabs 06/20/25 10/05/25 Rx furosemide 40 mg tablet 40 mg PO DAILY 10/05/25 10/05/25 History gabapentin enacarbil 600 mg 600 mg PO DAILY 10/05/25 10/05/25 History tablet,extended release ([facility]) omeprazole 40 mg capsule,delayed 40 mg PO DAILY 10/05/25 10/05/25 History release pravastatin 80 mg tablet 80 mg PO HS 10/05/25 10/06/25 History cefdinir 300 mg capsule 300 mg PO BID #8 caps 10/06/25 Rx lisinopril 20 mg tablet 20 mg PO DAILY #30 tabs 10/06/25 Rx nitroglycerin 0.4 mg sublingual 0.4 mg sublingual Q5M PRN Chest 10/06/25 10/06/25 History tablet Pain citalopram 20 mg tablet 20 mg PO DAILY #90 tabs 10/07/25 Rx metoprolol succinate 50 mg 50 mg PO DAILY #90 tabs 10/07/25 Rx tablet,extended release 24 hr New Prescriptions to Start Prescriptions: cefdinir William Resendez lisinopril William Resendez Allergies Allergy/AdvReac Type Severity Reaction Status Date / Time Penicillins Allergy Intermediate I-RASH Verified 10/05/25 16:30 Sulfa (Sulfonamide Allergy Intermediate I-RASH Verified 10/05/25 16:30 Antibiotics) Discharge Plan Disposition Patient Disposition: Home, Self-Care Condition: Fair Follow up Plan Follow up with: Arjun Baez MD [Primary Care Provider, Medical] - Enter time for follow up Referral Note: please call Tuesday to make an appointment. Alphonso Montejo MD [Staff Physician, Cardiology] - 1 week Referral Note: Please call Tuesday to make an appointment. Prescriptions/Medication Reconciliation: New lisinopril 20 mg tablet 20 mg PO DAILY Qty: 30 0RF cefdinir 300 mg capsule 300 mg PO BID Qty: 8 0RF Continued ferrous sulfate [Slow Release Iron] 140 mg (45 mg iron) tablet extended release 140 mg PO DAILY multivitamin Tablet 1 tab PO DAILY tramadol 50 mg tablet 50 mg PO HS Qty: 90 1RF spironolactone 25 mg tablet 25 mg PO DAILY Qty: 90 1RF [facility] 600 mg tablet extended release 600 mg PO DAILY Rx Instructions: one tablet every evening at 5 pm with food pravastatin 80 mg tablet 80 mg PO HS Rx Instructions: take one tablet every evening omeprazole 40 mg capsule,delayed release(DR/EC) 40 mg PO DAILY Rx Instructions: TAKE 1 CAPSULE EVERY DAY furosemide 40 mg tablet 40 mg PO DAILY Rx Instructions: TAKE 1 TABLET EVERY DAY nitroglycerin 0.4 mg Tablet, Sublingual 0.4 mg SUBLINGUAL Q5M PRN (Reason: Chest Pain) Rx Instructions: do not exceed 3 doses per episode Discontinued lisinopril 10 mg tablet 10 mg PO DAILY Rx Instructions: TAKE 1 TABLET EVERY DAY No Action metoprolol succinate 50 mg tablet extended release 24 hr 50 mg PO DAILY Qty: 90 1RF Rx Instructions: TAKE 1 TABLET EVERY DAY citalopram 20 mg tablet 20 mg PO DAILY Qty: 90 1RF Rx Instructions: TAKE 1 TABLET EVERY DAY Problem Reconciliation Problems Reviewed?: Yes Patient Discharge Instructions ACTIVITY: Continue current activity DIET: continue same diet Patient Instructions: DI for Urinary Tract Infection (UTI), DI for Muscle Weakness Print Language: Tajik Providers Primary Care Provider: Arjun Baez Admit Provider: William Resendez Attending Provider: William Resendez
[2025-10-06] MEDS: LISINOPRIL 10MG TABLET 10 MG PO (13:14)
[2025-10-06] MEDS: METOPROLOL SUCCINATE XL 50MG TABLET 50 MG PO (13:14)
[2025-10-06] MEDS: BUMETANIDE 1 MG TABLET PO (13:14)
[2025-10-08 06:38] LABS: POC Glucose,Bedside 96 gm/dL (70-110)
--- NOTE | 2025-10-08 10:34 | SW/DCPLANNER ---
Spoke with patient on the phone. Patient stated that she is doing great. Patient stated that she is aware of her upcoming appointments. 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 Patient stated that she has no concerns or questions at this time. Ella Hubbard
== END 2025-10-06 13:35 | disposition home or self-care (01) ==
LOC: ER 21:02 → 2ND 21:19
PROVIDERS: Nurse Practitioner Acute Care; Physician Assistant; Admitting Provider Internal Medicine Adolescent Medicine; Emergency Provider Student in an Organized Health Care Education/Training Program; PCP Internal Medicine; Visit Provider Internal Medicine Adolescent Medicine
DX: I21.4 Non-ST elevation (NSTEMI) myocardial infarction (principal); R53.1 Weakness; R26.81 Unsteadiness on feet; E78.2 Mixed hyperlipidemia; I10 Essential (primary) hypertension; N39.0 Urinary tract infection, site not specified; F32.A Depression, unspecified; K21.9 Gastro-esophageal reflux disease without esophagitis; G25.81 Restless legs syndrome; G43.909 Migraine, unspecified, not intractable, without status migrainosus; G47.33 Obstructive sleep apnea (adult) (pediatric); Z90.49 Acquired absence of other specified parts of digestive tract; Z90.711 Acquired absence of uterus with remaining cervical stump; Z96.653 Presence of artificial knee joint, bilateral; Z82.49 Family history of ischemic heart disease and other diseases of the circulatory system; Z88.0 Allergy status to penicillin; Z88.2 Allergy status to sulfonamides; Z79.899 Other long term (current) drug therapy
CPT/HCPCS: 36415; 70450; 71045; 71275; 80053; 81001; 82962; 83690; 83735; 83880; 84484; 85025; 87086; 93005; 99285; G0378; J0696; J1650; Q9967